=== PATIENT | female | born 1945 | race Caucasian/White ===

== ENCOUNTER 2023-02-27 00:37 | Emergency (ER) | payer OTHER, MEDICARE ==
--- OUTSIDE RECORDS SUMMARY | 2023-02-27 00:50 | XMS REPORT | Continuity of Care Document ---
:1945 Author Organization [facility] t Address [address] [place] [address] Care Team Providers Name Role Phone HARRISON, CHERYL MAGUIRE Primary Care Physician UnavailELENA Darnell Attending Clinician Unavailable Edenilson Rodgers Attending Clinician Aravind Cohen MD Attending Clinician [phone] ARAVIND COHEN Attending Clinician Unavailable Aliza Marin MD Attending Clinician Unavailable Elva Vale MD Attending Clinician [phone] Jarvis Harley MA Attending Clinician Unavailable Carmen Arreaga MD Attending Clinician Elena Raygoza MD Attending Clinician [phone] Myla Sullivan MD Attending Clinician Gabriel Saab CRNA Attending Clinician Loly Attending Clinician Unavailable GAL HENRY Attending Clinician Unavailable RAMSES DAVIS Attending Clinician Unavailable Pob, [facility] Main Attending Clinician Unavailable Ramses Davis MD Attending Clinician Doctor Unassigned, [place]oret Attending Clinician Unavailable ELENA RAYGOZA Admitting Clinician Unavailable ARAVIND COHEN Admitting Clinician Unavailable QUINTIN_OSWALDO_Rachel Admitting Clinician Unavailable Payers Payer Name Policy Type Policy Number Effective Date Expiration Date S elinor MEDICARE A B [id number] 2001 00:00:00 AAR/NOBLE [id number] 2017 HEALTHCARE 00:00:00 MEDICARE B-[place]: [id number] 2001 [employer] 00:00:00 AAR HEALTHCARE [id number] 2015 OPTIONS (MEDICARE 00:00:00 SUPPLEMENT) MEDICARE PART A \\T\\ [id number] 2001 B 00:00:00 Problems Condition Condition Condition Status Onset Resolution Last Treating Co mments Source Name Details Category Date Date Treatment Clinician Date Achalasia Achalasia Disease Active [facility] Gastropare Gastropare Disease Active 2019- [facility] Hypothyroi Hypothyroi Problem Active 2018- P rivia dism dism 4-08 Medical 00:00: 00 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 0-18 01:00:09 l s without s without 00:00: Herm trinh myelopathy myelopathy 00 (disorder) (disorder) Active 06/06/2017 Problem 02/25/2023 [facility] Lumbar Lumbar Problem Active 2016-082023-02-25 [facility] radiculopa radiculopa 0-18 01:00:09 l thy thy 00:00: Elver (disorder) (disorder) 00 Active 06/06/2017 Problem 02/25/2023 [facility] Major Major Problem Active 2016-082023-02-25 Sammy dyer depression depression 0-18 01:00:09 l , single , single 00:00: Broderick n episode episode 00 (disorder) (disorder) Active 06/06/2017 Problem 02/25/2023 [facility] Pancreatit Pancreatit Problem Active 2016-08 P bobbi is is 0-09 Medical 00:00: 00 Hypothyroi Hypothyro Problem Active 2023-02-25 Memoria dism idism 05-09 01:00:09 l (disorder) (disorder) 00:00: He rmann Active 00 05/09/2017 Problem 02/25/2023 [facility] Myoclonus Myoclonus Problem Active 2023-02-25 Memoria (finding) (finding) 05-09 01:00:09 l Active 00:00: Brinklow 05/09/2017 00 Problem 02/25/2023 [facility] Paresthesi Paresthes Problem Active 2023-02-25 Memoria a ia 05-09 01:00:09 l (finding) (finding) 00:00: Herm trinh Active 00 05/09/2017 Problem 02/25/2023 [facility] Spasm Spasm Problem Active 2023-02-25 Memor ia (finding) (finding) 05-09 01:00:09 l Active 00:00: Elver 05/09/2017 00 Problem 02/25/2023 [facility] Pancreatit Pancreatit Disease Active Anabela mack is is 04-10 [facility] 00:00: Hospita 00 l 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 [facility]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 (disorder) (disorder) Active Problem 02/25/2023 [facility] Headache Headache Problem Active 2023-02-25 Memoria (finding) (finding) 01:00:09 l Active Elver Problem 02/25/2023 [facility] Osteopenia Osteopeni Problem Active 2023-02-25 Memoria (disorder) a 01:00:09 l (disorder) Broderick n Active Problem 02/25/2023 [facility] Neu[facility] Boyd Acute Acute Problem Resolve 2022-05-28 2022-05-28 Memoria pancreatit pancreatit d 05-09 03:32:00 03:32:00 l is is 00:00: Elver (disorder) (disorder) 00 Resolved 05/09/2017 Problem 05/28/2022 [facility] Allergies, Adverse Reactions, Alerts Allergy Allergy Status Severity Reaction(s) Onset Inactive Treating Comm ents Source Name Type Date Date Clinician Gabapent Drug Active Other (See Severe [facility] in Allergy Comments) 8-24 headache [facility] 00:00: Medical 00 [place] GABAPENT Allergy Active High Other [facility] IN 8-24 [facility] 00:[facility]: Medical 00 [place] Prochlor Drug Active Other (See 2019-[address] perazine Allergy Comments) 0-02 Reaction Yue kes 00:00: to Combid Medical 00 in 1960s, Center also related to Thorazine )Neurotox ic (Severe Seizures) PROCHLOR Allergy Active High Other 2019-[address] [facility] PERAZINE 0-02 [facility] 00:00: Medical 00 [place] Baclofen Drug Active Anaphylaxis, 2017-[address] Allergy Other (See 0-17 muscle [facility] Comments) 00:00: spasms Medical 00 (seizure Center like), headache Hydromor Drug Active Other (See 2017-[address] phone Allergy Comments) 0-17 Headache Luke s 00:00: Medical 00 [place] Influenz Drug Active Hives, 2017-[address] [facility] a Virus Allergy Shortness Of 0-17 Y[facility] k[facility] Vaccines Breath, 00:00: Medical Swelling 00 [place] Iodine Propensi Active Anaphylaxis 2017-[address] [facility] [address] And ty to 0-17 [facility] Iodide adverse 00:00: Medical Containi reaction 00 [place] ng s Products Lipase-P Drug Active Other (See 2017-[address] rotease- Allergy Comments) 0-17 blisters Yue kes Amylase 00:00: Medical 00 [place] Pork/Por Drug Active Hives 2017-[address] [facility] cine Allergy 0-17 [facility] Containi 00:00: Medical ng 00 [place] Products EGG Allergy Active High Hives 2017-[address] [facility] [facility] 0-17 [facility] 00:00: Medical 00 [place] HYDROMOR Allergy Active High Other 2017-[address] [facility] PHONE 0-17 [facility] 00:00: Medical 00 [place] INFLUENZ Allergy Active High Hives 2017-[address] [facility] A VIRUS 0-17 [facility] VACCINES 00:00: Medical 00 [place] IODINE Allergy Active High Anaphylaxis 2017-[address] [facility] AND 0-17 [facility] IODIDE 00:00: Medical CONTAINI 00 Center NG PRODUCTS PENICILL Allergy Active High Anaphylaxis 2017-[address] INS 0-17 [facility] 00:00: Medical 00 Center SULFA Allergy Active High Sob 2017-[address] [facility] (SULFONA 0-17 [facility] MIDE 00:00: Medical ANTIBIOT 00 Center ICS) ADHESIVE Allergy Active High Other 2017-[address] [facility] TAPE 0-17 [facility] 00:00: Medical 00 Center LIPASE-P Allergy Active High Other 2017-[address] ROTEASE- 0-17 [facility] AMYLASE 00:00: Medical 00 [place] PORK/POR Allergy Active High Hives 2017-[address] [facility] CINE 0-17 [facility] CONTAINI 00:00: Medical NG 00 Center PRODUCTS BACLOFEN Allergy Active High Anaphylaxis 2017-[address] 0-17 [facility] 00:00: Medical 00 [place] PROCHLOR Allergy Active High Other 2017-[address] PERAZINE 0-17 [facility] EDISYLAT 00:00: Medical E 00 Center Egg Drug Active Hives, 2017-[address] Allergy Shortness Of 0-12 based [facility] Breath, 00:00: productsP Medica l Swelling 00 t able to Cente r eat hardboile d egg but not any vaccine /medicine that is egg based EGG Allergy Active High Hives 2017-[address] [facility] [facility] 0-12 [facility] 00:00: Medical 00 [place] Pregabal Drug Active Rash, Other headache [facility] in Allergy (See 02-07 [facility] Comments) 00:00: Medical 00 [place] Chlorpro Drug Active Other (See Original [facility] mazine Allergy Comments) 6 Reaction Luke s 00:00: to Combid Medical 00 in 1960s, Center also related to Thorazine )Neurotox ic (Severe Seizures) PREGABAL Allergy Active High Rash [facility] IN 6-21 [facility] 00:[facility]: Medical 00 Center CHLORPRO Allergy Active High Other [facility] MAZINE 6-21 [facility] 00:00: Medical 00 [place] SULFUR Allergy Active High Hives [facility] 9[facility]29 [facility] 00:00: Medical 00 [place] Flu Vac Propensi Active Methodi 2014 (65 ty to 04-10 st Up)-Mf59 adverse 00:00: Hospita c(Pf) reaction 00 l s to drug Hydromor Propensi Active Severe Method i phone ty to 04-[address] adverse 00:00: Hospita reaction 00 l s to drug Iodine Propensi Active Swelling Method i ty to 04-10 st adverse 00:00: Hospita reaction 00 l s to drug Morphine Propensi Active Severe Method i ty to 04-[address] adverse 00:00: Hospita reaction 00 l s to drug MORPHINE Allergy Active Low [facility] 04[facility]10 [facility] 00:[facility]: Medical 00 Center Prochlor Propensi Active Other (See Seizures, Methodi perazine ty to Comments) 04-[address] adverse 00:00: drugs Hospita reaction 00 l s to drug Penicill Propensi Active Anaphylaxis M ethodi ins ty to 04-09 st adverse 00:00: Hospita reaction 00 l s to drug Sulfa Propensi Active Swelling Method i (Sulfona ty to 04-09 st mide adverse 00:00: Hospita Antibiot reaction 00 l ics) s to drug Adhesive Propensi Active Other (See Blisters/ Methodi Tape-Chaya ty to Comments) 04-[address] icones adverse 00:00: peeling Hospita reaction 00 l s to drug Adhesive Drug Active Other (See Blisters/ [facility] Tape-Chaya Allergy Comments) 04-09 skin Luke s icones 00:00: peelingTe Medical 00 ars Skin, Center BlistersP aper tape okay ADHESIVE Allergy Active Med Other [facility] TAPE-CHAYA 04-09 [facility] ICONES 00:00: Medical 00 Center MEDICAL Allergy Active Severe Other [facility] ADHESIVE to -12 Medical substanc 00:00: e 00 OSTOMY Allergy Active High Other [facility] SUPPLIES -12 00:00: 00 Penicill Drug Active Anaphylaxis, [facility] ins Allergy Shortness Of 5-13 [facility] Breath, 00:00: Medical Swelling, 00 Center Hives, Itching PENICILL Allergy Active High Anaphylaxis [facility] INS 5-13 [facility] 00:00: Medical 00 Center PENICILL Allergy Active Severe, Anaphylaxis, [facility] INS to Severe, Hives, 5-13 Medical substanc Moderate Itching 00:00: e to severe 00 Morphine Drug Active Other (See Severe [facility] Allergy Comments) 814 Headache- William es 00:00: as per pt Medical 00 can Center tolerate IV form Morphine- has received and tolerated - only has problem with pill form of Morphine MORPHINE Allergy Active High Other [facility] 8- [facility] 00:[facility]: Medical 00 Center Morphine Allergy Active Severe, Headache, Licha via to Moderate Other 04-02 Medical substanc to severe 00:00: e 00 Sulfa Drug Active Shortness Of Swelling [facility] (Sulfona Allergy Breath, 12-24 of throat [facility] es mide Swelling, 00:00: Medical Antibiot Rash, Other [address] ics) (See Comments) SULFA Allergy Active High Sob [facility] (SULFONA 12-24 [facility] MIDE 00:00: Medical ANTIBIOT 00 Center ICS) SULFA Allergy Active Severe, Eye [facility] (SULFONA to Moderate swelling, 12-24 Med ical MIDE substanc to Other, Rash 00:00: ANTIBIOT e severe, 00 ICS) Severe Compazin Allergy Active Severe Other [facility] e to 24 Medical substanc 00:00: e 00 Egg Drug Active Swelling, [facility] Derived Allergy Hives, 12 [facility] Itching 00:00: Medical 00 Center EGG Allergy Active High Swelling [facility] DERIVED 1-12 [facility] 00:00: Medical 00 Center EGG Allergy Active Severe, Edema, [facility] DERIVED to Moderate Hives, -12 Medical substanc to Itching 00:00: e severe, 00 Moderate to severe penicill penicill Active Memori a ins ins l [place] sulfa sulfa Active Memoria drugs drugs l [place] baclofen baclofen Active Moderate Yann meghna l Elver Creon Creon Active Mild Memoria l [place] Lyrica Lyrica Active Mild Memoria l [place] Adhesive Adhesive Active Memori a l [place] Thorazin Thorazin Active Memori a e e l Elver Compazin Compazin Active Memori a e e l [place] Food Food Active Memoria Eggs Eggs l [place] Duloxeti Drug Active Other (See Cymbalta [facility] ne Allergy Comments) headache Luke s & rash [facility] DULOXETI Allergy Active High Other [facility] Creon Allergy Active Moderate Chest pain Licha via to to severe Medical substanc e NO KNOWN Drug Active Univers ALLERGIE Class ity of S [facility] Family History Family Member Diagnosis Comments Start Date Stop Date Source Natural brother Cancer [facility] Natural father Hypertension [facility] Maternal aunt [facility] Natural mother Cancer [facility] Natural mother [facility] Social History Social Habit Start Date Stop Date Quantity Comments Source Gender identity 2021-09-25 Identifies as Method ist 13:49:54 female gender Hospital (finding) Sexual orientation 2021-09-25 Heterosexual Meth odist 13:49:54 (finding) Hospital Exposure to 2022-10-29 2022-11-[address] [facility] SARS-CoV-2 (event) 00:00:00 06:31:[facility] Alcohol intake 2022-11-08 2022-11-08 Current non-drinker [facility] 00:00:00 00:00:00 of alcohol Medical Center (finding) History of Social 2022-05-23 2022-05-[address] function 00:00:00 00:00:00 Hospital Tobacco use and 2018-06-05 2018-06-[address] [facility] exposure 00:00:00 00:00:00 non-user Medical Center Sex Assigned At [address] Yue kes 00:00:00 00:00:00 Medical Center Smoking Status Start Date Stop Date Source Unknown if ever smoked [facility] Tobacco smoking status [facility] Medications Ordered Filled Start Stop Current Ordering Indication Dosage Frequency Signature Comments Components Source Medication Medication Date Date Medication? Clinician (SIG) Name Name diazepam 5 Yes 5 mg = 1 Mem oria mg oral -08 tab, PO, l tablet 23:00: TID, # 90 Broderick n 00 tab, 3 Refill(s), Pharmacy: [facility][id number], 152.4, cm, 11/23/22 14:55:00 CDT, Height, 54.545, kg, 11/23/22 14:55:00 CDT, Weight trypsin/bal Yes Apply [facility] oren 3-22 topically. [facility] alyssa/castor 11:21: Medica l oil (OPTASE 10 Center TOP) loratadine Yes 10mg QD Take 1 [facility] (CLARITIN) - tablet (10 [facility] 10 mg 11:21: mg total) Medical tablet 10 by mouth Center in the morning. cholecalcif 2022-0 Yes 1000U QD Take 1 [facility] yeny 11-08 tablet [facility] (VITAMIN 11:21: (1,000 Medical D3) 25 mcg 10 Units Center (1,000 total) by unit) mouth in tablet the morning. multivitami 2022-0 Yes 1{capsu QD Take [address] n capsule 11-08 le} capsule by Luke s 11:21: mouth in Medical 10 the Center morning. calcium 2022-0 Yes 600mg Take 600 [facility] carbonate 3- mg by [facility] 600mg 11:21: mouth 2 Medical (Caltrate) 10 (two) Center 600 mg times calcium daily with (1,500 mg) breakfast Tab and dinner. cyanocobala 0 Yes 250ug QD Take 1 [facility] min, 11-08 tablet [facility] vitamin 11:21: (250 mcg Medica l B-12, 250 10 total) by Cente r MCG tablet mouth in the morning. FD and C 0 Yes by [facility] no.40 red, 11-08 Miscellane [facility] es bulk, Powd 11:21: ous route. M edical 10 [place] moxifloxaci Yes 1[drp] Q.[id number] 1 drop in [facility] (VIGAMOX) 11-08 [id number] the Yue kes 0.5 % 11:21: 3D morning Medical ophthalmic 10 and [address] solution at noon and 1 drop in the evening. bromfenac 0 Yes Apply to [facility] (Prolensa) 11-08 eye(s). [facility] 0.07 % Drop 11:21: Medica l 10 [place] diflupredna 0 Yes Apply to I te 11-08 eye(s). [facility] (DurezoL) 11:21: Medical 0.05 % Drop 10 Center trypsin/bal 0 Yes Apply [facility] S t oren 11-08 topically. [facility] alyssa/castor 11:21: Medica l oil (OPTASE 10 Center TOP) loratadine 2022-0 Yes 10mg QD Take 1 [facility] (CLARITIN) -22 tablet (10 [facility] 10 mg 11:21: mg total) Medical tablet 10 by mouth Center in the morning. cholecalcif 2022-0 Yes 1000U QD Take [address] [facility] [address] yeny 11-08 tablet [facility] (VITAMIN 11:21: (1,000 Medical D3) 25 mcg 10 Units Center (1,000 total) by unit) mouth in tablet the morning. multivitami 2022-0 Yes 1{capsu QD Take [address] n capsule 11-08 le} capsule by Luke s 11:21: mouth in Medical 10 the Center morning. calcium 2022-0 Yes 600mg Take 600 [facility] carbonate 3- mg by [facility] 600mg 11:21: mouth 2 Medical (Caltrate) 10 (two) Center 600 mg times calcium daily with (1,500 mg) breakfast Tab and dinner. cyanocobala 0 Yes 250ug QD Take [address] [facility] [address] min, 11-08 tablet [facility] vitamin 11:21: (250 mcg Medica l B-12, 250 10 total) by Cente r MCG tablet mouth in the morning. FD and C 2022-0 Yes by [facility] no.40 red, 11-08 Miscellane [facility] es bulk, Powd 11:21: ous route. M edical 10 [place] moxifloxaci 0 Yes 1[drp] Q.[id number] 1 drop in [facility] n (VIGAMOX) 11-08 [id number] the Yue kes 0.5 % 11:21: 3D morning Medical ophthalmic 10 and [address] solution at noon and 1 drop in the evening. bromfenac Yes Apply to [facility] St (Prolensa) 11-08 eye(s). [facility] 0.07 % Drop 11:21: Medica l 10 [place] diflupredna 0 Yes Apply to I St te 11-08 eye(s). [facility] (DurezoL) 11:21: Medical 0.05 % Drop 10 Center trypsin/bal 0 Yes Apply [facility] oren 11-08 topically. [facility] alyssa/castor 11:21: Medica l oil (OPTASE 10 Center TOP) loratadine 2022-0 Yes 10mg QD Take 1 [facility] (CLARITIN) 3-22 tablet (10 [facility] 10 mg 11:21: mg total) Medical tablet 10 by mouth Center in the morning. cholecalcif 2022-0 Yes 1000U QD Take [address] [facility] [address] yeny 11-08 tablet [facility] (VITAMIN 11:21: (1,000 Medical D3) 25 mcg 10 Units Center (1,000 total) by unit) mouth in tablet the morning. multivitami 2022-0 Yes 1{capsu QD Take [address] n capsule 11-08 le} capsule by Luke s 11:21: mouth in Medical 10 the Center morning. calcium 2022-0 Yes 600mg Take 600 [facility] carbonate - mg by [facility] 600mg 11:21: mouth 2 Medical (Caltrate) 10 (two) Center 600 mg times calcium daily with (1,500 mg) breakfast Tab and dinner. cyanocobala 2022-0 Yes 250ug QD Take [address] min, 11-08 tablet [facility] vitamin 11:21: (250 mcg Medica l B-12, 250 10 total) by Cente r MCG tablet mouth in the morning. FD and C 2022-0 Yes by [facility] no.40 red, 11-08 Miscellane [facility] es bulk, Powd 11:21: ous route. M edical 10 [place] moxifloxaci 0 Yes 1[drp] Q.[id number] 1 drop in [facility] (VIGAMOX) 11-08 [id number] the kes 0.5 % 11:21: 3D morning Medical ophthalmic 10 and [address] solution at noon and 1 drop in the evening. bromfenac Yes Apply to [facility] St (Prolensa) 11-08 eye(s). [facility] 0.07 % Drop 11:21: Medica l 10 Center diflupredna 0 Yes Apply to I St te 11-08 eye(s). [facility] (DurezoL) 11:21: Medical 0.05 % Drop 10 Center trypsin/bal 0 Yes Apply [facility] t oren 11-08 topically. [facility] alyssa/castor 11:21: Medica l oil (OPTASE 10 Center TOP) loratadine 2022-0 Yes 10mg QD Take 1 [facility] (CLARITIN) 11-08 tablet (10 [facility] 10 mg 11:21: mg total) Medical tablet 10 by mouth Center in the morning. cholecalcif 0 Yes 1000U QD Take [address] [facility] [address] yeny 11-08 tablet [facility] (VITAMIN 11:21: (1,000 Medical D3) 25 mcg 10 Units Center (1,000 total) by unit) mouth in tablet the morning. multivitami 2022-0 Yes 1{capsu QD Take [address] n capsule 11-08 le} capsule by Luke s 11:21: mouth in Medical 10 the Center morning. calcium 2022-0 Yes 600mg Take 600 [facility] carbonate 3-22 mg by [facility] 600mg 11:21: mouth 2 Medical (Caltrate) 10 (two) Center 600 mg times calcium daily with (1,500 mg) breakfast Tab and dinner. cyanocobala 0 Yes 250ug QD Take [address] [facility] [address] min, 11-08 tablet [facility] vitamin 11:21: (250 mcg Medica l B-12, 250 10 total) by Cente r MCG tablet mouth in the morning. FD and C 0 Yes by [facility] no.40 red, 11-08 Miscellane [facility] bulk, Powd 11:21: ous route. M edical 10 [place] moxifloxaci Yes 1[drp] Q.[id number] 1 drop in [facility] (VIGAMOX) 11-08 [id number] the kes 0.5 % 11:21: 3D morning Medical ophthalmic 10 and [address] solution at noon and 1 drop in the evening. bromfenac Yes Apply to [facility] (Prolensa) 11-08 eye(s). [facility] 0.07 % Drop 11:21: Medica l 10 [place] diflupredna 0 Yes Apply to I [facility] te 11-08 eye(s). [facility] (DurezoL) 11:21: Medical 0.05 % Drop 10 [place] trypsin/bal 0 Yes Apply [facility] S t oren 11-08 topically. [facility] alyssa/castor 11:21: Medica l oil (OPTASE 10 Center TOP) loratadine 0 Yes 10mg QD Take 1 [facility] (CLARITIN) 11-08 tablet (10 [facility] 10 mg 11:21: mg total) Medical tablet 10 by mouth Center in the morning. cholecalcif 2022-0 Yes 1000U QD Take 1 [facility] yeny - tablet [facility] (VITAMIN 11:21: (1,000 Medical D3) 25 mcg 10 Units Center (1,000 total) by unit) mouth in tablet the morning. multivitami 2022-0 Yes 1{capsu QD Take [address] n capsule 11-08 le} capsule by Luke s 11:21: mouth in Medical 10 the Center morning. calcium 2022-0 Yes 600mg Take 600 [facility] carbonate 3-22 mg by [facility] 600mg 11:21: mouth 2 Medical (Caltrate) 10 (two) Center 600 mg times calcium daily with (1,500 mg) breakfast Tab and dinner. cyanocobala 0 Yes 250ug QD Take 1 [facility] min, 11-08 tablet [facility] vitamin 11:21: (250 mcg Medica l B-12, 250 10 total) by Cente r MCG tablet mouth in the morning. FD and C 2022-0 Yes by [facility] no.40 red, 11-08 Miscellane [facility] bulk, Powd 11:21: ous route. M edical 10 [place] moxifloxaci 0 Yes 1[drp] Q.[id number] 1 drop in [facility] (VIGAMOX) 11-08 [id number] the kes 0.5 % 11:21: 3D morning Medical ophthalmic 10 and [address] solution at noon and 1 drop in the evening. bromfenac Yes Apply to [facility] (Prolensa) 11-08 eye(s). [facility] 0.07 % Drop 11:21: Medica l 10 [place] diflupredna 0 Yes Apply to I [facility] te 11-08 eye(s). [facility] (DurezoL) 11:21: Medical 0.05 % Drop 10 [place] trypsin/bal 0 Yes Apply [facility] S t oren 11-08 topically. [facility] alyssa/castor 11:21: Medica l oil (OPTASE 10 Center TOP) loratadine 2022-0 Yes 10mg QD Take 1 [facility] (CLARITIN) - tablet (10 [facility] 10 mg 11:21: mg total) Medical tablet 10 by mouth Center in the morning. cholecalcif 2022-0 Yes 1000U QD Take [address] [facility] [address] yeny - tablet [facility] (VITAMIN 11:21: (1,000 Medical D3) 25 mcg 10 Units Center (1,000 total) by unit) mouth in tablet the morning. multivitami 2022-0 Yes 1{capsu QD Take [address] n capsule 11-08 le} capsule by Luke s 11:21: mouth in Medical 10 the Center morning. calcium 2022-0 Yes 600mg Take 600 [facility] carbonate 3-22 mg by [facility] 600mg 11:21: mouth 2 Medical (Caltrate) 10 (two) Center 600 mg times calcium daily with (1,500 mg) breakfast Tab and dinner. cyanocobala 2022-0 Yes 250ug QD Take [address] min, 11-08 tablet [facility] vitamin 11:21: (250 mcg Medica l B-12, 250 10 total) by Cente r MCG tablet mouth in the morning. FD and C 2022-0 Yes by [facility] no.40 red, 3 Miscellane [facility] es bulk, Powd 11:21: ous route. M edical 10 [place] moxifloxaci 2022-0 Yes 1[drp] Q.[id number] 1 drop in [facility] (VIGAMOX) 11-08 [id number] the kes 0.5 % 11:21: 3D morning Medical ophthalmic 10 and [address] solution at noon and 1 drop in the evening. bromfenac 0 Yes Apply to [facility] (Prolensa) 3-22 eye(s). [facility] 0.07 % Drop 11:21: Medica l 10 Center diflupredna 0 Yes Apply to I [facility] te -22 eye(s). [facility] (DurezoL) 11:21: Medical 0.05 % Drop 10 Center HYDROcodone 2022-0 Yes 1{tbl} Q.25D Take [address] -acetaminop -22 tablet by William greene (NORCO 11:21: mouth in Med ical 7.5-325) 09 the Center 7.5-325 mg morning per tablet and 1 tablet at noon and 1 tablet in the evening and 1 tablet before bedtime. diazePAM 2023-0 Yes 5mg Q.[id number] Take [address] (VALIUM) 5 -22 [id number] tablet (5 [facility] MG tablet 11:21: 3D mg total) Med ical 09 by mouth Center in the morning and 1 tablet (5 mg total) at noon and 1 tablet (5 mg total) in the evening. 0500, 1100, 1700, 2300. levothyroxi 2023-0 Yes 88ug Take [address] [facility] ne 3-22 tablet (88 [facility] (SYNTHROID, 11:21: mcg total) Medical LEVOTHROID) 09 by mouth Cent er 88 MCG Every tablet morning on an empty stomach 0730 . fluticasone 2022-0 Yes 1{spray [address] [facility] (FLONASE) 11-08 } Nasal [facility] 50 11:21: route Medical mcg/actuati 09 daily as Cent er on nasal needed for spray Rhinitis. acetaminoph 2023-0 Yes 500mg Take [address] [facility] [facility] en -22 tablet [facility] (TYLENOL) 11:21: (500 mg Medic al 500 MG 09 total) by Center tablet mouth every 6 (six) hours as needed for Pain. omeprazole 2022-0 Yes 20mg Take [facility] -[facility] 20 [facility] 11:21: (20 mg Medical capsule 09 total) by Center mouth as needed. estradioL 3-[address] [facility] (ESTRACE) 3-22 vaginally [facility] 0.01 % (0.1 11:21: as needed. Medical mg/gram) 09 Center vaginal cream escitalopra 2022-0 Yes 30mg QD Take [address] [facility] oxalate 3-22 tablets [facility] (LEXAPRO) 11:21: (30 mg Medica l 10 MG 09 total) by Center tablet mouth in the morning. mirtazapine 3-0 Yes 7.5mg Take [address] [facility] (REMERON) 3-22 tablet [facility] 7.5 MG 11:21: (7.5 mg Medical tablet 09 total) by Center mouth as needed. prednisoLON 3-0 Yes 1[drp] Q.25D Place [address] [facility] E acetate 3-22 drop into [facility] (PRED 11:21: the left Medical FORTE) 1 % 09 eye in [facility] ophthalmic morning suspension and 1 drop at noon and 1 drop in the evening and 1 drop before bedtime. lipase-prot 2022-0 Yes 5000U{l Take [address] ease-amylas 3-22 ipase} capsule [facility] (ZENPEP) 11:21: (5,000 Medic al 5,000-17,00 09 units of Cent er 0- 24,000 lipase unit CpDR total) by mouth in the morning and 1 capsule (5,000 units of lipase total) at noon and 1 capsule (5,000 units of lipase total) in the evening. Take with meals. HYDROcodone 2022-0 Yes 1{tbl} Q.25D Take [address] -acetaminop 3-22 tablet by [facility] hen (NORCO 11:21: mouth in Med ical 7.5-325) 09 the Center 7.5-325 mg morning per tablet and 1 tablet at noon and 1 tablet in the evening and 1 tablet before bedtime. diazePAM 2022-0 Yes 5mg Q.[id number] Take [address] (VALIUM) 5 3-22 [id number] tablet (5 [facility] MG tablet 11:21: 3D mg total) Med ical 09 by mouth Center in the morning and 1 tablet (5 mg total) at noon and 1 tablet (5 mg total) in the evening. 0500, 1100, 1700, 2300. levothyroxi 2022-0 Yes 88ug Take [address] [facility] ne 3-22 tablet (88 [facility] (SYNTHROID, 11:21: mcg total) Medical LEVOTHROID) 09 by mouth Cent er 88 MCG Every tablet morning on an empty stomach 0730 . fluticasone 2022-0 Yes 1{spray [address] [facility] (FLONASE) 3-22 } Nasal [facility] 50 11:21: route Medical mcg/actuati 09 daily as Cent er on nasal needed for spray Rhinitis. acetaminoph 2022-0 Yes 500mg Take [address] [facility] en 3-22 tablet [facility] (TYLENOL) 11:21: (500 mg Medic al 500 MG 09 total) by Center tablet mouth every 6 (six) hours as needed for Pain. omeprazole 2022-0 Yes 20mg Take [facility]-22 [facility] 20 MG 11:21: (20 mg Medical capsule 09 total) by Center mouth as needed. estradioL 2022-[address] [facility] (ESTRACE) 3-22 vaginally [facility] 0.01 % (0.1 11:21: as needed. Medical mg/gram) 09 Center vaginal cream escitalopra 2022-0 Yes 30mg QD Take [address] [facility] oxalate 3-22 tablets [facility] (LEXAPRO) 11:21: (30 mg Medica l 10 MG 09 total) by Center tablet mouth in the morning. mirtazapine 2022-0 Yes 7.5mg Take [address] [facility] (REMERON) 3-22 tablet [facility] 7.5 MG 11:21: (7.5 mg Medical tablet 09 total) by Center mouth as needed. prednisoLON 2022-0 Yes 1[drp] Q.25D Place [address] [facility] E acetate 3-22 drop into [facility] (PRED 11:21: the left Medical FORTE) 1 % 09 eye in the [facility] ter ophthalmic morning suspension and 1 drop at noon and 1 drop in the evening and 1 drop before bedtime. lipase-prot 0 Yes 5000U{l Take [address] ease-amylas 3-22 ipase} capsule [facility] (ZENPEP) 11:21: (5,000 Medic al 5,000-17,00 09 units of Cent er 0- 24,000 lipase unit CpDR total) by mouth in the morning and 1 capsule (5,000 units of lipase total) at noon and 1 capsule (5,000 units of lipase total) in the evening. Take with meals. HYDROcodone 2022-0 Yes 1{tbl} Q.25D Take [address] -acetaminop 3-22 tablet by [facility] hen (NORCO 11:21: mouth in Med ical 7.5-325) 09 the Center 7.5-325 mg morning per tablet and 1 tablet at noon and 1 tablet in the evening and 1 tablet before bedtime. diazePAM 2022-0 Yes 5mg Q.[id number] Take [address] (VALIUM) 5 3-22 [id number] tablet (5 [facility] MG tablet 11:21: 3D mg total) Med ical 09 by mouth Center in the morning and 1 tablet (5 mg total) at noon and 1 tablet (5 mg total) in the evening. 0500, 1100, 1700, 2300. levothyroxi 2022-0 Yes 88ug Take [address] [facility] ne 3-22 tablet (88 [facility] (SYNTHROID, 11:21: mcg total) Medical LEVOTHROID) 09 by mouth Cent er 88 MCG Every tablet morning on an empty stomach 0730 . fluticasone 2022-0 Yes 1{spray [address] [facility] (FLONASE) 3- } Nasal [facility] 50 11:21: route Medical mcg/actuati 09 daily as Cent er on nasal needed for spray Rhinitis. acetaminoph 2022-0 Yes 500mg Take [address] [facility] en 3-22 tablet [facility] (TYLENOL) 11:21: (500 mg Medic al 500 MG 09 total) by Center tablet mouth every 6 (six) hours as needed for Pain. omeprazole 2022-0 Yes 20mg Take [facility]PRIL[facility]SEC[facility]-22 [facility] 20 MG 11:21: (20 mg Medical capsule 09 total) by Center mouth as needed. estradioL 2022-[address] [facility] (ESTRACE) 3-22 vaginally [facility] 0.01 % (0.1 11:21: as needed. Medical mg/gram) 09 Center vaginal cream escitalopra 2022-0 Yes 30mg QD Take [address] [facility] oxalate 3-22 tablets [facility] (LEXAPRO) 11:21: (30 mg Medica l 10 MG 09 total) by Center tablet mouth in the morning. mirtazapine 2022-0 Yes 7.5mg Take [address] [facility] (REMERON) 3-22 tablet [facility] 7.5 MG 11:21: (7.5 mg Medical tablet 09 total) by Center mouth as needed. prednisoLON 2022-0 Yes 1[drp] Q.25D Place [address] [facility] acetate 3-22 drop into [facility] (PRED 11:21: the left Medical FORTE) 1 % [address] ophthalmic morning suspension and 1 drop at noon and 1 drop in the evening and 1 drop before bedtime. lipase-prot 2022-0 Yes 5000U{l Take [address] ease-amylas 3-22 ipase} capsule [facility] (ZENPEP) 11:21: (5,000 Medic al 5,000-17,00 09 units of Cent er 0- 24,000 lipase unit CpDR total) by mouth in the morning and 1 capsule (5,000 units of lipase total) at noon and 1 capsule (5,000 units of lipase total) in the evening. Take with meals. HYDROcodone 2022-0 Yes 1{tbl} Q.25D Take [address] -acetaminop 3-22 tablet by [facility] greene (NORCO 11:21: mouth in Med ical 7.5-325) 09 the Center 7.5-325 mg morning per tablet and 1 tablet at noon and 1 tablet in the evening and 1 tablet before bedtime. diazePAM 2023-0 Yes 5mg Q.[id number] Take [address] (VALIUM) 5 -22 [id number] tablet (5 [facility] MG tablet 11:21: 3D mg total) Med ical 09 by mouth Center in the morning and 1 tablet (5 mg total) at noon and 1 tablet (5 mg total) in the evening. 0500, 1100, 1700, 2300. levothyroxi 2022-0 Yes 88ug Take [address] [facility] ne 3-22 tablet (88 [facility] (SYNTHROID, 11:21: mcg total) Medical LEVOTHROID) 09 by mouth Cent er 88 MCG Every tablet morning on an empty stomach 0730 . fluticasone 2022-0 Yes 1{spray [address] [facility] (FLONASE) 11-08 } Nasal [facility] 50 11:21: route Medical mcg/actuati 09 daily as Cent er on nasal needed for spray Rhinitis. acetaminoph 202-0 Yes 500mg Take [address] [facility] en 3-22 tablet [facility] (TYLENOL) 11:21: (500 mg Medic al 500 MG 09 total) by Center tablet mouth every 6 (six) hours as needed for Pain. omeprazole 3-0 Yes 20mg Take [facility]PRILOSEC[facility] 3-22 capsule [facility] 20 MG 11:21: (20 mg Medical capsule 09 total) by Center mouth as needed. estradioL 2023-[address] [facility] (ESTRACE) 3-22 vaginally [facility] 0.01 % (0.1 11:21: as needed. Medical mg/gram) 09 Center vaginal cream escitalopra 2022-0 Yes 30mg QD Take [address] [facility] oxalate 3-22 tablets [facility] (LEXAPRO) 11:21: (30 mg Medica l 10 MG 09 total) by Center tablet mouth in the morning. mirtazapine 0 Yes 7.5mg Take [address] [facility] (REMERON) 3-22 tablet [facility] 7.5 MG 11:21: (7.5 mg Medical tablet 09 total) by Center mouth as needed. prednisoLON 0 Yes 1[drp] Q.25D Place [address] [facility] acetate 3-22 drop into [facility] (PRED 11:21: the left Medical FORTE) 1 % [address] eye [address] ophthalmic morning suspension and 1 drop at noon and 1 drop in the evening and 1 drop before bedtime. lipase-prot Yes 5000U{l Take [address] ease-amylas 3-22 ipase} capsule [facility] (ZENPEP) 11:21: (5,000 Medic al 5,000-17,00 09 units of Cent er 0- 24,000 lipase unit CpDR total) by mouth in the morning and 1 capsule (5,000 units of lipase total) at noon and 1 capsule (5,000 units of lipase total) in the evening. Take with meals. HYDROcodone 0 Yes 1{tbl} Q.25D Take [address] -acetaminop 3-22 tablet by [facility] (NORCO 11:21: mouth in Med ical 7.5-325) 09 the Center 7.5-325 mg morning per tablet and 1 tablet at noon and 1 tablet in the evening and 1 tablet before bedtime. diazePAM 0 Yes 5mg Q.[id number] Take [address] (VALIUM) 5 3-22 [id number] tablet (5 [facility] MG tablet 11:21: 3D mg total) Med ical 09 by mouth Center in the morning and 1 tablet (5 mg total) at noon and 1 tablet (5 mg total) in the evening. 0500, 1100, 1700, 2300. levothyroxi 2022-0 Yes 88ug Take [address] [facility] ne 3-22 tablet (88 [facility] (SYNTHROID, 11:21: mcg total) Medical LEVOTHROID) 09 by mouth Cent er 88 MCG Every tablet morning on an empty stomach 0730 . fluticasone 0 Yes 1{spray [address] [facility] (FLONASE) 3-22 } Nasal [facility] 50 11:21: route Medical mcg/actuati 09 daily as Cent er on nasal needed for spray Rhinitis. acetaminoph 0 Yes 500mg Take [address] [facility] en 3-22 tablet [facility] (TYLENOL) 11:21: (500 mg Medic al 500 MG 09 total) by Center tablet mouth every 6 (six) hours as needed for Pain. omeprazole 0 Yes 20mg Take [facility]PRILOSEC[facility] 3-22 [facility] 20 MG 11:21: (20 mg Medical capsule 09 total) by Center mouth as needed. estradioL [address] [facility] (ESTRACE) 3-22 vaginally [facility] 0.01 % (0.1 11:21: as needed. Medical mg/gram) 09 Center vaginal cream escitalopra 0 Yes 30mg QD Take [address] [facility] oxalate 3-22 tablets [facility] (LEXAPRO) 11:21: (30 mg Medica l 10 MG 09 total) by Center tablet mouth in the morning. mirtazapine 0 Yes 7.5mg Take [address] [facility] (REMERON) 3-22 tablet [facility] 7.5 MG 11:21: (7.5 mg Medical tablet 09 total) by Center mouth as needed. prednisoLON 0 Yes 1[drp] Q.25D Place [address] [facility] acetate 3-22 drop into [facility] (PRED 11:21: the left Medical FORTE) 1 % [address] eye in [address] [facility] ter ophthalmic morning suspension and 1 drop at noon and 1 drop in the evening and 1 drop before bedtime. lipase-prot Yes 5000U{l Take [address] ease-amylas 3-22 ipase} capsule [facility] (ZENPEP) 11:21: (5,000 Medic al 5,000-17,00 09 units of Cent er 0- 24,000 lipase unit CpDR total) by mouth in the morning and 1 capsule (5,000 units of lipase total) at noon and 1 capsule (5,000 units of lipase total) in the evening. Take with meals. HYDROcodone 0 Yes 1{tbl} Q.25D Take [address] -acetaminop 3-22 tablet by William olson jc (NORCO 11:21: mouth in Med ical 7.5-325) 09 the Center 7.5-325 mg morning per tablet and 1 tablet at noon and 1 tablet in the evening and 1 tablet before bedtime. diazePAM 2023-0 Yes 5mg Q.[id number] Take [address] (VALIUM) 5 3-22 [id number] tablet (5 [facility] MG tablet 11:21: 3D mg total) Med ical 09 by mouth Center in the morning and 1 tablet (5 mg total) at noon and 1 tablet (5 mg total) in the evening. 0500, 1100, 1700, 2300. levothyroxi 2023-0 Yes 88ug Take [address] [facility] ne -22 tablet (88 [facility] (SYNTHROID, 11:21: mcg total) Medical LEVOTHROID) 09 by mouth Cent er 88 MCG Every tablet morning on an empty stomach 0730 . fluticasone 2022-0 Yes 1{spray [address] [facility] (FLONASE) 11-08 } Nasal [facility] 50 11:21: route Medical mcg/actuati 09 daily as Cent er on nasal needed for spray Rhinitis. acetaminoph 2022-0 Yes 500mg Take [address] [facility] en -22 tablet [facility] (TYLENOL) 11:21: (500 mg Medic al 500 MG 09 total) by Center tablet mouth every 6 (six) hours as needed for Pain. omeprazole 3-0 Yes 20mg Take [facility] (PRILOSEC[facility] -22 capsule [facility] 20 MG 11:21: (20 mg Medical capsule 09 total) by Center mouth as needed. estradioL 2023-[address] [facility] (ESTRACE) 3-22 vaginally [facility] 0.01 % (0.1 11:21: as needed. Medical mg/gram) 09 Center vaginal cream escitalopra 2023-0 Yes 30mg QD Take [address] [facility] oxalate 3-22 tablets [facility] (LEXAPRO) 11:21: (30 mg Medica l 10 MG 09 total) by Center tablet mouth in the morning. mirtazapine 2023-0 Yes 7.5mg Take [address] [facility] (REMERON) 3-22 tablet [facility] 7.5 MG 11:21: (7.5 mg Medical tablet 09 total) by Center mouth as needed. prednisoLON 0 Yes 1[drp] Q.25D Place [address] [facility] acetate 3-22 drop into [facility] (PRED 11:21: the left Medical FORTE) 1 % 09 eye in [address] [facility] ter ophthalmic morning suspension and 1 drop at noon and 1 drop in the evening and 1 drop before bedtime. lipase-prot Yes 5000U{l Take [address] ease-amylas 3-22 ipase} capsule [facility] (ZENPEP) 11:21: (5,000 Medic al 5,000-17,00 09 units of Cent er 0- 24,000 lipase unit CpDR total) by mouth in the morning and 1 capsule (5,000 units of lipase total) at noon and 1 capsule (5,000 units of lipase total) in the evening. Take with meals. bromfenac Yes Apply to [facility] (Prolensa) 3-22 eye(s). [facility] 0.07 % Drop 06:56: Medica l 30 Center diflupredna Yes Apply to I [facility] te 3-22 eye(s). [facility] (DurezoL) 06:56: Medical 0.05 % Drop 30 Center moxifloxaci 0 Yes 1[drp] Q.[id number] [address] [facility] (VIGAMOX) - [id number] the [facility] 0.5 % 06:55: 3D morning Medical ophthalmic 28 and [address] solution at noon and 1 drop in the evening. HYDROcodone 0 Yes 1{tbl} Q.25D Take [address] -acetaminop 3-22 tablet by William whitney hen (NORCO 06:52: mouth in Med ical 7.5-325) 26 the Center 7.5-325 mg morning per tablet and 1 tablet at noon and 1 tablet in the evening and 1 tablet before bedtime. diazePAM 2022-0 Yes 5mg Q.[id number] Take [address] (VALIUM) 5 3-22 [id number] tablet (5 [facility] MG tablet 06:52: 3D mg total) Med ical 26 by mouth Center in the morning and 1 tablet (5 mg total) at noon and 1 tablet (5 mg total) in the evening. 0500, 1100, 1700, 2300. levothyroxi 2023-0 Yes 88ug Take [address] [facility] ne 3-22 tablet (88 [facility] (SYNTHROID, 06:52: mcg total) Medical LEVOTHROID) 26 by mouth Cent er 88 MCG Every tablet morning on an empty stomach 0730 . fluticasone 3-0 Yes 1{spray [address] [facility] (FLONASE) 3-22 } Nasal [facility] 50 06:52: route Medical mcg/actuati 26 daily as Cent er on nasal needed for spray Rhinitis. acetaminoph 2023-0 Yes 500mg Take [address] [facility] en 3-22 tablet [facility] (TYLENOL) 06:52: (500 mg Medic al 500 MG 26 total) by Center tablet mouth every 6 (six) hours as needed for Pain. omeprazole 3-0 Yes 20mg Take [facility] (PRILOSEC[facility] 3-22 capsule [facility] 20 MG 06:52: (20 mg Medical capsule 26 total) by Center mouth as needed. estradioL 3-[address] [facility] (ESTRACE) 3-22 vaginally [facility] 0.01 % (0.1 06:52: as needed. Medical mg/gram) 26 Center vaginal cream escitalopra 2022-0 Yes 30mg QD Take [address] [facility] oxalate 3-22 tablets [facility] (LEXAPRO) 06:52: (30 mg Medica l 10 MG 26 total) by Center tablet mouth in the morning. mirtazapine 3-0 Yes 7.5mg Take [address] [facility] (REMERON) 3-22 tablet [facility] 7.5 MG 06:52: (7.5 mg Medical tablet 26 total) by Center mouth as needed. prednisoLON 2023-0 Yes 1[drp] Q.25D Place [address] [facility] acetate 3-22 drop into [facility] (PRED 06:52: the left Medical FORTE) 1 % 26 eye in the [facility] ter ophthalmic morning suspension and 1 drop at noon and 1 drop in the evening and 1 drop before bedtime. lipase-prot 2023-0 Yes 5000U{l Take [address] ease-amylas 3-22 ipase} capsule [facility] (ZENPEP) 06:52: (5,000 Medic al 5,000-17,00 26 units of Cent er 0- 24,000 lipase unit CpDR total) by mouth in the morning and 1 capsule (5,000 units of lipase total) at noon and 1 capsule (5,000 units of lipase total) in the evening. Take with meals. trypsin/bal 2022-0 Yes Apply [facility]-22 topically. [facility] alyssa/castor 06:52: Medica l oil (OPTASE 26 Center TOP) loratadine 2022-0 Yes 10mg QD Take 1 [facility] (CLARITIN) 3-22 tablet (10 [facility] 10 mg 06:52: mg total) Medical tablet 26 by mouth Center in the morning. cholecalcif 2022-0 Yes 1000U QD Take [address] [facility] yeny 3-22 tablet [facility] (VITAMIN 06:52: (1,000 Medical D3) 25 mcg 26 Units Center (1,000 total) by unit) mouth in tablet the morning. multivitami 2022-0 Yes 1{capsu QD Take [address] n capsule 3-22 le} capsule by [facility] 06:52: mouth in Medical 26 the Center morning. calcium 2022-0 Yes 600mg Take [facility] carbonate 3-22 mg by [facility] 600mg 06:52: mouth 2 Medical (Caltrate) 26 (two) Center 600 mg times calcium daily with (1,500 mg) breakfast Tab and dinner. cyanocobala 2022-0 Yes 250ug QD Take [address] [facility] min, 3-22 tablet [facility] vitamin 06:52: (250 mcg Medica l B-12, 250 26 total) by Cente r MCG tablet mouth in the morning. FD and C 2022-[address] [facility] no.40 red, 3-22 Miscellane [facility] es bulk, Powd 06:52: ous route. M edical 26 Center nortriptyli 2022-0 2022- No 35mg QD Take [address] [facility] ne 3-14 -14 by mouth [facility] (PAMELOR) 14:04: 00:00 nightly. Med ical 25 MG 04 :00 Center capsule nortriptyli 2022-0 3- No 35mg QD Take [address] [facility] ne 3-14 -14 by mouth [facility] (PAMELOR) 14:04: 00:00 nightly. Med ical 25 MG 04 :00 Center capsule nortriptyli 2023-0 2023- No 35mg QD Take [address] [facility] ne 3-14 03-14 by mouth [facility] (PAMELOR) 14:04: 00:00 nightly. Med ical 25 MG 04 :00 Center capsule nortriptyli 2023-0 2023- No 35mg QD Take [address] [facility] ne 3-14 03-14 by mouth [facility] (PAMELOR) 14:04: 00:00 nightly. Med ical 25 MG 04 :00 Center capsule nortriptyli 2023-0 2023- No 35mg QD Take [address] [facility] ne 3-14 03-14 by mouth [facility] (PAMELOR) 14:04: 00:00 nightly. Med ical 25 MG 04 :00 Center capsule nortriptyli 3-0 2023- No 35mg QD Take [address] [facility] ne 3-14 03-14 by mouth [facility] (PAMELOR) 14:04: 00:00 nightly. Med ical 25 MG 04 :00 Center capsule nortriptyli 3-0 2023- No 35mg QD Take [address] [facility] ne 3-14 03-14 by mouth [facility] (PAMELOR) 14:04: 00:00 nightly. Med ical 25 MG 04 :00 Center capsule metoprolol 2023-0 2023- No 25mg QD Take [address] [facility] succinate 3-14 03-14 by mouth [facility] (TOPROL-XL) 14:03: 00:00 daily. Med ical 25 MG 24 hr 27 :00 Center tablet metoprolol 2023-0 2023- No 25mg QD Take [address] [facility] succinate 3-14 03-14 by mouth [facility] (TOPROL-XL) 14:03: 00:00 daily. Med ical 25 MG 24 hr 27 :00 Center tablet metoprolol 2023-0 2023- No 25mg QD Take [address] [facility] succinate 3-14 03-14 by mouth [facility] (TOPROL-XL) 14:03: 00:00 daily. Med ical 25 MG 24 hr 27 :00 Center tablet metoprolol 2023-0 2023- No 25mg QD Take [address] [facility] succinate 3-14 03-14 by mouth [facility] (TOPROL-XL) 14:03: 00:00 daily. Med ical 25 MG 24 hr 27 :00 Center tablet metoprolol 2022- No 25mg QD Take [address] [facility] succinate 3-14 -14 by mouth [facility] (TOPROL-XL) 14:03: 00:00 daily. Med ical 25 MG 24 hr 27 :00 Center tablet metoprolol 2022- No 25mg QD Take [address] [facility] succinate -14 -14 by mouth [facility] (TOPROL-XL) 14:03: 00:00 daily. Med ical 25 MG 24 hr 27 :00 Center tablet metoprolol 2022- No 25mg QD Take [address] [facility] succinate 14 -14 by mouth [facility] (TOPROL-XL) 14:03: 00:00 daily. Med ical 25 MG 24 hr 27 :00 Center tablet fexofenadin 2022- No 180mg Take [address] [facility] (MIGUE) 3-14 03-14 mg by [facility] 180 MG 14:01: 00:00 mouth Medical tablet 51 :00 daily as Center needed. fexofenadin 2022- No 180mg Take [address] [facility] (MIGUE) 3-14 03-14 mg by [facility] 180 MG 14:01: 00:00 mouth Medical tablet 51 :00 daily as Center needed. fexofenadin 2022- No 180mg Take [address] [facility] (MIGUE) 3-14 03-14 mg by [facility] 180 MG 14:01: 00:00 mouth Medical tablet 51 :00 daily as Center needed. fexofenadin 0 2022- No 180mg Take [address] [facility] (MIGUE) 3-14 03-14 mg by [facility] 180 MG 14:01: 00:00 mouth Medical tablet 51 :00 daily as Center needed. fexofenadin 2022-2022- No 180mg Take [address] [facility] (MIGUE) 3-14 03-14 mg by [facility] 180 MG 14:01: 00:00 mouth Medical tablet 51 :00 daily as Center needed. fexofenadin 0 2022- No 180mg Take [address] [facility] (MIGUE) 3-14 03-14 mg by [facility] 180 MG 14:01: 00:00 mouth Medical tablet 51 :00 daily as Center needed. fexofenadin 2022- No 180mg Take [address] [facility] (MIGUE) 3-14 03-14 mg by [facility] 180 MG 14:01: 00:00 mouth Medical tablet 51 :00 daily as Center needed. carboxymeth 2022-0 2022- No 1[drp] Place [address] [facility] ylcellulose 3-14 03-14 drop into [facility] (REFRESH 14:01: 00:00 the right Med ical PLUS) 0.5 % 16 :00 eye 3 Center Dpet (three) ophthalmic times solution daily as needed. carboxymeth 2022-0 2022- No 1[drp] Place [address] [facility] ylcellulose 3-14 -14 drop into [facility] (REFRESH 14:01: 00:00 the right Med ical PLUS) 0.5 % 16 :00 eye 3 Center Dpet (three) ophthalmic times solution daily as needed. carboxymeth 2022-0 2022- No 1[drp] Place [address] [facility] ylcellulose 3-14 -14 drop into [facility] (REFRESH 14:01: 00:00 the right Med ical PLUS) 0.5 % 16 :00 eye 3 Center Dpet (three) ophthalmic times solution daily as needed. carboxymeth 2022-0 2022- No 1[drp] Place [address] [facility] ylcellulose 3-14 03-14 drop into [facility] (REFRESH 14:01: 00:00 the right Med ical PLUS) 0.5 % 16 :00 eye 3 Center Dpet (three) ophthalmic times solution daily as needed. carboxymeth 2022-0 2022- No 1[drp] Place [address] [facility] ylcellulose 3-14 03-14 drop into [facility] (REFRESH 14:01: 00:00 the right Med ical PLUS) 0.5 % 16 :00 eye 3 Center Dpet (three) ophthalmic times solution daily as needed. carboxymeth 2022-0 2022- No 1[drp] Place [address] [facility] ylcellulose 3-14 03-14 drop into [facility] (REFRESH 14:01: 00:00 the right Med ical PLUS) 0.5 % 16 :00 eye 3 Center Dpet (three) ophthalmic times solution daily as needed. carboxymeth 3-0 2022- No 1[drp] Place [address] [facility] ylcellulose 3-14 03-14 drop into [facility] (REFRESH 14:01: 00:00 the right Med ical PLUS) 0.5 % 16 :00 eye 3 Center Dpet (three) ophthalmic times solution daily as needed. diazepam 5 2022-0 Yes 5 mg = 1 Mem oria mg oral 2-07 tab, PO, l tablet 19:22: TID, # 90 Broderick n 00 tab, 2 Refill(s), Pharmacy: [facility] STORE #[id number], 154.94, cm, 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, Height, 50.909, kg, 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, Weight diazepam 5 2022-0 Yes 5 mg = 1 Mem oria mg oral 2-07 tab, PO, l tablet 19:22: TID, # 90 Broderick n 00 tab, 2 Refill(s), Pharmacy: [facility] STORE #[id number], 154.94, cm, 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, Height, 50.909, kg, 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, Weight diazepam 5 2022-0 Yes 5 mg = 1 Mem oria mg oral 2-07 tab, PO, l tablet 19:22: TID, # 90 Broderick n 00 tab, 2 Refill(s), Pharmacy: [facility] STORE #[id number], 154.94, cm, 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, 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, 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, kg, 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, Weight diazepam 5 2022-0 Yes 5 mg = 1 Mem oria mg oral 2-07 tab, PO, l tablet 19:22: TID, # 90 Broderick n 00 tab, 2 Refill(s), Pharmacy: [facility] STORE #[id number], 154.94, cm, 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, Height, 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, kg, 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, Weight diazepam 5 2021-1 Yes 5 mg = 1 Mem oria mg oral 1-04 tab, PO, l tablet 23:32: TID, # 90 Broderick n 00 tab, 2 Refill(s), Pharmacy: [facility] STORE #[id number], 154.94, cm, 05/25/22 15:43:00 CDT, Height, 54.716, kg, 05/25/22 15:43:00 CDT, Weight diazepam 2021-08 Yes 5 mg = 1 Mem oria mg oral 1-04 tab, PO, l tablet 23:32: TID, # 90 Broderick n 00 tab, 2 Refill(s), Pharmacy: [facility] STORE #[id number], 154.94, cm, 05/25/22 15:43:00 CDT, Height, 54.716, kg, 05/25/22 15:43:00 CDT, Weight diazepam 2021-08 Yes 5 mg = 1 Mem oria mg oral 1-04 tab, PO, l tablet 23:32: TID, # 90 Broderick n 00 tab, 2 Refill(s), Pharmacy: [facility] STORE #[id number], 154.94, cm, 05/25/22 15:43:00 CDT, Height, 54.716, kg, 05/25/22 15:43:00 CDT, Weight diazepam 2021-08 Yes 5 mg = 1 Mem oria mg oral 1-04 tab, PO, l tablet 23:32: TID, # 90 Broderick n 00 tab, 2 Refill(s), Pharmacy: [facility] STORE #[id number], 154.94, cm, 05/25/22 15:43:00 CDT, Height, 54.716, kg, 05/25/22 15:43:00 CDT, Weight diazepam 2021-08 Yes 5 mg = 1 Mem oria mg oral 1-04 tab, PO, l tablet 23:32: TID, # 90 Broderick n 00 tab, 2 Refill(s), Pharmacy: [facility] STORE #[id number], 154.94, cm, 05/25/22 15:43:00 CDT, Height, 54.716, kg, 05/25/22 15:43:00 CDT, Weight diazepam 2021-08 Yes 5 mg = 1 Mem oria mg oral 1-04 tab, PO, l tablet 23:32: TID, # 90 Broderick n 00 tab, 2 Refill(s), Pharmacy: [facility] STORE #[id number], 154.94, cm, 05/25/22 15:43:00 CDT, Height, 54.716, kg, 05/25/22 15:43:00 CDT, Weight diazepam 2021-08 Yes 5 mg = 1 Mem oria mg oral 1-04 tab, PO, l tablet 23:32: TID, # 90 Broderick n 00 tab, 2 Refill(s), Pharmacy: [facility] STORE #[id number], 154.94, cm, 05/25/22 15:43:00 CDT, Height, 54.716, kg, 05/25/22 15:43:00 CDT, Weight diazepam 2021-08 Yes 5 mg = 1 Mem oria mg oral 1-04 tab, PO, l tablet 23:32: TID, # 90 Broderick n 00 tab, 2 Refill(s), Pharmacy: [facility] STORE #[id number], 154.94, cm, 05/25/22 15:43:00 CDT, Height, 54.716, kg, 05/25/22 15:43:00 CDT, Weight diazepam 2021-08 Yes 5 mg = 1 Mem oria mg oral 1-04 tab, PO, l tablet 23:32: TID, # 90 Broderick n 00 tab, 2 Refill(s), Pharmacy: [facility] STORE #[id number], 154.94, cm, 05/25/22 15:43:00 CDT, Height, 54.716, kg, 05/25/22 15:43:00 CDT, Weight diazepam 2021-08 Yes 5 mg = 1 Mem oria mg oral 1-04 tab, PO, l tablet 23:32: TID, # 90 Broderick n 00 tab, 2 Refill(s), Pharmacy: [facility] STORE #[id number], 154.94, cm, 05/25/22 15:43:00 CDT, Height, 54.716, kg, 05/25/22 15:43:00 CDT, Weight diazepam 2021-08 Yes 5 mg = 1 Mem oria mg oral 1-04 tab, PO, l tablet 23:32: TID, # 90 Broderick n 00 tab, 2 Refill(s), Pharmacy: [facility] #[id number], 154.94, cm, 05/25/22 15:43:00 CDT, Height, 54.716, kg, 05/25/22 15:43:00 CDT, Weight levothyroxi 2021-08 88ug QD Take 1 Met hodi ne 0-07 10-07 tablet (88 st (Synthroid) 15:42: 00:00 mcg total) Hospita 88 mcg 26 :00 by mouth l tablet daily. Synthroid 2021-08 Yes 88ug QD Take 1 Method i 88 mcg 0-07 tablet (88 st tablet 00:00: mcg total) Hospi ta 00 by mouth l daily. Pred Forte 2021-08 Yes SHAKE WELL M emoria 1% 0-06 AND l ophthalmic 20:07: INSTILL 1 He rmann suspension 00 DROP IN THE LEFT EYE DAILY sucralfate 2021-08 Yes 1 gm = 10 Me moria 1 g/10 mL 0-06 ml, PO, l oral 20:07: Before Elver suspension 00 Meals & Bedtime, # 200 ml, 1 Refill(s) Pred Forte 2021-08 Yes SHAKE WELL M emoria 1% 0-06 AND l ophthalmic 20:07: INSTILL 1 He rmann suspension 00 DROP IN THE LEFT EYE DAILY sucralfate 2021-08 Yes 1 gm = 10 Me moria 1 g/10 mL 0-06 ml, PO, l oral 20:07: Before [place] suspension 00 Meals & Bedtime, # 200 ml, 1 Refill(s) Pred Forte 2021-08 Yes SHAKE WELL M emoria 1% 0-06 AND l ophthalmic 20:07: INSTILL 1 He rmann suspension 00 DROP IN THE LEFT EYE DAILY sucralfate 2021-08 Yes 1 gm = 10 Me moria 1 g/10 mL 0-06 ml, PO, l oral 20:07: Before Elver suspension 00 Meals & Bedtime, # 200 ml, 1 Refill(s) Pred Forte 2021-08 Yes SHAKE WELL M emoria 1% 0-06 AND l ophthalmic 20:07: INSTILL 1 He rmann suspension 00 DROP IN THE LEFT EYE DAILY sucralfate 2021-08 Yes 1 gm = 10 Me moria 1 g/10 mL 0-06 ml, PO, l oral 20:07: Before [place] suspension 00 Meals & Bedtime, # 200 ml, 1 Refill(s) Pred Forte 2021-08 Yes SHAKE WELL M emoria 1% 0-06 AND l ophthalmic 20:07: INSTILL 1 He rmann suspension 00 DROP IN THE LEFT EYE DAILY sucralfate 2021-08 Yes 1 gm = 10 Me moria 1 g/10 mL 0-06 ml, PO, l oral 20:07: Before Elver suspension 00 Meals & Bedtime, # 200 ml, 1 Refill(s) Pred Forte 2021-08 Yes SHAKE WELL M emoria 1% 0-06 AND l ophthalmic 20:07: INSTILL 1 He rmann suspension 00 DROP IN THE LEFT EYE DAILY sucralfate 2021-08 Yes 1 gm = 10 Me moria 1 g/10 mL 0-06 ml, PO, l oral 20:07: Before Elver suspension 00 Meals & Bedtime, # 200 ml, 1 Refill(s) Pred Forte 2021-08 Yes SHAKE WELL M emoria 1% 0-06 AND l ophthalmic 20:07: INSTILL 1 He rmann suspension 00 DROP IN THE LEFT EYE DAILY sucralfate 2021-08 Yes 1 gm = 10 Me moria 1 g/10 mL 0-06 ml, PO, l oral 20:07: Before [place] suspension 00 Meals & Bedtime, # 200 ml, 1 Refill(s) Pred Forte 2021-08 Yes SHAKE WELL M emoria 1% 0-06 AND l ophthalmic 20:07: INSTILL 1 He rmann suspension 00 DROP IN THE LEFT EYE DAILY sucralfate 2021-08 Yes 1 gm = 10 Me moria 1 g/10 mL 0-06 ml, PO, l oral 20:07: Before Elver suspension 00 Meals & Bedtime, # 200 ml, 1 Refill(s) Pred Forte 2021-08 Yes SHAKE WELL M emoria 1% 0-06 AND l ophthalmic 20:07: INSTILL 1 He rmann suspension 00 DROP IN THE LEFT EYE DAILY sucralfate 2022-1 Yes 1 gm = 10 Me moria 1 g/10 mL 0-06 ml, PO, l oral 20:07: Before [place] suspension 00 Meals & Bedtime, # 200 ml, 1 Refill(s) Pred Forte 2021-08 Yes SHAKE WELL M emoria 1% 0-06 AND l ophthalmic 20:07: INSTILL 1 He rmann suspension 00 DROP IN THE LEFT EYE DAILY sucralfate 2021-08 Yes 1 gm = 10 Me moria 1 g/10 mL 0-06 ml, PO, l oral 20:07: Before Elver suspension 00 Meals & Bedtime, # 200 ml, 1 Refill(s) Pred Forte 2021-08 Yes SHAKE WELL M emoria 1% 0-06 AND l ophthalmic 20:07: INSTILL 1 He rmann suspension 00 DROP IN THE LEFT EYE DAILY sucralfate 2021-08 Yes 1 gm = 10 Me moria 1 g/10 mL 0-06 ml, PO, l oral 20:07: Before Elver suspension 00 Meals & Bedtime, # 200 ml, 1 Refill(s) Pred Forte 2021-08 Yes SHAKE WELL M emoria 1% 0-06 AND l ophthalmic 20:07: INSTILL 1 He rmann suspension 00 DROP IN THE LEFT EYE DAILY sucralfate 2021-08 Yes 1 gm = 10 Me moria 1 g/10 mL 0-06 ml, PO, l oral 20:07: Before Elver suspension 00 Meals & Bedtime, # 200 ml, 1 Refill(s) omeprazole 2021-08 Yes 20 mg = 1 Me moria 20 mg oral 0-06 tab, PO, l enteric 20:06: Daily, # Broderick n coated 00 30 tab, 3 tablet Refill(s) ondansetron 2021-08 Yes See Memori a 4 mg oral 0-06 Instructio l disintegrat 20:06: ns, 1 ea He rmann ing strip 00 PO NEEDED, 0 Refill(s) omeprazole 2021-08 Yes 20 mg = 1 Me moria 20 mg oral 0-06 tab, PO, l enteric 20:06: Daily, # Broderick n coated 00 30 tab, 3 tablet Refill(s) ondansetron 2021-08 Yes See Memori a 4 mg oral 0-06 Instructio l disintegrat 20:06: ns, 1 ea He rmann ing strip 00 PO NEEDED, 0 Refill(s) omeprazole 2021-08 Yes 20 mg = 1 Me moria 20 mg oral 0-06 tab, PO, l enteric 20:06: Daily, # Broderick n coated 00 30 tab, 3 tablet Refill(s) ondansetron 2021-08 Yes See Memori a 4 mg oral 0-06 Instructio l disintegrat 20:06: ns, 1 ea He rmann ing strip 00 PO NEEDED, 0 Refill(s) omeprazole 2021-08 Yes 20 mg = 1 Me moria 20 mg oral 0-06 tab, PO, l enteric 20:06: Daily, # Broderick n coated 00 30 tab, 3 tablet Refill(s) ondansetron 2021-08 Yes See Memori a 4 mg oral 0-06 Instructio l disintegrat 20:06: ns, 1 ea He rmann ing strip 00 PO NEEDED, 0 Refill(s) omeprazole 2021-08 Yes 20 mg = 1 Me moria 20 mg oral 0-06 tab, PO, l enteric 20:06: Daily, # Broderick n coated 00 30 tab, 3 tablet Refill(s) ondansetron 2021-08 Yes See Memori a 4 mg oral 0-06 Instructio l disintegrat 20:06: ns, 1 ea He rmann ing strip 00 PO NEEDED, 0 Refill(s) omeprazole 2021-08 Yes 20 mg = 1 Me moria 20 mg oral 0-06 tab, PO, l enteric 20:06: Daily, # Broderick n coated 00 30 tab, 3 tablet Refill(s) ondansetron 2021-08 Yes See Memori a 4 mg oral 0-06 Instructio l disintegrat 20:06: ns, 1 ea He rmann ing strip 00 PO NEEDED, 0 Refill(s) omeprazole 2021-08 Yes 20 mg = 1 Me moria 20 mg oral 0-06 tab, PO, l enteric 20:06: Daily, # Broderick n coated 00 30 tab, 3 tablet Refill(s) ondansetron 2021-08 Yes See Memori a 4 mg oral 0-06 Instructio l disintegrat 20:06: ns, 1 ea He rmann ing strip 00 PO NEEDED, 0 Refill(s) omeprazole 2021-08 Yes 20 mg = 1 Me moria 20 mg oral 0-06 tab, PO, l enteric 20:06: Daily, # Broderick n coated 00 30 tab, 3 tablet Refill(s) ondansetron 2021-08 Yes See Memori a 4 mg oral 0-06 Instructio l disintegrat 20:06: ns, 1 ea He rmann ing strip 00 PO NEEDED, 0 Refill(s) omeprazole 2021-08 Yes 20 mg = 1 Me moria 20 mg oral 0-06 tab, PO, l enteric 20:06: Daily, # Broderick n coated 00 30 tab, 3 tablet Refill(s) ondansetron 2021-08 Yes See Memori a 4 mg oral 0-06 Instructio l disintegrat 20:06: ns, 1 ea He rmann ing strip 00 PO NEEDED, 0 Refill(s) omeprazole 2021-08 Yes 20 mg = 1 Me moria 20 mg oral 0-06 tab, PO, l enteric 20:06: Daily, # Broderick n coated 00 30 tab, 3 tablet Refill(s) ondansetron 2021-08 Yes See Memori a 4 mg oral 0-06 Instructio l disintegrat 20:06: ns, 1 ea He rmann ing strip 00 PO NEEDED, 0 Refill(s) omeprazole 2021-08 Yes 20 mg = 1 Me moria 20 mg oral 0-06 tab, PO, l enteric 20:06: Daily, # Broderick n coated 00 30 tab, 3 tablet Refill(s) ondansetron 2021-08 Yes See Memori a 4 mg oral 0-06 Instructio l disintegrat 20:06: ns, 1 ea He rmann ing strip 00 PO NEEDED, 0 Refill(s) omeprazole 2021-08 Yes 20 mg = 1 Me moria 20 mg oral 0-06 tab, PO, l enteric 20:06: Daily, # Broderick n coated 00 30 tab, 3 tablet Refill(s) ondansetron 2021-08 Yes See Memori a 4 mg oral 0-06 Instructio l disintegrat 20:06: ns, 1 ea He rmann ing strip 00 PO NEEDED, 0 Refill(s) levothyroxi 2021-08 Yes 88ug QD Take 1 Meth tiara ne 0-04 tablet (88 st (SYNTHROID) 14:55: mcg total) Hospita 88 mcg 49 by mouth l tablet every morning. HYDROcodone 2021-08- 1{tbl} Take 1 M ethodi -acetaminop 0-04 10-[address] hen (NORCO) 14:46: 00:00 mouth. 3 H ospita 10-325 mg 42 :00 1/2 daily l per tablet metoprolol 2021-08- No 25mg QD Take 25 mg Methodi succinate 0-04 10-[address] XL 14:46: 00:00 daily. Hospita (TOPROL-XL) 38 :00 l 25 mg 24 hr tablet omeprazole 2021-08 Yes 20mg QD Take 1 Metho di (PriLOSEC) 0-[address] 20 MG 14:32: (20 mg Hospita capsule 32 total) by l mouth daily. ondansetron 2021-08 Yes 4mg QD Take 1 Meth tiara (ZOFRAN) 4 0-04 tablet (4 st MG tablet 14:32: mg total) Hos maria l 32 by mouth l daily. diazePAM 2021-08 Yes 5mg [id number] Take 1 M ethodi (VALIUM) 5 0-04 [id number] tablet (5 st MG tablet 14:29: 3D mg total) Hos maria l 02 by mouth 3 l (three) times a day. estradioL 2021-08 Yes 1g Q.5W Insert 1 g Me thodi (ESTRACE) 0-[address] 0.01 % (0.1 14:29: vagina 2 Ho spita mg/gram) 02 (two) l vaginal times a cream week. prednisoLON 2021-08 Yes 1[drp] QD Administer Methodi E acetate 0-[address] (PRED 14:29: into the Hospita FORTE) 1 % 02 left eye l ophthalmic nightly. suspension fexofenadin 2021-08 Yes 180mg Q24H Take 180 M ethodi e (MIGUE) 0-[address] 180 MG 14:29: mouth Hospita tablet 02 daily as l needed (alllergie s). prednisoLON 2021-08 Yes Pred Forte Methodi E acetate 0-04 1 % eye st (PRED 14:29: drops,susp Hospit a FORTE) 1 % 02 ension INT l ophthalmic 1 GTT INTO suspension OS D HYDROcodone 2021-08 Yes 1{tbl} Q4H Take 1 Me thodi -acetaminop 0-[address] hen (NORCO) 00:00: mouth Hospi ta 7.5-325 mg 00 every 4 l per tablet (four) hours as needed. Synthroid 2021- No TAKE 1 Metho di 75 mcg 9-26 10-[address] tablet 00:00: 00:00 MOUTH Hospita 00 :00 EVERY DAY l IN THE MORNING carboxymeth Yes 1[drp] Place [address] ylcellulose 9-22 drop into William es (REFRESH 10:18: the right Medi valdo PLUS) 0.5 % 40 eye 3 Center Dpet (three) ophthalmic times solution daily as needed. lipase-prot Yes 5000U{l Take 5,[address] [facility] ease-amylas 9-22 ipase} units of Yue kes e (ZENPEP) 10:18: lipase by Pr dical 5,000-17,00 40 mouth 3 Cente r 0- 24,000 (three) unit CpDR times daily with meals. HYDROcodone Yes 1{tbl} Q.25D Take [address] -acetaminop 9-22 tablet by William whitney hen (NORCO 10:18: mouth 4 Medi valdo 7.5-325) 40 (four) Center 7.5-325 mg times per tablet daily . diazePAM Yes 5mg Q.[id number] Take [address] [facility] (VALIUM) 5 9-22 [id number] by mouth 3 [facility] tablet 10:18: 3D (three) Medic al 40 times Center daily 0500, 1100, 1700, 2300. levothyroxi Yes 88ug Take [address] ne 9-22 mcg by [facility] (SYNTHROID, 10:18: mouth Medic al LEVOTHROID) 40 Every Center 88 MCG morning on tablet an empty stomach 0730 . fexofenadin Yes 180mg Take [address] e (MIGUE) 9-22 mg by [facility] 180 MG 10:18: mouth Medical tablet 40 daily as Center needed. fluticasone Yes 1{spray [address] [facility] (FLONASE) 05-11 } Nasal [facility] 50 10:18: route Medical mcg/actuati 40 daily as Cent er on nasal needed for spray Rhinitis. acetaminoph Yes 500mg Take [address] en 9-22 mg by [facility] (TYLENOL) 10:18: mouth Medical 500 MG 40 every 6 Center tablet (six) hours as needed for Pain. metoprolol 0 Yes 25mg QD Take [address] succinate 9- by mouth [facility] (TOPROL-XL) 10:18: daily. Medi valdo 25 MG 24 hr 40 Center tablet nortriptyli Yes 35mg QD Take [address] [facility] ne - by mouth [facility] (PAMELOR) 10:18: nightly. Medi valdo 25 MG 40 Center capsule omeprazole Yes 20mg Take [address] (PRILOSEC) 05-11 by mouth [facility] 20 MG 10:18: as needed Medical capsule 40 . Center estradioL [address] [facility] (ESTRACE) 05-11 vaginally [facility] 0.01 % (0.1 10:18: as needed M edical mg/gram) 40 . Center vaginal cream escitalopra Yes 30mg QD Take [address] m oxalate 05-11 by mouth [facility] (LEXAPRO) 10:18: daily. Medica l 10 MG 40 Center tablet mirtazapine Yes 7.5mg Take 7.[address] (REMERON) 9-22 mg by [facility] 7.5 MG 10:18: mouth as Medical tablet 40 needed. Center prednisoLON 0 Yes 1[drp] Q.25D Place [address] [facility] [facility] E acetate 9-22 drop into [facility] (PRED 10:18: the left Medical FORTE) 1 % 40 eye 4 Center ophthalmic (four) suspension times daily. carboxymeth 0 Yes 1[drp] Place [address] ylcellulose 9-22 drop into [facility] es (REFRESH 10:18: the right Medi valdo PLUS) 0.5 % 40 eye 3 Center Dpet (three) ophthalmic times solution daily as needed. lipase-prot 0 Yes 5000U{l Take 5,[address] ease-amylas 9-22 ipase} units of Yue kes e (ZENPEP) 10:18: lipase by Pr dical 5,000-17,00 40 mouth 3 Cente r 0- 24,000 (three) unit CpDR times daily with meals. HYDROcodone 0 Yes 1{tbl} Q.25D Take [address] -acetaminop 9-22 tablet by William whitney greene (NORCO 10:18: mouth 4 Medi valdo 7.5-325) 40 (four) Center 7.5-325 mg times per tablet daily . diazePAM 0 Yes 5mg Q.[id number] Take [address] [facility] (VALIUM) 5 9-22 [id number] by mouth 3 [facility] MG tablet 10:18: 3D (three) Medic al 40 times Center daily 0500, 1100, 1700, 2300. levothyroxi 0 Yes 88ug Take [address] ne 9-22 mcg by [facility] (SYNTHROID, 10:18: mouth Medic al LEVOTHROID) 40 Every Center 88 MCG morning on tablet an empty stomach 0730 . fexofenadin 0 Yes 180mg Take [address] e (MIGUE) 9-22 mg by [facility] 180 MG 10:18: mouth Medical tablet 40 daily as Center needed. fluticasone 0 Yes 1{spray [address] [facility] (FLONASE) - } Nasal [facility] 50 10:18: route Medical mcg/actuati 40 daily as Cent er on nasal needed for spray Rhinitis. acetaminoph 0 Yes 500mg Take [address] en 9-22 mg by [facility] (TYLENOL) 10:18: mouth Medical 500 MG 40 every 6 Center tablet (six) hours as needed for Pain. metoprolol 0 Yes 25mg QD Take [address] succinate 9-22 by mouth [facility] (TOPROL-XL) 10:18: daily. Medi valdo 25 MG 24 hr 40 Center tablet nortriptyli 0 Yes 35mg QD Take [address] [facility] ne 9-22 by mouth [facility] (PAMELOR) 10:18: nightly. Medi valdo 25 MG 40 Center capsule omeprazole 0 Yes 20mg Take [address] (PRILOSEC) 9-22 by mouth [facility] 20 MG 10:18: as needed Medical capsule 40 . Center estradioL Yes 2g Place [address] [facility] (ESTRACE) 9-22 vaginally [facility] 0.01 % (0.1 10:18: as needed M edical mg/gram) 40 . Center vaginal cream escitalopra Yes 30mg QD Take [address] m oxalate 9-22 by mouth [facility] (LEXAPRO) 10:18: daily. Medica l 10 MG 40 Center tablet mirtazapine Yes 7.5mg Take 7.[address] (REMERON) 9-22 mg by [facility] 7.5 MG 10:18: mouth as Medical tablet 40 needed. Center prednisoLON Yes 1[drp] Q.25D Place [address] [facility] [facility] E acetate 9-22 drop into [facility] (PRED 10:18: the left Medical FORTE) 1 % 40 eye 4 Center ophthalmic (four) suspension times daily. carboxymeth Yes 1[drp] Place [address] ylcellulose 9-22 drop into [facility] (REFRESH 10:18: the right Medi valdo PLUS) 0.5 % 40 eye 3 Center Dpet (three) ophthalmic times solution daily as needed. lipase-prot Yes 5000U{l Take 5,[address] ease-amylas 9-22 ipase} units of Yue kes e (ZENPEP) 10:18: lipase by Pr dical 5,000-17,00 40 mouth 3 Cente r 0- 24,000 (three) unit CpDR times daily with meals. HYDROcodone Yes 1{tbl} Q.25D Take [address] -acetaminop 9-22 tablet by William es hen (NORCO 10:18: mouth 4 Medi valdo 7.5-325) 40 (four) Center 7.5-325 mg times per tablet daily . diazePAM Yes 5mg Q.[id number] Take [address] [address] (VALIUM) 5 9-22 [id number] by mouth 3 [facility] MG tablet 10:18: 3D (three) Medic al 40 times Center daily 0500, 1100, 1700, 2300. levothyroxi Yes 88ug Take [address] ne 9-22 mcg by [facility] (SYNTHROID, 10:18: mouth Medic al LEVOTHROID) 40 Every Center 88 MCG morning on tablet an empty stomach 0730 . fexofenadin Yes 180mg Take [address] e (MIGUE) 9-22 mg by [facility] 180 MG 10:18: mouth Medical tablet 40 daily as Center needed. fluticasone 0 Yes 1{spray [address] [facility] (FLONASE) 05-11 } Nasal [facility] 50 10:18: route Medical mcg/actuati 40 daily as Cent er on nasal needed for spray Rhinitis. acetaminoph Yes 500mg Take [address] en 9-22 mg by [facility] (TYLENOL) 10:18: mouth Medical 500 MG 40 every 6 Center tablet (six) hours as needed for Pain. metoprolol Yes 25mg QD Take [address] succinate - by mouth [facility] (TOPROL-XL) 10:18: daily. Medi valdo 25 MG 24 hr 40 Center tablet nortriptyli Yes 35mg QD Take [address] ne - by mouth [facility] (PAMELOR) 10:18: nightly. Medi valdo 25 MG 40 Center capsule omeprazole Yes 20mg Take [address] (PRILOSEC) 05-11 by mouth [facility] 20 MG 10:18: as needed Medical capsule 40 . Center estradioL Yes 2g Place [address] [facility] (ESTRACE) 05-11 vaginally [facility] 0.01 % (0.1 10:18: as needed M edical mg/gram) 40 . Center vaginal cream escitalopra Yes 30mg QD Take [address] m oxalate 05-11 by mouth [facility] (LEXAPRO) 10:18: daily. Medica l 10 MG 40 Center tablet mirtazapine Yes 7.5mg Take 7.[address] (REMERON) 9-22 mg by [facility] 7.5 MG 10:18: mouth as Medical tablet 40 needed. Center prednisoLON Yes 1[drp] Q.25D Place [address] [facility] [facility] E acetate 9-22 drop into [facility] (PRED 10:18: the left Medical FORTE) 1 % 40 eye 4 Center ophthalmic (four) suspension times daily. escitalopra 2022-0 Yes 10mg QD Take 1 Meth tiara m (LEXAPRO) 8-12 tablet (10 st 10 MG 00:00: mg total) Hospita tablet 00 by mouth l daily. escitalopra 2022-0 Yes 20mg QD Take 1 Meth tiara m (LEXAPRO) 8-12 tablet (20 st 20 MG 00:00: mg total) Hospita tablet 00 by mouth l daily. diazepam 5 2022-0 Yes 5 mg = 1 Mem oria mg oral 8-09 tab, PO, l tablet 18:13: TID, # 90 Broderick n 00 tab, 2 Refill(s), [facility][id number], 154.94, cm, 02/28/22 15:06:00 CDT, Height, 54.091, kg, 02/28/22 15:06:00 CDT, Weight diazepam 5 2-0 Yes 5 mg = 1 Mem oria mg oral 8-09 tab, PO, l tablet 18:13: TID, # 90 Broderick n 00 tab, 2 Refill(s), [facility]: [facility] #[id number], 154.94, cm, 02/28/22 15:06:00 CDT, Height, 54.091, kg, 02/28/22 15:06:00 CDT, Weight diazepam 5 2-0 Yes 5 mg = 1 Mem oria mg oral 8-09 tab, PO, l tablet 18:13: TID, # 90 Broderick n 00 tab, 2 Refill(s), Pharmacy: [facility] #[id number], 154.94, cm, 02/28/22 15:06:00 CDT, Height, 54.091, kg, 02/28/22 15:06:00 CDT, Weight diazepam 5 2-0 Yes 5 mg = 1 Mem oria mg oral 8-09 tab, PO, l tablet 18:13: TID, # 90 Broderick n 00 tab, 2 Refill(s), Pharmacy: [facility] STORE #[id number], 154.94, cm, 02/28/22 15:06:00 CDT, Height, 54.091, kg, 02/28/22 15:06:00 CDT, Weight diazepam 5 2022-0 Yes 5 mg = 1 Mem oria mg oral 8-09 tab, PO, l tablet 18:13: TID, # 90 Broderick n 00 tab, 2 Refill(s), Pharmacy: [facility] STORE #[id number], 154.94, cm, 02/28/22 15:06:00 CDT, Height, 54.091, kg, 02/28/22 15:06:00 CDT, Weight diazepam 5 2022-0 Yes 5 mg = 1 Mem oria mg oral 8-09 tab, PO, l tablet 18:13: TID, # 90 Broderick n 00 tab, 2 Refill(s), [id number], 154.94, cm, 02/28/22 15:06:00 CDT, Height, 54.091, kg, 02/28/22 15:06:00 CDT, Weight diazepam 5 2022-0 Yes 5 mg = 1 Mem oria mg oral 8-09 tab, PO, l tablet 18:13: TID, # 90 Broderick n 00 tab, 2 Refill(s), [id number], 154.94, cm, 02/28/22 15:06:00 CDT, Height, 54.091, kg, 02/28/22 15:06:00 CDT, Weight diazepam 5 2022-0 Yes 5 mg = 1 Mem oria mg oral 8-09 tab, PO, l tablet 18:13: TID, # 90 Broderick n 00 tab, 2 Refill(s), [id number], 154.94, cm, 02/28/22 15:06:00 CDT, Height, 54.091, kg, 02/28/22 15:06:00 CDT, Weight diazepam 5 2022-0 Yes 5 mg = 1 Mem oria mg oral 8-09 tab, PO, l tablet 18:13: TID, # 90 Broderick n 00 tab, 2 Refill(s), [id number], 154.94, cm, 02/28/22 15:06:00 CDT, Height, 54.091, kg, 02/28/22 15:06:00 CDT, Weight diazepam 5 2022-0 Yes 5 mg = 1 Mem oria mg oral 8-09 tab, PO, l tablet 18:13: TID, # 90 Broderick n 00 tab, 2 Refill(s), Pharmacy: [facility] STORE #[id number], 154.94, cm, 02/28/22 15:06:00 CDT, Height, 54.091, kg, 02/28/22 15:06:00 CDT, Weight diazepam 5 2022-0 Yes 5 mg = 1 Mem oria mg oral 8-09 tab, PO, l tablet 18:13: TID, # 90 Broderick n 00 tab, 2 Refill(s), Pharmacy: [facility] STORE #[id number], 154.94, cm, 02/28/22 15:06:00 CDT, Height, 54.091, kg, 02/28/22 15:06:00 CDT, Weight diazepam 5 2021-0 Yes 5 mg = 1 Mem oria mg oral 8-09 tab, PO, l tablet 18:13: TID, # 90 Broderick n 00 tab, 2 Refill(s), Pharmacy: [facility] STORE #[id number], 154.94, cm, 02/28/22 15:06:00 CDT, Height, 54.091, kg, 02/28/22 15:06:00 CDT, Weight diazepam 5 2-0 Yes 5 mg = 1 Mem oria mg oral 5-11 tab, PO, l tablet 22:53: TID, # 90 Broderick n 00 tab, 2 Refill(s), Pharmacy: [facility] STORE #[id number], 156.21, cm, 11/29/21 14:01:00 CDT, Height, 54.545, kg, 11/29/21 14:01:00 CDT, Weight diazepam 5 2022-0 Yes 5 mg = 1 Mem oria mg oral 5-11 tab, PO, l tablet 22:53: TID, # 90 Broderick n 00 tab, 2 Refill(s), Pharmacy: [facility] STORE #[id number], 156.21, cm, 11/29/21 14:01:00 CDT, Height, 54.545, kg, 11/29/21 14:01:00 CDT, Weight diazepam 5 2022-0 Yes 5 mg = 1 Mem oria mg oral 5-11 tab, PO, l tablet 22:53: TID, # 90 Broderick n 00 tab, 2 Refill(s), Pharmacy: [facility] STORE #[id number], 156.21, cm, 11/29/21 14:01:00 CDT, Height, 54.545, kg, 11/29/21 14:01:00 CDT, Weight diazepam 5 2022-0 Yes 5 mg = 1 Mem oria mg oral 5-11 tab, PO, l tablet 22:53: TID, # 90 Broderick n 00 tab, 2 Refill(s), Pharmacy: [facility] #[id number], 156.21, cm, 11/29/21 14:01:00 CDT, Height, 54.545, kg, 11/29/21 14:01:00 CDT, Weight diazepam 5 2-0 Yes 5 mg = 1 Mem oria mg oral 5-11 tab, PO, l tablet 22:53: TID, # 90 Broderick n 00 tab, 2 Refill(s), Pharmacy: [facility] #[id number], 156.21, cm, 11/29/21 14:01:00 CDT, Height, 54.545, kg, 11/29/21 14:01:00 CDT, Weight diazepam 5 2-0 Yes 5 mg = 1 Mem oria mg oral 5-11 tab, PO, l tablet 22:53: TID, # 90 Broderick n 00 tab, 2 Refill(s), Pharmacy: [facility] STORE #[id number], 156.21, cm, 11/29/21 14:01:00 CDT, Height, 54.545, kg, 11/29/21 14:01:00 CDT, Weight diazepam 5 2022-0 Yes 5 mg = 1 Mem oria mg oral 5-11 tab, PO, l tablet 22:53: TID, # 90 Broderick n 00 tab, 2 Refill(s), Pharmacy: [facility] STORE #[id number], 156.21, cm, 11/29/21 14:01:00 CDT, Height, 54.545, kg, 11/29/21 14:01:00 CDT, Weight diazepam 5 2022-0 Yes 5 mg = 1 Mem oria mg oral 5-11 tab, PO, l tablet 22:53: TID, # 90 Broderick n 00 tab, 2 Refill(s), Pharmacy: [facility] STORE #[id number], 156.21, cm, 11/29/21 14:01:00 CDT, Height, 54.545, kg, 11/29/21 14:01:00 CDT, Weight diazepam 5 2022-0 Yes 5 mg = 1 Mem oria mg oral 5-11 tab, PO, l tablet 22:53: TID, # 90 Broderick n 00 tab, 2 Refill(s), Pharmacy: [facility] #[id number], 156.21, cm, 11/29/21 14:01:00 CDT, Height, 54.545, kg, 11/29/21 14:01:00 CDT, Weight diazepam 5 2-0 Yes 5 mg = 1 Mem oria mg oral 5-11 tab, PO, l tablet 22:53: TID, # 90 Broderick n 00 tab, 2 Refill(s), Pharmacy: [facility] STORE #[id number], 156.21, cm, 11/29/21 14:01:00 CDT, Height, 54.545, kg, 11/29/21 14:01:00 CDT, Weight diazepam 5 2022-0 Yes 5 mg = 1 Mem oria mg oral 5-11 tab, PO, l tablet 22:53: TID, # 90 Broderick n 00 tab, 2 Refill(s), Pharmacy: [facility] STORE #[id number], 156.21, cm, 11/29/21 14:01:00 CDT, Height, 54.545, kg, 11/29/21 14:01:00 CDT, Weight diazepam 5 2022-0 Yes 5 mg = 1 Mem oria mg oral 5-11 tab, PO, l tablet 22:53: TID, # 90 Broderick n 00 tab, 2 Refill(s), Pharmacy: [facility] STORE #[id number], 156.21, cm, 11/29/21 14:01:00 CDT, Height, 54.545, kg, 11/29/21 14:01:00 CDT, Weight diazepam 5 2-0 Yes 5 mg = 1 Mem oria mg oral 5-11 tab, PO, l tablet 22:53: TID, # 90 Broderick n 00 tab, 2 Refill(s), Pharmacy: [facility] #[id number], 156.21, cm, 11/29/21 14:01:00 CDT, Height, 54.545, kg, 11/29/21 14:01:00 CDT, Weight mirtazapine 2-0 Yes 7.5 mg = 1 Memoria 7.5 mg oral 4-12 tab, PO, l tablet 19:14: Bedtime, # Rose nn 00 30 tab, 1 Refill(s) mirtazapine 2-0 Yes 7.5 mg = 1 Memoria 7.5 mg oral 4-12 tab, PO, l tablet 19:14: Bedtime, # Rose nn 00 30 tab, 1 Refill(s) mirtazapine 2022-0 Yes 7.5 mg = 1 Memoria 7.5 mg oral 4-12 tab, PO, l tablet 19:14: Bedtime, # Rose nn 00 30 tab, 1 Refill(s) mirtazapine 2022-0 Yes 7.5 mg = 1 Memoria 7.5 mg oral 4-12 tab, PO, l tablet 19:14: Bedtime, # Rose nn 00 30 tab, 1 Refill(s) mirtazapine 2022-0 Yes 7.5 mg = 1 Memoria 7.5 mg oral 4-12 tab, PO, l tablet 19:14: Bedtime, # Rose nn 00 30 tab, 1 Refill(s) mirtazapine 2022-0 Yes 7.5 mg = 1 Memoria 7.5 mg oral 4-12 tab, PO, l tablet 19:14: Bedtime, # Rose nn 00 30 tab, 1 Refill(s) mirtazapine 2022-0 Yes 7.5 mg = 1 Memoria 7.5 mg oral 4-12 tab, PO, l tablet 19:14: Bedtime, # Rose nn 00 30 tab, 1 Refill(s) mirtazapine 2022-0 Yes 7.5 mg = 1 Memoria 7.5 mg oral 4-12 tab, PO, l tablet 19:14: Bedtime, # Rose nn 00 30 tab, 1 Refill(s) mirtazapine 2022-0 Yes 7.5 mg = 1 Memoria 7.5 mg oral 4-12 tab, PO, l tablet 19:14: Bedtime, # Rose nn 00 30 tab, 1 Refill(s) mirtazapine 2022-0 Yes 7.5 mg = 1 Memoria 7.5 mg oral 4-12 tab, PO, l tablet 19:14: Bedtime, # Rose nn 00 30 tab, 1 Refill(s) mirtazapine 2022-0 Yes 7.5 mg = 1 Memoria 7.5 mg oral 4-12 tab, PO, l tablet 19:14: Bedtime, # Rose nn 00 30 tab, 1 Refill(s) mirtazapine 2022-0 Yes 7.5 mg = 1 Memoria 7.5 mg oral 4-12 tab, PO, l tablet 19:14: Bedtime, # Rose nn 00 30 tab, 1 Refill(s) mirtazapine 2022-0 Yes 7.5 mg = 1 Memoria 7.5 mg oral 4-12 tab, PO, l tablet 19:14: Bedtime, # Rose nn 00 30 tab, 1 Refill(s) escitalopra 2022-0 Yes 20 mg = 1 M emoria m 20 mg 4-12 tab, PO, l oral tablet 19:13: Daily, # He rmann 00 90 tab, 0 Refill(s) escitalopra 2022-0 Yes 20 mg = 1 M emoria m 20 mg 4-12 tab, PO, l oral tablet 19:13: Daily, # He rmann 00 90 tab, 0 Refill(s) escitalopra 2022-0 Yes 20 mg = 1 M emoria m 20 mg 4-12 tab, PO, l oral tablet 19:13: Daily, # He rmann 00 90 tab, 0 Refill(s) escitalopra 2022-0 Yes 20 mg = 1 M emoria m 20 mg 4-12 tab, PO, l oral tablet 19:13: Daily, # He rmann 00 90 tab, 0 Refill(s) escitalopra 2-0 Yes 20 mg = 1 M emoria m 20 mg 4-12 tab, PO, l oral tablet 19:13: Daily, # He rmann 00 90 tab, 0 Refill(s) escitalopra 2021-0 Yes 20 mg = 1 M emoria m 20 mg 4-12 tab, PO, l oral tablet 19:13: Daily, # He rmann 00 90 tab, 0 Refill(s) escitalopra 2021-0 Yes 20 mg = 1 M emoria m 20 mg 4-12 tab, PO, l oral tablet 19:13: Daily, # He rmann 00 90 tab, 0 Refill(s) escitalopra 2021-0 Yes 20 mg = 1 M emoria m 20 mg 4-12 tab, PO, l oral tablet 19:13: Daily, # He rmann 00 90 tab, 0 Refill(s) escitalopra 2021-0 Yes 20 mg = 1 M emoria m 20 mg 4-12 tab, PO, l oral tablet 19:13: Daily, # He rmann 00 90 tab, 0 Refill(s) escitalopra 2021-0 Yes 20 mg = 1 M emoria m 20 mg 4-12 tab, PO, l oral tablet 19:13: Daily, # He rmann 00 90 tab, 0 Refill(s) escitalopra 2-0 Yes 20 mg = 1 M emoria m 20 mg 4-12 tab, PO, l oral tablet 19:13: Daily, # He rmann 00 90 tab, 0 Refill(s) escitalopra 2021-0 Yes 20 mg = 1 M emoria m 20 mg 4-12 tab, PO, l oral tablet 19:13: Daily, # He rmann 00 90 tab, 0 Refill(s) escitalopra 2021-0 Yes 20 mg = 1 M emoria m 20 mg 4-12 tab, PO, l oral tablet 19:13: Daily, # He rmann 00 90 tab, 0 Refill(s) diazepam 5 2-0 Yes 5 mg = 1 Mem oria mg oral 2-08 tab, PO, l tablet 15:54: TID, # 90 Broderick n 00 tab, 2 Refill(s), Pharmacy: [facility] #[id number], 154.94, cm, 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, 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, 52.273, kg, 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, Weight diazepam 5 2022-0 Yes 5 mg = 1 Mem oria mg oral 2-08 tab, PO, l tablet 15:54: TID, # 90 Broderick n 00 tab, 2 Refill(s), [id number], 154.94, cm, 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, Height, 52.273, kg, 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, Weight diazepam 5 2022-0 Yes 5 mg = 1 Mem oria mg oral 2-08 tab, PO, l tablet 15:54: TID, # 90 Broderick n 00 tab, 2 Refill(s), [id number], 154.94, cm, 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, Height, 52.273, kg, 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, Weight diazepam 5 2022-0 Yes 5 mg = 1 Mem oria mg oral 2-08 tab, PO, l tablet 15:54: TID, # 90 Broderick n 00 tab, 2 Refill(s), [facility][id number], 154.94, cm, 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, Height, 52.273, kg, 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, Weight diazepam 5 2022-0 Yes 5 mg = 1 Mem oria mg oral 2-08 tab, PO, l tablet 15:54: TID, # 90 Broderick n 00 tab, 2 Refill(s), [id number], 154.94, cm, 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273, kg, 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, Weight diazepam 5 2022-0 Yes 5 mg = 1 Mem oria mg oral 2-08 tab, PO, l tablet 15:54: TID, # 90 Broderick n 00 tab, 2 Refill(s), Pharmacy: [facility] #[id number], 154.94, cm, 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, Height, 52.273, kg, 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, Weight diazepam 5 2022-0 Yes 5 mg = 1 Mem oria mg oral 2-08 tab, PO, l tablet 15:54: TID, # 90 Broderick n 00 tab, 2 Refill(s), Pharmacy: [facility] #[id number], 154.94, cm, 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, Height, 52.273, kg, 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, Weight diazepam 5 2022-0 Yes 5 mg = 1 Mem oria mg oral 2-08 tab, PO, l tablet 15:54: TID, # 90 Brodeirck n 00 tab, 2 Refill(s), Pharmacy: [facility] #[id number], 154.94, cm, 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, Height, 52.273, kg, 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, Weight diazepam 5 2022-0 Yes 5 mg = 1 Mem oria mg oral 2-08 tab, PO, l tablet 15:54: TID, # 90 Broderick n 00 tab, 2 Refill(s), [id number], 154.94, cm, 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, Height, 52.273, kg, 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, Weight diazepam 5 2021-0 Yes 5 mg = 1 Mem oria mg oral 2-08 tab, PO, l tablet 15:54: TID, # 90 Broderick n 00 tab, 2 Refill(s), [facility][id number], 154.94, cm, 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, Height, 52.273, kg, 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, Weight diazepam 5 2021-0 Yes 5 mg = 1 Mem oria mg oral 2-08 tab, PO, l tablet 15:54: TID, # 90 Broderick n 00 tab, 2 Refill(s), [facility][id number], 154.94, cm, 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, Height, 52.273, kg, 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, Weight Lexapro 2-0 Yes 10 mg, PO, Yann meghna 1-12 Daily, 0 l 21:24: Refill(s) Elver 00 Lexapro 2-0 Yes 10 mg, PO, Yann meghna 1-12 Daily, 0 l 21:24: Refill(s) Elver 00 Lexapro 2-0 Yes 10 mg, PO, Yann meghna 1-12 Daily, 0 l 21:24: Refill(s) Elver 00 Lexapro 2-0 Yes 10 mg, PO, Yann meghna 1-12 Daily, 0 l 21:24: Refill(s) [place] 00 Lexapro 2-0 Yes 10 mg, PO, Yann meghna 1-12 Daily, 0 l 21:24: Refill(s) Elver 00 Lexapro 2-0 Yes 10 mg, PO, Yann meghna 1-12 Daily, 0 l 21:24: Refill(s) Elver 00 Lexapro 2022-0 Yes 10 mg, PO, Yann meghna 1-12 Daily, 0 l 21:24: Refill(s) Elver 00 Lexapro 2-0 Yes 10 mg, PO, Yann meghna 1-12 Daily, 0 l 21:24: Refill(s) [place] 00 Lexapro 2-0 Yes 10 mg, PO, Yann meghna 1-12 Daily, 0 l 21:24: Refill(s) Lexapro 2-0 Yes 10 mg, PO, Yann meghna 1-12 Daily, 0 l 21:24: Refill(s) [place] 00 Lexapro 2-0 Yes 10 mg, PO, Yann meghna 1-12 Daily, 0 l 21:24: Refill(s) [place] 00 Lexapro 2-0 Yes 10 mg, PO, Yann meghna 1-12 Daily, 0 l 21:24: Refill(s) Lexapro 2-0 Yes 10 mg, PO, Yann meghna 1-12 Daily, 0 l 21:24: Refill(s) Levothyroxi 2021-0 Yes 75 Memori a ne Sodium 1-12 microgram l 0.075 MG 21:23: = 1 tab, Rose nn Oral Tablet 00 PO, Daily, [Synthroid] # 30 tab, 0 Refill(s) Synthroid 2021-0 Yes 75 Memoria 75 mcg 1-12 microgram l (0.075 mg) 21:23: = 1 tab, Her cruz oral tablet 00 PO, Daily, # 30 tab, 0 Refill(s) Levothyroxi 2021-0 Yes 75 Memori a ne Sodium 1-12 microgram l 0.075 MG 21:23: = 1 tab, Rose nn Oral Tablet 00 PO, Daily, [Synthroid] # 30 tab, 0 Refill(s) Levothyroxi 2021-0 Yes 75 Memori a ne Sodium 1-12 microgram l 0.075 MG 21:23: = 1 tab, Rose nn Oral Tablet 00 PO, Daily, [Synthroid] # 30 tab, 0 Refill(s) Levothyroxi 2021-0 Yes 75 Memori a ne Sodium 1-12 microgram l 0.075 MG 21:23: = 1 tab, Rose nn Oral Tablet 00 PO, Daily, [Synthroid] # 30 tab, 0 Refill(s) Synthroid 2021-0 Yes 75 Memoria 75 mcg 1-12 microgram l (0.075 mg) 21:23: = 1 tab, Her cruz oral tablet 00 PO, Daily, # 30 tab, 0 Refill(s) Levothyroxi 2-0 Yes 75 Memori a ne Sodium 1-12 microgram l 0.075 MG 21:23: = 1 tab, Rose nn Oral Tablet 00 PO, Daily, [Synthroid] # 30 tab, 0 Refill(s) Synthroid 2-0 Yes 75 Memoria 75 mcg 1-12 microgram l (0.075 mg) 21:23: = 1 tab, Her cruz oral tablet 00 PO, Daily, # 30 tab, 0 Refill(s) Levothyroxi 2-0 Yes 75 Memori a ne Sodium 1-12 microgram l 0.075 MG 21:23: = 1 tab, Rose nn Oral Tablet 00 PO, Daily, [Synthroid] # 30 tab, 0 Refill(s) Synthroid 2-0 Yes 75 Memoria 75 mcg 1-12 microgram l (0.075 mg) 21:23: = 1 tab, Her cruz oral tablet 00 PO, Daily, # 30 tab, 0 Refill(s) Levothyroxi 2-0 Yes 75 Memori a ne Sodium 1-12 microgram l 0.075 MG 21:23: = 1 tab, Rose nn Oral Tablet 00 PO, Daily, [Synthroid] # 30 tab, 0 Refill(s) Synthroid 2-0 Yes 75 Memoria 75 mcg 1-12 microgram l (0.075 mg) 21:23: = 1 tab, Her cruz oral tablet 00 PO, Daily, # 30 tab, 0 Refill(s) Levothyroxi 2-0 Yes 75 Memori a ne Sodium 1-12 microgram l 0.075 MG 21:23: = 1 tab, Rose nn Oral Tablet 00 PO, Daily, [Synthroid] # 30 tab, 0 Refill(s) Synthroid 2-0 Yes 75 Memoria 75 mcg 1-12 microgram l (0.075 mg) 21:23: = 1 tab, Her cruz oral tablet 00 PO, Daily, # 30 tab, 0 Refill(s) Levothyroxi 2-0 Yes 75 Memori a ne Sodium 1-12 microgram l 0.075 MG 21:23: = 1 tab, Rose nn Oral Tablet 00 PO, Daily, [Synthroid] # 30 tab, 0 Refill(s) Synthroid 2022-0 Yes 75 Memoria 75 mcg 1-12 microgram l (0.075 mg) 21:23: = 1 tab, Her cruz oral tablet 00 PO, Daily, # 30 tab, 0 Refill(s) Levothyroxi 2021-0 Yes 75 Memori a ne Sodium 1-12 microgram l 0.075 MG 21:23: = 1 tab, Rose nn Oral Tablet 00 PO, Daily, [Synthroid] # 30 tab, 0 Refill(s) Synthroid 2021-0 Yes 75 Memoria 75 mcg 1-12 microgram l (0.075 mg) 21:23: = 1 tab, Her cruz oral tablet 00 PO, Daily, # 30 tab, 0 Refill(s) Levothyroxi 2021-0 Yes 75 Memori a ne Sodium 1-12 microgram l 0.075 MG 21:23: = 1 tab, Rose nn Oral Tablet 00 PO, Daily, [Synthroid] # 30 tab, 0 Refill(s) Synthroid 2021-0 Yes 75 Memoria 75 mcg 1-12 microgram l (0.075 mg) 21:23: = 1 tab, Her cruz oral tablet 00 PO, Daily, # 30 tab, 0 Refill(s) Levothyroxi 2021-0 Yes 75 Memori a ne Sodium 1-12 microgram l 0.075 MG 21:23: = 1 tab, Rose nn Oral Tablet 00 PO, Daily, [Synthroid] # 30 tab, 0 Refill(s) Synthroid 2021-0 Yes 75 Memoria 75 mcg 1-12 microgram l (0.075 mg) 21:23: = 1 tab, Her cruz oral tablet 00 PO, Daily, # 30 tab, 0 Refill(s) Levothyroxi 2021-0 Yes 75 Memori a ne Sodium 1-12 microgram l 0.075 MG 21:23: = 1 tab, Rose nn Oral Tablet 00 PO, Daily, [Synthroid] # 30 tab, 0 Refill(s) Synthroid 2021-0 Yes 75 Memoria 75 mcg 1-12 microgram l (0.075 mg) 21:23: = 1 tab, Her cruz oral tablet 00 PO, Daily, # 30 tab, 0 Refill(s) Synthroid 2020-08- No TAKE 1 Metho di 75 mcg 30 05-15 TABLET(75 st tablet 00:00: 00:00 MCG) [facility] :00 MOUTH l DAILY diazepam 2020-08 Yes 5 mg = 1 Mem oria mg oral 1-09 tab, PO, l tablet 23:37: TID, # 90 Broderick n 00 tab, 2 Refill(s), Pharmacy: [facility] #[id number], 154.94, cm, 06/01/21 14:26:00 CDT, Height, 53.818, kg, 06/01/21 14:26:00 CDT, Weight diazepam 2020-08 Yes 5 mg = 1 Mem oria mg oral 1-09 tab, PO, l tablet 23:37: TID, # 90 Broderick n 00 tab, 2 Refill(s), Pharmacy: [facility] #[id number], 154.94, cm, 06/01/21 14:26:00 CDT, Height, 53.818, kg, 06/01/21 14:26:00 CDT, Weight diazepam 2020-08 Yes 5 mg = 1 Mem oria mg oral 1-09 tab, PO, l tablet 23:37: TID, # 90 Broderick n 00 tab, 2 Refill(s), [id number], 154.94, cm, 06/01/21 14:26:00 CDT, Height, 53.818, kg, 06/01/21 14:26:00 CDT, Weight diazepam 2020-08 Yes 5 mg = 1 Mem oria mg oral 1-09 tab, PO, l tablet 23:37: TID, # 90 Broderick n 00 tab, 2 Refill(s), [id number], 154.94, cm, 06/01/21 14:26:00 CDT, Height, 53.818, kg, 06/01/21 14:26:00 CDT, Weight diazepam 2020-08 Yes 5 mg = 1 Mem oria mg oral 1-09 tab, PO, l tablet 23:37: TID, # 90 Broderick n 00 tab, 2 Refill(s), [id number], 154.94, cm, 06/01/21 14:26:00 CDT, Height, 53.818, kg, 06/01/21 14:26:00 CDT, Weight diazepam 2020-08 Yes 5 mg = 1 Mem oria mg oral 1-09 tab, PO, l tablet 23:37: TID, # 90 Broderick n 00 tab, 2 Refill(s), Pharmacy: [facility] #[id number], 154.94, cm, 06/01/21 14:26:00 CDT, Height, 53.818, kg, 06/01/21 14:26:00 CDT, Weight diazepam 2020-08 Yes 5 mg = 1 Mem oria mg oral 1-09 tab, PO, l tablet 23:37: TID, # 90 Broderick n 00 tab, 2 Refill(s), Pharmacy: [facility] #[id number], 154.94, cm, 06/01/21 14:26:00 CDT, Height, 53.818, kg, 06/01/21 14:26:00 CDT, Weight diazepam 2020-08 Yes 5 mg = 1 Mem oria mg oral 1-09 tab, PO, l tablet 23:37: TID, # 90 Broderick n 00 tab, 2 Refill(s), Pharmacy: [facility] #[id number], 154.94, cm, 06/01/21 14:26:00 CDT, Height, 53.818, kg, 06/01/21 14:26:00 CDT, Weight diazepam 2020-08 Yes 5 mg = 1 Mem oria mg oral 1-09 tab, PO, l tablet 23:37: TID, # 90 Broderick n 00 tab, 2 Refill(s), Pharmacy: [facility] #[id number], 154.94, cm, 06/01/21 14:26:00 CDT, Height, 53.818, kg, 06/01/21 14:26:00 CDT, Weight diazepam 2020- Yes 5 mg = 1 Mem oria mg oral 1-09 tab, PO, l tablet 23:37: TID, # 90 Broderick n 00 tab, 2 Refill(s), Pharmacy: [facility] #[id number], 154.94, cm, 06/01/21 14:26:00 CDT, Height, 53.818, kg, 06/01/21 14:26:00 CDT, Weight diazepam 5 2020-1 Yes 5 mg = 1 Mem oria mg oral 1-09 tab, PO, l tablet 23:37: TID, # 90 Broderick n 00 tab, 2 Refill(s), Pharmacy: [facility] #[id number], 154.94, cm, 06/01/21 14:26:00 CDT, Height, 53.818, kg, 06/01/21 14:26:00 CDT, Weight diazepam 5 2020-1 Yes 5 mg = 1 Mem oria mg oral 1-09 tab, PO, l tablet 23:37: TID, # 90 Broderick n 00 tab, 2 Refill(s), Pharmacy: [facility] #[id number], 154.94, cm, 06/01/21 14:26:00 CDT, Height, 53.818, kg, 06/01/21 14:26:00 CDT, Weight diazepam 2020-1 Yes 5 mg = 1 Mem oria mg oral 1-09 tab, PO, l tablet 23:37: TID, # 90 Broderick n 00 tab, 2 Refill(s), Pharmacy: [facility] #[id number], 154.94, cm, 06/01/21 14:26:00 CDT, Height, 53.818, kg, 06/01/21 14:26:00 CDT, Weight diazepam 5 2020-0 Yes 5 mg = 1 Mem oria mg oral 8-12 tab, PO, l tablet 21:12: TID, # 90 Broderick n 00 tab, 2 Refill(s), Pharmacy: [facility] #[id number], 157.48, cm, 02/04/21 13:53:00 CDT, Height, 50.54, kg, 02/04/21 13:53:00 CDT, Weight diazepam 5 2020-0 Yes 5 mg = 1 Mem oria mg oral 8-12 tab, PO, l tablet 21:12: TID, # 90 Broderick n 00 tab, 2 Refill(s), Pharmacy: [facility] #[id number], 157.48, cm, 02/04/21 13:53:00 CDT, Height, 50.54, kg, 02/04/21 13:53:00 CDT, Weight diazepam 5 2021-0 Yes 5 mg = 1 Mem oria mg oral 8-12 tab, PO, l tablet 21:12: TID, # 90 Broderick n 00 tab, 2 Refill(s), Pharmacy: [facility] #[id number], 157.48, cm, 02/04/21 13:53:00 CDT, Height, 50.54, kg, 02/04/21 13:53:00 CDT, Weight diazepam 5 1-0 Yes 5 mg = 1 Mem oria mg oral 8-12 tab, PO, l tablet 21:12: TID, # 90 Broderick n 00 tab, 2 Refill(s), Pharmacy: [facility] #[id number], 157.48, cm, 02/04/21 13:53:00 CDT, Height, 50.54, kg, 02/04/21 13:53:00 CDT, Weight diazepam 5 2020-0 Yes 5 mg = 1 Mem oria mg oral 8-12 tab, PO, l tablet 21:12: TID, # 90 Broderick n 00 tab, 2 Refill(s), Pharmacy: [facility] #[id number], 157.48, cm, 02/04/21 13:53:00 CDT, Height, 50.54, kg, 02/04/21 13:53:00 CDT, Weight diazepam 5 1-0 Yes 5 mg = 1 Mem oria mg oral 8-12 tab, PO, l tablet 21:12: TID, # 90 Broderick n 00 tab, 2 Refill(s), Pharmacy: [facility] #[id number], 157.48, cm, 02/04/21 13:53:00 CDT, Height, 50.54, kg, 02/04/21 13:53:00 CDT, Weight diazepam 5 2021-0 Yes 5 mg = 1 Mem oria mg oral 8-12 tab, PO, l tablet 21:12: TID, # 90 Broderick n 00 tab, 2 Refill(s), Pharmacy: [facility] #[id number], 157.48, cm, 02/04/21 13:53:00 CDT, Height, 50.54, kg, 02/04/21 13:53:00 CDT, Weight diazepam 5 2021-0 Yes 5 mg = 1 Mem oria mg oral 8-12 tab, PO, l tablet 21:12: TID, # 90 Broderick n 00 tab, 2 Refill(s), Pharmacy: [facility] #[id number], 157.48, cm, 02/04/21 13:53:00 CDT, Height, 50.54, kg, 02/04/21 13:53:00 CDT, Weight diazepam 5 1-0 Yes 5 mg = 1 Mem oria mg oral 8-12 tab, PO, l tablet 21:12: TID, # 90 Broderick n 00 tab, 2 Refill(s), Pharmacy: [facility] #[id number], 157.48, cm, 02/04/21 13:53:00 CDT, Height, 50.54, kg, 02/04/21 13:53:00 CDT, Weight diazepam 5 2020-0 Yes 5 mg = 1 Mem oria mg oral 8-12 tab, PO, l tablet 21:12: TID, # 90 Broderick n 00 tab, 2 Refill(s), Pharmacy: [facility] #[id number], 157.48, cm, 02/04/21 13:53:00 CDT, Height, 50.54, kg, 02/04/21 13:53:00 CDT, Weight diazepam 5 1-0 Yes 5 mg = 1 Mem oria mg oral 8-12 tab, PO, l tablet 21:12: TID, # 90 Broderick n 00 tab, 2 Refill(s), Pharmacy: [facility] #[id number], 157.48, cm, 02/04/21 13:53:00 CDT, Height, 50.54, kg, 02/04/21 13:53:00 CDT, Weight diazepam 5 2021-0 Yes 5 mg = 1 Mem oria mg oral 8-12 tab, PO, l tablet 21:12: TID, # 90 Broderick n 00 tab, 2 Refill(s), Pharmacy: [facility] #[id number], 157.48, cm, 02/04/21 13:53:00 CDT, Height, 50.54, kg, 02/04/21 13:53:00 CDT, Weight diazepam 5 2021-0 Yes 5 mg = 1 Mem oria mg oral 8-12 tab, PO, l tablet 21:12: TID, # 90 Broderick n 00 tab, 2 Refill(s), Pharmacy: [facility] #[id number], 157.48, cm, 02/04/21 13:53:00 CDT, Height, 50.54, kg, 02/04/21 13:53:00 CDT, Weight diazepam 5 2021-0 Yes 5 mg = 1 Mem oria mg oral 5-06 tab, PO, l tablet 19:59: TID, # 90 Broderick n 00 tab, 2 Refill(s), Pharmacy: [facility] #[id number], 152.4, cm, 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, Height, 56.818, kg, 12/23/20 14:41:00 CDT, Weight diazepam 5 2020-0 Yes 5 mg = 1 Mem oria mg oral 5-06 tab, PO, l tablet 19:59: TID, # 90 Broderick n 00 tab, 2 Refill(s), Pharmacy: [facility] #[id number], 152.4, cm, 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, Height, 56.818, kg, 12/23/20 14:41:00 CDT, Weight diazepam 5 1-0 Yes 5 mg = 1 Mem oria mg oral 5-06 tab, PO, l tablet 19:59: TID, # 90 Broderick n 00 tab, 2 Refill(s), Pharmacy: [facility] #[id number], 152.4, cm, 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, Height, 56.818, kg, 12/23/20 14:41:00 CDT, Weight diazepam 5 2021-0 Yes 5 mg = 1 Mem oria mg oral 5-06 tab, PO, l tablet 19:59: TID, # 90 Broderick n 00 tab, 2 Refill(s), Pharmacy: [facility] #[id number], 152.4, cm, 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, Height, 56.818, kg, 12/23/20 14:41:00 CDT, Weight diazepam 5 2021-0 Yes 5 mg = 1 Mem oria mg oral 5-06 tab, PO, l tablet 19:59: TID, # 90 Broderick n 00 tab, 2 Refill(s), Pharmacy: [facility] #[id number], 152.4, cm, 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, Height, 56.818, kg, 12/23/20 14:41:00 CDT, Weight diazepam 5 2021-0 Yes 5 mg = 1 Mem oria mg oral 5-06 tab, PO, l tablet 19:59: TID, # 90 Broderick n 00 tab, 2 Refill(s), Pharmacy: [facility] #[id number], 152.4, cm, 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, Height, 56.818, kg, 12/23/20 14:41:00 CDT, Weight diazepam 5 2021-0 Yes 5 mg = 1 Mem oria mg oral 5-06 tab, PO, l tablet 19:59: TID, # 90 Broderick n 00 tab, 2 Refill(s), Pharmacy: [facility] #[id number], 152.4, cm, 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, Height, 56.818, kg, 12/23/20 14:41:00 CDT, Weight diazepam 5 2021-0 Yes 5 mg = 1 Mem oria mg oral 5-06 tab, PO, l tablet 19:59: TID, # 90 Broderick n 00 tab, 2 Refill(s), Pharmacy: [facility] #[id number], 152.4, cm, 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, Height, 56.818, kg, 12/23/20 14:41:00 CDT, Weight diazepam 5 2021-0 Yes 5 mg = 1 Mem oria mg oral 5-06 tab, PO, l tablet 19:59: TID, # 90 Broderick n 00 tab, 2 Refill(s), Pharmacy: [facility] STORE #[id number], 152.4, cm, 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, Height, 56.818, kg, 12/23/20 14:41:00 CDT, Weight diazepam 5 2021-0 Yes 5 mg = 1 Mem oria mg oral 5-06 tab, PO, l tablet 19:59: TID, # 90 Broderick n 00 tab, 2 Refill(s), Pharmacy: [facility] STORE #[id number], 152.4, cm, 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, Height, 56.818, kg, 12/23/20 14:41:00 CDT, Weight diazepam 5 2021-0 Yes 5 mg = 1 Mem oria mg oral 5-06 tab, PO, l tablet 19:59: TID, # 90 Broderick n 00 tab, 2 Refill(s), Pharmacy: [facility] STORE #[id number], 152.4, cm, 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, Height, 56.818, kg, 12/23/20 14:41:00 CDT, Weight diazepam 5 2020-0 Yes 5 mg = 1 Mem oria mg oral 5-06 tab, PO, l tablet 19:59: TID, # 90 Broderick n 00 tab, 2 Refill(s), Pharmacy: [facility] STORE #[id number], 152.4, cm, 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, Height, 56.818, kg, 12/23/20 14:41:00 CDT, Weight diazepam 5 1-0 Yes 5 mg = 1 Mem oria mg oral 5-06 tab, PO, l tablet 19:59: TID, # 90 Broderick n 00 tab, 2 Refill(s), Pharmacy: [facility] STORE #[id number], 152.4, cm, 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, Height, 56.818, kg, 12/23/20 14:41:00 CDT, Weight Zenpep 2020-0 Yes TK 2 CS PO Memor ia 40,000 5-06 TID WITH l units-126,0 19:48: MEALS AND H ermann 00 00 1 C WITH units-168,0 EACH SNACK 00 units oral delayed release capsule Amylases 2020-0 Yes TK 2 CS PO Mem oria [id number] UNT 5-06 TID WITH l / 19:48: MEALS AND [place] Endopeptida 00 1 C WITH ses [id number] EACH SNACK UNT / Lipase 40054 UNT Delayed Release Oral Capsule [Zenpep] Amylases 2020-0 Yes TK 2 CS PO Mem oria [id number] UNT 5-06 TID WITH l / 19:48: MEALS AND [place] Endopeptida 00 1 C WITH ses [id number] EACH SNACK UNT / Lipase 07829 UNT Delayed Release Oral Capsule [Zenpep] Amylases 2020-0 Yes TK 2 CS PO Mem oria [id number] UNT 5-06 TID WITH l / 19:48: MEALS AND [place] [facility] 00 1 C WITH ses 319374 EACH SNACK UNT / Lipase 46269 UNT Delayed Release Oral Capsule [Zenpep] Amylases 2020-0 Yes TK 2 CS PO Mem oria [id number] UNT 5-06 TID WITH l / 19:48: MEALS AND [place] Endopept[facility] 00 1 C WITH ses [id number] EACH SNACK UNT / Lipase 67685 UNT Delayed Release Oral Capsule [Zenpep] Zenpep 2020-0 Yes TK 2 CS PO Memor ia 40,000 5-06 TID WITH l units-126,0 19:48: MEALS AND H ermann 00 00 1 C WITH units-168,0 EACH SNACK 00 units oral delayed release capsule Amylases 1-0 Yes TK 2 CS PO Mem oria [id number] UNT 5-06 TID WITH l / 19:48: MEALS AND [place] [facility] 00 1 C WITH ses [id number] EACH SNACK UNT / Lipase 79150 UNT Delayed Release Oral Capsule [Zenpep] Zenpep 1-0 Yes TK 2 CS PO Memor ia 40,000 5-06 TID WITH l units-126,0 19:48: MEALS AND H ermann 00 00 1 C WITH units-168,0 EACH SNACK 00 units oral delayed release capsule Zenpep 2021-0 Yes TK 2 CS PO Memor ia 40,000 5-06 TID WITH l units-126,0 19:48: MEALS AND H ermann 00 00 1 C WITH units-168,0 EACH SNACK 00 units oral delayed release capsule Amylases 2021-0 Yes TK 2 CS PO Mem oria [id number] UNT 5-06 TID WITH l / 19:48: MEALS AND [facility] Endopeptida 00 1 C WITH ses 680954 EACH SNACK UNT / Lipase 85920 UNT Delayed Release Oral Capsule [Zenpep] Zenpep 202-0 Yes TK 2 CS PO Memor ia 40,000 5-06 TID WITH l units-126,0 19:48: MEALS AND H ermann 00 00 1 C WITH units-168,0 EACH SNACK 00 units oral delayed release capsule Amylases 2020-0 Yes TK 2 CS PO Mem oria [id number] UNT 5-06 TID WITH l / 19:48: MEALS AND [place] Endopeptida 00 1 C WITH ses 777145 EACH SNACK UNT / Lipase 23415 UNT Delayed Release Oral Capsule [Zenpep] Zenpep 2020-0 Yes TK 2 CS PO Memor ia 40,000 5-06 TID WITH l units-126,0 19:48: MEALS AND H ermann 00 00 1 C WITH units-168,0 EACH SNACK 00 units oral delayed release capsule Amylases 2020-0 Yes TK 2 CS PO Mem oria [id number] UNT 5-06 TID WITH l / 19:48: MEALS AND [facility] Endopeptida 00 1 C WITH ses 763040 EACH SNACK UNT / Lipase 54488 UNT Delayed Release Oral Capsule [Zenpep] Zenpep 2020-0 Yes TK 2 CS PO Memor ia 40,000 5-06 TID WITH l units-126,0 19:48: MEALS AND H ermann 00 00 1 C WITH units-168,0 EACH SNACK 00 units oral delayed release capsule Amylases 2020-0 Yes TK 2 CS PO Mem oria [id number] UNT 5-06 TID WITH l / 19:48: MEALS AND [facility] Endopeptida 00 1 C WITH ses 290555 EACH SNACK UNT / Lipase 97555 UNT Delayed Release Oral Capsule [Zenpep] Zenpep 2020-0 Yes TK 2 CS PO Memor ia 40,000 5-06 TID WITH l units-126,0 19:48: MEALS AND H ermann 00 00 1 C WITH units-168,0 EACH SNACK 00 units oral delayed release capsule Amylases 2020-0 Yes TK 2 CS PO Mem oria [id number] UNT 5-06 TID WITH l / 19:48: MEALS AND [place] Endopeptida 00 1 C WITH ses 810160 EACH SNACK UNT / Lipase 05813 UNT Delayed Release Oral Capsule [Zenpep] Zenpep 2020-0 Yes TK 2 CS PO Memor ia 40,000 5-06 TID WITH l units-126,0 19:48: MEALS AND H ermann 00 00 1 C WITH units-168,0 EACH SNACK 00 units oral delayed release capsule Amylases 2020-0 Yes TK 2 CS PO Mem oria [id number] UNT 5-06 TID WITH l / 19:48: MEALS AND [facility]opept[facility] 00 1 C WITH ses 848002 EACH SNACK UNT / Lipase 66893 UNT Delayed Release Oral Capsule [Zenpep] Zenpep 2020-0 Yes TK 2 CS PO Memor ia 40,000 5-06 TID WITH l units-126,0 19:48: MEALS AND H ermann 00 00 1 C WITH units-168,0 EACH SNACK 00 units oral delayed release capsule Amylases 2020-0 Yes TK 2 CS PO Mem oria [id number] UNT 5-06 TID WITH l / 19:48: MEALS AND [facility] Endopeptida 00 1 C WITH ses 023987 EACH SNACK UNT / Lipase 97398 UNT Delayed Release Oral Capsule [Zenpep] Zenpep 2020-0 Yes TK 2 CS PO Memor ia 40,000 5-06 TID WITH l units-126,0 19:48: MEALS AND H ermann 00 00 1 C WITH units-168,0 EACH SNACK 00 units oral delayed release capsule Amylases 2020-0 Yes TK 2 CS PO Mem oria 702609 UNT 5-06 TID WITH l / 19:48: MEALS AND [facility] Endopeptida 00 1 C WITH ses 986663 EACH SNACK UNT / Lipase 71572 UNT Delayed Release Oral Capsule [Zenpep] nortriptyli 2020-0 No = 1 cap, Me moria ne 25 mg 2-18 PO, l oral 21:59: Bedtime, # [place]ink[place] capsule 00 30 cap, 2 Refill(s), Pharmacy: [facility] STORE #[id number], 152.4, cm, 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, 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, 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, kg, 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, Weight nortriptyli No = 1 cap, Me moria ne 25 mg 2-18 PO, l oral 21:59: Bedtime, # Elver capsule 00 30 cap, 2 Refill(s), Pharmacy: [facility] STORE #[id number], 152.4, cm, 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, 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, 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, kg, 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, Weight nortriptyli No = 1 cap, Me moria ne 25 mg 2-18 PO, l oral 21:59: Bedtime, # [place] capsule 00 30 cap, 2 Refill(s), [facility][id number], 152.4, cm, 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, Height, 60.909, kg, 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, Weight nortriptyli No = 1 cap, Me moria ne 25 mg 2-18 PO, l oral 21:59: Bedtime, # [place] capsule 00 30 cap, 2 Refill(s), [id number], 152.4, cm, 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, Height, 60.909, kg, 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, Weight nortriptyli No = 1 cap, Me moria ne 25 mg 2-18 PO, l oral 21:59: Bedtime, # [place] capsule 00 30 cap, 2 Refill(s), [id number], 152.4, cm, 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, Height, 60.909, kg, 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, Weight nortriptyli No = 1 cap, Me moria ne 25 mg 2-18 PO, l oral 21:59: Bedtime, # [place] capsule 00 30 cap, 2 Refill(s), [id number], 152.4, cm, 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, Height, 60.909, kg, 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, Weight nortriptyli No = 1 cap, Me moria ne 25 mg 2-18 PO, l oral 21:59: Bedtime, # Elver capsule 00 30 cap, 2 Refill(s), Pharmacy: [facility] #[id number], 152.4, cm, 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, Height, 60.909, kg, 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, Weight nortriptyli No = 1 cap, Me moria ne 25 mg 2-18 PO, l oral 21:59: Bedtime, # Brink[place] capsule 00 30 cap, 2 Refill(s), Pharmacy: [facility] STORE #[id number], 152.4, cm, 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, Height, 60.909, kg, 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, Weight nortriptyli No = 1 cap, Me moria ne 25 mg 2-18 PO, l oral 21:59: Bedtime, # [place] capsule 00 30 cap, 2 Refill(s), Pharmacy: [facility] STORE #[id number], 152.4, cm, 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, Height, 60.909, kg, 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, Weight nortriptyli No = 1 cap, Me moria ne 25 mg 2-18 PO, l oral 21:59: Bedtime, # Brink[place] capsule 00 30 cap, 2 Refill(s), Pharmacy: [facility] #[id number], 152.4, cm, 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, Height, 60.909, kg, 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, Weight nortriptyli No = 1 cap, Me moria ne 25 mg 2-18 PO, l oral 21:59: Bedtime, # Br[place] capsule 00 30 cap, 2 Refill(s), Pharmacy: [facility] STORE #[id number], 152.4, cm, 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, Height, 60.909, kg, 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, Weight nortriptyli 0 No = 1 cap, Me moria ne 25 mg 2-18 PO, l oral 21:59: Bedtime, # [place] capsule 00 30 cap, 2 Refill(s), Pharmacy: [facility] STORE #[id number], 152.4, cm, 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 diazepam 5 2019-08 Yes 5 mg = 1 Mem oria mg oral 1-03 tab, PO, l tablet 18:18: TID, # 90 Broderick n 00 tab, 2 Refill(s), Pharmacy: [facility] STORE #[id number], 154.94, cm, 04/22/20 13:58:00 CDT, Height, 59.091, kg, 04/22/20 13:58:00 CDT, Weight diazepam 5 2019- Yes 5 mg = 1 Mem oria mg oral 1-03 tab, PO, l tablet 18:18: TID, # 90 Broderick n 00 tab, 2 Refill(s), Pharmacy: [facility] STORE #[id number], 154.94, cm, 04/22/20 13:58:00 CDT, Height, 59.091, kg, 04/22/20 13:58:00 CDT, Weight diazepam 5 2019-08 Yes 5 mg = 1 Mem oria mg oral 1-03 tab, PO, l tablet 18:18: TID, # 90 Broderick n 00 tab, 2 Refill(s), Pharmacy: [facility] STORE #[id number], 154.94, cm, 04/22/20 13:58:00 CDT, Height, 59.091, kg, 04/22/20 13:58:00 CDT, Weight diazepam 5 2020-1 Yes 5 mg = 1 Mem oria mg oral 1-03 tab, PO, l tablet 18:18: TID, # 90 Broderick n 00 tab, 2 Refill(s), [facility] #[id number], 154.94, cm, 04/22/20 13:58:00 CDT, Height, 59.091, kg, 04/22/20 13:58:00 CDT, Weight diazepam 5 2020-1 Yes 5 mg = 1 Mem oria mg oral 1-03 tab, PO, l tablet 18:18: TID, # 90 Broderick n 00 tab, 2 Refill(s), [facility]: [facility] #[id number], 154.94, cm, 04/22/20 13:58:00 CDT, Height, 59.091, kg, 04/22/20 13:58:00 CDT, Weight diazepam 5 2020- Yes 5 mg = 1 Mem oria mg oral 1-03 tab, PO, l tablet 18:18: TID, # 90 Broderick n 00 tab, 2 Refill(s), [facility]: [facility] #[id number], 154.94, cm, 04/22/20 13:58:00 CDT, Height, 59.091, kg, 04/22/20 13:58:00 CDT, Weight diazepam 5 2020-1 Yes 5 mg = 1 Mem oria mg oral 1-03 tab, PO, l tablet 18:18: TID, # 90 Broderick n 00 tab, 2 Refill(s), [facility]: [facility] #[id number], 154.94, cm, 04/22/20 13:58:00 CDT, Height, 59.091, kg, 04/22/20 13:58:00 CDT, Weight diazepam 5 2020-1 Yes 5 mg = 1 Mem oria mg oral 1-03 tab, PO, l tablet 18:18: TID, # 90 Broderick n 00 tab, 2 Refill(s), [facility][id number], 154.94, cm, 04/22/20 13:58:00 CDT, Height, 59.091, kg, 04/22/20 13:58:00 CDT, Weight diazepam 5 2020-1 Yes 5 mg = 1 Mem oria mg oral 1-03 tab, PO, l tablet 18:18: TID, # 90 Broderick n 00 tab, 2 Refill(s), [facility] #[id number], 154.94, cm, 04/22/20 13:58:00 CDT, Height, 59.091, kg, 04/22/20 13:58:00 CDT, Weight diazepam 5 2020-1 Yes 5 mg = 1 Mem oria mg oral 1-03 tab, PO, l tablet 18:18: TID, # 90 Broderick n 00 tab, 2 Refill(s), [facility] #[id number], 154.94, cm, 04/22/20 13:58:00 CDT, Height, 59.091, kg, 04/22/20 13:58:00 CDT, Weight diazepam 5 2020- Yes 5 mg = 1 Mem oria mg oral 1-03 tab, PO, l tablet 18:18: TID, # 90 Broderick n 00 tab, 2 Refill(s), [facility]: [facility] #[id number], 154.94, cm, 04/22/20 13:58:00 CDT, Height, 59.091, kg, 04/22/20 13:58:00 CDT, Weight diazepam 5 2020-1 Yes 5 mg = 1 Mem oria mg oral 1-03 tab, PO, l tablet 18:18: TID, # 90 Broderick n 00 tab, 2 Refill(s), [facility]: [facility] #[id number], 154.94, cm, 04/22/20 13:58:00 CDT, Height, 59.091, kg, 04/22/20 13:58:00 CDT, Weight diazepam 5 2020-1 Yes 5 mg = 1 Mem oria mg oral 1-03 tab, PO, l tablet 18:18: TID, # 90 Broderick n 00 tab, 2 Refill(s), [facility][id number], 154.94, cm, 04/22/20 13:58:00 CDT, Height, 59.091, kg, 04/22/20 13:58:00 CDT, Weight nortriptyli 2020-0 Yes 50 mg = 1 M emoria ne 50 mg 9-03 cap, PO, l oral 19:11: Bedtime, # Br[place] capsule 00 30 cap, 4 Refill(s), Pharmacy: [facility] STORE #[id number], 154.94, cm, 04/22/20 13:58:00 CDT, Height, 59.091, kg, 04/22/20 13:58:00 CDT, Weight nortriptyli 2020-0 Yes 50 mg = 1 M emoria ne 50 mg 9-03 cap, PO, l oral 19:11: Bedtime, # Elver capsule 00 30 cap, 4 Refill(s), Pharmacy: [facility] STORE #[id number], 154.94, cm, 04/22/20 13:58:00 CDT, Height, 59.091, kg, 04/22/20 13:58:00 CDT, Weight nortriptyli 2020-0 Yes 50 mg = 1 M emoria ne 50 mg 9-03 cap, PO, l oral 19:11: Bedtime, # Elver capsule 00 30 cap, 4 Refill(s), Pharmacy: [facility] STORE #[id number], 154.94, cm, 04/22/20 13:58:00 CDT, Height, 59.091, kg, 04/22/20 13:58:00 CDT, Weight nortriptyli 2020-0 Yes 50 mg = 1 M emoria ne 50 mg 9-03 cap, PO, l oral 19:11: Bedtime, # Elver capsule 00 30 cap, 4 Refill(s), Pharmacy: [facility] ST[facility] #[id number], 154.94, cm, 04/22/20 13:58:00 CDT, Height, 59.091, kg, 04/22/20 13:58:00 CDT, Weight nortriptyli 2020-0 Yes 50 mg = 1 M emoria ne 50 mg 9-03 cap, PO, l oral 19:11: Bedtime, # [place] capsule 00 30 cap, 4 Refill(s), [facility][id number], 154.94, cm, 04/22/20 13:58:00 CDT, Height, 59.091, kg, 04/22/20 13:58:00 CDT, Weight nortriptyli 2020-0 Yes 50 mg = 1 M emoria ne 50 mg 9-03 cap, PO, l oral 19:11: Bedtime, # Elver capsule 00 30 cap, 4 Refill(s), Pharmacy: [facility] STORE #[id number], 154.94, cm, 04/22/20 13:58:00 CDT, Height, 59.091, kg, 04/22/20 13:58:00 CDT, Weight nortriptyli 2020-0 Yes 50 mg = 1 M emoria ne 50 mg 9-03 cap, PO, l oral 19:11: Bedtime, # Elver capsule 00 30 cap, 4 Refill(s), Pharmacy: [facility] ST[facility] #[id number], 154.94, cm, 04/22/20 13:58:00 CDT, Height, 59.091, kg, 04/22/20 13:58:00 CDT, Weight nortriptyli 2020-0 Yes 50 mg = 1 M emoria ne 50 mg 9-03 cap, PO, l oral 19:11: Bedtime, # [place] capsule 00 30 cap, 4 Refill(s), Pharmacy: [facility] #[id number], 154.94, cm, 04/22/20 13:58:00 CDT, Height, 59.091, kg, 04/22/20 13:58:00 CDT, Weight nortriptyli 2020-0 Yes 50 mg = 1 M emoria ne 50 mg 9-03 cap, PO, l oral 19:11: Bedtime, # [place] capsule 00 30 cap, 4 Refill(s), [facility][id number], 154.94, cm, 04/22/20 13:58:00 CDT, Height, 59.091, kg, 04/22/20 13:58:00 CDT, Weight nortriptyli 2020-0 Yes 50 mg = 1 M emoria ne 50 mg 9-03 cap, PO, l oral 19:11: Bedtime, # Elver capsule 00 30 cap, 4 Refill(s), Pharmacy: [facility] ST[facility] #[id number], 154.94, cm, 04/22/20 13:58:00 CDT, Height, 59.091, kg, 04/22/20 13:58:00 CDT, Weight nortriptyli 2020-0 Yes 50 mg = 1 M emoria ne 50 mg 9-03 cap, PO, l oral 19:11: Bedtime, # Elver capsule 00 30 cap, 4 Refill(s), Pharmacy: [facility] ST[facility] #[id number], 154.94, cm, 04/22/20 13:58:00 CDT, Height, 59.091, kg, 04/22/20 13:58:00 CDT, Weight nortriptyli 2020-0 Yes 50 mg = 1 M emoria ne 50 mg 9-03 cap, PO, l oral 19:11: Bedtime, # Elver capsule 00 30 cap, 4 Refill(s), Pharmacy: [facility] ST[facility] #[id number], 154.94, cm, 04/22/20 13:58:00 CDT, Height, 59.091, kg, 04/22/20 13:58:00 CDT, Weight nortriptyli 2020-0 Yes 50 mg = 1 M emoria ne 50 mg 9-03 cap, PO, l oral 19:11: Bedtime, # Elver capsule 00 30 cap, 4 Refill(s), Pharmacy: [facility] #[id number], 154.94, cm, 04/22/20 13:58:00 CDT, Height, 59.091, kg, 04/22/20 13:58:00 CDT, Weight diazepam 5 2020-0 Yes 5 mg = 1 Mem oria mg oral 8-04 tab, PO, l tablet 20:55: TID, # 90 Broderick n 00 tab, 2 Refill(s), Pharmacy: [facility] #[id number], 152.4, cm, 01/21/20 14:21:00 CDT, Height, 57.727, kg, 01/21/20 14:21:00 CDT, Weight diazepam 5 2020-0 Yes 5 mg = 1 Mem oria mg oral 8-04 tab, PO, l tablet 20:55: TID, # 90 Broderick n 00 tab, 2 Refill(s), Pharmacy: [facility] ST[facility] #[id number], 152.4, cm, 01/21/20 14:21:00 CDT, Height, 57.727, kg, 01/21/20 14:21:00 CDT, Weight diazepam 5 2020-0 Yes 5 mg = 1 Mem oria mg oral 8-04 tab, PO, l tablet 20:55: TID, # 90 Broderick n 00 tab, 2 Refill(s), Pharmacy: [facility] #[id number], 152.4, cm, 01/21/20 14:21:00 CDT, Height, 57.727, kg, 01/21/20 14:21:00 CDT, Weight diazepam 5 2020-0 Yes 5 mg = 1 Mem oria mg oral 8-04 tab, PO, l tablet 20:55: TID, # 90 Broderick n 00 tab, 2 Refill(s), Pharmacy: [facility] #[id number], 152.4, cm, 01/21/20 14:21:00 CDT, Height, 57.727, kg, 01/21/20 14:21:00 CDT, Weight diazepam 5 2020-0 Yes 5 mg = 1 Mem oria mg oral 8-04 tab, PO, l tablet 20:55: TID, # 90 Broderick n 00 tab, 2 Refill(s), Pharmacy: [facility] #[id number], 152.4, cm, 01/21/20 14:21:00 CDT, Height, 57.727, kg, 01/21/20 14:21:00 CDT, Weight diazepam 5 2020-0 Yes 5 mg = 1 Mem oria mg oral 8-04 tab, PO, l tablet 20:55: TID, # 90 Broderick n 00 tab, 2 Refill(s), Pharmacy: [facility] #[id number], 152.4, cm, 01/21/20 14:21:00 CDT, Height, 57.727, kg, 01/21/20 14:21:00 CDT, Weight diazepam 5 2020-0 Yes 5 mg = 1 Mem oria mg oral 8-04 tab, PO, l tablet 20:55: TID, # 90 Broderick n 00 tab, 2 Refill(s), Pharmacy: [facility] #[id number], 152.4, cm, 01/21/20 14:21:00 CDT, Height, 57.727, kg, 01/21/20 14:21:00 CDT, Weight diazepam 5 2020-0 Yes 5 mg = 1 Mem oria mg oral 8-04 tab, PO, l tablet 20:55: TID, # 90 Broderick n 00 tab, 2 Refill(s), Pharmacy: [facility] ST[facility] #[id number], 152.4, cm, 01/21/20 14:21:00 CDT, Height, 57.727, kg, 01/21/20 14:21:00 CDT, Weight diazepam 5 2020-0 Yes 5 mg = 1 Mem oria mg oral 8-04 tab, PO, l tablet 20:55: TID, # 90 Broderick n 00 tab, 2 Refill(s), Pharmacy: [facility] #[id number], 152.4, cm, 01/21/20 14:21:00 CDT, Height, 57.727, kg, 01/21/20 14:21:00 CDT, Weight diazepam 5 2020-0 Yes 5 mg = 1 Mem oria mg oral 8-04 tab, PO, l tablet 20:55: TID, # 90 Broderick n 00 tab, 2 Refill(s), Pharmacy: [facility] #[id number], 152.4, cm, 01/21/20 14:21:00 CDT, Height, 57.727, kg, 01/21/20 14:21:00 CDT, Weight diazepam 5 2020-0 Yes 5 mg = 1 Mem oria mg oral 8-04 tab, PO, l tablet 20:55: TID, # 90 Broderick n 00 tab, 2 Refill(s), Pharmacy: [facility] #[id number], 152.4, cm, 01/21/20 14:21:00 CDT, Height, 57.727, kg, 01/21/20 14:21:00 CDT, Weight diazepam 5 2020-0 Yes 5 mg = 1 Mem oria mg oral 8-04 tab, PO, l tablet 20:55: TID, # 90 Broderick n 00 tab, 2 Refill(s), Pharmacy: [facility] ST[facility] #[id number], 152.4, cm, 01/21/20 14:21:00 CDT, Height, 57.727, kg, 01/21/20 14:21:00 CDT, Weight diazepam 5 2020-0 Yes 5 mg = 1 Mem oria mg oral 8-04 tab, PO, l tablet 20:55: TID, # 90 Broderick n 00 tab, 2 Refill(s), Pharmacy: [facility] #[id number], 152.4, cm, 01/21/20 14:21:00 CDT, Height, 57.727, kg, 01/21/20 14:21:00 CDT, Weight nortriptyli 2020-0 Yes 25 mg = 1 M emoria ne 25 mg 6-03 cap, PO, l oral 19:49: Bedtime, # Brinklow capsule 00 30 cap, 2 Refill(s), Pharmacy: [facility] #[id number] nortriptyli 2020-0 Yes 25 mg = 1 M emoria ne 25 mg 6-03 cap, PO, l oral 19:49: Bedtime, # Elver capsule 00 30 cap, 2 Refill(s), Pharmacy: [facility] #[id number] nortriptyli 2020-0 Yes 25 mg = 1 M emoria ne 25 mg 6-03 cap, PO, l oral 19:49: Bedtime, # Elver capsule 00 30 cap, 2 Refill(s), Pharmacy: [facility] #[id number] nortriptyli 2020-0 Yes 25 mg = 1 M emoria ne 25 mg 6-03 cap, PO, l oral 19:49: Bedtime, # Elver capsule 00 30 cap, 2 Refill(s), [id number] nortriptyli 2020-0 Yes 25 mg = 1 M emoria ne 25 mg 6-03 cap, PO, l oral 19:49: Bedtime, # Brinklow capsule 00 30 cap, 2 Refill(s), [facility][id number] nortriptyli 2020-0 Yes 25 mg = 1 M emoria ne 25 mg 6-03 cap, PO, l oral 19:49: Bedtime, # Brinklow capsule 00 30 cap, 2 Refill(s), [facility][id number] nortriptyli 2020-0 Yes 25 mg = 1 M emoria ne 25 mg 6-03 cap, PO, l oral 19:49: Bedtime, # Elver capsule 00 30 cap, 2 Refill(s), [facility] #[id number] nortriptyli 2020-0 Yes 25 mg = 1 M emoria ne 25 mg 6-03 cap, PO, l oral 19:49: Bedtime, # Brinklow capsule 00 30 cap, 2 Refill(s), [facility] #[id number] nortriptyli 2020-0 Yes 25 mg = 1 M emoria ne 25 mg 6-03 cap, PO, l oral 19:49: Bedtime, # Elver capsule 00 30 cap, 2 Refill(s), [facility] #[id number] nortriptyli 2020-0 Yes 25 mg = 1 M emoria ne 25 mg 6-03 cap, PO, l oral 19:49: Bedtime, # Brinklow capsule 00 30 cap, 2 Refill(s), [facility] #[id number] nortriptyli 2020-0 Yes 25 mg = 1 M emoria ne 25 mg 6-03 cap, PO, l oral 19:49: Bedtime, # Elver capsule 00 30 cap, 2 Refill(s), [facility][id number] nortriptyli 2020-0 Yes 25 mg = 1 M emoria ne 25 mg 6-03 cap, PO, l oral 19:49: Bedtime, # Brinklow capsule 00 30 cap, 2 Refill(s), [facility][id number] nortriptyli 2020-0 Yes 25 mg = 1 M emoria ne 25 mg 6-03 cap, PO, l oral 19:49: Bedtime, # Elver capsule 00 30 cap, 2 Refill(s), [id number] diazepam 5 2020-0 Yes 5 mg = 1 Mem oria mg oral 5-06 tab, PO, l tablet 22:37: TID, # 90 Broderick n 00 tab, 2 Refill(s), Pharmacy: [facility] #[id number] diazepam 5 2020-0 Yes 5 mg = 1 Mem oria mg oral 5-06 tab, PO, l tablet 22:37: TID, # 90 Broderick n 00 tab, 2 Refill(s), Pharmacy: [facility] #[id number] diazepam 5 2020-0 Yes 5 mg = 1 Mem oria mg oral 5-06 tab, PO, l tablet 22:37: TID, # 90 Broderick n 00 tab, 2 Refill(s), Pharmacy: [facility] #[id number] diazepam 5 2020-0 Yes 5 mg = 1 Mem oria mg oral 5-06 tab, PO, l tablet 22:37: TID, # 90 Broderick n 00 tab, 2 Refill(s), Pharmacy: [facility] #[id number] diazepam 5 2020-0 Yes 5 mg = 1 Mem oria mg oral 5-06 tab, PO, l tablet 22:37: TID, # 90 Broderick n 00 tab, 2 Refill(s), Pharmacy: [facility] #[id number] diazepam 5 2020-0 Yes 5 mg = 1 Mem oria mg oral 5-06 tab, PO, l tablet 22:37: TID, # 90 Broderick n 00 tab, 2 Refill(s), Pharmacy: [facility] #[id number] diazepam 5 2020-0 Yes 5 mg = 1 Mem oria mg oral 5-06 tab, PO, l tablet 22:37: TID, # 90 Broderick n 00 tab, 2 Refill(s), Pharmacy: [facility] #[id number] diazepam 5 2020-0 Yes 5 mg = 1 Mem oria mg oral 5-06 tab, PO, l tablet 22:37: TID, # 90 Broderick n 00 tab, 2 Refill(s), Pharmacy: [facility] #[id number] diazepam 5 2020-0 Yes 5 mg = 1 Mem oria mg oral 5-06 tab, PO, l tablet 22:37: TID, # 90 Broderick n 00 tab, 2 Refill(s), Pharmacy: [facility] #[id number] diazepam 5 2020-0 Yes 5 mg = 1 Mem oria mg oral 5-06 tab, PO, l tablet 22:37: TID, # 90 Broderick n 00 tab, 2 Refill(s), [id number] diazepam 5 2020-0 Yes 5 mg = 1 Mem oria mg oral 5-06 tab, PO, l tablet 22:37: TID, # 90 Broderick n 00 tab, 2 Refill(s), Pharmacy: [facility] #[id number] diazepam 5 2020-0 Yes 5 mg = 1 Mem oria mg oral 5-06 tab, PO, l tablet 22:37: TID, # 90 Broderick n 00 tab, 2 Refill(s), Pharmacy: [facility] #[id number] diazepam 5 2020-0 Yes 5 mg = 1 Mem oria mg oral 5-06 tab, PO, l tablet 22:37: TID, # 90 Broderick n 00 tab, 2 Refill(s), [id number] nortriptyli 2020-0 Yes 25 mg = 1 M emoria ne 25 mg 1-09 cap, PO, l oral 21:25: Bedtime, # [place] capsule 09 30 cap, 2 Refill(s), [id number] nortriptyli 2020-0 Yes 25 mg = 1 M emoria ne 25 mg 1-09 cap, PO, l oral 21:25: Bedtime, # [place] capsule 09 30 cap, 2 Refill(s), [id number] nortriptyli 2020-0 Yes 25 mg = 1 M emoria ne 25 mg 1-09 cap, PO, l oral 21:25: Bedtime, # [place] capsule 09 30 cap, 2 Refill(s), [id number] nortriptyli 2020-0 Yes 25 mg = 1 M emoria ne 25 mg 1-09 cap, PO, l oral 21:25: Bedtime, # [place] capsule 09 30 cap, 2 Refill(s), [id number] nortriptyli 2020-0 Yes 25 mg = 1 M emoria ne 25 mg 1-09 cap, PO, l oral 21:25: Bedtime, # Elver capsule 09 30 cap, 2 Refill(s), Pharmacy: [facility] #[id number] nortriptyli 2020-0 Yes 25 mg = 1 M emoria ne 25 mg 1-09 cap, PO, l oral 21:25: Bedtime, # Elver capsule 09 30 cap, 2 Refill(s), Pharmacy: [facility] #[id number] nortriptyli 2020-0 Yes 25 mg = 1 M emoria ne 25 mg 1-09 cap, PO, l oral 21:25: Bedtime, # [place] capsule 09 30 cap, 2 Refill(s), [id number] nortriptyli 2020-0 Yes 25 mg = 1 M emoria ne 25 mg 1-09 cap, PO, l oral 21:25: Bedtime, # [place] capsule 09 30 cap, 2 Refill(s), Pharmacy: [facility] #[id number] nortriptyli 2020-0 Yes 25 mg = 1 M emoria ne 25 mg 1-09 cap, PO, l oral 21:25: Bedtime, # [place] capsule 09 30 cap, 2 Refill(s), Pharmacy: [facility] #[id number] nortriptyli 2020-0 Yes 25 mg = 1 M emoria ne 25 mg 1-09 cap, PO, l oral 21:25: Bedtime, # [place] capsule 09 30 cap, 2 Refill(s), Pharmacy: [facility] #[id number] nortriptyli 2020-0 Yes 25 mg = 1 M emoria ne 25 mg 1-09 cap, PO, l oral 21:25: Bedtime, # [place] capsule 09 30 cap, 2 Refill(s), Pharmacy: [facility] #[id number] nortriptyli 2020-0 Yes 25 mg = 1 M emoria ne 25 mg 1-09 cap, PO, l oral 21:25: Bedtime, # [place] capsule 09 30 cap, 2 Refill(s), Pharmacy: [facility] #[id number] nortriptyli 2020-0 Yes 25 mg = 1 M emoria ne 25 mg 1-09 cap, PO, l oral 21:25: Bedtime, # [place] capsule 09 30 cap, 2 Refill(s), Pharmacy: [facility] #[id number] nortriptyli 2020-0 Yes 10 mg = 1 M emoria ne 10 mg 1-09 cap, PO, l oral 21:25: Bedtime, # Brinklow capsule 04 30 cap, 2 Refill(s), Pharmacy: [facility] #[id number] nortriptyli 2020-0 Yes 10 mg = 1 M emoria ne 10 mg 1-09 cap, PO, l oral 21:25: Bedtime, # Brinklow capsule 04 30 cap, 2 Refill(s), Pharmacy: [facility] #[id number] nortriptyli 2020-0 Yes 10 mg = 1 M emoria ne 10 mg 1-09 cap, PO, l oral 21:25: Bedtime, # Brinklow capsule 04 30 cap, 2 Refill(s), Pharmacy: [facility] #[id number] nortriptyli 2020-0 Yes 10 mg = 1 M emoria ne 10 mg 1-09 cap, PO, l oral 21:25: Bedtime, # Elver capsule 04 30 cap, 2 Refill(s), Pharmacy: [facility] #[id number] nortriptyli 2020-0 Yes 10 mg = 1 M emoria ne 10 mg 1-09 cap, PO, l oral 21:25: Bedtime, # Brinklow capsule 04 30 cap, 2 Refill(s), Pharmacy: [facility] #[id number] nortriptyli 2020-0 Yes 10 mg = 1 M emoria ne 10 mg 1-09 cap, PO, l oral 21:25: Bedtime, # Elver capsule 04 30 cap, 2 Refill(s), Pharmacy: [facility] #[id number] nortriptyli 2020-0 Yes 10 mg = 1 M emoria ne 10 mg 1-09 cap, PO, l oral 21:25: Bedtime, # Elver capsule 04 30 cap, 2 Refill(s), Pharmacy: [facility] #[id number] nortriptyli 2020-0 Yes 10 mg = 1 M emoria ne 10 mg 1-09 cap, PO, l oral 21:25: Bedtime, # Elver capsule 04 30 cap, 2 Refill(s), [facility][id number] nortriptyli 2020-0 Yes 10 mg = 1 M emoria ne 10 mg 1-09 cap, PO, l oral 21:25: Bedtime, # Elver capsule 04 30 cap, 2 Refill(s), [facility][id number] nortriptyli 2020-0 Yes 10 mg = 1 M emoria ne 10 mg 1-09 cap, PO, l oral 21:25: Bedtime, # Elver capsule 04 30 cap, 2 Refill(s), [facility][id number] nortriptyli 2020-0 Yes 10 mg = 1 M emoria ne 10 mg 1-09 cap, PO, l oral 21:25: Bedtime, # Brinklow capsule 04 30 cap, 2 Refill(s), [facility][id number] nortriptyli 2020-0 Yes 10 mg = 1 M emoria ne 10 mg 1-09 cap, PO, l oral 21:25: Bedtime, # Brinklow capsule 04 30 cap, 2 Refill(s), [facility][id number] nortriptyli 2020-0 Yes 10 mg = 1 M emoria ne 10 mg 1-09 cap, PO, l oral 21:25: Bedtime, # Brinklow capsule 04 30 cap, 2 Refill(s), [id number] diazepam 5 2020-0 Yes 5 mg = 1 Mem oria mg oral 1-09 tab, PO, l tablet 21:23: TID, # 90 Broderick n 44 tab, 2 Refill(s) diazepam 5 2020-0 Yes 5 mg = 1 Mem oria mg oral 1-09 tab, PO, l tablet 21:23: TID, # 90 Broderick n 44 tab, 2 Refill(s) diazepam 5 2020-0 Yes 5 mg = 1 Mem oria mg oral 1-09 tab, PO, l tablet 21:23: TID, # 90 Broderick n 44 tab, 2 Refill(s) diazepam 5 2020-0 Yes 5 mg = 1 Mem oria mg oral 1-09 tab, PO, l tablet 21:23: TID, # 90 Broderick n 44 tab, 2 Refill(s) diazepam 5 2020-0 Yes 5 mg = 1 Mem oria mg oral 1-09 tab, PO, l tablet 21:23: TID, # 90 Broderick n 44 tab, 2 Refill(s) diazepam 5 2020-0 Yes 5 mg = 1 Mem oria mg oral 1-09 tab, PO, l tablet 21:23: TID, # 90 Broderick n 44 tab, 2 Refill(s) diazepam 5 2020-0 Yes 5 mg = 1 Mem oria mg oral 1-09 tab, PO, l tablet 21:23: TID, # 90 Broderick n 44 tab, 2 Refill(s) diazepam 5 2020-0 Yes 5 mg = 1 Mem oria mg oral 1-09 tab, PO, l tablet 21:23: TID, # 90 Broderick n 44 tab, 2 Refill(s) diazepam 5 2020-0 Yes 5 mg = 1 Mem oria mg oral 1-09 tab, PO, l tablet 21:23: TID, # 90 Broderick n 44 tab, 2 Refill(s) diazepam 5 2020-0 Yes 5 mg = 1 Mem oria mg oral 1-09 tab, PO, l tablet 21:23: TID, # 90 Broderick n 44 tab, 2 Refill(s) diazepam 5 2020-0 Yes 5 mg = 1 Mem oria mg oral 1-09 tab, PO, l tablet 21:23: TID, # 90 Broderick n 44 tab, 2 Refill(s) diazepam 5 2020-0 Yes 5 mg = 1 Mem oria mg oral 1-09 tab, PO, l tablet 21:23: TID, # 90 Broderick n 44 tab, 2 Refill(s) diazepam 5 2020-0 Yes 5 mg = 1 Mem oria mg oral 1-09 tab, PO, l tablet 21:23: TID, # 90 Broderick n 44 tab, 2 Refill(s) nortriptyli 2018-08 Yes 25 mg = 1 M emoria ne 25 mg 0-10 cap, PO, l oral 21:55: Bedtime, Emmett keita 04 30 cap, 2 Refill(s), Pharmacy: [facility] #[id number] nortriptyli 2018-08 Yes 25 mg = 1 M emoria ne 25 mg 0-10 cap, PO, l oral 21:55: Bedtime, # Elver capsule 04 30 cap, 2 Refill(s), [facility][id number] nortriptyli 2018-08 Yes 25 mg = 1 M emoria ne 25 mg 0-10 cap, PO, l oral 21:55: Bedtime, # Elver capsule 04 30 cap, 2 Refill(s), [facility][id number] noriptyli 2018-08 Yes 25 mg = 1 M emoria ne 25 mg 0-10 cap, PO, l oral 21:55: Bedtime, # Brinklow capsule 04 30 cap, 2 Refill(s), [facility][id number] noriptyli 2018-08 Yes 25 mg = 1 M emoria ne 25 mg 0-10 cap, PO, l oral 21:55: Bedtime, # Elver capsule 04 30 cap, 2 Refill(s), [facility][id number] noriptyl 2018-08 Yes 25 mg = 1 M emoria ne 25 mg 0-10 cap, PO, l oral 21:55: Bedtime, # Elver capsule 04 30 cap, 2 Refill(s), [facility][id number] noriptyli 2018-08 Yes 25 mg = 1 M emoria ne 25 mg 0-10 cap, PO, l oral 21:55: Bedtime, # Brinklow capsule 04 30 cap, 2 Refill(s), [facility] #[id number] nortriptyli 2018-08 Yes 25 mg = 1 M emoria ne 25 mg 0-10 cap, PO, l oral 21:55: Bedtime, # Brinklow capsule 04 30 cap, 2 Refill(s), [facility] #[id number] nortriptyli 2018-08 Yes 25 mg = 1 M emoria ne 25 mg 0-10 cap, PO, l oral 21:55: Bedtime, # Brinklow capsule 04 30 cap, 2 Refill(s), [facility] #[id number] nortriptyli 2018-08 Yes 25 mg = 1 M emoria ne 25 mg 0-10 cap, PO, l oral 21:55: Bedtime, # Brinklow capsule 04 30 cap, 2 Refill(s), [facility] #[id number] nortriptyli 2018-08 Yes 25 mg = 1 M emoria ne 25 mg 0-10 cap, PO, l oral 21:55: Bedtime, # Brinklow capsule 04 30 cap, 2 Refill(s), [facility][id number] nortriptyli 2018-08 Yes 25 mg = 1 M emoria ne 25 mg 0-10 cap, PO, l oral 21:55: Bedtime, # Elver capsule 04 30 cap, 2 Refill(s), [facility] #[id number] nortriptyli 2018-08 Yes 25 mg = 1 M emoria ne 25 mg 0-10 cap, PO, l oral 21:55: Bedtime, # Brinklow capsule 04 30 cap, 2 Refill(s), [facility] #[id number] nortriptyli 2018-08 Yes 10 mg = 1 M emoria ne 10 mg 0-10 cap, PO, l oral 21:55: Bedtime, # Brinklow capsule 00 30 cap, 2 Refill(s), [facility] #[id number] nortriptyli 2018-08 Yes 10 mg = 1 M emoria ne 10 mg 0-10 cap, PO, l oral 21:55: Bedtime, # Elver capsule 00 30 cap, 2 Refill(s), [facility] #[id number] nortriptyli 2018-08 Yes 10 mg = 1 M emoria ne 10 mg 0-10 cap, PO, l oral 21:55: Bedtime, # Elver capsule 00 30 cap, 2 Refill(s), [facility] #[id number] nortriptyli 2018-08 Yes 10 mg = 1 M emoria ne 10 mg 0-10 cap, PO, l oral 21:55: Bedtime, # Brinklow capsule 00 30 cap, 2 Refill(s), [facility][id number] nortriptyli 2018-08 Yes 10 mg = 1 M emoria ne 10 mg 0-10 cap, PO, l oral 21:55: Bedtime, # Elver capsule 00 30 cap, 2 Refill(s), [facility]: [facility] #[id number] nortriptyli 2018-08 Yes 10 mg = 1 M emoria ne 10 mg 0-10 cap, PO, l oral 21:55: Bedtime, # Brinklow capsule 00 30 cap, 2 Refill(s), [facility] #[id number] nortriptyli 2018-08 Yes 10 mg = 1 M emoria ne 10 mg 0-10 cap, PO, l oral 21:55: Bedtime, # Brinklow capsule 00 30 cap, 2 Refill(s), [facility] #[id number] nortriptyli 2018-08 Yes 10 mg = 1 M emoria ne 10 mg 0-10 cap, PO, l oral 21:55: Bedtime, # Brinklow capsule 00 30 cap, 2 Refill(s), Pharmacy: [facility] #[id number] nortriptyli 2018-08 Yes 10 mg = 1 M emoria ne 10 mg 0-10 cap, PO, l oral 21:55: Bedtime, # Elver capsule 00 30 cap, 2 Refill(s), [facility] #[id number] nortriptyli 2018-08 Yes 10 mg = 1 M emoria ne 10 mg 0-10 cap, PO, l oral 21:55: Bedtime, # Brinklow capsule 00 30 cap, 2 Refill(s), Pharmacy: [facility] #[id number] nortriptyli 2018-08 Yes 10 mg = 1 M emoria ne 10 mg 0-10 cap, PO, l oral 21:55: Bedtime, # Elver capsule 00 30 cap, 2 Refill(s), Pharmacy: [facility] #[id number] nortriptyli 2018-08 Yes 10 mg = 1 M emoria ne 10 mg 0-10 cap, PO, l oral 21:55: Bedtime, # Elver capsule 00 30 cap, 2 Refill(s), [facility] #[id number] nortriptyli 2018-08 Yes 10 mg = 1 M emoria ne 10 mg 0-10 cap, PO, l oral 21:55: Bedtime, # Elver capsule 00 30 cap, 2 Refill(s), Pharmacy: [facility] #[id number] nortriptyli 2018-08 No 25 mg = 1 M emoria ne 25 mg 0-10 cap, PO, l oral 21:54: Bedtime, X Elver capsule 23 30 day, # 30 cap, 3 Refill(s), given to patient nortriptyli 2018-08 No 25 mg = 1 M emoria ne 25 mg 0-10 cap, PO, l oral 21:54: Bedtime, X Brinklow capsule 23 30 day, # 30 cap, 3 Refill(s), given to patient nortriptyli 2018-08 No 25 mg = 1 M emoria ne 25 mg 0-10 cap, PO, l oral 21:54: Bedtime, X Brinklow capsule 23 30 day, # 30 cap, 3 Refill(s), given to patient nortriptyli 2018-08 No 25 mg = 1 M emoria ne 25 mg 0-10 cap, PO, l oral 21:54: Bedtime, X Brinklow capsule 23 30 day, # 30 cap, 3 Refill(s), given to patient nortriptyli 2018-08 No 25 mg = 1 M emoria ne 25 mg 0-10 cap, PO, l oral 21:54: Bedtime, X Brinklow capsule 23 30 day, # 30 cap, 3 Refill(s), given to patient nortriptyli 2018-08 No 25 mg = 1 M emoria ne 25 mg 0-10 cap, PO, l oral 21:54: Bedtime, X Brinklow capsule 23 30 day, # 30 cap, 3 Refill(s), given to patient nortriptyli 2018-08 No 25 mg = 1 M emoria ne 25 mg 0-10 cap, PO, l oral 21:54: Bedtime, X Elver capsule 23 30 day, # 30 cap, 3 Refill(s), given to patient nortriptyli 2018-08 No 25 mg = 1 M emoria ne 25 mg 0-10 cap, PO, l oral 21:54: Bedtime, X Elver capsule 23 30 day, # 30 cap, 3 Refill(s), given to patient nortriptyli 2018-08 No 25 mg = 1 M emoria ne 25 mg 0-10 cap, PO, l oral 21:54: Bedtime, X Elver capsule 23 30 day, # 30 cap, 3 Refill(s), given to patient nortriptyli 2018-08 No 25 mg = 1 M emoria ne 25 mg 0-10 cap, PO, l oral 21:54: Bedtime, X Elver capsule 30 day, # 30 cap, 3 Refill(s), given to patient nortriptyli 2018-08 No 25 mg = 1 M emoria ne 25 mg 0-10 cap, PO, l oral 21:54: Bedtime, X Brinklow capsule 30 day, # 30 cap, 3 Refill(s), given to patient nortriptyli 2018-08 No 25 mg = 1 M emoria ne 25 mg 0-10 cap, PO, l oral 21:54: Bedtime, X Elver capsule 30 day, # 30 cap, 3 Refill(s), given to patient nortriptyli 2018-08 No 25 mg = 1 M emoria ne 25 mg 0-10 cap, PO, l oral 21:54: Bedtime, X Elver capsule 30 day, # 30 cap, 3 Refill(s), given to patient diazepam 2018-08 Yes 5 mg = 1 Mem oria mg oral 0-10 tab, PO, l tablet 21:52: TID, # 90 Broderick n 37 tab, 2 Refill(s) diazepam 2018-08 Yes 5 mg = 1 Mem oria mg oral 0-10 tab, PO, l tablet 21:52: TID, # 90 Broderick n 37 tab, 2 Refill(s) diazepam 2018-08 Yes 5 mg = 1 Mem oria mg oral 0-10 tab, PO, l tablet 21:52: TID, # 90 Broderick n 37 tab, 2 Refill(s) diazepam 2018-08 Yes 5 mg = 1 Mem oria mg oral 0-10 tab, PO, l tablet 21:52: TID, # 90 Broderick n 37 tab, 2 Refill(s) diazepam 2018-08 Yes 5 mg = 1 Mem oria mg oral 0-10 tab, PO, l tablet 21:52: TID, # 90 Broderick n 37 tab, 2 Refill(s) diazepam 2018-08 Yes 5 mg = 1 Mem oria mg oral 0-10 tab, PO, l tablet 21:52: TID, # 90 Broderick n 37 tab, 2 Refill(s) diazepam 2018-08 Yes 5 mg = 1 Mem oria mg oral 0-10 tab, PO, l tablet 21:52: TID, # 90 Broderick n 37 tab, 2 Refill(s) diazepam 2018-08 Yes 5 mg = 1 Mem oria mg oral 0-10 tab, PO, l tablet 21:52: TID, # 90 Broderick n 37 tab, 2 Refill(s) diazepam 2018-08 Yes 5 mg = 1 Mem oria mg oral 0-10 tab, PO, l tablet 21:52: TID, # 90 Broderick n 37 tab, 2 Refill(s) diazepam 2018-08 Yes 5 mg = 1 Mem oria mg oral 0-10 tab, PO, l tablet 21:52: TID, # 90 Broderick n 37 tab, 2 Refill(s) diazepam 2018-08 Yes 5 mg = 1 Mem oria mg oral 0-10 tab, PO, l tablet 21:52: TID, # 90 Broderick n 37 tab, 2 Refill(s) diazepam 2018-08 Yes 5 mg = 1 Mem oria mg oral 0-10 tab, PO, l tablet 21:52: TID, # 90 Broderick n 37 tab, 2 Refill(s) diazepam 2018-08 Yes 5 mg = 1 Mem oria mg oral 0-10 tab, PO, l tablet 21:52: TID, # 90 Broderick n 37 tab, 2 Refill(s) diazepam Yes 5 mg = 1 Mem oria mg oral 9-12 tab, PO, l tablet 19:55: TID, # 90 Broderick n 14 tab, 0 Refill(s) diazepam Yes 5 mg = 1 Mem oria mg oral 9-12 tab, PO, l tablet 19:55: TID, # 90 Broderick n 14 tab, 0 Refill(s) diazepam Yes 5 mg = 1 Mem oria mg oral 9-12 tab, PO, l tablet 19:55: TID, # 90 Broderick n 14 tab, 0 Refill(s) diazepam 5 2019-0 Yes 5 mg = 1 Mem oria mg oral 9-12 tab, PO, l tablet 19:55: TID, # 90 Broderick n 14 tab, 0 Refill(s) diazepam 5 2019-0 Yes 5 mg = 1 Mem oria mg oral 9-12 tab, PO, l tablet 19:55: TID, # 90 Broderick n 14 tab, 0 Refill(s) diazepam 5 2019-0 Yes 5 mg = 1 Mem oria mg oral 9-12 tab, PO, l tablet 19:55: TID, # 90 Broderick n 14 tab, 0 Refill(s) diazepam 5 2019-0 Yes 5 mg = 1 Mem oria mg oral 9-12 tab, PO, l tablet 19:55: TID, # 90 Broderick n 14 tab, 0 Refill(s) diazepam 5 2019-0 Yes 5 mg = 1 Mem oria mg oral 9-12 tab, PO, l tablet 19:55: TID, # 90 Broderick n 14 tab, 0 Refill(s) diazepam 5 2018-0 Yes 5 mg = 1 Mem oria mg oral 9-12 tab, PO, l tablet 19:55: TID, # 90 Broderick n 14 tab, 0 Refill(s) diazepam 5 2019-0 Yes 5 mg = 1 Mem oria mg oral 9-12 tab, PO, l tablet 19:55: TID, # 90 Broderick n 14 tab, 0 Refill(s) diazepam 5 2019-0 Yes 5 mg = 1 Mem oria mg oral 9-12 tab, PO, l tablet 19:55: TID, # 90 Broderick n 14 tab, 0 Refill(s) diazepam 5 2019-0 Yes 5 mg = 1 Mem oria mg oral 9-12 tab, PO, l tablet 19:55: TID, # 90 Broderick n 14 tab, 0 Refill(s) diazepam 5 2019-0 Yes 5 mg = 1 Mem oria mg oral 9-12 tab, PO, l tablet 19:55: TID, # 90 Broderick n 14 tab, 0 Refill(s) metoprolol 2019-0 Yes PO, Daily, M emoria extended 9-12 0 l release 19:54: Refill(s) Rose nn 00 metoprolol 2019-0 Yes PO, Daily, M emoria extended 9-12 0 l release 19:54: Refill(s) Rose nn 00 metoprolol 2019-0 Yes PO, Daily, M emoria extended 9-12 0 l release 19:54: Refill(s) Rose nn 00 metoprolol 2019-0 Yes PO, Daily, M emoria extended 9-12 0 l release 19:54: Refill(s) Rose nn 00 metoprolol 2019-0 Yes PO, Daily, M emoria extended 9-12 0 l release 19:54: Refill(s) Rose nn metoprolol 2019-0 Yes PO, Daily, M emoria extended 9-12 0 l release 19:54: Refill(s) Rose nn metoprolol 2019-0 Yes PO, Daily, M emoria extended 9-12 0 l release 19:54: Refill(s) Rose nn metoprolol 2019-0 Yes PO, Daily, M emoria extended 9-12 0 l release 19:54: Refill(s) Rose nn metoprolol 2019-0 Yes PO, Daily, M emoria extended 9-12 0 l release 19:54: Refill(s) Rose nn metoprolol 2019-0 Yes PO, Daily, M emoria extended 9-12 0 l release 19:54: Refill(s) Rose nn 00 metoprolol 2019-0 Yes PO, Daily, M emoria extended 9-12 0 l release 19:54: Refill(s) Rose nn metoprolol 2019-0 Yes PO, Daily, M emoria extended 9-12 0 l release 19:54: Refill(s) Rose nn metoprolol 2019-0 Yes PO, Daily, M emoria extended 9-12 0 l release 19:54: Refill(s) Rose nn 00 diazepam 5 2019-0 Yes 5 mg = 1 Mem oria mg oral 6-12 tab, PO, l tablet 16:46: QID, # 120 Rose nn 01 tab, 2 Refill(s) diazepam 5 2019-0 Yes 5 mg = 1 Mem oria mg oral 6-12 tab, PO, l tablet 16:46: QID, # 120 Rose nn 01 tab, 2 Refill(s) diazepam 5 2019-0 Yes 5 mg = 1 Mem oria mg oral 6-12 tab, PO, l tablet 16:46: QID, # 120 Rose nn 01 tab, 2 Refill(s) diazepam 5 2019-0 Yes 5 mg = 1 Mem oria mg oral 6-12 tab, PO, l tablet 16:46: QID, # 120 Rose nn 01 tab, 2 Refill(s) diazepam 5 2019-0 Yes 5 mg = 1 Mem oria mg oral 6-12 tab, PO, l tablet 16:46: QID, # 120 Rose nn 01 tab, 2 Refill(s) diazepam 5 2019-0 Yes 5 mg = 1 Mem oria mg oral 6-12 tab, PO, l tablet 16:46: QID, # 120 Rose nn 01 tab, 2 Refill(s) diazepam 5 2019-0 Yes 5 mg = 1 Mem oria mg oral 6-12 tab, PO, l tablet 16:46: QID, # 120 Rose nn 01 tab, 2 Refill(s) diazepam 5 2019-0 Yes 5 mg = 1 Mem oria mg oral 6-12 tab, PO, l tablet 16:46: QID, # 120 Rose nn 01 tab, 2 Refill(s) diazepam 5 2019-0 Yes 5 mg = 1 Mem oria mg oral 6-12 tab, PO, l tablet 16:46: QID, # 120 Rose nn 01 tab, 2 Refill(s) diazepam 5 2019-0 Yes 5 mg = 1 Mem oria mg oral 6-12 tab, PO, l tablet 16:46: QID, # 120 Rose nn 01 tab, 2 Refill(s) diazepam 5 2019-0 Yes 5 mg = 1 Mem oria mg oral 6-12 tab, PO, l tablet 16:46: QID, # 120 Rose nn 01 tab, 2 Refill(s) diazepam 5 2019-0 Yes 5 mg = 1 Mem oria mg oral 6-12 tab, PO, l tablet 16:46: QID, # 120 Rose nn 01 tab, 2 Refill(s) diazepam 5 2019-0 Yes 5 mg = 1 Mem oria mg oral 6-12 tab, PO, l tablet 16:46: QID, # 120 Rose nn 01 tab, 2 Refill(s) nortriptyli 2019-0 Yes 25 mg = 1 M emoria ne 25 mg 6-12 cap, PO, l oral 16:43: Bedtime, # Brinklow capsule 00 30 cap, 3 Refill(s), Pharmacy: [facility] [id number] nortriptyli Yes 25 mg = 1 M emoria ne 25 mg 6-12 cap, PO, l oral 16:43: Bedtime, # Elver capsule 00 30 cap, 3 Refill(s), Pharmacy: [facility] [id number] nortriptyli 2018- Yes 25 mg = 1 M emoria ne 25 mg 6-12 cap, PO, l oral 16:43: Bedtime, # Brinklow capsule 00 30 cap, 3 Refill(s), Pharmacy: [facility] [id number] nortriptyli Yes 25 mg = 1 M emoria ne 25 mg 6-12 cap, PO, l oral 16:43: Bedtime, # Brinklow capsule 00 30 cap, 3 Refill(s), Pharmacy: [facility] [id number] nortriptyli Yes 25 mg = 1 M emoria ne 25 mg 6-12 cap, PO, l oral 16:43: Bedtime, # Brinklow capsule 00 30 cap, 3 Refill(s), Pharmacy: [facility] [id number] nortriptyli 2018- Yes 25 mg = 1 M emoria ne 25 mg 6-12 cap, PO, l oral 16:43: Bedtime, # Brinklow capsule 00 30 cap, 3 Refill(s), Pharmacy: [facility] [id number] nortriptyli Yes 25 mg = 1 M emoria ne 25 mg 6-12 cap, PO, l oral 16:43: Bedtime, # Elver capsule 00 30 cap, 3 Refill(s), Pharmacy: [facility] [id number] nortriptyli 2018- Yes 25 mg = 1 M emoria ne 25 mg 6-12 cap, PO, l oral 16:43: Bedtime, # Elver capsule 00 30 cap, 3 Refill(s), Pharmacy: [facility] [id number] nortriptyli 2018- Yes 25 mg = 1 M emoria ne 25 mg 6-12 cap, PO, l oral 16:43: Bedtime, # Brinklow capsule 00 30 cap, 3 Refill(s), Pharmacy: [facility] [id number] nortriptyli 2019-0 Yes 25 mg = 1 M emoria ne 25 mg 6-12 cap, PO, l oral 16:43: Bedtime, # Elver capsule 00 30 cap, 3 Refill(s), Pharmacy: [facility] [id number] nortriptyli 2019- Yes 25 mg = 1 M emoria ne 25 mg 6-12 cap, PO, l oral 16:43: Bedtime, # Brinklow capsule 00 30 cap, 3 Refill(s), Pharmacy: [facility] [id number] nortriptyli 2019-0 Yes 25 mg = 1 M emoria ne 25 mg 6-12 cap, PO, l oral 16:43: Bedtime, # Elver capsule 00 30 cap, 3 Refill(s), Pharmacy: [facility] [id number] nortriptyli 2019- Yes 25 mg = 1 M emoria ne 25 mg 6-12 cap, PO, l oral 16:43: Bedtime, # Brinklow capsule 00 30 cap, 3 Refill(s), Pharmacy: [facility] [id number] diazepam 5 2019-0 No 5 mg = 1 Mem oria mg oral 2-08 tab, PO, l tablet 21:56: QID, start Rose october, X 30 day, # 120 tab, 2 Refill(s), other nortriptyli 2019-0 No 10 mg = 1 M emoria ne 10 mg 2-08 cap, PO, l oral 21:56: Bedtime, # Elver capsule 00 30 cap, 3 Refill(s) diazepam 5 2019-0 No 5 mg = 1 Mem oria mg oral 2-08 tab, PO, l tablet 21:56: QID, start Rose october, X 30 day, # 120 tab, 2 Refill(s), other nortriptyli 2019-0 No 10 mg = 1 M emoria ne 10 mg 2-08 cap, PO, l oral 21:56: Bedtime, # Elver capsule 00 30 cap, 3 Refill(s) diazepam 5 2019-0 No 5 mg = 1 Mem oria mg oral 2-08 tab, PO, l tablet 21:56: QID, start Roseoctober, X 30 day, # 120 tab, 2 Refill(s), other nortriptyli 2019-0 No 10 mg = 1 M emoria ne 10 mg 2-08 cap, PO, l oral 21:56: Bedtime, # Elver capsule 00 30 cap, 3 Refill(s) diazepam 5 2019-0 No 5 mg = 1 Mem oria mg oral 2-08 tab, PO, l tablet 21:56: QID, october, X 30 day, # 120 tab, 2 Refill(s), other nortriptyli 2019-0 No 10 mg = 1 M emoria ne 10 mg 2-08 cap, PO, l oral 21:56: Bedtime, # Brinklow capsule 00 30 cap, 3 Refill(s) diazepam 5 2019-0 No 5 mg = 1 Mem oria mg oral 2-08 tab, PO, l tablet 21:56: QID, october, X 30 day, # 120 tab, 2 Refill(s), other nortriptyli 2019-0 No 10 mg = 1 M emoria ne 10 mg 2-08 cap, PO, l oral 21:56: Bedtime, # Elver capsule 00 30 cap, 3 Refill(s) diazepam 5 2019-0 No 5 mg = 1 Mem oria mg oral 2-08 tab, PO, l tablet 21:56: QID, october, X 30 day, # 120 tab, 2 Refill(s), other nortriptyli 2019-0 No 10 mg = 1 M emoria ne 10 mg 2-08 cap, PO, l oral 21:56: Bedtime, # Elver capsule 00 30 cap, 3 Refill(s) diazepam 5 2019-0 No 5 mg = 1 Mem oria mg oral 2-08 tab, PO, l tablet 21:56: QID, Roseoctober, X 30 day, # 120 tab, 2 Refill(s), other nortriptyli 2019-0 No 10 mg = 1 M emoria ne 10 mg 2-08 cap, PO, l oral 21:56: Bedtime, # Elver capsule 00 30 cap, 3 Refill(s) diazepam 5 2019-0 No 5 mg = 1 Mem oria mg oral 2-08 tab, PO, l tablet 21:56: QID, october, X 30 day, # 120 tab, 2 Refill(s), other nortriptyli 2019-0 No 10 mg = 1 M emoria ne 10 mg 2-08 cap, PO, l oral 21:56: Bedtime, # Elver capsule 00 30 cap, 3 Refill(s) diazepam 5 2019-0 No 5 mg = 1 Mem oria mg oral 2-08 tab, PO, l tablet 21:56: QID, october, X 30 day, # 120 tab, 2 Refill(s), other nortriptyli 2019-0 No 10 mg = 1 M emoria ne 10 mg 2-08 cap, PO, l oral 21:56: Bedtime, # Elver capsule 00 30 cap, 3 Refill(s) diazepam 5 2019-0 No 5 mg = 1 Mem oria mg oral 2-08 tab, PO, l tablet 21:56: QID, october, X 30 day, # 120 tab, 2 Refill(s), other nortriptyli 2019-0 No 10 mg = 1 M emoria ne 10 mg 2-08 cap, PO, l oral 21:56: Bedtime, # [place] capsule 00 30 cap, 3 Refill(s) diazepam 5 2019-0 No 5 mg = 1 Mem oria mg oral 2-08 tab, PO, l tablet 21:56: QID, october, X 30 day, # 120 tab, 2 Refill(s), other nortriptyli 2019-0 No 10 mg = 1 M emoria ne 10 mg 2-08 cap, PO, l oral 21:56: Bedtime, # Elver capsule 00 30 cap, 3 Refill(s) diazepam 5 2019-0 No 5 mg = 1 Mem oria mg oral 2-08 tab, PO, l tablet 21:56: QID, october, X 30 day, # 120 tab, 2 Refill(s), other nortriptyli 2019-0 No 10 mg = 1 M emoria ne 10 mg 2-08 cap, PO, l oral 21:56: Bedtime, # Elver capsule 00 30 cap, 3 Refill(s) diazepam 5 2019-0 No 5 mg = 1 Mem oria mg oral 2-08 tab, PO, l tablet 21:56: QID, start Rose nn October, X 30 day, # 120 tab, 2 Refill(s), other nortriptyli 2019- No 10 mg = 1 M emoria ne 10 mg 2-08 cap, PO, l oral 21:56: Bedtime, # Elver capsule 00 30 cap, 3 Refill(s) Aspirin 81 2019-0 Yes 81 mg = 1 Me moria MG Enteric 2-08 tab, PO, l Coated 21:43: Daily, # [place] Tablet 00 90 tab, 3 Refill(s) Benadryl 2019-0 Yes 0 Memoria 2-08 Refill(s) l 21:43: [place]ver diazepam 5 2019-0 No 5 mg = 1 Mem oria mg oral 2-08 tab, PO, l tablet 21:43: Q6H, PRN Elver 00 Anxiety, # 60 tab, 0 Refill(s) Aspirin 81 2019-0 Yes 81 mg = 1 Me moria MG Enteric 2-08 tab, PO, l Coated 21:43: Daily, # [place]ver Tablet 00 90 tab, 3 Refill(s) Benadryl 2019-0 Yes 0 Memoria 2-08 Refill(s) l 21:43: [place] 00 diazepam 5 2019-0 No 5 mg = 1 Mem oria mg oral 2-08 tab, PO, l tablet 21:43: Q6H, PRN [place] 00 Anxiety, # 60 tab, 0 Refill(s) Aspirin 81 2019-0 Yes 81 mg = 1 Me moria MG Enteric 2-08 tab, PO, l Coated 21:43: Daily, # [place] Tablet 00 90 tab, 3 Refill(s) Benadryl 2019-0 Yes 0 Memoria 2-08 Refill(s) l 21:43: [place] 00 diazepam 5 2019-0 No 5 mg = 1 Mem oria mg oral 2-08 tab, PO, l tablet 21:43: Q6H, PRN [place]ver 00 Anxiety, # 60 tab, 0 Refill(s) Aspirin 81 2019-0 Yes 81 mg = 1 Me moria MG Enteric 2-08 tab, PO, l Coated 21:43: Daily, # [place]ver Tablet 00 90 tab, 3 Refill(s) Benadryl 2019-0 Yes 0 Memoria 2-08 Refill(s) l 21:43: [place] 00 diazepam 5 2019-0 No 5 mg = 1 Mem oria mg oral 2-08 tab, PO, l tablet 21:43: Q6H, PRN [place] 00 Anxiety, # 60 tab, 0 Refill(s) Aspirin 81 2019-0 Yes 81 mg = 1 Me moria MG Enteric 2-08 tab, PO, l Coated 21:43: Daily, # [place] Tablet 00 90 tab, 3 Refill(s) Benadryl 2019-0 Yes 0 Memoria 2-08 Refill(s) l 21:43: [place] 00 diazepam 5 2019-0 No 5 mg = 1 Mem oria mg oral 2-08 tab, PO, l tablet 21:43: Q6H, PRN [place] 00 Anxiety, # 60 tab, 0 Refill(s) Aspirin 81 2019- Yes 81 mg = 1 [facility] 2-08 tab, PO, l Coated 21:43: Daily, # [place] Tablet 00 90 tab, 3 Refill(s) Benadryl 2019-0 Yes 0 [facility] 2-08 Refill(s) l 21:43: [place] 00 diazepam 5 2019-0 No 5 mg = 1 [facility] mg oral 2-08 tab, PO, l tablet 21:43: Q6H, PRN [place] 00 Anxiety, # 60 tab, 0 Refill(s) Aspirin 81 2019-0 Yes 81 mg = 1 [facility] MG Enteric 2-08 tab, PO, l Coated 21:43: Daily, # [place] Tablet 00 90 tab, 3 Refill(s) Benadryl 2019-0 Yes 0 [facility] 2-08 Refill(s) l 21:43: [place] 00 diazepam 5 2019-0 No 5 mg = 1 [facility] mg oral 2-08 tab, PO, l tablet 21:43: Q6H, PRN [place] 00 Anxiety, # 60 tab, 0 Refill(s) Aspirin 81 2019-0 Yes 81 mg = 1 [facility] MG Enteric 2-08 tab, PO, l Coated 21:43: Daily, # [place] Tablet 00 90 tab, 3 Refill(s) Benadryl 2019-0 Yes 0 [facility] 2-08 Refill(s) l 21:43: [place] 00 diazepam 5 2019-0 No 5 mg = 1 [facility] mg oral 2-08 tab, PO, l tablet 21:43: Q6H, PRN [place] 00 Anxiety, # 60 tab, 0 Refill(s) Aspirin 81 2019-0 Yes 81 mg = 1 Me [facility] MG Enteric 2-08 tab, PO, l Coated 21:43: Daily, # [place] Tablet 00 90 tab, 3 Refill(s) Benadryl 2019-0 Yes 0 [facility] 2-08 Refill(s) l 21:43: [place] 00 diazepam 5 2019-0 No 5 mg = 1 [facility] mg oral 2-08 tab, PO, l tablet 21:43: Q6H, PRN [place] 00 Anxiety, # 60 tab, 0 Refill(s) Aspirin 81 2019-0 Yes 81 mg = 1 [facility] MG Enteric 2-08 tab, PO, l Coated 21:43: Daily, # [place] Tablet 00 90 tab, 3 Refill(s) Benadryl 2019-0 Yes 0 [facility] 2-08 Refill(s) l 21:43: [place] 00 diazepam 5 2019-0 No 5 mg = 1 [facility] mg oral 2-08 tab, PO, l tablet 21:43: Q6H, PRN [place] 00 Anxiety, # 60 tab, 0 Refill(s) Aspirin 81 2019-0 Yes 81 mg = 1 [facility] MG Enteric 2-08 tab, PO, l Coated 21:43: Daily, # [place] Tablet 00 90 tab, 3 Refill(s) Benadryl 2019-0 Yes 0 [facility] 2-08 Refill(s) l 21:43: [place] 00 diazepam 5 2019-0 No 5 mg = 1 [facility] mg oral 2-08 tab, PO, l tablet 21:43: Q6H, PRN [place] 00 Anxiety, # 60 tab, 0 Refill(s) Aspirin 81 2019-0 Yes 81 mg = 1 [facility] MG Enteric 2-08 tab, PO, l Coated 21:43: Daily, # [place] Tablet 00 90 tab, 3 Refill(s) Benadryl 2019-0 Yes 0 [facility] 2-08 Refill(s) l 21:43: [place] 00 diazepam 5 No 5 mg = 1 [facility] mg oral 2-08 tab, PO, l tablet 21:43: Q6H, PRN [place] 00 Anxiety, # 60 tab, 0 Refill(s) Aspirin 81 2019-0 Yes 81 mg = 1 [facility] MG Enteric 2-08 tab, PO, l Coated 21:43: Daily, # [place] Tablet 00 90 tab, 3 Refill(s) Benadryl 2019 Yes 0 [facility] 2-08 Refill(s) l 21:43: [place] 00 diazepam 5 No 5 mg = 1 [facility] mg oral 2-08 tab, PO, l tablet 21:43: Q6H, PRN [place] 00 Anxiety, # 60 tab, 0 Refill(s) Diazepam 5 2017-08 No 5 mg = 1 [facility] MG Oral 0-05 tab, PO, l Tablet 21:01: QID, X 30 [place] n [Valium] 09 day, # 120 tab, 3 Refill(s) Diazepam 5 2017-08 No 5 mg = 1 [facility] MG Oral 0-05 tab, PO, l Tablet 21:01: QID, X 30 [place] n [Valium] 09 day, # 120 tab, 3 Refill(s) Diazepam 5 2017-08 No 5 mg = 1 [facility] MG Oral 0-05 tab, PO, l Tablet 21:01: QID, X 30 [place] n [Valium] 09 day, # 120 tab, 3 Refill(s) Diazepam 5 2017-08 No 5 mg = 1 [facility] MG Oral 0-05 tab, PO, l Tablet 21:01: QID, X 30 [place] n [Valium] 09 day, # 120 tab, 3 Refill(s) Diazepam 5 2017-08 No 5 mg = 1 [facility] MG Oral 0-05 tab, PO, l Tablet 21:01: QID, X 30 [place] n [Valium] 09 day, # 120 tab, 3 Refill(s) Diazepam 5 2017-08 No 5 mg = 1 [facility] MG Oral 0-05 tab, PO, l Tablet 21:01: QID, X 30 [place] n [Valium] 09 day, # 120 tab, 3 Refill(s) Diazepam 2017-08 No 5 mg = 1 [facility] MG Oral 0-05 tab, PO, l Tablet 21:01: QID, X 30 [place] n [Valium] 09 day, # 120 tab, 3 Refill(s) Diazepam 2017-08 No 5 mg = 1 [facility] MG Oral 0-05 tab, PO, l Tablet 21:01: QID, X 30 [place] n [Valium] 09 day, # 120 tab, 3 Refill(s) Diazepam 2017-08 No 5 mg = 1 [facility] MG Oral 0-05 tab, PO, l Tablet 21:01: QID, X 30 [place] n [Valium] 09 day, # 120 tab, 3 Refill(s) Diazepam 2017-08 No 5 mg = 1 [facility] MG Oral 0-05 tab, PO, l Tablet 21:01: QID, X 30 [place] n [Valium] 09 day, # 120 tab, 3 Refill(s) Diazepam 2017-08 No 5 mg = 1 [facility] MG Oral 0-05 tab, PO, l Tablet 21:01: QID, X 30 [place] n [Valium] 09 day, # 120 tab, 3 Refill(s) Diazepam 2017-08 No 5 mg = 1 [facility] MG Oral 0-05 tab, PO, l Tablet 21:01: QID, X 30 [place] n [Valium] 09 day, # 120 tab, 3 Refill(s) Diazepam 2017-08 No 5 mg = 1 [facility] MG Oral 0-05 tab, PO, l Tablet 21:01: QID, X 30 [place] n [Valium] 09 day, # 120 tab, 3 Refill(s) Diazepam 2017-08 No 5 mg = 1 [facility] MG Oral 0-05 tab, PO, l Tablet 20:51: QID, X 30 [place] n [Valium] 49 day, # 120 tab, 3 Refill(s), given to patient Diazepam 2017-08 No 5 mg = 1 [facility] MG Oral 0-05 tab, PO, l Tablet 20:51: QID, X 30 [place] n [Valium] 49 day, # 120 tab, 3 Refill(s), given to patient Diazepam 2017-08 No 5 mg = 1 [facility] MG Oral 0-05 tab, PO, l Tablet 20:51: QID, X 30 [place] n [Valium] 49 day, # 120 tab, 3 Refill(s), given to patient Diazepam 5 2017-08 No 5 mg = 1 [facility] MG Oral 0-05 tab, PO, l Tablet 20:51: QID, X 30 [place] n [Valium] 49 day, # 120 tab, 3 Refill(s), given to patient Diazepam 5 2017-08 No 5 mg = 1 [facility] MG Oral 0-05 tab, PO, l Tablet 20:51: QID, X 30 [place] n [Valium] 49 day, # 120 tab, 3 Refill(s), given to patient Diazepam 5 2017-08 No 5 mg = 1 [facility] MG Oral 0-05 tab, PO, l Tablet 20:51: QID, X 30 [place] n [Valium] 49 day, # 120 tab, 3 Refill(s), given to patient Diazepam 5 2017-08 No 5 mg = 1 [facility] MG Oral 0-05 tab, PO, l Tablet 20:51: QID, X 30 [place] n [Valium] 49 day, # 120 tab, 3 Refill(s), given to patient Diazepam 2017-08 No 5 mg = 1 [facility] MG Oral 0-05 tab, PO, l Tablet 20:51: QID, X 30 [place] n [Valium] 49 day, # 120 tab, 3 Refill(s), given to patient Diazepam 2017-08 No 5 mg = 1 [facility] MG Oral 0-05 tab, PO, l Tablet 20:51: QID, X 30 [place] n [Valium] 49 day, # 120 tab, 3 Refill(s), given to patient Diazepam 5 2017-08 No 5 mg = 1 [facility] MG Oral 0-05 tab, PO, l Tablet 20:51: QID, X 30 [place] n [Valium] 49 day, # 120 tab, 3 Refill(s), given to patient Diazepam 5 2017-08 No 5 mg = 1 [facility] MG Oral 0-05 tab, PO, l Tablet 20:51: QID, X 30 [place] n [Valium] 49 day, # 120 tab, 3 Refill(s), given to patient Diazepam 5 2017-08 No 5 mg = 1 [facility] MG Oral 0-05 tab, PO, l Tablet 20:51: QID, X 30 [place] n [Valium] 49 day, # 120 tab, 3 Refill(s), given to patient Diazepam 5 2017-08 No 5 mg = 1 [facility] MG Oral 0-05 tab, PO, l Tablet 20:51: QID, X 30 [place] n [Valium] 49 day, # 120 tab, 3 Refill(s), given to patient Estrace Yes See [facility] Vaginal 2-27 Instructio l Cream 0.1 19:50: ns, Insert He rmann mg/g 00 2-4 gm vaginally at bedtime nightly x 2 weeks then reduce dose, # 1 tube, 0 Refill(s) acetaminoph Yes 1 tab, PO, [facility] en-hydrocod 2-27 QID, PRN l one 325 19:50: Pain, on [place]ick n mg-10 mg 00 325/7.5, # oral tablet 20 tab, 0 Refill(s) E[place]ace Yes See [facility] Vaginal 2-27 Instructio l Cream 0.1 19:50: ns, Insert He rmann mg/g 00 2-4 gm vaginally at bedtime nightly x 2 weeks then reduce dose, # 1 tube, 0 Refill(s) acetaminoph Yes 1 tab, PO, [facility] en-hydrocod 2-27 QID, PRN l one 325 19:50: Pain, on [place] n mg-10 mg 00 325/7.5, # oral tablet 20 tab, 0 Refill(s) E[place] Yes See [facility] Vaginal 2-27 Instructio l Cream 0.1 19:50: ns, Insert He rmann mg/g 00 2-4 gm vaginally at bedtime nightly x 2 weeks then reduce dose, # 1 tube, 0 Refill(s) acetaminoph Yes 1 tab, PO, [facility] en-hydrocod 2-27 QID, PRN l one 325 19:50: Pain, on [place] n mg-10 mg 00 325/7.5, # oral tablet 20 tab, 0 Refill(s) E[place] Yes See [facility] Vaginal 2-27 Instructio l Cream 0.1 19:50: ns, Insert He rmann mg/g 00 2-4 gm vaginally at bedtime nightly x 2 weeks then reduce dose, # 1 tube, 0 Refill(s) acetaminoph Yes 1 tab, PO, [facility] en-hydrocod 2-27 QID, PRN l one 325 19:50: Pain, on [place] n mg-10 mg 00 325/7.5, # oral tablet 20 tab, 0 Refill(s) [place] Yes See [facility] Vaginal 2-27 Instructio l Cream 0.1 19:50: ns, Insert He rmann mg/g 00 2-4 gm vaginally at bedtime nightly x 2 weeks then reduce dose, # 1 tube, 0 Refill(s) acetaminoph Yes 1 tab, PO, [facility] en-hydrocod 2-27 QID, PRN l one 325 19:50: Pain, on [place] n mg-10 mg 00 325/7.5, # oral tablet 20 tab, 0 Refill(s) [place] Yes See [facility] Vaginal 2-27 Instructio l Cream 0.1 19:50: ns, Insert He rmann mg/g 00 2-4 gm vaginally at bedtime nightly x 2 weeks then reduce dose, # 1 tube, 0 Refill(s) acetaminoph Yes 1 tab, PO, [facility] en-hydrocod 2-27 QID, PRN l one 325 19:50: Pain, on [place] n mg-10 mg 00 325/7.5, # oral tablet 20 tab, 0 Refill(s) [place] Yes See [facility] Vaginal 2-27 Instructio l Cream 0.1 19:50: ns, Insert He rmann mg/g 00 2-4 gm vaginally at bedtime nightly x 2 weeks then reduce dose, # 1 tube, 0 Refill(s) acetaminoph Yes 1 tab, PO, [facility] en-hydrocod 2-27 QID, PRN l one 325 19:50: Pain, on [place] n mg-10 mg 00 325/7.5, # oral tablet 20 tab, 0 Refill(s) [place] Yes See [facility] Vaginal 2-27 Instructio l Cream 0.1 19:50: ns, Insert He rmann mg/g 00 2-4 gm vaginally at bedtime nightly x 2 weeks then reduce dose, # 1 tube, 0 Refill(s) acetaminoph Yes 1 tab, PO, [facility] en-hydrocod 2-27 QID, PRN l one 325 19:50: Pain, on [place] n mg-10 mg 00 325/7.5, # oral tablet 20 tab, 0 Refill(s) [place] Yes See [facility] Vaginal 2-27 Instructio l Cream 0.1 19:50: ns, Insert He rmann mg/g 00 2-4 gm vaginally at bedtime nightly x 2 weeks then reduce dose, # 1 tube, 0 Refill(s) acetaminoph Yes 1 tab, PO, [facility] en-hydrocod 2-27 QID, PRN l one 325 19:50: Pain, on [place] n mg-10 mg 00 325/7.5, # oral tablet 20 tab, 0 Refill(s) [place] Yes See [facility] Vaginal 2-27 Instructio l Cream 0.1 19:50: ns, Insert He rmann mg/g 00 2-4 gm vaginally at bedtime nightly x 2 weeks then reduce dose, # 1 tube, 0 Refill(s) acetaminoph Yes 1 tab, PO, [facility] en-hydrocod 2-27 QID, PRN l one 325 19:50: Pain, on [place] n mg-10 mg 00 325/7.5, # oral tablet 20 tab, 0 Refill(s) [place] Yes See [facility] Vaginal 2-27 Instructio l Cream 0.1 19:50: ns, Insert He rmann mg/g 00 2-4 gm vaginally at bedtime nightly x 2 weeks then reduce dose, # 1 tube, 0 Refill(s) acetaminoph Yes 1 tab, PO, [facility] en-hydrocod 2-27 QID, PRN l one 325 19:50: Pain, on [place] n mg-10 mg 00 325/7.5, # oral tablet 20 tab, 0 Refill(s) Vitamin D3 Vitamin D3 No 1 Q1D Vitamin D3 [facility] 25 mcg 25 mcg 3-11 25 mcg Medical (1,000 (1,000 00:00: (1,000 unit) unit) 00 unit) tablet 1 tablet 1 tablet 1 tablet tablet tablet every day every day every day by oral by oral by oral route. route. route. Pred Forte Pred Forte No Pred Forte [facility] 1 % eye 1 % eye 1 % eye Medica l drops,suspe drops,suspe drops,susp nsion SHAKE nsion SHAKE ension WELL AND WELL AND SHAKE WELL INSTILL 1 INSTILL 1 AND DROP IN THE DROP IN THE INSTILL 1 LEFT EYE LEFT EYE DROP IN DAILY DAILY THE LEFT EYE DAILY sucralfate sucralfate No sucralfate [facility] 100 mg/mL 100 mg/mL 100 mg/mL Medical oral oral oral suspension suspension suspension SHAKE SHAKE SHAKE LIQUID AND LIQUID AND LIQUID AND TAKE 10 ML TAKE 10 ML TAKE 10 ML BY MOUTH BY MOUTH BY MOUTH FOUR TIMES FOUR TIMES FOUR TIMES DAILY DAILY DAILY Synthroid Synthroid No Synthroid [facility] 75 mcg 75 mcg 75 mcg Medical tablet TAKE tablet TAKE tablet 1 TABLET BY 1 TABLET BY TAKE 1 MOUTH EVERY MOUTH EVERY TABLET BY DAY IN THE DAY IN THE MOUTH MORNING MORNING EVERY DAY IN THE MORNING Zenpep Zenpep No Zenpep [facility] 40,000 40,000 40,000 Medical unit-126,00 unit-126,00 unit-126,0 0 0 00 unit-168,00 unit-168,00 unit-168,0 0 unit 0 unit 00 unit capsule,del capsule,del capsule,de ayed ayed layed release release release TAKE 2 TAKE 2 TAKE 2 CAPSULES BY CAPSULES BY CAPSULES MOUTH THREE MOUTH THREE BY MOUTH TIMES DAILY TIMES DAILY THREE WITH MEALS WITH MEALS TIMES AND TAKE AND TAKE DAILY WITH ONE CAPSULE ONE CAPSULE MEALS AND BY MOUTH BY MOUTH TAKE ONE WITH EACH WITH EACH CAPSULE BY SNACK SNACK MOUTH WITH EACH SNACK diazepam 5 diazepam 5 No diazepam 5 [facility] mg tablet mg tablet mg tablet Medical TAKE 1 TAKE 1 TAKE 1 TABLET BY TABLET BY TABLET BY MOUTH THREE MOUTH THREE MOUTH TIMES DAILY TIMES DAILY THREE TIMES DAILY duloxetine duloxetine No duloxetine [facility] 30 mg 30 mg 30 mg Medical capsule,del capsule,del capsule,de ayed ayed layed release release release TAKE 1 TAKE 1 TAKE 1 CAPSULE BY CAPSULE BY CAPSULE BY MOUTH EVERY MOUTH EVERY MOUTH DAY WITH DAY WITH EVERY DAY FOOD FOOD WITH FOOD escitalopra escitalopra No escitalopr [facility] m 10 mg m 10 mg am 10 mg Medic al tablet TAKE tablet TAKE tablet 1 & 1/2 1 & 1/2 TAKE 1 & TABLET (15 TABLET (15 1/2 TABLET MG) BY MG) BY (15 MG) BY MOUTH DAILY MOUTH DAILY MOUTH DAILY estradiol estradiol No estradiol [facility] 0.01% (0.1 0.01% (0.1 0.01% (0.1 Medical mg/gram) mg/gram) mg/gram) vaginal vaginal vaginal cream cream cream INSERT 1 G INSERT 1 G INSERT 1 G TWICE A TWICE A TWICE A WEEK BY WEEK BY WEEK BY VAGINAL VAGINAL VAGINAL ROUTE ROUTE ROUTE DIRECTED DIRECTED DIRECTED FOR 30 FOR 30 FOR 30 DAYS. DAYS. DAYS. hydrocodone hydrocodone No hydrocodon [facility] 7.5 7.5 e 7.5 Medical mg-acetamin mg-acetamin mg-acetami ophen 325 ophen 325 nophen 325 mg tablet mg tablet mg tablet TAKE 1 TAKE 1 TAKE 1 TABLET BY TABLET BY TABLET BY MOUTH FOUR MOUTH FOUR MOUTH FOUR TIMES DAILY TIMES DAILY TIMES DAILY metoprolol metoprolol No metoprolol [facility] succinate succinate succinate Medical ER 25 mg ER 25 mg ER 25 mg tablet,exte tablet,exte tablet,ext nded nded ended release 24 release 24 release 24 hr TAKE ONE hr TAKE ONE hr TAKE TABLET BY TABLET BY ONE TABLET MOUTH EVERY MOUTH EVERY BY MOUTH DAY DAY EVERY DAY mirtazapine mirtazapine No mirtazapin [facility] 15 mg 15 mg e 15 mg Medical tablet TAKE tablet TAKE tablet 1 TABLET BY 1 TABLET BY TAKE 1 MOUTH MOUTH TABLET BY EVERYDAY AT EVERYDAY AT MOUTH BEDTIME BEDTIME EVERYDAY AT BEDTIME omeprazole omeprazole No 1capsul Q1D omeprazole [facility] 20 mg 20 mg e(s) 20 mg Medical capsule,del capsule,del capsule,de ayed ayed layed release release release Take 1 Take 1 Take 1 capsule capsule capsule every day every day every day by oral by oral by oral route. route. route. ondansetron ondansetron No ondansetro [facility] 4 mg 4 mg n 4 mg Medical disintegrat disintegrat disintegra ing tablet ing tablet ting TAKE 1 TAKE 1 tablet TABLET BY TABLET BY TAKE 1 MOUTH MOUTH TABLET BY NEEDED NEEDED MOUTH NEEDED Immunizations Ordered Immunization Filled Immunization Date Status Commen Source Name Name COVID-19, mRNA, COVID-19, mRNA, 2021-04-14 Completed [facility] LNP-S, PF, 100 LNP-S, PF, 100 00:00:00 mcg/0.5 mL dose mcg/0.5 mL dose (Moderna) (Moderna) influenza, influenza, 2020-11-18 Completed [facility] injectable, injectable, 00:00:00 quadrivalent quadrivalent [id number] 2020-10-06 Completed Yann rial [place] NA-1273vaxMODERNA 00:00:00 [id number] 2020-10-06 Completed Yann rial [place] NA-1273vaxMODERNA 00:00:00 HHFY-[id number] 2020-10-06 Completed [facility] [place] NA-1273vaxMODERNA 00:00:00 JSCS-[id number] 2020-10-06 Completed [facility] [place] NA-1273vaxMODERNA 00:00:00 LHMQ-[id number] 2020-10-06 Completed [facility] [place] NA-1273vaxMODERNA 00:00:00 RAPV-[id number] 2020-10-06 Completed Yann rial [place] NA-1273vaxMODERNA 00:00:00 NABT-[id number] 2020-10-06 Completed Yann rial [place] NA-1273vaxMODERNA 00:00:00 QNXD-[id number] 2020-10-06 Completed Yann rial [place] NA-1273vaxMODERNA 00:00:00 AVKD-[id number] 2020-10-06 Completed [facility] [place] NA-1273vaxMODERNA 00:00:00 XBBZ-[id number] 2020-10-06 Completed Yann rial [place] NA-1273vaxMODERNA 00:00:00 BDPU-[id number] 2020-10-06 Completed Yann rial [place] NA-1273vaxMODERNA 00:00:00 ULUT-[id number] 2020-10-06 Completed Yann rial [place] NA-1273vaxMODERNA 00:00:00 TNMI-[id number] 2020-10-06 Completed [facility] [place] NA-1273vaxMODERNA 00:00:00 COVID-19, mRNA, COVID-19, mRNA, 2020-10-06 Completed [facility] LNP-S, PF, 100 LNP-S, PF, 100 00:00:00 mcg/0.5 mL dose mcg/0.5 mL dose (Moderna) (Moderna) [facility]ERNA COVID-19 2020-09-09 Completed [facility] MRNA VACCINATION 00:00:00 [facility] COVID-19, mRNA, COVID-19, mRNA, 2020-09-09 Completed [facility] LNP-S, PF, 100 LNP-S, PF, 100 00:00:00 mcg/0.5 mL dose mcg/0.5 mL dose (Moderna) (Moderna) [id number] 2020-09-08 Completed Yann rial [place] NA-1273vaxMODERNA 00:00:00 [id number] 2020-09-08 Completed Y[facility] rial [place] NA-1273vaxMODERNA 00:00:00 BWLJ-[id number] 2020-09-08 Completed Yann rial [place] NA-1273vaxMODERNA 00:00:00 COPC-[id number] 2020-09-08 Completed Yann rial [place] NA-1273vaxMODERNA 00:00:00 ZFJM-[id number] 2020-09-08 Completed Yann rial [place] NA-1273vaxMODERNA 00:00:00 ZMSH-[id number] 2020-09-08 Completed Yann rial [place] NA-1273vaxMODERNA 00:00:00 ZOCC-[id number] 2020-09-08 Completed Yann rial [place] NA-1273vaxMODERNA 00:00:00 AJQA-[id number] 2020-09-08 Completed Yann rial [place] NA-1273vaxMODERNA 00:00:00 HCUT-[id number] 2020-09-08 Completed Yann rial [place] NA-1273vaxMODERNA 00:00:00 PQVC-[id number] 2020-09-08 Completed Yann rial [place] NA-1273vaxMODERNA 00:00:00 ZGZQ-[id number] 2020-09-08 Completed Yann rial [place] NA-1273vaxMODERNA 00:00:00 XLDL-[id number] 2020-09-08 Completed Yann rial [place] NA-1273vaxMODERNA 00:00:00 [id number] 2020-09-08 Completed Y[facility] [place] NA-1273vaxMODERNA 00:00:00 Vital Signs Vital Name Observation Time Observation Value Comments Source HEIGHT 2020-05-03 156.2 cm 00:00:00 WEIGHT 2020-05-03 59.149 kg 00:00:00 HEIGHT 2022-11-08 157.5 cm 07:15:00 WEIGHT 2022-11-08 53.071 kg 07:15:00 HEIGHT 2022-10-31 156.2 cm 14:13:00 WEIGHT 2022-10-31 53.071 kg 14:13:00 HEIGHT 2022-11-08 157.5 cm 07:15:00 WEIGHT 2022-11-08 53.071 kg 07:15:00 HEIGHT 2022-10-31 156.2 cm 14:13:00 WEIGHT 2022-10-31 53.071 kg 14:13:00 HEIGHT 2022-11-08 157.5 cm 07:15:00 WEIGHT 2022-11-08 53.071 kg 07:15:00 HEIGHT 2022-10-31 156.2 cm 14:13:00 WEIGHT 2022-10-31 53.071 kg 14:13:00 HEIGHT 2022-05-11 157.5 cm 06:54:00 WEIGHT 2022-05-11 53.479 kg 06:54:00 HEIGHT 2022-04-12 157.5 cm 13:34:00 WEIGHT 2022-04-12 53.978 kg 13:34:00 HEIGHT 2022-05-11 157.5 cm 06:54:00 WEIGHT 2022-05-11 53.479 kg 06:54:00 HEIGHT 2022-04-12 157.5 cm 13:34:00 WEIGHT 2022-04-12 53.978 kg 13:34:00 HEIGHT 2022-05-11 157.5 cm 06:54:00 WEIGHT 2022-05-11 53.479 kg 06:54:00 HEIGHT 2022-04-12 157.5 cm 13:34:00 WEIGHT 2022-04-12 53.978 kg 13:34:00 BP Diastolic 2021-10-13 68 mm[Hg] [facility] 00:00:00 Height 2021-10-13 62 [in_i] [facility] 00:00:00 BMI (Body Mass 2021-10-13 21.6 kg/m2 [facility] l Index) 00:00:00 BP Systolic 2021-10-13 122 mm[Hg] [facility] 00:00:00 Body Weight 2021-10-13 118 [lb_av] [facility] 00:00:00 HEIGHT 2021-02-17 157.5 cm 16:06:00 WEIGHT 2021-02-17 52.164 kg 16:06:00 HEIGHT 2021-02-17 157.5 cm 16:06:00 WEIGHT 2021-02-17 52.164 kg 16:06:00 Systolic (mm Hg) 2022-11-23 [facility] 19:34:00 [place] Diastolic (mm Hg) 2022-11-23 [facility] 19:34:00 [place] Heart Rate 2022-11-23 [facility] 19:34:00 [place] Height 2022-11-23 5 [ft_i] [facility] 19:34:00 [place] Weight 2022-11-23 [facility] 19:34:00 [place] BMI Calculated 2022-11-23 [facility] 19:34:00 [place] Systolic blood 2022-11-08 118 mm[Hg] [facility] pressure 08:50:00 [facility] Diastolic blood 2022-11-08 53 mm[Hg] [facility] pressure 08:50:00 [facility] Heart rate 2022-11-08 88 /min [facility] Constant[facility] 08:50:00 [facility] to home. Respiratory rate 2022-11-08 10 /min [facility] 08:50:00 [facility] Oxygen saturation 2022-11-08 94 /[facility] Arterial blood 08:50:00 Medical nter by Pulse oximetry Body temperature 2022-11-[address] [facility] 08:26:00 [facility] Body height 2022-11-[address] [facility] 07:15:00 [facility] Body weight 2022-11-[address] [facility] 07:15:00 [facility] BMI 2022-11-08 21.40 kg/m2 [facility] 07:15:00 [facility] Body height 2022-10-[address] [facility] 14:13:00 [facility] Body weight 2022-10-[address] [facility] 14:13:00 [facility] BMI 2022-10-31 21.75 kg/m2 [facility] 14:13:00 [facility] Systolic (mm Hg) 2022-08-25 [facility] 21:02:00 [place] Diastolic (mm Hg) 2022-08-25 [facility] 21:02:00 [place] Heart Rate 2022-08-25 [facility] 21:02:00 [place] Height 2022-08-25 5 [ft_i] [facility] 21:02:00 [place] Weight 2022-08-25 [facility] 21:02:00 [place] BMI Calculated 2022-08-25 [facility] 21:02:00 [place] Systolic (mm Hg) 2022-05-25 [facility] 19:58:00 [place] Diastolic (mm Hg) 2022-05-25 [facility] 19:58:00 [place] Heart Rate 2022-05-25 [facility] 19:58:00 [place] Respitory Rate 2022-05-25 [facility] 19:58:00 [place] Height 2022-05-25 154.94 cm [facility] 19:58:00 [place] Weight 2022-05-25 [facility] 19:58:00 [place] BMI Calculated 2022-05-25 [facility] 19:58:00 [place] Systolic blood 2022-05-23 113 mm[Hg] [facility] 19:18:00 Hospital Diastolic blood 2022-05-23 73 mm[Hg] [facility] 19:18:00 [facility] Heart rate 2022-05-23 84 /min [facility] 19:18:00 [facility] Respiratory rate 2022-05-23 12 /min [facility] 19:18:00 [facility] Body height 2022-05-23 157.5 cm [facility] 19:18:00 [facility] Body weight 2022-05-23 53.978 kg [facility] 19:18:00 [facility] BMI 2022-05-23 21.77 kg/m2 [facility] 19:18:00 [facility] Systolic blood 2022-05-11 138 mm[Hg] [facility] pressure 09:20:00 [facility] Diastolic blood 2022-05-11 69 mm[Hg] [facility] pressure 09:20:00 [facility] Heart rate 2022-05-11 94 /min [facility] 09:20:00 [facility] Body temperature 2022-05-[address] [facility] 09:20:00 [facility] Respiratory rate 2022-05-11 16 /[facility] 09:20:00 [facility] Oxygen saturation 2022-05-11 96 /[facility] Arterial blood 09:20:00 [facility] nter by Pulse oximetry Body height 2022-05-[address] [facility] 06:54:00 [facility] Body weight 2022-05-[address] [facility] 06:54:00 [facility] BMI 2022-05-11 21.56 kg/m2 [facility] 06:54:00 [facility] Systolic (mm Hg) 2022-02-28 [facility] 20:00:00 [place] Diastolic (mm Hg) 2022-02-28 [facility] 20:00:00 [place] Heart Rate 2022-02-28 [facility] 20:00:00 [place] Respitory Rate 2022-02-28 [facility] 20:00:00 [place] Height 2022-02-28 154.94 cm [facility] 20:00:00 [place] Weight 2022-02-28 [facility] 20:00:00 [place] BMI Calculated 2022-02-28 [facility] 20:00:00 [place] Systolic (mm Hg) 2021-11-29 [facility] 19:01:00 [place] Diastolic (mm Hg) 2021-11-29 [facility] 19:01:00 [place] Heart Rate 2021-11-29 [facility] 19:01:00 [place] Respitory Rate 2021-11-29 [facility] 19:01:00 [place] Height 2021-11-29 156.21 cm [facility] 19:01:00 [place] Weight 2021-11-29 [facility] 19:01:00 [place] BMI Calculated 2021-11-29 [facility] 19:01:00 [place] Systolic (mm Hg) 2021-08-31 [facility] 21:05:00 [place] Diastolic (mm Hg) 2021-08-31 [facility] 21:05:00 [place] Heart Rate 2021-08-31 [facility] 21:05:00 [place] Respitory Rate 2021-08-31 [facility] 21:05:00 [place] Height 2021-08-31 154.94 cm [facility] 21:05:00 [place] Weight 2021-08-31 [facility] 21:05:00 [place] BMI Calculated 2021-08-31 [facility] 21:05:00 [place] Heart Rate 2021-06-01 [facility] 19:15:00 [place] Respitory Rate 2021-06-01 [facility] 19:15:00 [place] Height 2021-06-01 154.94 cm [facility] 19:15:00 [place] Weight 2021-06-01 [facility] 19:15:00 [place] BMI Calculated 2021-06-01 [facility] 19:15:00 [place] Systolic (mm Hg) 2021-06-01 [facility] 19:15:00 [place] Diastolic (mm Hg) 2021-06-01 [facility] 19:15:00 [place] Systolic (mm Hg) 2021-02-04 [facility] 18:42:00 [place] Diastolic (mm Hg) 2021-02-04 [facility] 18:42:00 [place] Heart Rate 2021-02-04 [facility] 18:42:00 [place] Respitory Rate 2021-02-04 [facility] 18:42:00 [place] Height 2021-02-04 157.48 cm [facility] 18:42:00 [place] Weight 2021-02-04 [facility] 18:42:00 [place] BMI Calculated 2021-02-04 [facility] 18:42:00 [place] Systolic (mm Hg) 2020-12-23 [facility] 19:41:00 [place] Diastolic (mm Hg) 2020-12-23 [facility] 19:41:00 [place] Heart Rate 2020-12-23 [facility] 19:41:00 [place] Respitory Rate 2020-12-23 [facility] 19:41:00 [place] Weight 2020-12-23 [facility] 19:41:00 [place] Systolic (mm Hg) 2020-08-26 [facility] 19:32:00 [place] Diastolic (mm Hg) 2020-08-26 [facility] 19:32:00 [place] Heart Rate 2020-08-26 [facility] 19:32:00 [place] Respitory Rate 2020-08-26 [facility] 19:32:00 [place] Height 2020-08-26 152.4 cm [facility] 19:32:00 [place] Weight 2020-08-26 [facility] 19:32:00 [place] BMI Calculated 2020-08-26 [facility] 19:32:00 [place] Systolic (mm Hg) 2020-04-22 [facility] 18:50:00 [place] Diastolic (mm Hg) 2020-04-22 [facility] 18:50:00 [place] Heart Rate 2020-04-22 [facility] 18:50:00 [place] Respitory Rate 2020-04-22 [facility] 18:50:00 [place] Temperature Oral 2020-04-22 98.8 F [facility] (F) 18:50:00 [place] Height 2020-04-22 154.94 cm [facility] 18:50:00 [place] Weight 2020-04-22 [facility] 18:50:00 [place] BMI Calculated 2020-04-22 [facility] 18:50:00 [place] Systolic (mm Hg) 2020-01-21 [facility] 19:21:00 [place] Diastolic (mm Hg) 2020-01-21 [facility] 19:21:00 [place] Heart Rate 2020-01-21 [facility] 19:21:00 [place] Respitory Rate 2020-01-21 [facility] 19:21:00 [place] Height 2020-01-21 152.4 cm [facility] 19:21:00 [place] Weight 2020-01-21 [facility] 19:21:00 [place] BMI Calculated 2020-01-21 [facility] 19:21:00 [place] Systolic (mm Hg) 2019-08-28 [facility] 21:03:00 [place] Diastolic (mm Hg) 2019-08-28 [facility] 21:03:00 [place] Heart Rate 2019-08-28 [facility] 21:03:00 [place] Respitory Rate 2019-08-28 [facility] 21:03:00 [place] Height 2019-08-28 154.94 cm [facility] 21:03:00 [place] Weight 2019-08-28 [facility] 21:03:00 [place] BMI Calculated 2019-08-28 [facility] 21:03:00 [place] Systolic (mm Hg) 2019-05-29 [facility] 21:06:00 [place] Diastolic (mm Hg) 2019-05-29 [facility] 21:06:00 [place] Height 2019-05-29 152.4 cm [facility] 21:06:00 [place] Weight 2019-05-29 [facility] 21:06:00 [place] BMI Calculated 2019-05-29 [facility] 21:06:00 [place] Systolic (mm Hg) 2019-05-01 [facility] 19:22:00 [place] Diastolic (mm Hg) 2019-05-01 [facility] 19:22:00 [place] Heart Rate 2019-05-01 [facility] 19:22:00 [place] Respitory Rate 2019-05-01 [facility] 19:22:00 [place] Height 2019-05-01 154.94 cm [facility] 19:22:00 [place] Weight 2019-05-01 [facility] 19:22:00 [place] BMI Calculated 2019-05-01 [facility] 19:22:00 [place] BMI Calculated 2019-01-29 [facility] 16:11:00 [place] Height 2019-01-29 154.94 cm [facility] 16:11:00 [place] Weight 2019-01-29 [facility] 16:11:00 [place] Respitory Rate 2019-01-29 [facility] 16:11:00 [place] Heart Rate 2019-01-29 [facility] 16:11:00 [place] Systolic (mm Hg) 2019-01-29 [facility] 16:11:00 [place] Diastolic (mm Hg) 2019-01-29 [facility] 16:11:00 [place] Systolic (mm Hg) 2018-09-27 [facility] 21:26:00 [place] Diastolic (mm Hg) 2018-09-27 [facility] 21:26:00 [place] Heart Rate 2018-09-27 [facility] 21:26:00 [place] Height 2018-09-27 154.94 cm [facility] 21:26:00 [place] Weight 2018-09-27 [facility] 21:26:00 [place] BMI Calculated 2018-09-27 [facility] 21:26:00 [place] Weight 2018-05-24 [facility] 20:26:00 [place] BMI Calculated 2018-05-24 [facility] 20:26:00 [place] Height 2018-05-24 154.94 cm [facility] 20:26:00 [place] Systolic (mm Hg) 2018-05-24 [facility] 20:26:00 [place] Diastolic (mm Hg) 2018-05-24 [facility] 20:26:00 [place] Respitory Rate 2018-05-24 [facility] 20:26:00 [place] Heart Rate 2018-05-24 [facility] 20:26:00 [place] Procedures Procedure Date / Time Performing Clinician Source Performed EXTRACTION, CATARACT, WITH 2022-11-08 11:45:00 Deysi [facility] IOL INSERTION [facility] EXTRACTION, CATARACT, WITH 2022-11-08 07:55:00 [facility] IOL INSERTION [facility] EXTRACTION, CATARACT, WITH 2022-11-08 07:15:00 [facility] IOL INSERTION [facility] T4, FREE 2022-07-20 17:08:00 [facility] THYROID STIMULATING 2022-07-20 17:08:00 [facility] HORMONE T3, FREE 2022-07-20 17:08:00 [facility] MAMMO SELF REQUESTING 2022-07-18 [facility]02[facility] Elva A. THYROID STIMULATING 2022-05-16 16:18:00 [facility] HORMONE T4, FREE 2022-05-16 16:18:00 [facility] HEMOGLOBIN A1C 2022-05-16 16:18:00 [facility] REPORT OF PROCEDURE - 2022-05-11 09:22:28 [facility] ENDOSCOPY URL [facility] ESOPHAGOGASTRODUODENOSCOPY 2022-05-11 08:16:00 Elena Raygoza [facility] , WITH ENDOSCOPIC US [facility] ULTRASOUND, UPPER GI 2022-05-11 08:16:00 Rivas [facility] TRACT, ENDOSCOPIC, WITH [facility] FINE NEEDLE ASPIRATION ASSIGNMENT OF BENEFITS 2020-12-13 20:15:12 [facility] 2019-09-16 00:00:00 Brigette Tuttle of Esophagus Ercp W/optical 2017-04-09 00:00:00 [facility] Endomicroscpy Orthopedic - Arthroscopic 2006-12-18 00:00:00 [facility] Cholecystectomy 2005-03-20 00:00:00 [facility] (Gallbladder) Back / Spine Surgery 2000-09-20 00:00:00 [facility] Back / Spine Surgery 1998-08-20 00:00:00 [facility] Genitourinary Surgery 1987-03-20 00:00:00 [facility] Oophorectomy (Ovary 1987-03-20 00:00:00 [facility] Removal) Ophthalmology - Cataract 1982-09-20 00:00:00 [facility] Hysterectomy (Ovaries 1974-09-20 00:00:00 [facility] Remain) Appendectomy 1972-01-19 00:00:00 [facility] Dilation and Curettage 1972-01-19 00:00:00 [facility] Dilation and Curettage 1967-08-20 00:00:00 [facility] Tonsillectomy 1955-09-20 00:00:00 [facility] Plan of Care Planned Activity Planned Date Details Comments Source Future Scheduled Test 2023-11-[address] [facility] 00:[facility] (12+) [code = Tobacco Cessation Counseling and Screening (12+)] Future Scheduled Test 2023-11-[address] [facility] 00:00:00 [facility] (12+) [code = Tobacco Cessation Counseling and Screening (12+)] Future Scheduled Test 2023-11-[address] [facility] 00:00:00 [facility] (12+) [code = Tobacco Cessation Counseling and Screening (12+)] Future Scheduled Test 2023-11-[address] [facility] 00:00:00 [facility] (12+) [code = Tobacco Cessation Counseling and Screening (12+)] Future Scheduled Test 2023-11-[address] [facility] 00:00:00 [facility] (12+) [code = Tobacco Cessation Counseling and Screening (12+)] Future Scheduled Test 2023-11-[address] [facility] 00:00:00 [facility] Scre[facility] (12+) [code = Tobacco Cessation Counseling and Screening (12+)] Future Scheduled Test 2023-11-[address] [facility] 00:00:00 [facility] Screening (12+) [code = Tobacco Cessation Counseling and Screening (12+)] Future Scheduled Test 2023-05-[address] [facility] 00:00:00 [facility] Scre[facility] (12+) [code = Tobacco Cessation Counseling and Screening (12+)] Future Scheduled Test 2023-05-[address] [facility] 00:00:00 [facility] Screening (12+) [code = Tobacco Cessation Counseling and Screening (12+)] Future Scheduled Test 2023-05-[address] [facility] 00:00:00 [facility] Scre[facility] (12+) [code = Tobacco Cessation Counseling and Screening (12+)] Future Scheduled Test 2023-04-[address] Influenza Vacc[address] [facility] 00:00:00 (#1) [code = Medical Center Influenza Vaccine (#1)] Future Scheduled Test 2023-02-23 SHINGLES VACCINES (1 [facility] 13:53:48 of 2) [code = SHINGLES VACCINES (1 of 2)] Future Scheduled Test 2023-02-23 COVID-19 VACCINE (6 - [facility] 13:53:48 Moderna series) [code = COVID-19 VACCINE (6 - Moderna series)] Future Scheduled Test 2023-02-23 INFLUENZA VACCINE [facility] 13:53:48 [code = INFLUENZA VACCINE] Future Scheduled Test 2022-08-[address] [facility] 00:00:00 (12+) [code = Medical Center DEPRESSION SCREENING (12+)] Future Scheduled Test 2022-08-20 FALLS RISK SCREENING [facility] 00:00:00 [code = FALLS RISK Medical C enter SCREENING] Future Scheduled Test 2022-08-[address] [facility] 00:00:00 (12+) [code = Medical Center DEPRESSION SCREENING (12+)] Future Scheduled Test 2022-08-20 F[address]S [address] SCREENING [facility] 00:00:00 [code = FALLS RISK Medical C enter SCREENING] Future Scheduled Test 2022-08-[address] [facility] 00:00:00 (12+) [code = Medical Center DEPRESSION SCREENING (12+)] Future Scheduled Test 2022-08-20 [address] SCREENING [facility] 00:00:00 [code = FALLS RISK Medical C enter SCREENING] Future Scheduled Test 2022-08-[address] [facility] 00:00:00 (12+) [code = Medical Center DEPRESSION SCREENING (12+)] Future Scheduled Test 2022-08-20 [address] SCREENING [facility] 00:00:00 [code = FALLS RISK Medical C enter SCREENING] Future Scheduled Test 2022-08-[address] [facility] 00:00:00 (12+) [code = Medical Center DEPRESSION SCREENING (12+)] Future Scheduled Test 2022-08-20 [address] SCREENING [facility] 00:00:00 [code = FALLS RISK Medical C enter SCREENING] Future Scheduled Test 2022-08-[address] [facility] 00:00:00 (12+) [code = Medical Center DEPRESSION SCREENING (12+)] Future Scheduled Test 2022-08-20 [address] SCREENING [facility] 00:00:00 [code = FALLS RISK Medical C enter SCREENING] Future Scheduled Test 2022-08-[address] [facility] 00:00:00 (12+) [code = Medical Center DEPRESSION SCREENING (12+)] Future Scheduled Test 2022-08-20 [address] SCREENING [facility] 00:00:00 [code = FALLS RISK Medical C enter SCREENING] Future Scheduled Test 2022-08-[address] [facility] 00:00:00 (12+) [code = Medical Center DEPRESSION SCREENING (12+)] Future Scheduled Test 2022-08-20 [address]K SCREENING [facility] 00:00:00 [code = FALLS RISK Medical C enter SCREENING] Future Scheduled Test 2022-08-[address] [facility] 00:00:00 (12+) [code = Medical Center DEPRESSION SCREENING (12+)] Future Scheduled Test 2022-08-20 [address] SCREENING [facility] 00:00:00 [code = FALLS RISK Medical C enter SCREENING] Future Scheduled Test 2022-08-[address] [facility] 00:00:00 (12+) [code = Medical Center DEPRESSION SCREENING (12+)] Future Scheduled Test 2022-08-20 [address] SCREENING [facility] 00:00:00 [code = FALLS RISK Medical C enter SCREENING] Future Scheduled Test 2022-04-[address] [facility] 00:00:00 (#1) [code = Medical Center INFLUENZA VACCINE (#1)] Future Scheduled Test 2022-04-[address] [facility] 00:00:00 (#1) [code = Medical Center INFLUENZA VACCINE (#1)] Future Scheduled Test 2022-04-[address] [facility] 00:00:00 (#1) [code = Medical Center INFLUENZA VACCINE (#1)] Future Scheduled Test 2021-08-14 COVID-19 VACCINE (4 - [facility] 00:00:00 Booster for Moderna [facility] series) [code = COVID-19 VACCINE (4 - Booster for Moderna series)] Future Scheduled Test 2021-08-14 COVID-19 VACCINE (4 - [facility] 00:00:00 Booster for [facility] series) [code = COVID-19 VACCINE (4 - Booster for Moderna series)] Future Scheduled Test 2021-08-14 COVID-19 VACCINE (4 - [facility] 00:00:00 Booster for [facility] series) [code = COVID-19 VACCINE (4 - Booster for Moderna series)] Future Scheduled Test 2021-06-09 COVID-19 VACCINE (4 - [facility] 00:00:00 Booster for [facility] series) [code = COVID-19 VACCINE (4 - Booster for Moderna series)] Future Scheduled Test 2021-06-09 COVID-19 VACCINE (4 - [facility] 00:00:00 Booster for [facility] series) [code = COVID-19 VACCINE (4 - Booster for Moderna series)] Future Scheduled Test 2021-06-09 COVID-19 VACCINE (4 - [facility] 00:00:00 Booster for [facility] series) [code = COVID-19 VACCINE (4 - Booster for Moderna series)] Future Scheduled Test 2021-06-09 COVID-19 VACCINE (4 - [facility] 00:00:00 Booster for [facility] series) [code = COVID-19 VACCINE (4 - Booster for Moderna series)] Future Scheduled Test 2021-06-09 COVID-19 VACCINE (4 - [facility] 00:00:00 Booster for [facility] series) [code = COVID-19 VACCINE (4 - Booster for Moderna series)] Future Scheduled Test 2021-06-09 COVID-19 VACCINE (4 - [facility] 00:00:00 Booster for [facility] series) [code = COVID-19 VACCINE (4 - Booster for Moderna series)] Future Scheduled Test 2021-06-09 COVID-19 VACCINE (4 - [facility] 00:00:00 Booster for [facility] series) [code = COVID-19 VACCINE (4 - Booster for Moderna series)] Future Scheduled Test 2010 PNEUMOCOCCAL 65+ YRS [facility] 00:00:00 (1 - PCV) [code = Medical Ce nter PNEUMOCOCCAL 65+ YRS (1 - PCV)] Future Scheduled Test 2010 PNEUMOCOCCAL 65+ YRS [facility] 00:00:00 (1 - PCV) [code = Medical Ce nter PNEUMOCOCCAL 65+ YRS (1 - PCV)] Future Scheduled Test 2010 PNEUMOCOCCAL 65+ YRS [facility] 00:00:00 (1 - PCV) [code = Medical Ce nter PNEUMOCOCCAL 65+ YRS (1 - PCV)] Future Scheduled Test 2010 PNEUMOCOCCAL 65+ YRS [facility] 00:00:00 (1 - PCV) [code = Medical Ce nter PNEUMOCOCCAL 65+ YRS (1 - PCV)] Future Scheduled Test 2010 PNEUMOCOCCAL 65+ YRS [facility] 00:00:00 (1 - PCV) [code = Medical Ce nter PNEUMOCOCCAL 65+ YRS (1 - PCV)] Future Scheduled Test 2010 PNEUMOCOCCAL 65+ YRS [facility] 00:00:00 (1 - PCV) [code = Medical Ce nter PNEUMOCOCCAL 65+ YRS (1 - PCV)] Future Scheduled Test 2010 PNEUMOCOCCAL 65+ YRS [facility] 00:00:00 (1 - PCV) [code = Medical Ce nter PNEUMOCOCCAL 65+ YRS (1 - PCV)] Future Scheduled Test 2010 PNEUMOCOCCAL 65+ YRS [facility] 00:00:00 (1 - PCV) [code = Medical Ce nter PNEUMOCOCCAL 65+ YRS (1 - PCV)] Future Scheduled Test 2010 PNEUMOCOCCAL 65+ YRS [facility] 00:00:00 (1 - PCV) [code = Medical Ce nter PNEUMOCOCCAL 65+ YRS (1 - PCV)] Future Scheduled Test 2010 PNEUMOCOCCAL 65+ YRS [facility] 00:00:00 (1 - PCV) [code = Medical Ce nter PNEUMOCOCCAL 65+ YRS (1 - PCV)] Future Scheduled Test 2002-06-[address] [facility] 00:00:00 WELLNESS (YEAR 2 or Medical Center FIRST YEAR if no IPPE) [code = MEDICARE ANNUAL WELLNESS (YEAR 2 or FIRST YEAR if no IPPE)] Future Scheduled Test 2002-06-[address] [facility] 00:00:00 WELLNESS (YEAR 2 or Medical Center FIRST YEAR if no IPPE) [code = MEDICARE ANNUAL WELLNESS (YEAR 2 or FIRST YEAR if no IPPE)] Future Scheduled Test 2002-06-[address] [facility] 00:00:00 WELLNESS (YEAR 2 or Medical Center FIRST YEAR if no IPPE) [code = MEDICARE ANNUAL WELLNESS (YEAR 2 or FIRST YEAR if no IPPE)] Future Scheduled Test 2002-06-[address] [facility] 00:00:00 WELLNESS (YEAR 2 or Medical Center FIRST YEAR if no IPPE) [code = MEDICARE ANNUAL WELLNESS (YEAR 2 or FIRST YEAR if no IPPE)] Future Scheduled Test 2002-06-[address] [facility] 00:00:00 WELLNESS (YEAR 2 or Medical Center FIRST YEAR if no IPPE) [code = MEDICARE ANNUAL WELLNESS (YEAR 2 or FIRST YEAR if no IPPE)] Future Scheduled Test 2002-06-[address] [facility] 00:00:00 WELLNESS (YEAR 2 or Medical Center FIRST YEAR if no IPPE) [code = MEDICARE ANNUAL WELLNESS (YEAR 2 or FIRST YEAR if no IPPE)] Future Scheduled Test 2002-06-[address] [facility] 00:00:00 WELLNESS (YEAR 2 or Medical Center FIRST YEAR if no IPPE) [code = MEDICARE ANNUAL WELLNESS (YEAR 2 or FIRST YEAR if no IPPE)] Future Scheduled Test 2002-06-[address] [facility] 00:00:00 WELLNESS (YEAR 2 or Medical Center FIRST YEAR if no IPPE) [code = MEDICARE ANNUAL WELLNESS (YEAR 2 or FIRST YEAR if no IPPE)] Future Scheduled Test 2002-06-[address] [facility] 00:00:00 WELLNESS (YEAR 2 or Medical Center FIRST YEAR if no IPPE) [code = MEDICARE ANNUAL WELLNESS (YEAR 2 or FIRST YEAR if no IPPE)] Future Scheduled Test 2002-06-[address] [facility] 00:00:00 WELLNESS (YEAR 2 or Medical Center FIRST YEAR if no IPPE) [code = MEDICARE ANNUAL WELLNESS (YEAR 2 or FIRST YEAR if no IPPE)] Future Scheduled Test 1995 SHINGLES VACCINES ([address] [facility] 00:00:00 of 2) [code = Medical Center SHINGLES VACCINES (1 of 2)] Future Scheduled Test 1995 SHINGLES VACCINES ([address] [facility] 00:00:00 of 2) [code = Medical Center SHINGLES VACCINES (1 of 2)] Future Scheduled Test 1995 SHINGLES VACCINES ([address] [facility] 00:00:00 of 2) [code = Medical Center SHINGLES VACCINES (1 of 2)] Future Scheduled Test 1995 SHINGLES VACCINES ([address] [facility] 00:00:00 of 2) [code = Medical Center SHINGLES VACCINES (1 of 2)] Future Scheduled Test 1995 SHINGLES VACCINES ([address] [facility] 00:00:00 of 2) [code = Medical Center SHINGLES VACCINES (1 of 2)] Future Scheduled Test 1995 SHINGLES VACCINES ([address] [facility] 00:00:00 of 2) [code = Medical Center SHINGLES VACCINES (1 of 2)] Future Scheduled Test 1995 SHINGLES VACCINES ([address] [facility] 00:00:00 of 2) [code = Medical Center SHINGLES VACCINES (1 of 2)] Future Scheduled Test 1995 SHINGLES VACCINES ([address] [facility] 00:00:00 of 2) [code = Medical Center SHINGLES VACCINES (1 of 2)] Future Scheduled Test 1995 SHINGLES VACCINES ([address] [facility] 00:00:00 of 2) [code = Medical Center SHINGLES VACCINES (1 of 2)] Future Scheduled Test 1995 SHINGLES VACCINES ([address] [facility] 00:00:00 of 2) [code = Medical Center SHINGLES VACCINES (1 of 2)] Future Scheduled Test 1964 DTAP/TDAP/TD VACCINES [facility] 00:00:00 (1 - Tdap) [code = Medical C enter DTAP/TDAP/TD VACCINES (1 - Tdap)] Future Scheduled Test 1964 DTAP/TDAP/TD VACCINES [facility] 00:00:00 (1 - Tdap) [code = Medical C enter DTAP/TDAP/TD VACCINES (1 - Tdap)] Future Scheduled Test 1964 DTAP/TDAP/TD VACCINES [facility] 00:00:00 (1 - Tdap) [code = Medical C enter DTAP/TDAP/TD VACCINES (1 - Tdap)] Future Scheduled Test 1964 DTAP/TDAP/TD VACCINES [facility] (1 - Tdap) [code = Medical C enter DTAP/TDAP/TD VACCINES (1 - Tdap)] Future Scheduled Test 1964 DTAP/TDAP/TD VACCINES [facility] 00:00:00 (1 - Tdap) [code = Medical C enter DTAP/TDAP/TD VACCINES (1 - Tdap)] Future Scheduled Test 1964 DTAP/TDAP/TD VACCINES [facility]:00:00 (1 - Tdap) [code = Medical C enter DTAP/TDAP/TD VACCINES (1 - Tdap)] Future Scheduled Test 1964 DTAP/TDAP/TD VACCINES [facility] 00:00:00 (1 - Tdap) [code = Medical C enter DTAP/TDAP/TD VACCINES (1 - Tdap)] Future Scheduled Test 1964 DTAP/TDAP/TD VACCINES [facility]:00:00 (1 - Tdap) [code = Medical C enter DTAP/TDAP/TD VACCINES (1 - Tdap)] Future Scheduled Test 1964 DTAP/TDAP/TD VACCINES [facility]:00:00 (1 - Tdap) [code = Medical C enter DTAP/TDAP/TD VACCINES (1 - Tdap)] Future Scheduled Test 1964 DTAP/TDAP/TD VACCINES [facility] 00:00:00 (1 - Tdap) [code = Medical C enter DTAP/TDAP/TD VACCINES (1 - Tdap)] Future Scheduled Test 1963 HEPATITIS C SCREENING [facility] 00:00:00 [code = HEPATITIS C Medical Center SCREENING] Future Scheduled Test 1963 HEPATITIS C SCREENING [facility] 00:00:00 [code = HEPATITIS C Medical Center SCREENING] Future Scheduled Test 1963 HEPATITIS C SCREENING [facility] 00:00:00 [code = HEPATITIS C Medical Center SCREENING] Future Scheduled Test 1963 HEPATITIS C SCREENING [facility] 00:00:00 [code = HEPATITIS C Medical Center SCREENING] Future Scheduled Test 1963 HEPATITIS C SCREENING [facility] 00:00:00 [code = HEPATITIS C Medical Center SCREENING] Future Scheduled Test 1963 HEPATITIS C SCREENING [facility] 00:00:00 [code = HEPATITIS C Medical Center SCREENING] Future Scheduled Test 1963 HEPATITIS C SCREENING [facility] 00:00:00 [code = HEPATITIS C Medical Center SCREENING] Future Scheduled Test 1963 HEPATITIS C SCREENING [facility] 00:00:00 [code = HEPATITIS C Medical Center SCREENING] Future Scheduled Test 1963 HEPATITIS C SCREENING [facility] 00:00:00 [code = HEPATITIS C Medical Center SCREENING] Future Scheduled Test 1963 HEPATITIS C SCREENING [facility] 00:00:00 [code = HEPATITIS C Medical Center SCREENING] Future Scheduled Test 1945 DXA SCAN [code = DXA [facility] 00:00:00 SCAN] Medical Center Future Scheduled Test 1945 DXA SCAN [code = DXA [facility] 00:00:00 SCAN] Medical Center Future Scheduled Test 1945 DXA SCAN [code = DXA [facility] 00:00:00 SCAN] Medical Center Future Scheduled Test 1945 DXA SCAN [code = DXA [facility] 00:00:00 SCAN] Medical Center Future Scheduled Test 1945 DXA SCAN [code = DXA [facility] 00:00:00 SCAN] Medical Center Future Scheduled Test 1945 DXA SCAN [code = DXA [facility] 00:00:00 SCAN] Medical Center Future Scheduled Test 1945 DXA SCAN [code = DXA [facility] 00:00:00 SCAN] Medical Center Future Scheduled Test 1945 DXA SCAN [code = DXA [facility] 00:00:00 SCAN] [facility] Future Scheduled Test 1945 DXA SCAN [code = DXA [facility] 00:00:00 SCAN] [facility] Future Scheduled Test 1945 DXA SCAN [code = DXA [facility] 00:00:00 SCAN] [facility] Instructions [facility] Start End Encounter Admission Attending Care Care Encounter Source Date/Time Date/Time Type Type Clinicians Facility Department ID 2021-05-25 Outpatient TEMITOPE RAYGOZA Surgery [id number] SLE 06:56:07 [facility] 2023-03-02 2023-03-02 Outpatient MHIE MHIE [id number] Memoria 11:30:00 11:30:00 26 l Brinklow 2023-02-22 2023-02-22 Ambulatory MHIE MNA [id number] Memoria 18:45:00 18:45:00 Pre-Reg Neurology 25 l Boyd Brinklow 2023-02-22 2023-02-22 Outpatient MHIE MHIE [id number] Memoria 13:45:00 13:45:00 25 tanja Raya 2023-02-22 2023-02-22 Outpatient MHIE MHIE [id number] Memoria 13:45:00 13:45:00 25 tanja Raya 2023-02-22 2023-02-22 Outpatient ALICE RodgersMISCHER MHMISCHER [id number] 13:45:00 13:45:00 Edenilson 25 Jacobo 2022-11-23 2022-11-24 Outpatient MHIE MNA [id number] Memoria 19:30:00 04:59:59 Neurology 24 l Bartolome Khanann 2022-11-23 2022-11-24 Outpatient MHIE MNA [id number] Memoria 19:30:00 04:59:59 Neurology 24 l Bartolome Elver 2022-11-23 2022-11-23 Outpatient ALICE RodgersMISCHER MHMISCHER [id number] 14:30:00 23:59:59 Edenilson 24 Jacobo 2022-11-23 2022-11-23 Outpatient MHIE MHIE [id number] Memoria 14:30:00 14:30:00 24 tanja Raya 2022-11-08 2022-11-08 [facility] [id number] 06:14:00 09:02:00 Encounter [facility] 2022-11-08 2022-11-08 [facility] [id number] 06:14:00 09:02:00 Encounter [facility] 2022-11-08 2022-11-08 Outpatient [facility] Surgery [id number] [facility] 06:14:00 09:02:00 [place] 2022-11-08 2022-11-08 Anesthesia [facility] [id number] 07:55:00 08:24:00 Event [facility] 2022-11-08 2022-11-08 Anesthesia [facility] [id number] 07:55:00 08:24:00 Event [facility] 2022-11-08 2022-11-08 [facility] [id number] 07:15:00 07:50:00 [facility] 2022-11-08 2022-11-08 [facility] [id number] 07:15:00 07:50:00 [facility] 2022-11-08 2022-11-08 Travel [facility] [id number] [facility] 00:[facility]00 00:00:00 [facility] 2022-11-08 2022-11-08 Travel [facility] [id number] [facility] 00:00:00 00:00:00 [facility] 2022-08-25 2022-08-26 Outpatient MHIE MNA [id number] Memoria 20:45:00 05:59:59 Neurology 23 l Bartolome Raya 2022-08-25 2022-08-26 Outpatient MHIE MNA [id number] Memoria 20:45:00 05:59:59 Neurology 23 l Bartolome Raya 2022-08-25 2022-08-25 Outpatient ALICE RodgersMISCHER MHMISCHER [id number] 14:45:00 23:59:59 Edenilson 23 Jacobo 2022-08-25 2022-08-25 Outpatient MHIE MHIE [id number] Memoria 14:45:00 14:45:00 23 l Elver 2022-07-18 2022-07-18 [facility] 1.2.840.1 [id number] Methodi 14:12:00 23:59:00 Encounter Elva rao 18650.1.[address] A. 3.430.2.7 Hospit a .3.981614 l .8 2022-07-18 2022-07-18 Outpatient [facility] [id number] [place] 00:00:00 00:00:00 ELVA RAO [address] 2022-05-25 2022-05-26 Outpatient nullFlavo MNA [id number] Memoria 19:45:00 04:59:59 r Neurology 22 l Bartolome Raya 2022-05-25 2022-05-26 Outpatient nullFlavo MNA [id number] Memoria 19:45:00 04:59:59 r Neurology 22 l Bartolome Raya 2022-05-26 2022-05-26 Geremias Harley 1.2.840.1 [id number] Methodi 00:00:00 00:00:[address] 3.430.2.7 Hospit a .3.958000 l .8 2022-05-25 2022-05-25 Outpatient RubénAWAIS parkerSCHER MHMISCHER [id number] 14:45:00 23:59:59 Edenilson 22 Jacobo 2022-05-25 2022-05-25 Outpatient MHIE MHIE [id number] Memoria 14:45:00 14:45:00 22 tanja Raya 2022-05-23 2022-05-23 Office Celena 1.2.840.1 [id number] Methodi 14:00:00 15:09:09 Visit , Carmen 30579.1.[address] 3.430.2.7 Hospit a .3.350394 l .8 2022-05-23 2022-05-23 Travel 1.2.840.1 1.2.264.869 [id number] Methodi 00:00:00 00:00:[address] 3.430.2.7 0.2.7.3.698 Ho spita .3.525176 084.8 l .8 2022-05-23 2022-05-23 Outpatient CELENA [facility] [id number] Causey 00:00:00 00:00:00 , CARMEN [address] 2022-05-15 2022-05-15 Transcribe Ximena-Anton 1.2.840.1 [id number] Methodi 00:00:00 00:00:00 Orders Elva rao 47355.1.[address] A. 3.430.2.7 Hospit a .3.182753 l .8 2022-05-14 2022-05-14 Refill [facility] 1.2.840.1 [id number] 21 [id number] Methodi 00:00:00 00:00:00 , Carmen 27671.1.[address] 3.430.2.7 Hospit a .3.831410 l .8 2022-05-11 2022-05-11 [facility] [id number] 06:26:00 10:18:00 Encounter Elena Fournier [facility] 2022-05-11 2022-05-11 [facility] [id number] 06:26:00 10:18:00 Encounter Elena Fournier [facility] 2022-05-11 2022-05-11 Outpatient [facility] Surgery [id number] [facility] 06:26:00 10:18:00 ELENA 2022-05-11 2022-05-11 Surgery [facility] [id number] 08:00:00 09:00:00 [facility] Elijahdavid Fournier [facility] 2022-05-11 2022-05-11 [id number] 08:00:00 09:00:00 [facility] 2022-05-11 2022-05-11 Anesthesia Myla Sullivanoine [facility] [id number] 08:16:00 08:49:[address] 2022-05-11 2022-05-11 Anesthesia [facility] [id number] 08:16:00 08:49:[address] [facility] 2022-05-11 2022-05-11 Travel [facility] [id number] [facility] 00:00:00 00:00:00 [facility] 2022-05-11 2022-05-11 Travel [facility] [id number] [facility] 00:00:00 00:00:00 [facility] 2022-04-21 2022-04-21 Orders Cricket, 1.2.840.1 [id number] Stephon 00:00:00 00:00:00 Only Jarvis 92202.1.[address] 3.430.2.7 Hospit a .3.708103 l .8 2022-04-12 2022-04-12 Outpatient EL SLE SLEH [id number] [facility] 13:53:38 23:59:00 2022-04-12 2022-04-12 [facility] [id number] 13:20:00 23:59:00 Encounter [facility] 2022-04-12 2022-04-12 [facility] [id number] 13:20:00 23:59:00 Encounter [facility] 2022-04-12 2022-04-12 [facility] [id number] [facility] 00:00:00 00:00:00 [facility] 2022-04-12 2022-04-12 Travel [facility] [id number] [facility] 00:00:00 00:00:00 [facility] 2022-02-28 2022-03-01 Outpatient nullFlavo MNA [id number] Memoria 19:30:00 04:59:59 r Neurology 21 l Bartolome Raya 2022-02-28 2022-03-01 Outpatient nullFlavo MNA [id number] Memoria 19:30:00 04:59:59 r Neurology 21 l Bartolome Khanann 2022-02-28 2022-02-28 Outpatient Vishal MISCHER MHMISCHER [id number] 14:30:00 23:59:59 Edenilson 21 Jacobo 2022-02-28 2022-02-28 Outpatient MHIE MHIE [id number] Memoria 14:30:00 14:30:00 21 tanja Raya 2021-11-29 2021-11-30 Outpatient nullFlavo MNA [id number] Memoria 18:45:00 04:59:59 r Neurology 20 l Bartolome Brinklow 2021-11-29 2021-11-30 Outpatient nullFlavo MNA [id number] Memoria 18:45:00 04:59:59 r Neurology 20 l Bartolome Raya 2021-11-29 2021-11-29 Outpatient Vishal MHMISCHER MHMISCHER [id number] 13:45:00 23:59:59 Edenilson 20 Jacobo 2021-11-29 2021-11-29 Outpatient MHIE MHIE [id number] Memoria 13:45:00 13:45:00 20 tanja Raya 2021-10-13 2021-10-13 Outpatient GC_SWHAWSSL PRIV PRIV [id number] [facility] 05:06:00 05:06:00 _Rachel [id number] [facility] 2021-10-13 2021-10-13 Outpatient Ximena-J PRIV PRIV f9f [id number] 00:00:00 00:00:00 Elva rao [id number] 2021-10-13 2021-10-13 Elva PRIV [facility] 00:00:00 00:00:00 [facility] - Medic al Tharappel- GC_OSWALDO Taveras MD: _[place] [address] Office* [facility], [address], [place] [address] , Ph. 2021-10-12 2021-10-12 Outpatient QUINTIN_OSWALDO PRIV PRIV [id number] [facility] 12:55:00 12:55:00 _Thatrishae [id number] [facility] 2021-09-28 2021-09-28 Outpatient THARAPPEL-J [facility] [id number] Causey 00:00:00 00:00:00 ELVA RAO [address] 2021-08-31 2021-09-01 Outpatient nullFlavo MNA [id number] Memoria 20:45:00 05:59:59 r Neurology 19 l Bartolome Raya 2021-08-31 2021-09-01 Outpatient nullFlavo MNA [id number] Memoria 20:45:00 05:59:59 r Neurology 19 l Bartolome Raya 2021-08-31 2021-08-31 Outpatient AWAIS RodgersSCHKIRA MHMISCHER [id number] 14:45:00 23:59:59 Edenilson 19 Jacobo 2021-08-31 2021-08-31 Outpatient MHIE MHIE [id number] Memoria 14:45:00 14:45:00 19 l Elver 2021-07-16 2021-07-16 Outpatient THARAPPEL-J [facility] [id number] [place] 00:00:00 00:00:00 ELVA RAO [address] 2021-06-01 2021-06-02 Outpatient nullFlavo MNA [id number] Memoria 18:45:00 04:59:59 r Neurology 18 l Bartolome Raya 2021-06-01 2021-06-02 Outpatient nullFlavo MNA [id number] Memoria 18:45:00 04:59:59 r Neurology 18 l Bartolome Raya 2021-06-01 2021-06-01 Outpatient AWAIS RodgersSCHER MHMISCHER [id number] 13:45:00 23:59:59 Edenilson 18 Jacobo 2021-06-01 2021-06-01 Outpatient MHIE MHIE [id number] Memoria 13:45:00 13:45:00 18 l Elver 2021-02-17 2021-02-17 Emergency ER [facility] Emergency [id number] [facility] 16:01:00 16:01:00 2021-02-07 2021-02-07 Outpatient CELENA [facility] [id number] [place] 00:00:00 00:00:00 , CARMEN prabhakar 2021-02-04 2021-02-05 Outpatient nullFlavo MNA [id number] Memoria 18:30:00 04:59:59 r Neurology 17 l Boyd Elver 2021-02-04 2021-02-05 Outpatient nullFlavo MNA [id number] Memoria 18:30:00 04:59:59 r Neurology 17 l Bartolome Raya 2021-02-04 2021-02-04 Outpatient Vishal CRYSTALSCHER MISCHER [id number] 13:30:00 23:59:59 Edenilson 17 Jacobo 2021-02-04 2021-02-04 Outpatient MHIE MHIE [id number] Memoria 13:30:00 13:30:00 17 l Elver 2021-01-04 2021-01-05 Outpatient nullFlavo MNA [id number] Memoria 18:00:00 04:59:59 r Neurology 16 l Bartolome Raya 2021-01-04 2021-01-05 Outpatient nullFlavo MNA [id number] Memoria 18:00:00 04:59:59 r Neurology 16 l Bartolome Raya 2021-01-04 2021-01-04 Outpatient ALICE RodgersMISCHER MISCHER [id number] 13:00:00 23:59:59 Edenilson 16 Jacobo 2021-01-04 2021-01-04 Outpatient MHIE MHIE [id number] Memoria 13:00:00 13:00:00 16 l Elver 2020-12-29 2020-12-31 Outside nullFlavo MNA [id number] Memoria 16:41:01 04:59:59 Medical r Neurology 02 l Records Bartolome Raya 2020-12-29 2020-12-31 Outside nullFlavo MNA [id number] Memoria 16:41:01 04:59:59 Medical r Neurology 02 l Records Bartolome Raya 2020-12-29 2020-12-30 Outpatient MHMISCHER MHMISCHER [id number] 11:41:01 23:59:59 02 2020-12-23 2020-12-24 Outpatient nullFlavo MNA [id number] Memoria 19:15:00 04:59:59 r Neurology 15 l Bartolome Raya 2020-12-23 2020-12-24 Outpatient nullFlavo MNA [id number] Memoria 19:15:00 04:59:59 r Neurology 15 l Bartolome Raya 2020-12-23 2020-12-23 Outpatient Vishal, MHMISCHER MHMISCHER [id number] 14:15:00 23:59:59 Edenilson 15 Jacobo 2020-12-23 2020-12-23 Outpatient MHIE MHIE [id number] Memoria 14:15:00 14:15:00 15 l Elver 2020-12-13 2020-12-13 [facility] [id number] [facility] 16:00:00 16:00:00 RAM[facility] 2020-12-13 2020-12-13 Event Specialist Product Demonstrator [place], [facility] 1.2.840.114 [id number] 15:34:05 15:49:05 Visit Lab Main Vanessa 350.1.13.10 Fior 4.2.7.2.686 Professio [id number] [address] 2020-12-13 2020-12-13 Event Specialist Product Demonstrator U[place]ano, [facility] Lab Main [facility] 1.2.8 40.114 [id number] [facility] 15:34:05 15:49:05 Visit Ramses Davis 350.1.13.1 Mohsen ibarra [place] 4.2.7.2.[place] Profess[place] [phone] Pr dical [address] 2020-12-13 2020-12-13 Orders Doctor DUVALL 1.2.840.114 [id number] 00:00:00 00:00:00 Only Unassigned, PATTI 350.1.13.10 [facility] 4.2.7.2.686 [id number] 009 2020-12-13 2020-12-13 Orders Doctor JADIEL 1.2.840.114 [id number] 13 00:00:00 00:00:00 Only Unassigned, PATTI 350.1.13.10 [facility]y [facility] 4.2.7.2.686 Aleksandar as [phone] [facility] [address] 2020-08-26 2020-08-27 Outpatient nullFlavo MNA [id number] Memoria 19:30:00 05:59:59 r Neurology 14 l Bartolome Raya 2020-08-26 2020-08-27 Outpatient nullFlavo MNA [id number] Memoria 19:30:00 05:59:59 r Neurology 14 l Bartolome Raya 2020-08-26 2020-08-26 Outpatient GANESH Rodgers [id number] 13:30:00 23:59:59 Edenilson 14 Jacobo 2020-08-26 2020-08-26 Outpatient MHIE MHIE [id number] Memoria 13:30:00 13:30:00 14 tanja Raya 2020-05-31 2020-05-31 [facility] [id number] [place] 00:00:00 00:00:00 ELVA RAO [address] [place] [place] [address] 2020-05-21 2020-05-21 Outpatient SLE SLE [id number] SLE 00:00:00 00:00:00 2020-05-20 2020-05-20 Outpatient EL SLE SLEH [id number] SLE 00:00:00 00:00:00 2020-04-22 2020-04-23 Outpatient nullFlavo MNA [id number] Memoria 18:30:00 04:59:59 r Neurology 13 l Bartolome Raya 2020-04-22 2020-04-23 Outpatient nullFlavo MNA [id number] Memoria 18:30:00 04:59:59 r Neurology 13 l Bartolome Raya 2020-04-22 2020-04-22 Outpatient GANESH Rodgers MISCHER [id number] 13:30:00 23:59:59 Edenilson 13 Jacobo 2020-04-22 2020-04-22 Ambulatory nullFlavo MNA [id number] Memoria 18:30:00 18:30:00 Pre-Reg r Neurology 12 l Bartolome Raya 2020-04-22 2020-04-22 Ambulatory nullFlavo MNA [id number] Memoria 18:30:00 18:30:00 Pre-Reg r Neurology 12 l Bartolome Khanann 2020-04-22 2020-04-22 Outpatient MHIE MHIE [id number] Memoria 13:30:00 13:30:00 13 tanja Raya 2020-04-22 2020-04-22 Outpatient MHIE MHIE [id number] Memoria 13:30:00 13:30:00 12 tanja KhanBrinklow 2020-04-22 2020-04-22 [facility] [id number] 13:30:00 13:30:00 Edenilson 12 Jacobo 2020-01-21 2020-01-22 Outpatient nullFlavo MNA [id number] Memoria 18:45:00 04:59:59 r Neurology 11 l Bartolome Khanann 2020-01-21 2020-01-22 Outpatient nullFlavo MNA [id number] Memoria 18:45:00 04:59:59 r Neurology 11 l Bartolome Khanann 2020-01-21 2020-01-21 Outpatient [facility]ANESH Rodgers [facility] [id number] 13:45:00 23:59:59 Edenilson 11 Jacobo 2020-01-21 2020-01-21 Outpatient MHIE MHIE [id number] Memoria 13:45:00 13:45:00 11 tanja Brinklow 2019-09-15 2019-09-15 [facility] [id number] SLEH 00:00:00 00:00:00 [facility] 2019-08-28 2019-08-29 Outpatient nullFlavo MNA [id number] Memoria 20:45:00 05:59:59 r Neurology 10 l Boyd Elver 2019-08-28 2019-08-29 Outpatient nullFlavo MNA [id number] Memoria 20:45:00 05:59:59 r Neurology 10 l Boyd Brinklow 2019-08-28 2019-08-28 Outpatient GANESH Rodgers MISCHER [id number] 14:45:00 23:59:59 Edenilson 10 Jacobo 2019-08-28 2019-08-28 Outpatient MHIE MHIE [id number] Memoria 14:45:00 14:45:00 10 tanja Raya 2019-05-29 2019-05-30 Outpatient nullFlavo MNA [id number] Memoria 21:00:00 04:59:59 r Neurology 09 tanja Mancuso Brinklow 2019-05-29 2019-05-30 Outpatient nullFlavo MNA [id number] Memoria 21:00:00 04:59:59 r Neurology 09 tanja Mancuso Elver 2019-05-29 2019-05-29 Outpatient V[facility]al [facility] [id number] 16:00:00 23:59:59 Edenilsonmonty Centeno 2019-05-29 2019-05-29 Outpatient MHIE MHIE [id number] Memoria 16:00:00 16:00:00 09 tanja Brinklow 2019-05-01 2019-05-02 Outpatient nullFlavo MNA [id number] Memoria 19:00:00 04:59:59 r Neurology 08 tanja Mancuso Brinklow 2019-05-01 2019-05-02 Outpatient nullFlavo MNA [id number] Memoria 19:00:00 04:59:59 r Neurology 08 tanja Mancuso Brinklow 2019-05-01 2019-05-01 Outpatient ALICE RodgersNCSCHER MISCHER [id number] 14:00:00 23:59:59 Edenilson Clifton Jacobo 2019-05-01 2019-05-01 Outpatient MHIE [id number] Memoria 14:00:00 14:00:00 08 tanja Brinklow 2019-01-29 2019-01-30 Outpatient nullFlavo MNA [id number] Memoria 16:00:00 04:59:59 r Neurology 07 tanja Mancuso Brinklow 2019-01-29 2019-01-30 Outpatient nullFlavo MNA [id number] Memoria 16:00:00 04:59:59 r Neurology 07 tanja Mancuso Elver 2019-01-29 2019-01-29 Outpatient AWAIS RodgersSCHER MISCHER [id number] 11:00:00 23:59:59 Edenilsonmonty Centeno 2019-01-29 2019-01-29 Outpatient MHIE MHIE [id number] Memoria 11:00:00 11:00:00 07 tanja Brinklow 2018-10-25 2018-10-25 Outpatient MHIE MHIE [id number] Memoria 14:45:00 14:45:00 06 tanja Elver 2018-10-25 2018-10-25 Outpatient MHIE MHIE [id number] Memoria 14:45:00 14:45:00 06 tanja Brinklow 2018-09-27 2018-09-28 Outpatient nullFlavo MNA [id number] Memoria 21:15:00 05:59:59 r Neurology 05 l Bartolome Elver 2018-09-27 2018-09-28 Outpatient nullFlavo MNA [id number] Memoria 21:15:00 05:59:59 r Neurology 05 l Bartolome Raya 2018-09-27 2018-09-27 Outpatient Vishal MHMISCHER MISCHER [id number] 15:15:00 23:59:59 Edenilson Ariel Jacobo 2018-09-27 2018-09-27 Outpatient MHIE MHIE [id number] Memoria 15:15:00 15:15:00 05 tanja Elver 2018-05-24 2018-05-25 Outpatient nullFlavo MNA [id number] Memoria 20:15:00 04:59:59 r Neurology 04 l Bartolome Raya 2018-05-24 2018-05-25 Outpatient nullFlavo MNA [id number] Memoria 20:15:00 04:59:59 r Neurology 04 l Bartolome Brinklow 2018-05-24 2018-05-24 Outpatient Vishal MISCHER MISCHER [id number] 15:15:00 23:59:59 Edenilson Allyson Centeno 2018-05-24 2018-05-24 Outpatient MHIE MHIE [id number] Memoria 15:15:00 15:15:00 04 tanja Elver 2018-04-05 2018-04-05 Outpatient MHIE MHIE [id number] Memoria 14:45:00 14:45:00 03 tanja Elver 2018-04-05 2018-04-05 Outpatient MHIE MHIE [id number] Memoria 14:45:00 14:45:00 03 tanja Raya 2017-12-28 2017-12-28 Outpatient MHIE MHIE [id number] Memoria 14:30:00 14:30:00 02 tanja Raya 2017-12-28 2017-12-28 Outpatient ESTELLA SORIA [id number] Memoria 14:30:00 14:30:00 02 tanja Raya 2017-10-25 2017-10-25 Outpatient ESTELLA SORIA [id number] Memoria 14:45:00 14:45:00 00 tanja Raya 2017-10-25 2017-10-25 Outpatient BETTYE BETTYE [id number] Memoria 14:45:00 14:45:00 00 tanja Raya Results Test Description Test Time Test Comments Results Result Comments Source T4, free 2022-07-21 05:37:00 Test Item Value Reference Range Interpretation Comme nts T4, free (test code = 3024-7) 1.5 ng/dL 0.8-1.8 JAROD (test code = JAROD) FASTING:YES FASTING: YES RAC (test code = RAC) Performing Organization Information: Site ID: [facility] Address: [address] [place] [address] Director: [facility] Hospital[facility] stimulating [id number] 05:37:00 Test Item Value Reference Range Interpretation Comments TSH (test 1.11 See_Comment [Automated mes meme] code = The system ic h 3016-3) generated this result transmit abdullahi reference range : 0.40 - 4.50 mIU /L. The reference r patric was not used to interpret this result as normal/abnormal . JAROD (test FASTING:YES FASTING: code = JAROD) YES RAC (test Performing code = RAC) Organization Information: Site ID: [facility]: [facility] Address: [address] [place] [address] Director: [facility] HospitalT3, [id number] 05:37:00 Test Item Value Reference Range Interpretation Comments T3, free (test code 2.8 pg/mL 2.3-4.2 = 3051-0) JAROD (test code = FASTING:YES FASTING: YES JAROD) RAC (test code = Performing Organization RAC) Information: Site ID: [facility] Name: [facility] Address: [address] [place], [place] [id number] Director: Antwon Patel [facility] ParkwayHemoglobin [id number] 05:19:00 Test Item Value Reference Range Interpretation Comments Hemoglobin A1C 5.1 See_Comment For the purpo se of (test code = screening for t he 4548-4) presence ofdiab etes: <5.7% Consisten t with the absence of diabetes5.7-6.4 % Consistent with increased risk for diabetes (prediabetes)> or =6.5% Consisten t with diabetes This a ssay result is consi stent with a decrease d riskof diabetes . Currently, no consensus exist s regarding use ofhemoglobin A1 c for diagnosis of di abetes in children. According to [place] Diabetes Associ ation (ADA)guidelines , hemoglobin A1c <7.0% represents optimalcontrol in non- di abetic patients. Differentmetric s may apply to specif ic patient populat ions. Standards of Pr dical Care in Diabetes(ADA). [Automated mess age] The system 9You generated this result transmitted ref erence range: <5.7 % o f total Hgb. The reference range was not used to int erpret this result as normal/abnormal . JAROD (test code = FASTING:NO JAROD) FASTING: NO RAC (test code = Performing RAC) Organization Information: Site ID: [facility] Name: [facility] Address: [address] [place], [place] [address] Director: Antwon Patel [facility] ParkwayURINALYSIS [id number] 19:07:00 Test Item Value Reference Range Interpretation Comments RBC UA (BEAKER) (test code = 519) 1 /HPF WBC UA (BEAKER) (test code = 520) 10 /HPF BACTERIA (BEAKER) (test code = 517) None Seen MUCUS (BEAKER) (test code = 1574) Rare SQUAMOUS EPITHELIAL (BEAKER) (test 4 /HPF code = 516) HYALINE CASTS (BEAKER) (test code = 2 /LPF 514) CRYSTALS, URINE (BEAKER) (test code None Seen = 1521) [employer] Medic ID - techURINALYSIS WITH MICROSCOPIC IF [id number] 19:00:00 Test Item Value Reference Range Interpretation Comments COLOR (BEAKER) (test code = 470) Light Yellow CLARITY (BEAKER) (test code = Clear 469) SPECIFIC GRAVITY UA (BEAKER) 1.010 1.001-1.035 (test code = 468) PH UA (BEAKER) (test code = 467) 6.0 5.0-8.0 PROTEIN UA (BEAKER) (test code = Negative Negative 464) GLUCOSE UA (BEAKER) (test code = Negative Negative 365) KETONES UA (BEAKER) (test code = Negative Negative 371) BILIRUBIN UA (BEAKER) (test code Negative Negative = 462) BLOOD UA (BEAKER) (test code = Trace Negative A 461) NITRITE UA (BEAKER) (test code = Negative Negative 465) LEUKOCYTE ESTERASE UA (BEAKER) Large Negative A (test code = 466) UROBILINOGEN UA (BEAKER) (test 0.2 mg/dL 0.2-1.0 code = 463) SOURCE(BEAKER) (test code = 2795) [employer] [facility] ID - [auto]HIGH SENSITIVITY TROPONIN [id number] 18:27:00 Test Item Value Reference Range Interpretation Comments HIGH SENSITIVITY < pg/ml See_Comment [Automated message] TROPONIN I (test code = The system which [id number]) generated this result transmitted ref erence range: <=17. Th e reference range was not used to interpr et this result as normal/abnormal . [employer] [facility] ID - DBThe LEAD INFORMATICA DEVELOPER STAT High Sensitivity Troponin-I results should be used in conjunctionwith other diagnostic information such as ECG, clinical observations and information, and patient symptoms to aid in the diagnosis of NC.COMPREHENSIVE METABOLIC [id number] 18:20:00 Test Item Value Reference Range Interpretation Comments TOTAL PROTEIN 7.3 gm/dL 6.0-8.3 (BEAKER) (test code = 770) ALBUMIN (BEAKER) 4.4 g/dL 3.5-5.0 (test code = 1145) ALKALINE PHOSPHATASE 62 U/L 40-150 (BEAKER) (test code = 346) BILIRUBIN TOTAL 0.4 mg/dL 0.2-1.2 (BEAKER) (test code = 377) SODIUM (BEAKER) (test 135 meq/L 136-145 L code = 381) POTASSIUM (BEAKER) 4.9 meq/L 3.5-5.1 (test code = 379) CHLORIDE (BEAKER) 97 meq/L 98-107 L (test code = 382) CO2 (BEAKER) (test 30 meq/L 22-29 H code = 355) BLOOD UREA NITROGEN 8 mg/dL 7-21 (BEAKER) (test code = 354) CREATININE (BEAKER) 0.88 mg/dL 0.57-1.25 (test code = 358) GLUCOSE RANDOM 109 mg/dL 70-105 H (BEAKER) (test code = 652) CALCIUM (BEAKER) 10.1 mg/dL 8.4-10.2 (test code = 697) AST (SGOT) (BEAKER) 28 U/L 5-34 (test code = 353) ALT (SGPT) (BEAKER) 21 U/L 6-55 (test code = 347) EGFR (BEAKER) (test 63 mL/min/1.73 ESTIMA ABDULLAHI GFR IS code = 1092) sq m NOT ACCURATE CREATININE CLEARANCE IN PREDICTING GLOMERULAR FILTRATION RATE . ESTIMATED GFR I S NOT APPLICABLE FOR DIALYSIS PATIEN TS. [employer] [facility] ID - [id number] 18:20:00 Test Item Value Reference Range Interpretation Comments LIPASE (BEAKER) (test code = 749) 7 U/L 8-78 L [employer] [facility] ID - DBCBC W/PLT COUNT & AUTO [id number] 17:59:00 Test Item Value Reference Range Interpretation Comments WHITE BLOOD CELL COUNT (BEAKER) 6.6 K/ L 3.5-10.5 (test code = 775) RED BLOOD CELL COUNT (BEAKER) 4.42 M/ L 3.93-5.22 (test code = 761) HEMOGLOBIN (BEAKER) (test code = 13.5 GM/DL 11.2-15.7 410) HEMATOCRIT (BEAKER) (test code = 40.0 % 34.1-44.9 411) MEAN CORPUSCULAR VOLUME (BEAKER) 90.5 fL 79.4-94.8 (test code = 753) MEAN CORPUSCULAR HEMOGLOBIN 30.5 pg 25.6-32.2 (BEAKER) (test code = 751) MEAN CORPUSCULAR HEMOGLOBIN CONC 33.8 GM/DL 32.2-35.5 (BEAKER) (test code = 752) RED CELL DISTRIBUTION WIDTH 11.9 % 11.7-14.4 (BEAKER) (test code = 412) PLATELET COUNT (BEAKER) (test 225 K/CU MM 150-450 code = 756) MEAN PLATELET VOLUME (BEAKER) 10.4 fL 9.4-12.3 (test code = 754) NUCLEATED RED BLOOD CELLS 0 /100 WBC 0-0 (BEAKER) (test code = 413) NEUTROPHILS RELATIVE PERCENT 61 % (BEAKER) (test code = 429) LYMPHOCYTES RELATIVE PERCENT 32 % (BEAKER) (test code = 430) MONOCYTES RELATIVE PERCENT 7 % (BEAKER) (test code = 431) EOSINOPHILS RELATIVE PERCENT 0 % (BEAKER) (test code = 432) BASOPHILS RELATIVE PERCENT 0 % (BEAKER) (test code = 437) NEUTROPHILS ABSOLUTE COUNT 3.97 K/ L 1.56-6.13 (BEAKER) (test code = 670) LYMPHOCYTES ABSOLUTE COUNT 2.07 K/ L 1.18-3.74 (BEAKER) (test code = 414) MONOCYTES ABSOLUTE COUNT (BEAKER) 0.46 K/ L 0.24-0.36 H (test code = 415) EOSINOPHILS ABSOLUTE COUNT 0.02 K/ L 0.04-0.36 L (BEAKER) (test code = 416) BASOPHILS ABSOLUTE COUNT (BEAKER) 0.02 K/ L 0.01-0.08 (test code = 417) IMMATURE GRANULOCYTES-RELATIVE 0 % 0-1 PERCENT (BEAKER) (test code = 2801) SARS-COV2/RT-PCR ([facility])2020-05-20 21:06:00 Test Item Value Reference Range Interpretation Comments SARS-COV2/RT-PCR (test Negative Not Detected, Negative, code = 6065067) See external report for linked test SARS-COV-2 PERFORMING LAB [facility] (test code = 7411276) Negative result for this test determines that SARS-CoV-2 RNA was not present in the specimen above the Limit of Detection (LOD). However, Negative results do not preclude SARS-CoV-2 infection and should not be used as the sole basis for treatment or patient management decisions. Negative results must be combined with clinical observations, patient history, and epidemiological information. A false negative result may occur if a specimen is improperly collected, transported or handled. A false negative result should be considered if patient's recent exposures or clinical presentation indicate that COVID-19 (SARS-CoV-2) is likely and diagnostic tests for other causes of illness are negative. Re-testing should be considered in cases of suspected false negatives.The limit of detection for this assay is 800 copies/mL.This SARS CoV-2 test is a real-time RT-PCR test intended for the qualitative detection of nucleic acid from SARS-CoV-2 in a nasopharyngeal swab specimen collected from individuals suspected of COVID-19 by their healthcare provider.This test has not been Food and Drug Administration (FDA) cleared or approved. This is a modified version of an approved Emergency Use Authorization (EUA) and is in the process of review by the FDA. Once authorized by the FDA, the issued EUA will be effective until the declaration that circumstances exist justifying the authorization of the emergency use ofin vitro diagnostic tests for detection and/or diagnosis of COVID-19 is terminated under Section 564(b)(2) of the Act or the EUA is revoked under Section 564(g) of the Act.Fact Sheet for Healthcare Prov iders:https://www.[employer]/sites/default/files/product/documents/Fact_Sheet_HC _Rtjqibeco_Kvev_NULI-CcG-9.pdfFact Sheet for Healthcare Patients:https://www.[employer]/sites/default/files/product/docume nts/Yjfc_Xqfnj_Yicntzwu_Mwdh_NTDP-QxF-8.pdfPerforming Laboratory:[facility], [place] [address]QOWCH METABOLIC PANEL 2019-09-18 05:34:00 Test Item Value Reference Range Interpretation Comments SODIUM (BEAKER) 132 meq/L 136-145 L (test code = 381) POTASSIUM (BEAKER) 4.4 meq/L 3.5-5.1 (test code = 379) CHLORIDE (BEAKER) 99 meq/L 98-107 (test code = 382) CO2 (BEAKER) (test 28 meq/L 22-29 code = 355) BLOOD UREA NITROGEN 19 mg/dL 7-21 (BEAKER) (test code = 354) CREATININE (BEAKER) 0.83 mg/dL 0.57-1.25 (test code = 358) GLUCOSE RANDOM 124 mg/dL 70-105 H (BEAKER) (test code = 652) CALCIUM (BEAKER) 8.9 mg/dL 8.4-10.2 (test code = 697) EGFR (BEAKER) (test 67 mL/min/1.73 ESTIMA ABDULLAHI GFR IS code = 1092) sq m NOT ACCURATE CREATININE CLEARANCE IN PREDICTING GLOMERULAR FILTRATION RATE . ESTIMATED GFR I S NOT APPLICABLE FOR DIALYSIS PATIEN TS. [employer] [facility] ID - DENI MCBC W/PLT COUNT & AUTO [id number] 05:07:00 Test Item Value Reference Range Interpretation Comments WHITE BLOOD CELL COUNT (BEAKER) 12.4 K/ L 3.5-10.5 H (test code = 775) RED BLOOD CELL COUNT (BEAKER) 3.50 M/ L 3.93-5.22 L (test code = 761) HEMOGLOBIN (BEAKER) (test code = 10.3 GM/DL 11.2-15.7 L 410) HEMATOCRIT (BEAKER) (test code = 31.2 % 34.1-44.9 L 411) MEAN CORPUSCULAR VOLUME (BEAKER) 89.1 fL 79.4-94.8 (test code = 753) MEAN CORPUSCULAR HEMOGLOBIN 29.4 pg 25.6-32.2 (BEAKER) (test code = 751) MEAN CORPUSCULAR HEMOGLOBIN CONC 33.0 GM/DL 32.2-35.5 (BEAKER) (test code = 752) RED CELL DISTRIBUTION WIDTH 12.2 % 11.7-14.4 (BEAKER) (test code = 412) PLATELET COUNT (BEAKER) (test 127 K/CU MM 150-450 L code = 756) MEAN PLATELET VOLUME (BEAKER) 10.0 fL 9.4-12.3 (test code = 754) NUCLEATED RED BLOOD CELLS 0 /100 WBC 0-0 (BEAKER) (test code = 413) NEUTROPHILS RELATIVE PERCENT 86 % (BEAKER) (test code = 429) LYMPHOCYTES RELATIVE PERCENT 9 % (BEAKER) (test code = 430) MONOCYTES RELATIVE PERCENT 4 % (BEAKER) (test code = 431) EOSINOPHILS RELATIVE PERCENT 0 % (BEAKER) (test code = 432) BASOPHILS RELATIVE PERCENT 0 % (BEAKER) (test code = 437) NEUTROPHILS ABSOLUTE COUNT 10.62 K/ L 1.56-6.13 H (BEAKER) (test code = 670) LYMPHOCYTES ABSOLUTE COUNT 1.15 K/ L 1.18-3.74 L (BEAKER) (test code = 414) MONOCYTES ABSOLUTE COUNT (BEAKER) 0.52 K/ L 0.24-0.36 H (test code = 415) EOSINOPHILS ABSOLUTE COUNT 0.00 K/ L 0.04-0.36 L (BEAKER) (test code = 416) BASOPHILS ABSOLUTE COUNT (BEAKER) 0.01 K/ L 0.01-0.08 (test code = 417) IMMATURE GRANULOCYTES-RELATIVE 1 % 0-1 PERCENT (BEAKER) (test code = 2801) FL, [id number] 15:55:00For Gastrografin Swallow examReason for exam:- >S/p POEM procedure, to look for any leaksReason for exam:->Pt is allergic to iodine, getting IV solumedrol and IV Benadryl prep.FINAL REPORT i esophagram. MEDICAL HISTORY: Achalasia of the esophagus. Post myotomy COMPARISON STUDY: None available. FINDINGS: A single water soluble contrast esophagram was performed. Post surgical changes are seen related to myotomy with surgical clips identified. The patient ingested two mouthfuls of Gastrografin. Contrast reaches the stomach a rapid fashion with no significant esophageal dilatation or obstruction. No evidence of extra luminal contrast extravasation is seen. IMPRESSION: No evidence of postsurgical leak or obstruction. Fluoroscopy time: 0.95 minutes. 44 images. Signed: Princess Barbosa MDReport Verified Date/Time: 09/17/2019 15:55:35 Reading Location: [address] Ortho Consult Reading Room BASIC METABOLIC [id number] 07:13:00 Test Item Value Reference Range Interpretation Comments SODIUM (BEAKER) 133 meq/L 136-145 L (test code = 381) POTASSIUM (BEAKER) 4.7 meq/L 3.5-5.1 Specimen slightly (test code = 379) hemolyzed CHLORIDE (BEAKER) 101 meq/L 98-107 (test code = 382) CO2 (BEAKER) (test 27 meq/L code = 355) BLOOD UREA NITROGEN 14 mg/dL 7-21 (BEAKER) (test code = 354) CREATININE (BEAKER) 0.89 mg/dL 0.57-1.25 Specimen slightly (test code = 358) hemolyzed GLUCOSE RANDOM 127 mg/dL 70-105 H (BEAKER) (test code = 652) CALCIUM (BEAKER) 9.2 mg/dL 8.4-10.2 (test code = 697) EGFR (BEAKER) (test 62 mL/min/1.73 ESTIMA ABDULLAHI GFR IS code = 1092) sq m NOT ACCURATE CREATININE CLEARANCE IN PREDICTING GLOMERULAR FILTRATION RATE . ESTIMATED GFR I S NOT APPLICABLE FOR DIALYSIS PATIEN TS. [employer] Medic ID - DENI MCBC W/PLT COUNT & AUTO [id number] 06:51:00 Test Item Value Reference Range Interpretation Comments WHITE BLOOD CELL COUNT (BEAKER) 11.2 K/ L 3.5-10.5 H (test code = 775) RED BLOOD CELL COUNT (BEAKER) 3.54 M/ L 3.93-5.22 L (test code = 761) HEMOGLOBIN (BEAKER) (test code = 10.8 GM/DL 11.2-15.7 L 410) HEMATOCRIT (BEAKER) (test code = 31.1 % 34.1-44.9 L 411) MEAN CORPUSCULAR VOLUME (BEAKER) 87.9 fL 79.4-94.8 (test code = 753) MEAN CORPUSCULAR HEMOGLOBIN 30.5 pg 25.6-32.2 (BEAKER) (test code = 751) MEAN CORPUSCULAR HEMOGLOBIN CONC 34.7 GM/DL 32.2-35.5 (BEAKER) (test code = 752) RED CELL DISTRIBUTION WIDTH 11.9 % 11.7-14.4 (BEAKER) (test code = 412) PLATELET COUNT (BEAKER) (test 163 K/CU MM 150-450 code = 756) MEAN PLATELET VOLUME (BEAKER) 10.8 fL 9.4-12.3 (test code = 754) NUCLEATED RED BLOOD CELLS 0 /100 WBC 0-0 (BEAKER) (test code = 413) NEUTROPHILS RELATIVE PERCENT 87 % (BEAKER) (test code = 429) LYMPHOCYTES RELATIVE PERCENT 10 % (BEAKER) (test code = 430) MONOCYTES RELATIVE PERCENT 3 % (BEAKER) (test code = 431) EOSINOPHILS RELATIVE PERCENT 0 % (BEAKER) (test code = 432) BASOPHILS RELATIVE PERCENT 0 % (BEAKER) (test code = 437) NEUTROPHILS ABSOLUTE COUNT 9.76 K/ L 1.56-6.13 H (BEAKER) (test code = 670) LYMPHOCYTES ABSOLUTE COUNT 1.06 K/ L 1.18-3.74 L (BEAKER) (test code = 414) MONOCYTES ABSOLUTE COUNT (BEAKER) 0.30 K/ L 0.24-0.36 (test code = 415) EOSINOPHILS ABSOLUTE COUNT 0.00 K/ L 0.04-0.36 L (BEAKER) (test code = 416) BASOPHILS ABSOLUTE COUNT (BEAKER) 0.01 K/ L 0.01-0.08 (test code = 417) IMMATURE GRANULOCYTES-RELATIVE 0 % 0-1 PERCENT (BEAKER) (test code = 2801) TISSUE [id number] 08:53:00Surgical Pathology Report Case: [id number] Authorizing Provider: Elena Raygoza Collected: 06/17/2018 1043 MD Irlanda Ordering Location: [facility] Received: 06/17/2018 1426 SERVICES P athologist: Falguni Patino MD Specimens: A) - Biopsy, Gastric, GASTRIC BX B) - Biopsy, Gastroesophageal Junction, GE JUNCTION BX A. GASTRIC, BIOPSY - GASTRIC ANTRUM AND BODY TYPE MUCOSA WITH MILD REACTIVE GASTROPATHY WITH FOCAL REACTIVE CHANGES - WARTHIN-STARRY STAIN NEGATIVE FOR H. PYLORI-LIKE ORGANISMS. B. GASTROESOPHAGEAL JUNCTION, BIOPSY - SQUAMOCOLUMNAR MUCOSA WITH MILD CHRONIC FOCAL ACTIVE CARDIOESOPHAGITIS - NEGATIVE FOR INTESTINAL METAPLASIA OR DYSPLASIA. Signing Pathologist Direct Phone Line: [phone] signed by Falguni Patino MD on 06/20/2018 at 8:53 AM ENDOSCOPIC REPORT REVIEWED. [id number] x 2, [id number] x 1 Pancreatic insufficiency, abdominal pain A. Gastric biopsy. B. GE junction biopsy Specimen is received in two containers of formalin both labeled with the patient's information.Specimen A: Labeled "gastric biopsy" consists of three ragged fragments of vázquez tissue ranging from0.1 to 0.4 cm, submitted in A1.Specimen B: Labeled "GE junction biopsy" consists of three small fragments of vázquez-white soft tissue ranging from less than 0.1 to 0.1 cm, submitted entirely in B1. CG/ew Performed.
[2023-02-27] MEDS ORDERED: TETRACAINE HCL 0.5% 4ML OPTH ONE ×2 (01:47→02:29)
[2023-02-27] MEDS ORDERED: FLUORESCEIN SODIUM 1 MG/WRAP ONE (01:47)
[2023-02-27] MEDS ORDERED: TOBRAMYCIN SULF 0.3% OPTH OINT ONE (01:47)
[2023-02-27] MEDS ORDERED: NA CHLORIDE 0.9% 500 ML ONE (01:47)
[2023-02-27] MEDS ORDERED: ETOMIDATE 20 MG/10 ML VIAL IV ONE (01:47)
[2023-02-27] MEDS ORDERED: GENTAMICIN 0.3% OPTH DROP 5ML ONE (01:54)
--- NOTE | 2023-02-27 02:55 | EDPHYS ---
Physician Documentation [facility] Name: Billie Hutchinson Age: 77 yrs Sex: Female : 1945 Arrival Date: 02/27/2023 Time: 00:37 Bed External Waiting Private MD: ED Physician Clem Anderson HPI: 02/27 01:25 This 77 yrs old Female presents to ER via Wheelchair with complaints of Eye sp4 Pain. 01:25 Right I was accidentally instilled with Superglue now there was pain and eyelids are sp4 stuck together. 02/28 04:56 Patient states that her was putting her erythromycin ointment into her eye but sp4 had picked Superglue tube instead of erythromycin ointment tube. Patient's then proceeded to apply superglue directly in the right eye causing eyelids and the eye to get stuck together and moderate to severe right eye pain. This brought the patient to the emergency department. Patient is complaining of moderate to severe right eye pain, left eye unremarkable. Historical: - Allergies: 02/27 02:57 PENICILLINS; vc1 - Immunization history:: unknown. - Social history:: Smoking status: unknown. - Family history:: not pertinent. ROS: 02/28 04:56 Constitutional: Negative for fever, chills, and weight loss, Eyes: Positive for right sp4 eye injury with superglue application, positive right eye pain, right eye irritation, and right eye lids stuck together. Otherwise negative All other systems are negative. Exam: 04:56 Constitutional: This is a well developed, well nourished patient who is awake, alert, sp4 and in moderate distress secondary to pain Head/Face: Normocephalic, atraumatic. Eyes: Left eye exam is unremarkable. On exam of the right eye upper and lower eyelids are stuck together review superglue. Patient unable to open the right eye. Superglue was also glued eyelashes together. ENT: Nares patent. No nasal discharge, no septal abnormalities noted. Tympanic membranes are normal and external auditory canals are clear. Oropharynx with no redness, swelling, or masses, exudates, or evidence of obstruction, uvula midline. Mucous membranes moist. Neck: Trachea midline, no thyromegaly or masses palpated, and no cervical lymphadenopathy. Supple, full range of motion without nuchal rigidity, or vertebral point tenderness. Chest/axilla: Normal chest wall appearance and motion. Nontender with no deformity. No lesions are appreciated. Cardiovascular: Regular rate and rhythm with a normal S1 and S2. No gallops, murmurs, or rubs. Normal PMI, no JVD. No pulse deficits. Respiratory: Lungs have equal breath sounds bilaterally, clear to auscultation and percussion. No rales, rhonchi or wheezes noted. No increased work of breathing, no retractions or nasal flaring. Abdomen/GI: Soft, non-tender, with normal bowel sounds. No distension or tympany. No guarding or rebound. No evidence of tenderness throughout. Back: No spinal tenderness. No costovertebral tenderness. Skin: Warm, dry with normal turgor. Normal color with no rashes, no lesions, and no evidence of cellulitis. MS/ Extremity: Pulses equal, no cyanosis. Neurovascular intact. Full, normal range of motion. Neuro: Awake and alert, GCS 15, oriented to person, place, time, and situation. Cranial nerves II-XII grossly intact. Motor strength 5/5 in all extremities. Sensory grossly intact. Psych: Awake, alert, with orientation to person, place and time. Behavior, mood, and affect are within normal limits 05:06 ECG was reviewed by the Attending Physician. EKG prior to moderate sedation, EKG time 0 sp4 137, 02/27/2023. EKG revealed normal sinus rhythm at a rate of 92, overall EKG is normal, no ectopy Vital Signs: 02/27 00:50 BP 162 / 92; Pulse 96; Resp 16; Temp 97(TE); Pulse Ox 97% on R/A; Weight 23.59 kg; kl Height 5 ft. 2 in. ; Pain 05/29; 01:00 BP 160 / 81; Pulse 92; Resp 13; Pulse Ox 95% ; vc1 02:00 BP 132 / 88; Pulse 85; Resp 13; Pulse Ox 96% ; vc1 03:00 BP 123 / 69; Pulse 81; Resp 16; Pulse Ox 100% ; vc1 00:50 Body Mass Index 9.51 (23.59 kg, 157.48 cm) 00:50 Pain Scale: Adult kl Procedures: 02/28 04:56 Foreign Body Removal: Superglue that was applied in to the right eye by accident sp4 -removal of Superglue under moderate sedation, from the right eye, conjunctiva by tweezers, Under moderate sedation right eye eyelids were opened causing some of the Superglue to come off. Some of the eyelashes had to be removed with hemostats. It was discovered that there is significant amount of Superglue underneath right lower eyelid which was removed and irrigated out. Significant amount of tetracaine eyedrops were applied to the eye for further pain control. Right eye heavily irrigated with saline drops, application of fluorescein has revealed that there is corneal abrasion at 7:00 associated with Superglue which was removed. After the use fluorescein was irrigated out and gentamicin eyedrops were instilled for infection prevention. On repeat examination visual acuity is normal and there is signs of chemical conjunctivitis however peripheral visual lopez are intact and overall there is no sign of globe perforation. . The patient tolerated the removal well, Patient was advised to see certification officer in 1 to 2 days for repeat eye exam.. Moderate sedation: Pre-procedure assessment: the patient has been NPO 6 hour(s) prior to arrival, ASA physical classification: II - mild/mod systemic disease that does not interfere with daily routines, Airway assessment: able to hyperextend neck, able to maintain airway, can open mouth without difficulty, Mallampati classification of tongue size: II - faucial pillars and soft palate can be visualized, but uvula is masked by the base of the tongue, Monitoring during procedure: monitoring analyst, continuous pulse oximetry, nurse at bedside at all times, Medications employed: Etomidate, 10 mg(s), Constant attendance, oxygenation monitoring, Post-procedure assessment: the patient is moderately sedated, Respiratory status: requires supplemental oxygen to maintain acceptable oxygen saturation, a reversal agent was not used, After sedation patient has returned to normal mental status., Management of the right eye was performed under moderate sedation with etomidate.. MDM: 02/27 01:27 Patient medically screened. sp4 02:52 Data reviewed: vital signs, nurses notes. sp4 02/28 04:56 Differential diagnosis: Corneal abrasion of Corneal ulcer of Foreign body in Acute sp4 iritis of Data reviewed: EKG. Consideration of Admission/Observation Escalation of care including admission/observation considered. ED course: Patient's right eye was managed under moderate sedation, the superglue was removed and irrigated out heavily after right eye was opened. Patient has surface irritation with signs of chemical conjunctivitis, mild to moderate right corneal abrasion, some conjunctival abrasions as well. At this time patient does not warrant emergent ophthalmology consult however patient advised to see certification officer in 1 to 2 days for repeat exam. . 02/27 01:27 Order name: Eye Tray; Complete Time: 02:24 sp4 02/27 01:27 Order name: Fluoresene Opth strip; Complete Time: :24 sp4 EC:06 Rate is 92 beats/min. Rhythm is regular, Normal Sinus Rhythm. QRS [place] is Normal. [place] sp4 interval is normal. QRS interval is normal. QT interval is normal. T waves are Normal. No ST changes noted. Clinical impression: Normal ECG. Interpreted by me. Administered Medications: 02/27 01:31 CANCELLED (Duplicate Order): Tetracaine Ophthalmic Drops 0.5 % 1 drops Ophthalmic once pf1 02:00 Drug: NS 0.9% IV 500 ml Route: IV; Rate: bolus; Site: left antecubital; vc1 03:00 Follow up: IV Status: Completed infusion vc1 02:00 Drug: Tetracaine Ophthalmic Drops 0.5 % 1 drops Route: Ophthalmic; Site: right eye; vc1 02:59 Drug: Gentamicin Ophthalmic Drops 0.3 % 2 drops Route: Ophthalmic; Site: right eye; vc1 Disposition Summary: 02/27/23 02:54 Discharge Ordered Location: Home sp4 Problem: new sp4 Symptoms: have improved sp4 Condition: Stable sp4 Diagnosis - Injury of conjunctiva and corneal abrasion without foreign body, right eye sp4 - Acute toxic conjunctivitis, right eye sp4 - Acute chemical conjunctivitis of right eye sp4 Followup: sp4 - With: Private Physician - When: 1 - 2 days - Reason: Recheck today's complaints Discharge Instructions: - Discharge Summary Sheet sp4 - Chemical Conjunctivitis, Adult, [id number] sp4 Forms: - Patient Portal [email or web address].htm sp4 Prescriptions: - tobramycin 0.3 % Ophthalmic drops - instill 1 drop by OPHTHALMIC route every 4 hours for 5 days every 4 hours for 5 sp4 days; 3 milliliter; Refills: 0, Product Selection Permitted Signatures: Liz Posada RN RN vc1 Clem Anderson MD MD sp4 Lexi Gandara RN pf1 Corrections: (The following items were deleted from the chart) 01:31 01:27 Tetracaine Ophthalmic Drops 0.5 % 1 drops Ophthalmic once ordered. sp4 pf1
--- NOTE | 2023-02-27 02:55 | ER ---
Nurse's Notes [facility] Name: Billie Hutchinson Age: 77 yrs Sex: Female : 1945 Arrival Date: 02/27/2023 Time: 00:37 Bed External Waiting Private MD: Diagnosis: Injury of conjunctiva and corneal abrasion without foreign body, right eye;Acute toxic conjunctivitis, right eye;Acute chemical conjunctivitis of right eye Presentation: 02/27 00:50 Chief complaint: Patient states: thought he was administering eye oitment to kl patient eye super glue was placed on bottom inner lid. Coronavirus screen: Vaccine status: Patient reports receiving the 2nd dose of the covid vaccine. Ebola Screen: Patient negative for fever greater than or equal to 101.5 degrees Fahrenheit, and additional compatible Ebola Virus Disease symptoms. The patient reports a positive loss of vision. The patient's loss of vision began suddenly 30 min ago. 00:50 Method Of Arrival: Wheelchair 00:50 Mechanism of Injury: Glue to eye. vc1 00:50 Initial Sepsis Screen: Does the patient meet any 2 criteria? No. Patient's initial vc1 sepsis screen is negative. Does the patient have a suspected source of infection? No. Patient's initial sepsis screen is negative. Risk Assessment: Do you want to hurt yourself or someone else? Patient reports no desire to harm self or others. Onset of symptoms was February 27, 2023. 00:50 Acuity: ARACELI 3 vc1 Triage Assessment: 00:53 General: Appears uncomfortable, Behavior is anxious. Pain: Complains of pain in right kl eye. Historical: - Allergies: 02:57 PENICILLINS; vc1 - Immunization history:: unknown. - Social history:: Smoking status: unknown. - Family history:: not pertinent. Screenin:50 Abuse screen: Denies threats or abuse. Nutritional screening: No deficits noted. vc1 Tuberculosis screening: No symptoms or risk factors identified. 00:50 [facility] ED Fall Risk Assessment (Adult) History of falling in the last 3 months, vc1 including since admission No falls in past 3 months (0 pts) Confusion or Disorientation No (0 pts) Intoxicated or Sedated No (0 pts) Impaired Gait No (0 pts) Mobility Assist Device Used No (0 pt) Altered Elimination No (0 pt) Score/Fall Risk Level 0 - 2 = Low Risk. Assessment: 00:50 EENT: Eyes are tearing on outer aspect of conjuctiva of right eye Right eye glued shut. vc1 02:35 Reassessment: Administered 15 mg Etomidate wasted 5 mg Etomidate with Gabriela Gandara RN. vc1 03:00 EENT: Sclera/Cornea are reddened in outer aspect of conjuctiva of right eye, iris of vc1 right eye and inner aspect of conjuctiva of right eye w/ abrasion noted on outer aspect of conjuctiva of right eye, iris of right eye and inner aspect of conjuctiva of right eye. 03:00 Reassessment: Patient and/or family updated on plan of care and expected duration. Pain vc1 level reassessed. Patient is alert, oriented x 3, equal unlabored respirations, skin warm/dry/pink. Patient states feeling better. Patient states symptoms have improved. Vital Signs: 00:50 BP 162 / 92; Pulse 96; Resp 16; Temp 97(TE); Pulse Ox 97% on R/A; Weight 23.59 kg; kl Height 5 ft. 2 in. ; Pain 10/10; 01:00 BP 160 / 81; Pulse 92; Resp 13; Pulse Ox 95% ; vc1 02:00 BP 132 / 88; Pulse 85; Resp 13; Pulse Ox 96% ; vc1 03:00 BP 123 / 69; Pulse 81; Resp 16; Pulse Ox 100% ; vc1 00:50 Body Mass Index 9.51 (23.59 kg, 157.48 cm) 00:50 Pain Scale: Adult ED Course: 00:38 Patient arrived in ED. am2 00:50 Arm band placed on right wrist. vc1 00:50 Patient has correct armband on for positive identification. Bed in low position. vc1 00:50 Provided Education on: Conscious Sedation. vc1 01:25 Clem Anderson MD is Attending Physician. sp4 01:50 Inserted saline lock: 20 gauge in left antecubital area, using aseptic technique. vc1 01:50 Oxygen administration via nasal cannula \T\ 4L/min. vc1 02:00 Conscious sedation to open right eye to remove super glue. vc1 02:53 Liz Posada RN is Primary Nurse. vc1 03:16 IV discontinued, intact, bleeding controlled, No redness/swelling at site. Pressure vc1 dressing applied. 06:32 Triage completed. vc1 Administered Medications: 01:31 CANCELLED (Duplicate Order): Tetracaine Ophthalmic Drops 0.5 % 1 drops Ophthalmic once pf1 02:00 Drug: NS 0.9% IV 500 ml Route: IV; Rate: bolus; Site: left antecubital; vc1 03:00 Follow up: IV Status: Completed infusion vc1 02:00 Drug: Tetracaine Ophthalmic Drops 0.5 % 1 drops Route: Ophthalmic; Site: right eye; vc1 02:59 Drug: Gentamicin Ophthalmic Drops 0.3 % 2 drops Route: Ophthalmic; Site: right eye; vc1 Medication: 03:16 VIS not applicable for this client. vc1 Outcome: 02:54 Discharge ordered by . sp4 03:16 Discharged to home ambulatory, with significant other. vc1 03:16 Condition: good 03:16 Discharge instructions given to patient, Instructed on discharge instructions, follow up and referral plans. medication usage, wound care, Demonstrated understanding of instructions, follow-up care, medications, wound care, Prescriptions given X 1. 03:16 Patient left the ED. vc1 Signatures: Marcela Quick RN Ewelina Bassett Vanessa, RN RN vc1 Clem Anderson MD MD sp4 Lexi Gandara RN pf1 Corrections: (The following items were deleted from the chart) 02:58 02:58 NS 0.9% IV 500 ml IV at bolus in left antecubital vc1 vc1 06:42 06:42 Patient left the ED. vc1 vc1
[2023-02-27 07:07] VITALS: TEMP 97
[2023-02-27 07:16] VITALS: BP 123/69; O2SAT 100
--- NOTE | 2023-02-27 20:20 | EKG ---
Test Date: 2023-02-27 Test Time: 01:37:54 Lockstitch Collar Setter: JANNETH MEASUREMENT RESULTS: Intervals: Rate: 92 OH: 200 QRSD: 74 QT: 380 QTc: 469 [place]: P: 78 OH: 200 QRS: 13 T: 61 INTERPRETIVE STATEMENTS: Normal sinus rhythm Normal ECG No previous ECG available for comparison Electronically Signed On 02-27-23 20:20:25 CDT by Robb Steele
== END 2023-02-27 06:42 | disposition home or self-care (01) ==
LOC: ER 00:37
PROC: 08CSXZZ Extirpation of Matter from Right Conjunctiva, External Approach (ICD-10-PCS; principal; 2023-02-27)
DX: S05.01XA Injury of conjunctiva and corneal abrasion without foreign body, right eye, initial encounter (principal); H10.211 Acute toxic conjunctivitis, right eye; Z88.0 Allergy status to penicillin
CPT/HCPCS: 93005; 96360; 99285; 65205; J7040

== ENCOUNTER 2023-03-27 12:54 | Inpatient (IN) | payer OTHER, MEDICARE ==
--- OUTSIDE RECORDS SUMMARY | 2023-03-27 13:13 | XMS REPORT | Continuity of Care Document ---
:1945 Author Organization [facility] t Address [address] [facility] [address] [place] [address] Care Team Providers Name Role Phone Tristen NINA, Madi Primary Care Physician ELENA RAYGOZA Attending Clinician Unavailable QUINTIN_OSWALDO_Rachel Attending Clinician Unavailable Edenilson Rodgers Attending Clinician ARAVIND COHEN Attending Clinician Unavailable Aravind Cohen MD Attending Clinician [phone] Aliza Marin MD Attending Clinician Unavailable Elva Vale MD Attending Clinician [phone] Jarvis Harley MA Attending Clinician Unavailable Carmen Arreaga MD Attending Clinician Elena Raygoza MD Attending Clinician [phone] Myla Sullivan MD Attending Clinician Gabriel Saab CRNA Attending Clinician GAL HENRY Attending Clinician Unavailable RAMSES DAVIS Attending Clinician Unavailable Pob, [facility] Main Attending Clinician Unavailable Ramses Davis MD Attending Clinician Doctor Unassigned, [place] Attending Clinician Unavailable ELENA RAYGOZA Admitting Clinician Unavailable QUINTIN_OSWALDO_Rachel Admitting Clinician Unavailable ARAVIND COHEN Admitting Clinician Unavailable Payers Payer Name Policy Type Policy Number Effective Date Expiration Date S elinor MEDICARE A B [id number] 2001 00:00:00 [place] [id number] 2017 HEALTHCARE 00:00:00 [place]IC[place]: [id number] 2001 [employer] [employer] 00:00:00 AAR HEALTHCARE [id number] 2015 OPTIONS (MEDICARE 00:00:00 SUPPLEMENT) MEDICARE PART A \\T\\ [id number] 2001 B 00:00:00 Problems Condition Condition Condition Status Onset Resolution Last Treating Co mments Source Name Details Category Date Date Treatment Clinician Date Achalasia Achalasia Disease Active [facility] Gastropare Gastropare Disease Active [facility] Hypothyroi Hypothyroi Problem Active 2018- P rivia dism dism 11-25 Medical 00:00: 00 Cervical Cervical Problem Active 2016-082023-03-05 [facility] spondylosi spondylosi 0-18 11:35:30 l s without s without 00:00: Herm trinh myelopathy myelopathy 00 (disorder) (disorder) Active 06/06/2017 Problem 03/05/2023 [facility] Lumbar Lumbar Problem Active 2016-082023-03-[address] [facility] radiculopa radiculopa 0-18 11:35:30 l thy thy 00:00: [facility] (disorder) (disorder) 00 Active 06/06/2017 Problem 03/05/2023 [facility] Major Major Problem Active 2016-082023-03-[address] [facility] depression depression 0-18 11:35:30 l , single , single 00:00: Broderick n episode episode 00 (disorder) (disorder) Active 06/06/2017 Problem 03/05/2023 [facility] Pancreatit Pancreatit Problem Active 2016-08 P bobbi is is 0-09 Medical 00:00: 00 Hypothyroi Hypothyro Problem Active 2023-03-05 [facility]oria dism idism 9 11:35:30 l (disorder) (disorder) 00:00: He rmann Active 00 05/09/2017 Problem 03/05/2023 [facility] Myoclonus Myoclonus Problem Active 2023-03-05 [facility] (finding) (finding) 05-09 11:35:30 l Active 00:00: [facility] 05/09/2017 00 Problem 03/05/2023 [facility] Paresthesi Paresthes Problem Active 2023-03-05 Memoria a ia 05-09 11:35:30 l (finding) (finding) 00:00: Herm trinh Active 00 05/09/2017 Problem 03/05/2023 [facility] Spasm Spasm Problem Active 2023-03-05 Memor ia (finding) (finding) 05-09 11:35:30 l Active 00:00: [facility] 05/09/2017 00 Problem 03/05/2023 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 Headache Headache Problem Active 2023-03-05 [facility] (finding) (finding) 11:35:30 l Active [facility] Problem 03/05/[address]23 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 tic atic 11:35:30 [facility] symptoms (finding) (finding) Active Problem 03/05/2023 [facility] [place]io Acute Acute Problem Resolve 2022-05-28 2022-05-28 Memoria [...] 8-24 headache [facility] 00:00: Medical 00 Center GABAPENT Allergy Active High Other [facility]- [facility] 00:[facility]: Medical 00 [place] Prochlor Drug Active Other (See 2019-[address] perazine Allergy Comments) 0-02 Reaction Yue kes 00:00: to Combid Medical 00 in 1960s, Center also related to Thorazine )Neurotox ic (Severe Seizures) PROCHLOR Allergy Active High Other 2019-[address] [facility] PERAZINE 0-02 [facility] 00:00: Medical 00 [place] Baclofen Drug Active Anaphylaxis, 2017-[address] Allergy Other (See 0-17 muscle [facility] Comments) 00:00: spasms Medical 00 (seizure Center like), headache Hydromor Drug Active Other (See 2017-[address] phone Allergy Comments) 0-17 Headache [facility] 00:00: Medical 00 [place] Influenz Drug Active Hives, 2017-[address] [facility] a Virus Allergy Shortness Of 0-17 Yue kes Vaccines Breath, 00:00: Medical Swelling 00 [place] Iodine Propensi Active Anaphylaxis 2017-[address] And ty to 0-17 [facility] Iodide adverse 00:00: Medical Containi reaction 00 Center ng s Products Lipase-P Drug Active Other (See 2017-[address] rotease- Allergy Comments) 0-17 blisters Yue kes Amylase 00:00: Medical 00 [place] Pork/Por Drug Active Hives 2017-[address] [facility] cine Allergy 0-17 [facility] Containi 00:00: Medical ng 00 [place] Products EGG Allergy Active High Hives 2017-[address] [facility] 0[facility]17 [facility] 00:00: Medical 00 [place] HYDROMOR Allergy Active High Other 2017-[address] [facility] PHONE 0-17 [facility] 00:00: Medical 00 Center INFLUENZ Allergy Active High Hives 2017-[address] [facility] A VIRUS 0-17 [facility] VACCINES 00:00: Medical 00 [place] IODINE Allergy Active High Anaphylaxis 2017-[address] [facility] AND 0-17 [facility] IODIDE 00:00: Medical CONTAINI 00 Center NG PRODUCTS PENICILL Allergy Active High Anaphylaxis 2017-[address] INS 0-17 [facility] 00:00: Medical 00 [place] SULFA Allergy Active High Sob 2017-[address] [facility] (SULFONA 0-17 [facility] MIDE 00:00: Medical ANTIBIOT 00 Center ICS) ADHESIVE Allergy Active High Other 2017-[address] TAPE 0-17 [facility] 00:00: Medical 00 Center LIPASE-P Allergy Active High Other 2017-[address] ROTEASE- 0-17 [facility] AMYLASE 00:00: Medical 00 [place] PORK/POR Allergy Active High Hives 2017-[address] [facility] CINE 0-17 [facility] CONTAINI 00:00: Medical NG 00 [place] PRODUCTS BACLOFEN Allergy Active High Anaphylaxis 2017-[address] 0-17 [facility] 00:00: Medical 00 [place] PROCHLOR Allergy Active High Other 2017-08 [facility] [...] [facility]12 [facility] 00:[facility]: Medical 00 [place] Pregabal Drug Active Rash, Other headache [facility] in Allergy (See 621 [facility] Comments) 00:00: Medical 00 Center Chlorpro Drug Active Other (See Original [facility] mazine Allergy Comments) 02-07 Reaction [facility] 00:00: to Combid Medical 00 in 1960s, Center also related to Thorazine )Neurotox ic (Severe Seizures) PREGABAL Allergy Active High Rash [facility] 6-21 [facility] 00:00: Medical 00 [place] CHLORPRO Allergy Active High Other [facility] MAZINE 6-21 [facility] 00:00: Medical 00 [place] SULFUR Allergy Active High Hives [facility]29 [facility] 00:[facility]: Medical 00 Center MORPHINE Allergy Active Low [facility] - [facility] 00:[facility] Medical 00 Center Flu Vac Propensi Active Methodi 2015 (65 ty to 04-10 st Up)-Mf59 adverse [...] Hospita reaction 00 l s to drug Prochlor Propensi Active Other (See Seizures, Methodi [...] 00 l ics) s to drug Adhesive Drug Active Other (See Blisters/ [facility] Tape-Chaya Allergy Comments) 04-09 skin Luke s icones 00:00: peelingTe Medical 00 ars Skin, Center BlistersP aper tape okay ADHESIVE Allergy Active Med Other [facility] TAPE-CHAYA 04-09 [facility] ICONES 00:00: Medical 00 Center Adhesive Propensi Active Other (See Blisters/ Methodi Tape-Chaya ty to Comments) 04-[address] icones adverse 00:00: peeling Hospita reaction 00 l s to drug MEDICAL Allergy Active Severe Other [facility] ADHESIVE to - Medical substanc 00:00: e 00 OSTOMY Allergy Active High Other [facility] SUPPLIES 10-01 00:00: 00 PENICILL Allergy Active Severe, Anaphylaxis, [facility] INS to Severe, Hives, - Medical substanc Moderate Itching 00:00: e to severe 00 Penicill Drug Active Anaphylaxis, [facility] ins Allergy Shortness Of 5-13 [facility] es Breath, 00:00: Medical Swelling, 00 Center Hives, Itching PENICILL Allergy Active High Anaphylaxis [facility] INS 5-13 [facility] 00:[facility]: Medical 00 Center Morphine Allergy Active Severe, Headache, Licha via to Moderate Other 8-14 Medical substanc to severe 00:00: e 00 Morphine Drug Active Other (See Severe [facility] Allergy Comments) 04-02 Headache- William es 00:00: as per pt Medical 00 can Center tolerate IV form Morphine- has received and tolerated - only has problem with pill form of Morphine MORPHINE Allergy Active High Other [facility]14 [facility] 00:[facility]: Medical 00 Center Sulfa Drug Active Shortness Of Swelling [facility] (Sulfona Allergy Breath, 5-07 of throat William es mide Swelling, 00:00: Medical Antibiot Rash, Other [address] ics) (See Comments) SULFA Allergy Active Severe, Eye [facility] (SULFONA to Moderate swelling, 5-07 Med ical MIDE substanc to Other, Rash 00:00: ANTIBIOT e severe, 00 ICS) Severe SULFA Allergy Active High Sob [facility] (SULFONA 5-07 [facility] MIDE 00:00: Medical ANTIBIOT 00 Center ICS) Compazin Allergy Active Severe Other [facility] e to 1-24 Medical substanc 00:00: e 00 Egg Drug Active Swelling, [address] Derived Allergy Hives, 1-12 [facility] Itching 00:00: Medical 00 Center EGG Allergy Active Severe, Edema, 0 [facility] DERIVED to Moderate Hives, 1-12 Medical substanc to Itching 00:00: e severe, 00 Moderate to severe EGG Allergy Active High Swelling 1965-[address] DERIVED 1-12 [facility] 00:00: Medical 00 Center penicill penicill Active Memori a ins ins l [facility] sulfa sulfa Active Memoria drugs drugs l Elver baclofen baclofen Active Moderate Yann meghna l [facility] Creon Creon Active Mild Memoria l [facility] Lyrica Lyrica Active Mild Memoria l [facility] Adhesive Adhesive Active Memori a l [facility] Thorazin Thorazin Active Memori a e e l Elver Compazin Compazin Active Memori a e e l [facility] Food Food Active Memoria Eggs Eggs l Elver Duloxeti Drug Active Other (See Cymbalta [facility] ne Allergy Comments) headache Luke [facility] & rash [facility] Center Creon Allergy Active Moderate Chest pain Licha via to to severe Medical substanc e NO KNOWN Drug Active [facility] DULOXETI Allergy Active High Other [facility] Family History Family Member Diagnosis Comments Start Date Stop Date Source Natural brother Cancer [facility] Natural father Hypertension [facility] Maternal aunt [facility] Natural mother Cancer [facility] Natural mother Hypertension [facility] Social History Social Habit Start Date Stop Date Quantity Comments Source Gender identity 2021-09-25 Identifies as [facility] ist 13:49:54 female gender Hospital (finding) Sexual orientation 2021-09-25 Heterosexual Meth odist 13:49:54 (finding) Hospital Exposure to 2022-10-29 2022-11-[address] [facility] SARS-CoV-2 (event) 00:00:00 06:31:00 [facility] Alcohol intake 2022-11-08 2022-11-08 Current non-drinker [facility] 00:00:[facility] 00:00:00 of alcohol Medical Center (finding) History of Social 2022-05-23 2022-05-[address] function 00:00:00 00:00:00 Hospital Tobacco use and 2018-06-05 2018-06-[address] [facility] exposure 00:00:00 00:00:00 non-user Medical Center Sex Assigned [birth year] [facility] [address] Yue petersons 00:00:00 00:00:00 Medical Center Smoking Status Start Date Stop Date Source Unknown if ever smoked [facility] Tobacco smoking status [facility] Medications Ordered Filled Start Stop Current Ordering Indication Dosage Frequency Signature Comments Components Source Medication Medication Date Date Medication? Clinician (SIG) Name Name diazepam 5 2022-0 Yes 5 mg = 1 Mem oria mg oral 5-08 tab, PO, l tablet 23:00: TID, # 90 Broderick n 00 tab, 3 Refill(s), Pharmacy: [facility] #[id number], 152.4, cm, 11/23/22 14:55:00 CDT, Height, 54.545, kg, 11/23/22 14:55:00 CDT, Weight diazepam 5 2023-0 Yes 5 mg = 1 Mem oria mg oral 5-08 tab, PO, l tablet 23:00: TID, # 90 Broderick n 00 tab, 3 Refill(s), Pharmacy: [facility] #[id number], 152.4, cm, 11/23/22 14:55:00 CDT, Height, 54.545, kg, 11/23/22 14:55:00 CDT, Weight diazepam 5 2023-0 Yes 5 mg = 1 Mem oria mg oral 5-08 tab, PO, l tablet 23:00: TID, # 90 Broderick n 00 tab, 3 Refill(s), Pharmacy: [facility] #[id number], 152.4, cm, 11/23/22 14:55:00 CDT, Height, 54.545, kg, 11/23/22 14:55:00 CDT, Weight diazepam 5 2023-0 Yes 5 mg = 1 Mem oria mg oral 5-08 tab, PO, l tablet 23:00: TID, # 90 Broderick n 00 tab, 3 Refill(s), Pharmacy: [facility] #[id number], 152.4, cm, 11/23/22 14:55:00 CDT, Height, 54.545, kg, 11/23/22 14:55:00 CDT, Weight diazepam 5 2023-0 Yes 5 mg = 1 Mem oria mg oral 5-08 tab, PO, l tablet 23:00: TID, # 90 Broderick n 00 tab, 3 Refill(s), [id number], 152.4, cm, 11/23/22 14:55:00 CDT, Height, 54.545, kg, 11/23/22 14:55:00 CDT, Weight diazepam 5 2023-0 Yes 5 mg = 1 Mem oria mg oral 5-08 tab, PO, l tablet 23:00: TID, # 90 Broderick n 00 tab, 3 Refill(s), [id number], 152.4, cm, 11/23/22 14:55:00 CDT, Height, 54.545, kg, 11/23/22 14:55:00 CDT, Weight diflupredna Yes Apply to I St te - eye(s). [facility] (DurezoL) 11:21: Medical 0.05 % Drop 10 Center trypsin/bal Yes Apply [facility] oren 11-08 topically. [facility] alyssa/castor 11:21: Medica l oil (OPTASE 10 Center TOP) loratadine 0 Yes 10mg QD Take 1 [facility] (CLARITIN) 11-08 tablet (10 William es 10 mg 11:21: mg total) Medical tablet 10 by mouth Center in the morning. cholecalcif Yes 1000U QD Take [address] yeny 11-08 tablet [facility] (VITAMIN 11:21: (1,000 Medical D3) 25 mcg 10 Units Center (1,000 total) by unit) mouth in tablet the morning. multivitami Yes 1{capsu QD Take [address] n capsule 11-08 le} capsule by Elijah s 11:21: mouth in Medical 10 the Center morning. calcium Yes 600mg Take 600 [facility] carbonate - mg by Rosy 600mg 11:21: mouth 2 Medical (Caltrate) 10 (two) Center 600 mg times calcium daily with (1,500 mg) breakfast Tab and dinner. cyanocobala Yes 250ug QD Take [address] min, 11-08 tablet [facility] vitamin 11:21: (250 mcg Medica l B-12, 250 10 total) by Cente r MCG tablet mouth in the morning. FD and C Yes by [facility] no.40 red, 11-08 Miscellane William es bulk, Powd 11:21: ous route. M edical 10 [place] moxifloxaci 0 Yes 1[drp] Q.[id number] 1 drop in [facility] n (VIGAMOX) 11-08 [id number] the Yue kes 0.5 % 11:21: 3D morning Medical ophthalmic 10 and [address] solution at noon and 1 drop in the evening. bromfenac Yes Apply to [facility] (Prolensa) 3-22 eye(s). [facility] 0.07 % Drop 11:21: Medica l 10 [place] diflupredna Yes Apply to I St te 3-22 eye(s). [facility] (DurezoL) 11:21: Medical 0.05 % Drop 10 [place] trypsin/bal Yes Apply [facility] oren 11-08 topically. [facility] alyssa/castor 11:21: Medica l oil (OPTASE 10 Center TOP) loratadine Yes 10mg QD Take 1 [facility] t (CLARITIN) 11-08 tablet (10 William es 10 mg 11:21: mg total) Medical tablet 10 by mouth Center in the morning. cholecalcif Yes 1000U QD Take [address] yeny 11-08 tablet [facility] (VITAMIN 11:21: (1,000 Medical D3) 25 mcg 10 Units Center (1,000 total) by unit) mouth in tablet the morning. multivitami Yes 1{capsu QD Take [address] n capsule 11-08 le} capsule by Yueke s 11:21: mouth in Medical 10 the Center morning. calcium Yes 600mg Take 600 [facility] carbonate 11-08 mg by [place] 600mg 11:21: mouth 2 Medical (Caltrate) 10 (two) Center 600 mg times calcium daily with (1,500 mg) breakfast Tab and dinner. cyanocobala Yes 250ug QD Take [address] min, 11-08 tablet [facility] vitamin 11:21: (250 mcg Medica l B-12, 250 10 total) by Cente r MCG tablet mouth in the morning. FD and C Yes by [facility] no.40 red, 11-08 Miscellane William es bulk, Powd 11:21: ous route. M edical 10 [place] moxifloxaci Yes 1[drp] Q.[id number] 1 drop in [facility] St n (VIGAMOX) 11-08 [id number] the Yue kes 0.5 % 11:21: 3D morning Medical ophthalmic 10 and [address] solution at noon and 1 drop in the evening. bromfenac Yes Apply to [facility] St (Prolensa) 3-22 eye(s). [facility] 0.07 % Drop 11:21: Medica l 10 [place] diflupredna Yes Apply to I St te 3-22 eye(s). [facility] (DurezoL) 11:21: Medical 0.05 % Drop 10 Center trypsin/bal Yes Apply [facility] oren 11-08 topically. [facility] alyssa/castor 11:21: Medica l oil (OPTASE 10 Center TOP) loratadine 0 Yes 10mg QD Take 1 [facility] (CLARITIN) 11-08 tablet (10 William es 10 mg 11:21: mg total) Medical tablet 10 by mouth Center in the morning. cholecalcif Yes 1000U QD Take [address] yeny 11-08 tablet [facility] (VITAMIN 11:21: (1,000 Medical D3) 25 mcg 10 Units Center (1,000 total) by unit) mouth in tablet the morning. multivitami Yes 1{capsu QD Take [address] n capsule 11-08 le} capsule by Luke s 11:21: mouth in Medical 10 the Center morning. calcium Yes 600mg Take 600 [facility] carbonate 11-08 mg by [facility] 600mg 11:21: mouth 2 Medical (Caltrate) 10 (two) Center 600 mg times calcium daily with (1,500 mg) breakfast Tab and dinner. cyanocobala Yes 250ug QD Take [address] min, 11-08 tablet [facility] vitamin 11:21: (250 mcg Medica l B-12, 250 10 total) by Cente r MCG tablet mouth in the morning. FD and C Yes by [facility] no.40 red, 11-08 Miscellane William es bulk, Powd 11:21: ous route. M edical 10 [place] moxifloxaci Yes 1[drp] Q.[id number] [address] n (VIGAMOX) 11-08 [id number] the Yue kes 0.5 % 11:21: 3D morning Medical ophthalmic 10 and [address] solution at noon and 1 drop in the evening. bromfenac Yes Apply to [facility] (Prolensa) 3-22 eye(s). [facility] 0.07 % Drop 11:21: Medica l 10 [place] diflupredna Yes Apply to [facility] te 3-22 eye(s). [facility] (DurezoL) 11:21: Medical 0.05 % Drop 10 Center trypsin/bal 0 Yes Apply [facility] oren 3 topically. [facility] alyssa/castor 11:21: Medica l oil (OPTASE 10 Center TOP) loratadine 0 Yes 10mg QD Take 1 [facility] (CLARITIN) - tablet (10 William es 10 mg 11:21: mg total) Medical tablet 10 by mouth Center in the morning. cholecalcif 0 Yes 1000U QD Take [address] yeny - tablet [facility] (VITAMIN 11:21: (1,000 Medical D3) 25 mcg 10 Units Center (1,000 total) by unit) mouth in tablet the morning. multivitami 0 Yes 1{capsu QD Take [address] n capsule 11-08 le} capsule by Luke s 11:21: mouth in Medical 10 the Center morning. calcium 0 Yes 600mg Take 600 [facility] carbonate 11-08 mg by [facility] 600mg 11:21: mouth 2 Medical (Caltrate) 10 (two) Center 600 mg times calcium daily with (1,500 mg) breakfast Tab and dinner. cyanocobala 0 Yes 250ug QD Take [address] min, 11-08 tablet [facility] vitamin 11:21: (250 mcg Medica l B-12, 250 10 total) by Cente r MCG tablet mouth in the morning. FD and C [address] [facility] no[facility]40 red, 3 Miscellane William es bulk, Powd 11:21: ous route. M edical 10 [place] moxifloxaci 0 Yes 1[drp] Q.[id number] [address] [address] n (VIGAMOX) 11-08 [id number] the Yue kes 0.5 % 11:21: 3D morning Medical ophthalmic 10 and [address] solution at noon and 1 drop in the evening. bromfenac 0 Yes Apply to [facility] (Prolensa) 3-22 eye(s). [facility] 0.07 % Drop 11:21: Medica l 10 [place] diflupredna 0 Yes Apply to [facility] te 3-22 eye(s). [facility] (DurezoL) 11:21: Medical 0.05 % Drop 10 Center trypsin/bal Yes Apply [facility] t oren 322 topically. [facility] alyssa/castor 11:21: Medica l oil (OPTASE 10 Center TOP) loratadine 0 Yes 10mg QD Take 1 [facility] (CLARITIN) - tablet (10 William es 10 mg 11:21: mg total) Medical tablet 10 by mouth Center in the morning. cholecalcif 0 Yes 1000U QD Take [address] yeny - tablet [facility] (VITAMIN 11:21: (1,000 Medical D3) 25 mcg 10 Units Center (1,000 total) by unit) mouth in tablet the morning. multivitami 0 Yes 1{capsu QD Take [address] n capsule 11-08 le} capsule by Luke s 11:21: mouth in Medical 10 the Center morning. calcium 0 Yes 600mg Take 600 [facility] carbonate 3- mg by [facility] 600mg 11:21: mouth 2 Medical (Caltrate) 10 (two) Center 600 mg times calcium daily with (1,500 mg) breakfast Tab and dinner. cyanocobala 0 Yes 250ug QD Take [address] min, 11-08 tablet [facility] vitamin 11:21: (250 mcg Medica l B-12, 250 10 total) by Cente r MCG tablet mouth in the morning. FD and C 0 Yes by [facility] no.40 red, 3 Miscellane William es bulk, Powd 11:21: ous route. M edical 10 [place] moxifloxaci 0 Yes 1[drp] Q.[id number] [address] [address] n (VIGAMOX) 11-08 [id number] the Yue kes 0.5 % 11:21: 3D morning Medical ophthalmic 10 and [address] solution at noon and 1 drop in the evening. bromfenac 0 Yes Apply to [facility] (Prolensa) 3-22 eye(s). [facility] 0.07 % Drop 11:21: Medica l 10 [place] diflupredna 0 Yes Apply to [facility] 3-22 eye(s). [facility] (DurezoL) 11:21: Medical 0.05 % [...] cholecalcif 0 Yes 1000U QD Take [address] yeny 11-08 tablet [facility] (VITAMIN 11:21: (1,000 Medical D3) 25 mcg 10 Units Center (1,000 total) by unit) mouth in tablet the morning. multivitami 0 Yes 1{capsu QD Take [address] n capsule 11-08 le} capsule by Elijah s 11:21: mouth in Medical 10 the Center morning. calcium 0 Yes 600mg Take 600 [facility] carbonate - mg by Rosy 600mg 11:21: mouth 2 Medical (Caltrate) 10 (two) Center 600 mg times calcium daily with (1,500 mg) breakfast Tab and dinner. cyanocobala 0 Yes 250ug QD Take [address] min, 11-08 tablet [facility] vitamin 11:21: (250 mcg Medica l B-12, 250 10 total) by Cente r MCG tablet mouth in the morning. FD and C [address] [facility] no[facility]40 red, 11-08 Miscellane William es bulk, Powd 11:21: ous route. M edical 10 [place] moxifloxaci 0 Yes 1[drp] Q.42806125 [address] n (VIGAMOX) 11-08 [id number] the Yue kes 0.5 % 11:21: 3D morning Medical ophthalmic 10 and [address] solution at noon and 1 drop in the evening. bromfenac 0 Yes Apply to [facility] (Prolensa) 3-22 eye(s). [facility] 0.07 % Drop 11:21: Medica l 10 [place] diflupredna 0 Yes Apply to I St [...] cholecalcif 0 Yes 1000U QD Take [address] yeny 11-08 tablet [facility] (VITAMIN 11:21: (1,000 Medical D3) 25 mcg 10 Units Center (1,000 total) by unit) mouth in tablet the morning. multivitami 0 Yes 1{capsu QD Take [address] n capsule 11-08 le} capsule by Luke s 11:21: mouth in Medical 10 the Center morning. calcium 0 Yes 600mg Take 600 [facility] carbonate 11-08 mg by [facility] 600mg 11:21: mouth 2 Medical (Caltrate) 10 (two) Center 600 mg times calcium daily with (1,500 mg) breakfast Tab and dinner. cyanocobala 0 Yes 250ug QD Take [address] min, 11-08 tablet [facility] vitamin 11:21: (250 mcg Medica l B-12, 250 10 total) by Cente r MCG tablet mouth in the morning. FD and C [address] [facility] no[facility]40 red, 11-08 Miscellane William es bulk, Powd 11:21: ous route. M edical 10 [place] moxifloxaci Yes 1[drp] Q.[id number] [address] n (VIGAMOX) 11-08 [id number] the Yue kes 0.5 % 11:21: 3D morning Medical ophthalmic 10 and [address] solution at noon and 1 drop in the evening. bromfenac 0 Yes Apply to [facility] (Prolensa) 3-22 eye(s). [facility] 0.07 % Drop 11:21: Medica l 10 [place] diflupredna 0 Yes Apply to I St te -22 eye(s). [facility] (DurezoL) 11:21: Medical 0.05 % Drop 10 Center trypsin/bal 0 Yes Apply [facility] oren 322 topically. [facility] alyssa/castor 11:21: Medica l oil (OPTASE 10 Center TOP) loratadine 2022-0 Yes 10mg QD Take 1 [facility] (CLARITIN) - tablet (10 William es 10 mg 11:21: mg total) Medical tablet 10 by mouth Center in the morning. cholecalcif 2022-0 Yes 1000U QD Take [address] yeny - tablet [facility] (VITAMIN 11:21: (1,000 Medical D3) 25 mcg 10 Units Center (1,000 total) by unit) mouth in tablet the morning. multivitami 0 Yes 1{capsu QD Take [address] n capsule 11-08 le} capsule by Yueke s 11:21: mouth in Medical 10 the Center morning. calcium 2022-0 Yes 600mg Take 600 [facility] 600mg 11:21: mouth 2 Medical (Caltrate) 10 (two) Center 600 mg times calcium daily with (1,500 mg) breakfast Tab and dinner. cyanocobala 0 Yes 250ug QD Take [address] [facility] min, 11-08 tablet [facility] vitamin 11:21: (250 mcg Medica l B-12, 250 10 total) by Cente r MCG tablet mouth in the morning. FD and C 2022-0 Yes by [facility] St no.40 red, 11-08 Miscellane William es bulk, Powd 11:21: ous route. M edical 10 [place] moxifloxaci 0 Yes 1[drp] Q.40129725 [address] [facility] (VIGAMOX) 11-08 [id number] the Yue kes 0.5 % 11:21: 3D morning Medical ophthalmic 10 and [address] solution at noon and 1 drop in the evening. bromfenac 0 Yes Apply to [facility] (Prolensa) 3-22 eye(s). [facility] 0.07 % Drop 11:21: Medica l 10 [place] diflupredna 0 Yes Apply to I [facility] te 3-22 eye(s). [facility] (DurezoL) 11:21: Medical 0.05 % Drop 10 [place] trypsin/bal Yes Apply [facility] 322 topically. [facility] alyssa/castor 11:21: Medica l oil (OPTASE 10 Center TOP) loratadine 0 Yes 10mg QD Take 1 [facility] (CLARITIN) - tablet (10 William es 10 mg 11:21: mg total) Medical tablet 10 by mouth Center in the morning. cholecalcif 0 Yes 1000U QD Take [address] [facility] yeny - tablet [facility] (VITAMIN 11:21: (1,000 Medical D3) 25 mcg 10 Units Center (1,000 total) by unit) mouth in tablet the morning. multivitami Yes 1{capsu QD Take [address] n capsule 11-08 le} capsule by Elijah garcia 11:21: mouth in Medical 10 the Center morning. calcium 0 Yes 600mg Take 600 [facility] by [facility] 600mg 11:21: mouth 2 Medical (Caltrate) 10 (two) Center 600 mg times calcium daily with (1,500 mg) breakfast Tab and dinner. cyanocobala Yes 250ug QD Take [address] [facility] min, 11-08 tablet [facility] vitamin 11:21: (250 mcg Medica l B-12, 250 10 total) by Cente r MCG tablet mouth in the morning. FD and C 0 Yes by [facility] no.40 red, 11-08 Miscellane William es bulk, Powd 11:21: ous route. M edical 10 [place] moxifloxaci Yes 1[drp] Q.04270532 1 drop in [facility] n (VIGAMOX) 11-08 [id number] the Yue kes 0.5 % 11:21: 3D morning Medical ophthalmic 10 and [address] solution at noon and 1 drop in the evening. bromfenac Yes Apply to [facility] St (Prolensa) 11-08 eye(s). [facility] 0.07 % Drop 11:21: Medica l 10 [place] HYDROcodone 0 Yes 1{tbl} Q.25D Take [address] -acetaminop -22 tablet by William olson hen (NORCO 11:21: mouth in Med ical 7.5-325) 09 the Center 7.5-325 mg morning per tablet and 1 tablet at noon and 1 tablet in the evening and 1 tablet before bedtime. diazePAM 3-0 Yes 5mg Q.91271190 Take [address] (VALIUM) 5 3-22 [id number] tablet (5 [facility] MG tablet 11:21: 3D [...] Every tablet morning on an empty stomach 729 . fluticasone 2022-0 Yes 1{spray 1 spray [...] FORTE) 1 % 09 eye in the [facility] ter ophthalmic morning suspension and 1 drop [...] tablet before bedtime. diazePAM 2022-0 Yes 5mg Q.14430168 Take [address] (VALIUM) 5 3-22 [id number] tablet (5 [facility] MG tablet 11:21: 3D [...] FORTE) 1 % 09 eye in the [facility] ter ophthalmic morning suspension and 1 drop [...] HI St -acetaminop 3-22 tablet by William hen (NORCO 11:21: mouth in Med ical 7.5-325) 09 the Center 7.5-325 mg morning per tablet and 1 tablet at noon and 1 tablet in the evening and 1 tablet before bedtime. diazePAM 2022-0 Yes 5mg Q.[id number] Take [address] (VALIUM) 5 3-22 [id number] tablet (5 [facility] MG tablet 11:21: 3D mg total) Med ical 09 by mouth Center in the morning and 1 tablet (5 mg total) at noon and 1 tablet (5 mg total) in the evening. 0500, 1100, 1700, 2300. levothyroxi 3-0 Yes 88ug Take [address] [facility] ne 3-22 tablet (88 [facility] (SYNTHROID, 11:21: mcg total) Medical LEVOTHROID) 09 by mouth Cent er 88 MCG Every tablet morning on an empty stomach 0730 . fluticasone 2022-0 Yes 1{spray [address] [facility] (FLONASE) - } Nasal [facility] 50 11:21: route Medical [...] tablet before bedtime. diazePAM 2022-0 Yes 5mg Q.33435600 Take [address] (VALIUM) 5 3-22 [id number] tablet (5 [facility] MG tablet 11:21: 3D [...] FORTE) 1 % 09 eye in the [facility] ter ophthalmic morning suspension and 1 drop [...] St -acetaminop 3-22 tablet by William whitney greene (NORCO 11:21: mouth in Med ical 7.5-325) 09 the Center 7.5-325 mg morning per tablet and 1 tablet at noon and 1 tablet in the evening and 1 tablet before bedtime. diazePAM 2022-0 Yes 5mg Q.42912686 Take [address] (VALIUM) 5 3-22 [id number] tablet (5 [facility] MG tablet 11:21: 3D [...] Every tablet morning on an empty stomach 729 . fluticasone 2022-0 Yes 1{spray 1 spray [...] [facility] ease-amylas 3-22 ipase} capsule Willaim es e (ZENPEP) 11:21: (5,000 Medic al [...] St -acetaminop 3-22 tablet by William whitney greene (NORCO 11:21: mouth in Med ical 7.5-325) 09 the Center 7.5-325 mg morning per tablet and 1 tablet at noon and 1 tablet in the evening and 1 tablet before bedtime. diazePAM 2023-0 Yes 5mg Q.13165795 Take [address] (VALIUM) 5 -22 [id number] tablet (5 [facility] MG tablet 11:21: 3D [...] St -acetaminop 3-22 tablet by William whitney greene (NORCO 11:21: mouth in Med ical 7.5-325) 09 the Center 7.5-325 mg morning per tablet and 1 tablet at noon and 1 tablet in the evening and 1 tablet before bedtime. diazePAM 0 Yes 5mg Q.89404484 Take [address] (VALIUM) 5 -22 [id number] tablet (5 [facility] MG tablet 11:21: 3D [...] tablet before bedtime. diazePAM 2023-0 Yes 5mg Q.74581335 Take [address] (VALIUM) 5 -22 [id number] tablet (5 [facility] MG tablet 11:21: 3D [...] Medical mg/gram) 09 Center vaginal cream escitalopra 3-0 Yes 30mg QD Take [address] [facility] [facility] [...] FORTE) 1 % 09 eye in the [facility] ter ophthalmic morning suspension and 1 drop [...] tablet before bedtime. diazePAM 2022-0 Yes 5mg Q.[id number] Take [address] (VALIUM) 5 3-22 [id number] tablet (5 [facility] MG tablet 11:21: 3D [...] Center tablet mouth in the morning. mirtazapine Yes 7.5mg Take [address] [facility] [facility] (REMERON) [...] l 30 Center diflupredna Yes Apply to [facility] 3-22 eye(s). [facility] (DurezoL) 06:56: Medical 0.05 % Drop 30 Center moxifloxaci 0 Yes 1[drp] Q.42069972 [address] [facility] (VIGAMOX) 3- [id number] the Yue kes 0.5 % 06:55: 3D morning Medical ophthalmic 28 and [address] solution at noon and 1 drop in the evening. HYDROcodone 2022-0 Yes 1{tbl} Q.25D Take [address] -acetaminop 3-22 tablet by William whitney greene (NORCO 06:52: mouth in Med ical 7.5-325) 26 the Center 7.5-325 mg morning per tablet and 1 tablet at noon and 1 tablet in the evening and 1 tablet before bedtime. diazePAM 3-0 Yes 5mg Q.47763101 Take [address] (VALIUM) 5 11-08 [id number] tablet (5 [facility] MG tablet 06:52: 3D mg total) Med ical 26 by mouth Center in the morning and 1 tablet (5 mg total) at noon and 1 tablet (5 mg total) in the evening. 0500, 1100, 1700, 2300. levothyroxi 2022-0 Yes 88ug Take 1 [facility] ne - tablet (88 [facility] (SYNTHROID, 06:52: mcg total) Medical LEVOTHROID) 26 by mouth Cent er 88 MCG Every tablet morning on an empty stomach 0730 . fluticasone 2022-0 Yes 1{spray 1 spray by [facility] (FLONASE) 11-08 } Nasal [facility] 50 06:52: route Medical mcg/actuati 26 daily as Cent er on nasal needed for spray Rhinitis. acetaminoph 2022-0 Yes 500mg Take [address] [facility] [address] en - tablet [facility] (TYLENOL) 06:52: (500 mg Medic al 500 MG 26 total) by Center tablet mouth every 6 (six) hours as needed for Pain. omeprazole 2022-0 Yes 20mg Take 1 [facility] (PRILOSEC) 22 capsule [facility] 20 MG 06:52: (20 mg Medical capsule 26 total) by Center mouth as needed. estradioL 2022-[address] [facility] [address] (ESTRACE) -22 vaginally [facility] 0.01 % (0.1 06:52: as [...] FORTE) 1 % 26 eye in the [facility] ter ophthalmic morning suspension and 1 drop [...] in Medical 26 the Center morning. calcium 3-0 Yes 600mg Take [address] [facility] [...] route. M edical 26 Center nortriptyli 2022-0 2023- No 35mg QD Take [address] [facility] ne 3-14 03-14 by mouth [facility] (PAMELOR) 14:04: 00:00 nightly. Med ical 25 MG 04 :00 Center capsule nortriptyli 2022-0 2023- No 35mg QD Take [address] ne 3-14 03-14 by mouth [facility] (PAMELOR) 14:04: 00:00 nightly. Med ical 25 MG 04 :00 Center capsule nortriptyli 2022-0 2023- No 35mg QD Take [address] [facility] ne 3-14 03-14 by mouth [facility] (PAMELOR) 14:04: 00:00 nightly. Med ical 25 MG 04 :00 Center capsule nortriptyli 2022-0 2023- No 35mg QD Take 35 mg [...] MG 04 :00 Center capsule nortriptyli 2022-0 2023- No 35mg QD Take [address] [facility] ne 3-14 03-14 by mouth [facility] (PAMELOR) 14:04: 00:00 nightly. Med ical 25 MG 04 :00 Center capsule nortriptyli 3-0 2023- No 35mg QD Take [address] [facility] ne 3-14 03-14 by mouth [facility] (PAMELOR) 14:04: 00:00 nightly. Med ical 25 MG 04 :00 Center capsule metoprolol 3-0 2023- No 25mg QD Take [address] succinate 3-14 03-14 by mouth [facility] (TOPROL-XL) 14:03: 00:00 daily. Med ical 25 MG 24 hr 27 :00 Center tablet metoprolol 3-0 2023- No 25mg QD Take [address] succinate 3-14 03-14 by mouth [facility] (TOPROL-XL) 14:03: 00:00 daily. Med ical 25 MG 24 hr 27 :00 Center tablet metoprolol 3-0 2023- No 25mg QD Take 25 mg [...] 24 hr 27 :00 Center tablet metoprolol 2022-0 2022- No 25mg QD Take [address] succinate 3-14 03-14 by mouth [facility] (TOPROL-XL) 14:03: 00:00 daily. Med ical 25 MG 24 hr 27 :00 Center tablet metoprolol 2022-0 2022- No 25mg QD Take [address] succinate 3-14 03-14 by mouth [facility] (TOPROL-XL) 14:03: 00:00 daily. Med ical 25 MG 24 hr 27 :00 Center tablet metoprolol 2022-0 2022- No 25mg QD Take [address] succinate 3-14 03-14 by mouth [facility] (TOPROL-XL) 14:03: 00:00 daily. Med ical 25 MG 24 hr 27 :00 Center tablet metoprolol 2022- No 25mg QD Take [address] succinate 3-14 03-14 by mouth [facility] (TOPROL-XL) 14:03: 00:00 daily. Med ical 25 MG 24 hr 27 :00 Center tablet fexofenadin 2022-2022- No 180mg Take [address] [facility] (MIGUE) 3-14 03-14 mg by [facility] 180 MG 14:01: 00:00 mouth Medical tablet 51 :00 daily as Center needed. fexofenadin 2022-0 2022- No 180mg Take [address] [facility] (MIGUE) 3-14 03-14 mg by [facility] 180 MG 14:01: 00:00 mouth Medical tablet 51 :00 daily as Center needed. fexofenadin 2022-0 2022- No 180mg Take [address] [facility] (MIGUE) 3-14 03-14 mg by [facility] 180 MG 14:01: 00:00 mouth Medical tablet 51 :00 daily as Center needed. fexofenadin 2022-0 2022- No 180mg Take [address] [facility] (MIGUE) 3-14 03-14 mg by [facility] 180 MG 14:01: 00:00 mouth Medical tablet 51 :00 daily as Center needed. fexofenadin 2022-0 3- No 180mg Take [address] [facility] (MIGUE) 3-14 03-14 mg by [facility] 180 MG 14:01: 00:00 mouth Medical tablet 51 :00 daily as Center needed. fexofenadin 3-0 3- No 180mg Take [address] [facility] (MIGUE) 3-14 03-14 mg by [facility] 180 MG 14:01: 00:00 mouth Medical tablet 51 :00 daily as Center needed. fexofenadin 3-0 3- No 180mg Take [address] [facility] (MGIUE) 3-14 03-14 mg by [facility] 180 MG 14:01: 00:00 mouth Medical tablet 51 :00 daily as Center needed. fexofenadin 2022-0 3- No 180mg Take [address] [facility] (MIGUE) 3-14 03-14 mg by [facility] 180 MG 14:01: 00:00 mouth Medical tablet 51 :00 daily as Center needed. fexofenadin 2022-0 2022- No 180mg Take [address] [facility] (MIGUE) 3-14 03-14 mg by [facility] 180 MG 14:01: 00:00 mouth Medical tablet 51 :00 daily as Center needed. fexofenadin 2022-0 2022- No 180mg Take [address] [facility] [...] ophthalmic times solution daily as needed. carboxymeth 2023-0 2023- No 1[drp] Place [address] [facility] ylcellulose [...] times solution daily as needed. carboxymeth 2022-0 202- No 1[drp] Place [address] [facility] ylcellulose [...] times solution daily as needed. carboxymeth 2022-0 202- No 1[drp] Place [address] [facility] ylcellulose [...] times solution daily as needed. 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, Weight diazepam 5 2023-0 Yes 5 mg = 1 Mem oria mg oral 2-07 tab, PO, l tablet 19:22: TID, # 90 Broderick n 00 tab, 2 Refill(s), Pharmacy: [facility] #[id number], 154.94, cm, 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, 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, 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, kg, 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, Weight diazepam 5 2023-0 Yes 5 mg = 1 Mem oria mg oral 2-07 tab, PO, l tablet 19:22: TID, # 90 Broderick n 00 tab, 2 Refill(s), [facility][id number], 154.94, cm, 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, 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, 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, kg, 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, Weight diazepam 5 2023-0 Yes 5 mg = 1 Mem oria mg oral 2-07 tab, PO, l tablet 19:22: TID, # 90 Broderick n 00 tab, 2 Refill(s), [id number], 154.94, cm, 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, 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, 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, kg, 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, Weight diazepam 5 2023-0 Yes 5 mg = 1 Mem oria mg oral 2-07 tab, PO, l tablet 19:22: TID, # 90 Broderick n 00 tab, 2 Refill(s), Pharmacy: [facility] #[id number], 154.94, cm, 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, 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, 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, kg, 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, Weight diazepam 5 2023-0 Yes 5 mg = 1 Mem oria mg oral 2-07 tab, PO, l tablet 19:22: TID, # 90 Broderick n 00 tab, 2 Refill(s), Pharmacy: [facility] #[id number], 154.94, cm, 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, 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, 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, kg, 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, Weight diazepam 5 3-0 Yes 5 mg = 1 Mem oria mg oral 2-07 tab, PO, l tablet 19:22: TID, # 90 Broderick n 00 tab, 2 Refill(s), [facility][id number], 154.94, cm, 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, 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, 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, kg, 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, Weight diazepam 5 3-0 Yes 5 mg = 1 Mem oria mg oral 2-07 tab, PO, l tablet 19:22: TID, # 90 Broderick n 00 tab, 2 Refill(s), [facility][id number], 154.94, cm, 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, 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, 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, kg, 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, Weight diazepam 5 2021-1 Yes 5 mg = 1 Mem oria mg oral 1-04 tab, PO, l tablet 23:32: TID, # 90 Broderick n 00 tab, 2 Refill(s), [facility][id number], 154.94, cm, 05/25/22 15:43:00 CDT, Height, 54.716, kg, 05/25/22 15:43:00 CDT, Weight diazepam 5 2021-1 Yes 5 mg = 1 Mem oria mg oral 1-04 tab, PO, l tablet 23:32: TID, # 90 Broderick n 00 tab, 2 Refill(s), Pharmacy: [facility] #[id number], 154.94, cm, 05/25/22 15:43:00 CDT, Height, 54.716, kg, 05/25/22 15:43:00 CDT, Weight diazepam 2021-08 Yes 5 mg = 1 Mem oria mg oral 1-04 tab, PO, l tablet 23:32: TID, # 90 Broderick n 00 tab, 2 Refill(s), Pharmacy: [facility] #[id number], 154.94, cm, 05/25/22 15:43:00 CDT, Height, 54.716, kg, 05/25/22 15:43:00 CDT, Weight diazepam 2021-08 Yes 5 mg = 1 Mem oria mg oral 1-04 tab, PO, l tablet 23:32: TID, # 90 Broderick n 00 tab, 2 Refill(s), Pharmacy: [facility] #[id number], 154.94, cm, 05/25/22 15:43:00 CDT, Height, 54.716, kg, 05/25/22 15:43:00 CDT, Weight diazepam 2021-08 Yes 5 mg = 1 Mem oria mg oral 1-04 tab, PO, l tablet 23:32: TID, # 90 Broderick n 00 tab, 2 Refill(s), Pharmacy: [facility] #[id number], 154.94, cm, 05/25/22 15:43:00 CDT, Height, 54.716, kg, 05/25/22 15:43:00 CDT, Weight diazepam 2021-08 Yes 5 mg = 1 Mem oria mg oral 1-04 tab, PO, l tablet 23:32: TID, # 90 Broderick n 00 tab, 2 Refill(s), Pharmacy: [facility] #[id number], 154.94, cm, 05/25/22 15:43:00 CDT, Height, 54.716, kg, 05/25/22 15:43:00 CDT, Weight diazepam 5 2021-08 Yes 5 mg = 1 Mem oria mg oral 1-04 tab, PO, l tablet 23:32: TID, # 90 Broderick n 00 tab, 2 Refill(s), Pharmacy: [facility] #[id number], 154.94, cm, 05/25/22 15:43:00 CDT, Height, 54.716, kg, 05/25/22 15:43:00 CDT, Weight diazepam 2021-08 Yes 5 mg = 1 Mem oria mg oral 1-04 tab, PO, l tablet 23:32: TID, # 90 Broderick n 00 tab, 2 Refill(s), Pharmacy: [facility] #[id number], 154.94, cm, 05/25/22 15:43:00 CDT, Height, 54.716, kg, 05/25/22 15:43:00 CDT, Weight diazepam 2021-08 Yes 5 mg = 1 Mem oria mg oral 1-04 tab, PO, l tablet 23:32: TID, # 90 Broderick n 00 tab, 2 Refill(s), Pharmacy: [facility] #[id number], 154.94, cm, 05/25/22 15:43:00 CDT, Height, 54.716, kg, 05/25/22 15:43:00 CDT, Weight diazepam 2021-08 Yes 5 mg = 1 Mem oria mg oral 1-04 tab, PO, l tablet 23:32: TID, # 90 Broderick n 00 tab, 2 Refill(s), Pharmacy: [facility] #[id number], 154.94, cm, 05/25/22 15:43:00 CDT, Height, 54.716, kg, 05/25/22 15:43:00 CDT, Weight diazepam 2021-08 Yes 5 mg = 1 Mem oria mg oral 1-04 tab, PO, l tablet 23:32: TID, # 90 Broderick n 00 tab, 2 Refill(s), Pharmacy: [facility] #[id number], 154.94, cm, 05/25/22 15:43:00 CDT, Height, 54.716, kg, 05/25/22 15:43:00 CDT, Weight diazepam 2021-08 Yes 5 mg = 1 Mem oria mg oral 1-04 tab, PO, l tablet 23:32: TID, # 90 Broderick n 00 tab, 2 Refill(s), Pharmacy: [facility] #[id number], 154.94, cm, 05/25/22 15:43:00 CDT, Height, 54.716, kg, 05/25/22 15:43:00 CDT, Weight diazepam 2021-08 Yes 5 mg = 1 Mem oria mg oral 1-04 tab, PO, l tablet 23:32: TID, # 90 Broderick n 00 tab, 2 Refill(s), Pharmacy: [facility] #[id number], 154.94, cm, 05/25/22 15:43:00 CDT, Height, 54.716, kg, 05/25/22 15:43:00 CDT, Weight diazepam 2021-08 Yes 5 mg = 1 Mem oria mg oral 1-04 tab, PO, l tablet 23:32: TID, # 90 Broderick n 00 tab, 2 Refill(s), Pharmacy: [facility] #[id number], 154.94, cm, 05/25/22 15:43:00 CDT, Height, 54.716, kg, 05/25/22 15:43:00 CDT, Weight diazepam 2021-08 Yes 5 mg = 1 Mem oria mg oral 1-04 tab, PO, l tablet 23:32: TID, # 90 Broderick n 00 tab, 2 Refill(s), Pharmacy: [facility] #[id number], 154.94, cm, 05/25/22 15:43:00 CDT, Height, 54.716, kg, 05/25/22 15:43:00 CDT, Weight diazepam 2021-08 Yes 5 mg = 1 Mem oria mg oral 1-04 tab, PO, l tablet 23:32: TID, # 90 Broderick n 00 tab, 2 Refill(s), Pharmacy: [facility] #[id number], 154.94, cm, 05/25/22 15:43:00 CDT, Height, 54.716, [...] 0-06 ml, PO, l oral 20:07: Before [facility] suspension 00 Meals & Bedtime, # 200 [...] 0-06 ml, PO, l oral 20:07: Before [facility] suspension 00 Meals & Bedtime, # 200 ml, 1 Refill(s) Pred Forte 2021-08 Yes SHAKE WELL M emoria 1% 0-06 AND l ophthalmic 20:07: INSTILL 1 [facility] suspension 00 DROP IN THE LEFT EYE DAILY sucralfate 2021-08 Yes 1 gm = 10 Me moria 1 g/10 mL 0-06 ml, PO, l oral 20:07: Before [facility] suspension 00 Meals & Bedtime, # 200 ml, 1 Refill(s) Pred Forte 2021-08 Yes SHAKE WELL M emoria 1% 0-06 AND l ophthalmic 20:07: INSTILL 1 [facility] suspension 00 DROP IN THE LEFT EYE DAILY sucralfate 2021-08 Yes 1 gm = 10 Me moria 1 g/10 mL 0-06 ml, PO, l oral 20:07: Before [facility] suspension 00 Meals & Bedtime, # 200 [...] 0-06 ml, PO, l oral 20:07: Before [facility] suspension 00 Meals & Bedtime, # 200 ml, 1 Refill(s) Pred Forte 2021-08 Yes SHAKE WELL M emoria 1% 0-06 AND l ophthalmic 20:07: INSTILL 1 [facility] suspension 00 DROP IN THE LEFT EYE DAILY sucralfate 2021-08 Yes 1 gm = 10 Me moria 1 g/10 mL 0-06 ml, PO, l oral 20:07: Before [facility] suspension 00 Meals & Bedtime, # 200 ml, 1 Refill(s) Pred Forte 2021-08 Yes SHAKE WELL M emoria 1% 0-06 AND l ophthalmic 20:07: INSTILL 1 [facility] suspension 00 DROP IN THE LEFT EYE DAILY sucralfate 2021-08 Yes 1 gm = 10 Me moria 1 g/10 mL 0-06 ml, PO, l oral 20:07: Before [facility] suspension 00 Meals & Bedtime, # 200 [...] 0-06 ml, PO, l oral 20:07: Before [facility] suspension 00 Meals & Bedtime, # 200 ml, 1 Refill(s) Pred Forte 2021-08 Yes SHAKE WELL M emoria 1% 0-06 AND l ophthalmic 20:07: INSTILL 1 [facility] suspension 00 DROP IN THE LEFT EYE DAILY sucralfate 2021-08 Yes 1 gm = 10 Me moria 1 g/10 mL 0-06 ml, PO, l oral 20:07: Before [facility] suspension 00 Meals & Bedtime, # 200 ml, 1 Refill(s) Pred Forte 2021-08 Yes SHAKE WELL M emoria 1% 0-06 AND l ophthalmic 20:07: INSTILL 1 [facility] suspension 00 DROP IN THE LEFT EYE DAILY sucralfate 2021-08 Yes 1 gm = 10 Me moria 1 g/10 mL 0-06 ml, PO, l oral 20:07: Before [facility] suspension 00 Meals & Bedtime, # 200 ml, 1 Refill(s) Pred Forte 2021-08 Yes SHAKE WELL M emoria 1% 0-06 AND l ophthalmic 20:07: INSTILL 1 [facility] suspension 00 DROP IN THE LEFT EYE DAILY sucralfate 2021-08 Yes 1 gm = 10 Me moria 1 g/10 mL 0-06 ml, PO, l oral 20:07: Before [facility] suspension 00 Meals & Bedtime, # 200 [...] mouth l tablet every morning. HYDROcodone 2021-08- No 1{tbl} Take 1 [facility]i -acetaminop 0-04 [...] mouth l daily. diazePAM 2021-08 Yes 5mg Q.34627855 Take 1 M ethodi (VALIUM) 5 0-04 [id number] tablet (5 st MG tablet 14:29: 3D [...] Yue kes e (ZENPEP) 10:18: lipase by Pa dical 5,000-17,00 40 mouth 3 Cente r 0- 24,000 (three) unit CpDR times daily with meals. HYDROcodone Yes 1{tbl} Q.25D Take [address] -acetaminop 9-22 tablet by William es hen (NORCO 10:18: mouth 4 Medi valdo 7.5-325) 40 (four) Center 7.5-325 mg times per tablet daily . diazePAM Yes 5mg Q.90519454 Take [address] [facility] (VALIUM) 5 - [id number] by mouth 3 [facility] MG tablet 10:18: [...] 1{spray [address] [facility] (FLONASE) 9-22 } Nasal [facility] 50 10:18: route Medical [...] Take [address] m oxalate 9- by mouth [facility] (LEXAPRO) 10:18: daily. Medica [...] Yue kes e (ZENPEP) 10:18: lipase by Pa dical 5,000-17,00 40 mouth 3 Cente r 0- 24,000 (three) unit CpDR times daily with meals. HYDROcodone Yes 1{tbl} Q.25D Take [address] -acetaminop 9-22 tablet by William es hen (NORCO 10:18: mouth 4 Medi valdo 7.5-325) 40 (four) Center 7.5-325 mg times per tablet daily . diazePAM Yes 5mg Q.82570261 Take [address] [facility] (VALIUM) 5 - [id number] by mouth 3 [facility] MG tablet 10:18: [...] QD Take [address] ne -22 by mouth [facility] (PAMELOR) 10:18: nightly. Medi [...] mg/gram) 40 . Center vaginal cream escitalopra 0 Yes 30mg QD Take [address] m oxalate - by mouth [facility] (LEXAPRO) 10:18: daily. Medica l 10 MG 40 Center tablet mirtazapine 0 Yes 7.5mg Take 7.[address] [facility] (REMERON) 9-22 mg by [facility] 7.5 MG 10:18: mouth as Medical tablet 40 needed. Center prednisoLON 2021-0 Yes 1[drp] Q.25D Place [address] [facility] E acetate 9-22 drop into [facility] (PRED 10:18: the left Medical FORTE) 1 [...] Yue kes e (ZENPEP) 10:18: lipase by Pa dical 5,000-17,00 40 mouth 3 Cente r 0- 24,000 (three) unit CpDR times daily with meals. HYDROcodone Yes 1{tbl} Q.25D Take [address] -acetaminop 9-22 tablet by William es hen (NORCO 10:18: mouth 4 Medi valdo 7.5-325) 40 (four) Center 7.5-325 mg times per tablet daily . diazePAM 0 Yes 5mg [id number] Take [address] [facility] (VALIUM) 5 9-22 [id number] by mouth 3 [facility] tablet 10:18: [...] 1{spray [address] [facility] (FLONASE) 9-22 } Nasal [facility] 50 10:18: route Medical mcg/actuati 40 daily as Cent er on nasal needed for spray Rhinitis. acetaminoph 0 Yes 500mg Take [address] [facility] en 9-22 mg by [facility] (TYLENOL) 10:18: mouth Medical 500 MG 40 every 6 Center tablet (six) hours as needed for Pain. metoprolol 0 Yes 25mg QD Take [address] [facility] succinate -22 by mouth [facility] (TOPROL-XL) 10:18: daily. Medi valdo 25 MG 24 hr 40 Center tablet nortriptyli 2021-0 Yes 35mg QD Take [facility] mg [facility] [...] mg/gram) 40 . Center vaginal cream escitalopra 0 Yes 30mg QD Take [address] [facility] oxalate 05-11 by mouth [facility] (LEXAPRO) 10:18: daily. Medica l 10 MG 40 Center tablet mirtazapine Yes 7.5mg Take 7.[address] (REMERON) 9-22 mg by [facility] 7.5 MG 10:18: mouth as Medical tablet 40 needed. Center prednisoLON 0 Yes 1[drp] Q.25D Place [address] [facility] acetate - drop into [facility] (PRED 10:18: the left Medical FORTE) 1 % 40 eye 4 Center ophthalmic (four) suspension times daily. escitalopra 2021-0 Yes 10mg QD Take 1 [facility] (LEXAPRO) 8-12 tablet (10 st 10 MG 00:00: mg total) [facility] tablet 00 by mouth l daily. escitalopra 2021-0 Yes 20mg QD Take 1 [facility] (LEX[facility]RO) 8-12 tablet (20 st 20 MG 00:00: mg total) [facility] tablet [facility] by mouth l daily. diazepam 5 2021-0 Yes 5 mg = 1 Mem oria mg oral 8-09 tab, PO, l tablet 18:13: TID, # 90 Broderick n 00 tab, 2 Refill(s), [id number], 154.94, cm, 02/28/22 15:06:00 CDT, Height, 54.091, kg, 02/28/22 15:06:00 CDT, Weight diazepam 5 2022-0 Yes 5 mg = 1 Mem oria mg oral 8-09 tab, PO, l tablet 18:13: TID, # 90 Broderick n 00 tab, 2 Refill(s), Pharmacy: [facility] #[id number], 154.94, cm, 02/28/22 15:06:00 CDT, Height, 54.091, kg, 02/28/22 15:06:00 CDT, Weight diazepam 5 2022-0 Yes 5 mg = 1 Mem oria mg oral 8-09 tab, PO, l tablet 18:13: TID, # 90 Broderick n 00 tab, 2 Refill(s), [id number], 154.94, cm, 02/28/22 15:06:00 CDT, Height, 54.091, kg, 02/28/22 15:06:00 CDT, Weight diazepam 5 2022-0 Yes 5 mg = 1 Mem oria mg oral 8-09 tab, PO, l tablet 18:13: TID, # 90 Broderick n 00 tab, 2 Refill(s), [id number], 154.94, cm, 02/28/22 15:06:00 CDT, Height, 54.091, kg, 02/28/22 15:06:00 CDT, Weight diazepam 5 2022-0 Yes 5 mg = 1 Mem oria mg oral 8-09 tab, PO, l tablet 18:13: TID, # 90 Broderick n 00 tab, 2 Refill(s), [facility][id number], 154.94, cm, 02/28/22 15:06:00 CDT, Height, 54.091, kg, 02/28/22 15:06:00 CDT, Weight diazepam 5 2022-0 Yes 5 mg = 1 Mem oria mg oral 8-09 tab, PO, l tablet 18:13: TID, # 90 Broderick n 00 tab, 2 Refill(s), Pharmacy: [facility] #[id number], 154.94, cm, 02/28/22 15:06:00 CDT, Height, 54.091, kg, 02/28/22 15:06:00 CDT, Weight diazepam 5 2022-0 Yes 5 mg = 1 Mem oria mg oral 8-09 tab, PO, l tablet 18:13: TID, # 90 Broderick n 00 tab, 2 Refill(s), Pharmacy: [facility] #[id number], 154.94, cm, 02/28/22 15:06:00 CDT, Height, 54.091, kg, 02/28/22 15:06:00 CDT, Weight diazepam 5 2022-0 Yes 5 mg = 1 Mem oria mg oral 8-09 tab, PO, l tablet 18:13: TID, # 90 Broderick n 00 tab, 2 Refill(s), Pharmacy: [facility] #[id number], 154.94, cm, 02/28/22 15:06:00 CDT, Height, 54.091, kg, 02/28/22 15:06:00 CDT, Weight diazepam 5 2022-0 Yes 5 mg = 1 Mem oria mg oral 8-09 tab, PO, l tablet 18:13: TID, # 90 Broderick n 00 tab, 2 Refill(s), Pharmacy: [facility] #[id number], 154.94, cm, 02/28/22 15:06:00 CDT, Height, 54.091, kg, 02/28/22 15:06:00 CDT, Weight diazepam 5 2022-0 Yes 5 mg = 1 Mem oria mg oral 8-09 tab, PO, l tablet 18:13: TID, # 90 Broderick n 00 tab, 2 Refill(s), Pharmacy: [facility] #[id number], 154.94, cm, 02/28/22 15:06:00 CDT, Height, 54.091, kg, 02/28/22 15:06:00 CDT, Weight diazepam 5 2022-0 Yes 5 mg = 1 Mem oria mg oral 8-09 tab, PO, l tablet 18:13: TID, # 90 Broderick n 00 tab, 2 Refill(s), Pharmacy: [facility] #[id number], 154.94, cm, 02/28/22 15:06:00 CDT, Height, 54.091, kg, 02/28/22 15:06:00 CDT, Weight diazepam 5 2022-0 Yes 5 mg = 1 Mem oria mg oral 8-09 tab, PO, l tablet 18:13: TID, # 90 Broderick n 00 tab, 2 Refill(s), Pharmacy: [facility] #[id number], 154.94, cm, 02/28/22 15:06:00 CDT, Height, 54.091, kg, 02/28/22 15:06:00 CDT, Weight diazepam 5 2022-0 Yes 5 mg = 1 Mem oria mg oral 8-09 tab, PO, l tablet 18:13: TID, # 90 Broderick n 00 tab, 2 Refill(s), Pharmacy: [facility] #[id number], 154.94, cm, 02/28/22 15:06:00 CDT, Height, 54.091, kg, 02/28/22 15:06:00 CDT, Weight diazepam 5 2022-0 Yes 5 mg = 1 Mem oria mg oral 8-09 tab, PO, l tablet 18:13: TID, # 90 Broderick n 00 tab, 2 Refill(s), Pharmacy: [facility] #[id number], 154.94, cm, 02/28/22 15:06:00 CDT, Height, 54.091, kg, 02/28/22 15:06:00 CDT, Weight diazepam 5 2022-0 Yes 5 mg = 1 Mem oria mg oral 8-09 tab, PO, l tablet 18:13: TID, # 90 Broderick n 00 tab, 2 Refill(s), Pharmacy: [facility] #[id number], 154.94, cm, 02/28/22 15:06:00 CDT, Height, 54.091, kg, 02/28/22 15:06:00 CDT, Weight diazepam 5 2022-0 Yes 5 mg = 1 Mem oria mg oral 8-09 tab, PO, l tablet 18:13: TID, # 90 Broderick n 00 tab, 2 Refill(s), Pharmacy: [facility] #[id number], 154.94, cm, 02/28/22 15:06:00 CDT, Height, 54.091, kg, 02/28/22 15:06:00 CDT, Weight diazepam 5 2022-0 Yes 5 mg = 1 Mem oria mg oral 8-09 tab, PO, l tablet 18:13: TID, # 90 Broderick n 00 tab, 2 Refill(s), Pharmacy: [facility] #[id number], 154.94, cm, 02/28/22 15:06:00 CDT, Height, 54.091, kg, 02/28/22 15:06:00 CDT, Weight diazepam 5 2022-0 Yes 5 mg = 1 Mem oria mg oral 5-11 tab, PO, l tablet 22:53: TID, # 90 Broderick n 00 tab, 2 Refill(s), Pharmacy: [facility] #[id number], 156.21, cm, 11/29/21 14:01:00 CDT, Height, 54.545, kg, 11/29/21 14:01:00 CDT, Weight diazepam 5 2022-0 Yes 5 mg = 1 Mem oria mg oral 5-11 tab, PO, l tablet 22:53: TID, # 90 Broderick n 00 tab, 2 Refill(s), Pharmacy: [facility] #[id number], 156.21, cm, 11/29/21 14:01:00 CDT, Height, 54.545, kg, 11/29/21 14:01:00 CDT, Weight diazepam 5 2022-0 Yes 5 mg = 1 Mem oria mg oral 5-11 tab, PO, l tablet 22:53: TID, # 90 Broderick n 00 tab, 2 Refill(s), Pharmacy: [facility] #[id number], 156.21, cm, 11/29/21 14:01:00 CDT, Height, 54.545, kg, 11/29/21 14:01:00 CDT, Weight diazepam 5 2022-0 Yes 5 mg = 1 Mem oria mg oral 5-11 tab, PO, l tablet 22:53: TID, # 90 Broderick n 00 tab, 2 Refill(s), Pharmacy: [facility] #[id number], 156.21, cm, 11/29/21 14:01:00 CDT, Height, 54.545, kg, 11/29/21 14:01:00 CDT, Weight diazepam 5 2022-0 Yes 5 mg = 1 Mem oria mg oral 5-11 tab, PO, l tablet 22:53: TID, # 90 Broderick n 00 tab, 2 Refill(s), Pharmacy: [facility] #[id number], 156.21, cm, 11/29/21 14:01:00 CDT, Height, 54.545, kg, 11/29/21 14:01:00 CDT, Weight diazepam 5 2022-0 Yes 5 mg = 1 Mem oria mg oral 5-11 tab, PO, l tablet 22:53: TID, # 90 Broderick n 00 tab, 2 Refill(s), Pharmacy: [facility] #[id number], 156.21, cm, 11/29/21 14:01:00 CDT, Height, 54.545, kg, 11/29/21 14:01:00 CDT, Weight diazepam 5 2022-0 Yes 5 mg = 1 Mem oria mg oral 5-11 tab, PO, l tablet 22:53: TID, # 90 Brodercik n 00 tab, 2 Refill(s), Pharmacy: [facility] #[id number], 156.21, cm, 11/29/21 14:01:00 CDT, Height, 54.545, kg, 11/29/21 14:01:00 CDT, Weight diazepam 5 2022-0 Yes 5 mg = 1 Mem oria mg oral 5-11 tab, PO, l tablet 22:53: TID, # 90 Broderick n 00 tab, 2 Refill(s), Pharmacy: [facility] #[id number], 156.21, cm, 11/29/21 14:01:00 CDT, Height, 54.545, kg, 11/29/21 14:01:00 CDT, Weight diazepam 5 2022-0 Yes 5 mg = 1 Mem [facility]ria mg oral 5-11 tab, PO, l tablet 22:53: TID, # 90 Broderick n 00 tab, 2 Refill(s), Pharmacy: [facility] #[id number], 156.21, cm, 11/29/21 14:01:00 CDT, Height, 54.545, kg, 11/29/21 14:01:00 CDT, Weight diazepam 5 2022-0 Yes 5 mg = 1 Mem oria mg oral 5-11 tab, PO, l tablet 22:53: TID, # 90 Broderick n 00 tab, 2 Refill(s), Pharmacy: [facility] #[id number], 156.21, cm, 11/29/21 14:01:00 CDT, Height, 54.545, kg, 11/29/21 14:01:00 CDT, Weight diazepam 5 2022-0 Yes 5 mg = 1 Mem oria mg oral 5-11 tab, PO, l tablet 22:53: TID, # 90 Broderick n 00 tab, 2 Refill(s), Pharmacy: [facility] #[id number], 156.21, cm, 11/29/21 14:01:00 CDT, Height, 54.545, kg, 11/29/21 14:01:00 CDT, Weight diazepam 5 2022-0 Yes 5 mg = 1 Mem [facility]ria mg oral 5-11 tab, PO, l tablet 22:53: TID, # 90 Broderick n 00 tab, 2 Refill(s), Pharmacy: [facility] #[id number], 156.21, cm, 11/29/21 14:01:00 CDT, Height, 54.545, kg, 11/29/21 14:01:00 CDT, Weight diazepam 5 2022-0 Yes 5 mg = 1 Mem oria mg oral 5-11 tab, PO, l tablet 22:53: TID, # 90 Broderick n 00 tab, 2 Refill(s), Pharmacy: [facility] #[id number], 156.21, cm, 11/29/21 14:01:00 CDT, Height, 54.545, kg, 11/29/21 14:01:00 CDT, Weight diazepam 5 2022-0 Yes 5 mg = 1 Mem oria mg oral 5-11 tab, PO, l tablet 22:53: TID, # 90 Broderick n 00 tab, 2 Refill(s), Pharmacy: [facility] #[id number], 156.21, cm, 11/29/21 14:01:00 CDT, Height, 54.545, kg, 11/29/21 14:01:00 CDT, Weight diazepam 5 2021-0 Yes 5 mg = 1 Mem oria mg oral 5-11 tab, PO, l tablet 22:53: TID, # 90 Broderick n 00 tab, 2 Refill(s), Pharmacy: [facility] #[id number], 156.21, cm, 11/29/21 14:01:00 CDT, Height, 54.545, kg, 11/29/21 14:01:00 CDT, Weight diazepam 5 2021-0 Yes 5 mg = 1 Mem oria mg oral 5-11 tab, PO, l tablet 22:53: TID, # 90 Broderick n 00 tab, 2 Refill(s), Pharmacy: [facility] #[id number], 156.21, cm, 11/29/21 14:01:00 CDT, Height, 54.545, kg, 11/29/21 14:01:00 CDT, Weight diazepam 5 2-0 Yes 5 mg = 1 Mem oria mg oral 5-11 tab, PO, l tablet 22:53: TID, # 90 Broderick n 00 tab, 2 Refill(s), Pharmacy: [facility] #[id number], 156.21, cm, 11/29/21 14:01:00 CDT, Height, 54.545, kg, 11/29/21 14:01:00 CDT, Weight diazepam 5 2-0 Yes 5 mg = 1 Mem oria mg oral 5-11 tab, PO, l tablet 22:53: TID, # 90 Broderick n 00 tab, 2 Refill(s), Pharmacy: [facility] #[id number], 156.21, cm, 11/29/21 14:01:00 CDT, Height, 54.545, kg, 11/29/21 14:01:00 CDT, Weight mirtazapine 2022-0 Yes 7.5 mg = 1 [...] 00 90 tab, 0 Refill(s) diazepam 5 2021-0 Yes 5 mg = 1 Mem oria mg oral 2-08 tab, PO, l tablet 15:54: TID, # 90 Broderick n 00 tab, 2 Refill(s), Pharmacy: [facility] #[id number], 154.94, cm, 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, 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, 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, kg, 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, Weight diazepam 5 2021-0 Yes 5 mg = 1 Mem oria mg oral 2-08 tab, PO, l tablet 15:54: TID, # 90 Broderick n 00 tab, 2 Refill(s), Pharmacy: [facility] #[id number], 154.94, cm, 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, 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, 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, kg, 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, Weight diazepam 5 2-0 Yes 5 mg = 1 Mem oria mg oral 2-08 tab, PO, l tablet 15:54: TID, # 90 Broderick n 00 tab, 2 Refill(s), [facility][id number], 154.94, cm, 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, 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, 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, kg, 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, Weight diazepam 5 2021-0 Yes 5 mg = 1 Mem oria mg oral 2-08 tab, PO, l tablet 15:54: TID, # 90 Broderick n 00 tab, 2 Refill(s), [facility] #[id number], 154.94, cm, 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, 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, 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, kg, 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, Weight diazepam 5 2021-0 Yes 5 mg = 1 Mem oria mg oral 2-08 tab, PO, l tablet 15:54: TID, # 90 Broderick n 00 tab, 2 Refill(s), Pharmacy: [facility] #[id number], 154.94, cm, 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, 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, 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, kg, 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, Weight diazepam 5 2-0 Yes 5 mg = 1 Mem oria mg oral 2-08 tab, PO, l tablet 15:54: TID, # 90 Broderick n 00 tab, 2 Refill(s), [facility][id number], 154.94, cm, 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, 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, 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, kg, 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, Weight diazepam 5 2022-0 Yes 5 mg = 1 Mem oria mg oral 2-08 tab, PO, l tablet 15:54: TID, # 90 Broderick n 00 tab, 2 Refill(s), Pharmacy: [facility] #[id number], 154.94, cm, 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, 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, 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, kg, 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, Weight diazepam 5 2-0 Yes 5 mg = 1 Mem oria mg oral 2-08 tab, PO, l tablet 15:54: TID, # 90 Broderick n 00 tab, 2 Refill(s), Pharmacy: [facility] #[id number], 154.94, cm, 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, 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, kg, 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, Weight diazepam 5 2022-0 Yes 5 mg = 1 Mem oria mg oral 2-08 tab, PO, l tablet 15:54: TID, # 90 Broderick n 00 tab, 2 Refill(s), [facility][id number], 154.94, cm, 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, 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, 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, kg, 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, Weight diazepam 5 2021-0 Yes 5 mg = 1 Mem oria mg oral 2-08 tab, PO, l tablet 15:54: TID, # 90 Broderick n 00 tab, 2 Refill(s), [facility] #[id number], 154.94, cm, 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, 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, 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, kg, 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, Weight diazepam 5 2021-0 Yes 5 mg = 1 Mem oria mg oral 2-08 tab, PO, l tablet 15:54: TID, # 90 Broderick n 00 tab, 2 Refill(s), [facility] #[id number], 154.94, cm, 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, Height, 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, kg, 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, Weight diazepam 5 2021-0 Yes 5 mg = 1 Mem oria mg oral 2-08 tab, PO, l tablet 15:54: TID, # 90 Broderick n 00 tab, 2 Refill(s), [facility] #[id number], 154.94, cm, 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, Height, 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, kg, 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, Weight diazepam 5 2021-0 Yes 5 mg = 1 Mem oria mg oral 2-08 tab, PO, l tablet 15:54: TID, # 90 Broderick n 00 tab, 2 Refill(s), [facility] #[id number], 154.94, cm, 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, 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, 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, kg, 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, Weight diazepam 5 2021-0 Yes 5 mg = 1 Mem oria mg oral 2-08 tab, PO, l tablet 15:54: TID, # 90 Broderick n 00 tab, 2 Refill(s), Pharmacy: [facility] #[id number], 154.94, cm, 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, 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, 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, kg, 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, Weight diazepam 5 2021-0 Yes 5 mg = 1 Mem oria mg oral 2-08 tab, PO, l tablet 15:54: TID, # 90 Broderick n 00 tab, 2 Refill(s), Pharmacy: [facility] #[id number], 154.94, cm, 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, 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, 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, kg, 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, Weight Lexapro 0 Yes 10 mg, PO, Yann meghna 1-12 Daily, 0 l 21:24: Refill(s) Lexapro 2021-0 Yes 10 mg, PO, Yann meghna 1-12 Daily, 0 l 21:24: Refill(s) Lexapro 2021-0 Yes 10 mg, PO, Yann meghna 1-12 Daily, 0 l 21:24: Refill(s) Lexapro 2021-0 Yes 10 mg, PO, Yann meghna 1-12 Daily, 0 l 21:24: Refill(s) Lexapro 2021-0 Yes 10 mg, PO, Yann meghna 1-12 Daily, 0 l 21:24: Refill(s) Lexapro 2021-0 Yes 10 mg, PO, Yann meghna 1-12 Daily, 0 l 21:24: Refill(s) Lexapro 2021-0 Yes 10 mg, PO, Yann meghna 1-12 Daily, 0 l 21:24: Refill(s) Lexapro 2021-0 Yes 10 mg, PO, Yann meghna 1-12 Daily, 0 l 21:24: Refill(s) Lexapro 2021-0 Yes 10 mg, PO, Yann meghna 1-12 Daily, 0 l 21:24: Refill(s) Lexapro 2021-0 Yes 10 mg, PO, Yann meghna 1-12 Daily, 0 l 21:24: Refill(s) Lexapro 2021-0 Yes 10 mg, PO, Yann meghna 1-12 Daily, 0 l 21:24: Refill(s) Lexapro 2021-0 Yes 10 mg, PO, Yann meghna 1-12 Daily, 0 l 21:24: Refill(s) Lexapro 2021-0 Yes 10 mg, PO, Yann meghna 1-12 Daily, 0 l 21:24: Refill(s) Lexapro 2021-0 Yes 10 mg, PO, Yann meghna 1-12 Daily, 0 l 21:24: Refill(s) Lexapro 2021-0 Yes 10 mg, PO, Yann meghna 1-12 Daily, 0 l 21:24: Refill(s) Lexapro 2021-0 Yes 10 mg, PO, Yann meghna 1-12 Daily, 0 l 21:24: Refill(s) Lexapro 2021-0 Yes 10 mg, PO, Yann meghna 1-12 Daily, 0 l 21:24: Refill(s) Lexapro 2021-0 Yes 10 mg, PO, Yann meghna 1-12 Daily, 0 l 21:24: Refill(s) Levothyroxi Yes 75 Memori a ne Sodium 1-12 microgram l 0.075 MG 21:23: = 1 tab, Rose nn Oral Tablet 00 PO, Daily, [Synthroid] # 30 tab, 0 Refill(s) Synthroid 0 Yes 75 Memoria 75 mcg 1-12 microgram l (0.075 mg) 21:23: = 1 tab, Her cruz oral tablet 00 PO, Daily, # 30 tab, 0 Refill(s) Levothyroxi 0 Yes 75 Memori a ne Sodium 1-12 [...] No TAKE 1 Metho di 75 mcg 05-15 TABLET(75 st tablet 00:00: 00:00 MCG) BY [facility]osp[facility] 00 :00 MOUTH l DAILY diazepam 2020-08 Yes 5 mg = 1 Mem oria mg oral 1-09 tab, PO, l tablet 23:37: TID, # 90 Broderick n 00 tab, 2 Refill(s), [facility][id number], 154.94, cm, 06/01/21 14:26:00 CDT, Height, 53.818, kg, 06/01/21 14:26:00 CDT, Weight diazepam 2020-08 Yes 5 mg = 1 Mem oria mg oral -09 tab, PO, l tablet 23:37: TID, # 90 Broderick n 00 tab, 2 Refill(s), [facility] #[id number], 154.94, cm, 06/01/21 14:26:00 CDT, Height, 53.818, kg, 06/01/21 14:26:00 CDT, Weight diazepam 2020-08 Yes 5 mg = 1 Mem oria mg oral -09 tab, PO, l tablet 23:37: TID, # 90 Broderick n 00 tab, 2 Refill(s), [facility][id number], 154.94, cm, 06/01/21 14:26:00 CDT, Height, 53.818, kg, 06/01/21 14:26:00 CDT, Weight diazepam 2020-08 Yes 5 mg = 1 Mem oria mg oral 1-09 tab, PO, l tablet 23:37: TID, # 90 Broderick n 00 tab, 2 Refill(s), [facility][id number], 154.94, cm, 06/01/21 14:26:00 CDT, Height, 53.818, kg, 06/01/21 14:26:00 CDT, Weight diazepam 2020-08 Yes 5 mg = 1 Mem oria mg oral 1-09 tab, PO, l tablet 23:37: TID, # 90 Broderick n 00 tab, 2 Refill(s), Pharmacy: [facility] #[id number], 154.94, cm, 06/01/21 14:26:00 CDT, Height, 53.818, kg, 06/01/21 14:26:00 CDT, Weight diazepam 5 2020-08 Yes 5 mg = 1 Mem oria mg oral 1-09 tab, PO, l tablet 23:37: TID, # 90 Broderick n 00 tab, 2 Refill(s), Pharmacy: [facility] #[id number], 154.94, cm, 06/01/21 14:26:00 CDT, Height, 53.818, kg, 06/01/21 14:26:00 CDT, Weight diazepam 2020-08 Yes 5 mg = 1 Mem oria mg oral 1-09 tab, PO, l tablet 23:37: TID, # 90 Broderick n 00 tab, 2 Refill(s), Pharmacy: [facility] #[id number], 154.94, cm, 06/01/21 14:26:00 CDT, Height, 53.818, kg, 06/01/21 14:26:00 CDT, Weight diazepam 2020-08 Yes 5 mg = 1 Mem oria mg oral 1-09 tab, PO, l tablet 23:37: TID, # 90 Broderick n 00 tab, 2 Refill(s), Pharmacy: [facility] #[id number], 154.94, cm, 06/01/21 14:26:00 CDT, Height, 53.818, kg, 06/01/21 14:26:00 CDT, Weight diazepam 2020-08 Yes 5 mg = 1 Mem oria mg oral 1-09 tab, PO, l tablet 23:37: TID, # 90 Broderick n 00 tab, 2 Refill(s), Pharmacy: [facility] #[id number], 154.94, cm, 06/01/21 14:26:00 CDT, Height, 53.818, kg, 06/01/21 14:26:00 CDT, Weight diazepam 5 2021-1 Yes 5 mg = 1 Mem oria mg oral 1-09 tab, PO, l tablet 23:37: TID, # 90 Broderick n 00 tab, 2 Refill(s), Pharmacy: [facility] #[id number], 154.94, cm, 06/01/21 14:26:00 CDT, Height, 53.818, kg, 06/01/21 14:26:00 CDT, Weight diazepam 2020-08 Yes 5 mg = 1 Mem oria mg oral 1-09 tab, PO, l tablet 23:37: TID, # 90 Broderick n 00 tab, 2 Refill(s), Pharmacy: [facility] #[id number], 154.94, cm, 06/01/21 14:26:00 CDT, Height, 53.818, kg, 06/01/21 14:26:00 CDT, Weight diazepam 2020-08 Yes 5 mg = 1 Mem oria mg oral 1-09 tab, PO, l tablet 23:37: TID, # 90 Broderick n 00 tab, 2 Refill(s), Pharmacy: [facility] #[id number], 154.94, cm, 06/01/21 14:26:00 CDT, Height, 53.818, kg, 06/01/21 14:26:00 CDT, Weight diazepam 2020-08 Yes 5 mg = 1 Mem oria mg oral 1-09 tab, PO, l tablet 23:37: TID, # 90 Broderick n 00 tab, 2 Refill(s), Pharmacy: [facility] #[id number], 154.94, cm, 06/01/21 14:26:00 CDT, Height, 53.818, kg, 06/01/21 14:26:00 CDT, Weight diazepam 2020-08 Yes 5 mg = 1 Mem oria mg oral 1-09 tab, PO, l tablet 23:37: TID, # 90 Broderick n 00 tab, 2 Refill(s), Pharmacy: [facility] #[id number], 154.94, cm, 06/01/21 14:26:00 CDT, Height, 53.818, kg, 06/01/21 14:26:00 CDT, Weight diazepam 2020-08 Yes 5 mg = 1 Mem oria mg oral 1-09 tab, PO, l tablet 23:37: TID, # 90 Broderick n 00 tab, 2 Refill(s), Pharmacy: [facility] #[id number], 154.94, cm, 06/01/21 14:26:00 CDT, Height, 53.818, kg, 06/01/21 14:26:00 CDT, Weight diazepam 2020-08 Yes 5 mg = 1 Mem oria mg oral 1-09 tab, PO, l tablet 23:37: TID, # 90 Broderick n 00 tab, 2 Refill(s), Pharmacy: [facility] #[id number], 154.94, cm, 06/01/21 14:26:00 CDT, Height, 53.818, kg, 06/01/21 14:26:00 CDT, Weight diazepam 2020-08 Yes 5 mg = 1 Mem oria mg oral 1-09 tab, PO, l tablet 23:37: TID, # 90 Broderick n 00 tab, 2 Refill(s), Pharmacy: [facility] #[id number], 154.94, cm, 06/01/21 14:26:00 CDT, Height, 53.818, kg, 06/01/21 14:26:00 CDT, Weight diazepam 2020-08 Yes 5 mg = 1 Mem oria mg oral 1-09 tab, PO, l tablet 23:37: TID, # 90 Broderick n 00 tab, 2 Refill(s), Pharmacy: [facility] #[id number], 154.94, cm, 06/01/21 14:26:00 CDT, Height, 53.818, kg, 06/01/21 14:26:00 CDT, Weight diazepam 2020-0 Yes 5 mg = 1 Mem oria mg oral 8-12 tab, PO, l tablet 21:12: TID, # 90 Broderick n 00 tab, 2 Refill(s), Pharmacy: [facility] #[id number], 157.48, cm, 02/04/21 13:53:00 CDT, Height, 50.54, kg, 02/04/21 13:53:00 CDT, Weight diazepam 5 2020-0 Yes 5 mg = 1 Mem oria mg oral 8-12 tab, PO, l tablet 21:12: TID, # 90 Broderick n 00 tab, 2 Refill(s), Pharmacy: [facility] #[id number], 157.48, cm, 02/04/21 13:53:00 CDT, Height, 50.54, kg, 02/04/21 13:53:00 CDT, Weight diazepam 5 2020-0 Yes 5 mg = 1 Mem oria mg oral 8-12 tab, PO, l tablet 21:12: TID, # 90 Broderick n 00 tab, 2 Refill(s), Pharmacy: [facility] #[id number], 157.48, cm, 02/04/21 13:53:00 CDT, Height, 50.54, kg, 02/04/21 13:53:00 CDT, Weight diazepam 5 2020-0 Yes 5 mg = 1 Mem oria mg oral 8-12 tab, PO, l tablet 21:12: TID, # 90 Broderick n 00 tab, 2 Refill(s), Pharmacy: [facility] #[id number], 157.48, cm, 02/04/21 13:53:00 CDT, Height, 50.54, kg, 02/04/21 13:53:00 CDT, Weight diazepam 5 2020-0 Yes 5 mg = 1 Mem oria mg oral 8-12 tab, PO, l tablet 21:12: TID, # 90 Broderick n 00 tab, 2 Refill(s), Pharmacy: [facility] #[id number], 157.48, cm, 02/04/21 13:53:00 CDT, Height, 50.54, kg, 02/04/21 13:53:00 CDT, Weight diazepam 5 2020-0 Yes 5 mg = 1 Mem oria mg oral 8-12 tab, PO, l tablet 21:12: TID, # 90 Broderick n 00 tab, 2 Refill(s), Pharmacy: [facility] #[id number], 157.48, cm, 02/04/21 13:53:00 CDT, Height, 50.54, kg, 02/04/21 13:53:00 CDT, Weight diazepam 5 2020-0 Yes 5 mg = 1 Mem oria mg oral 8-12 tab, PO, l tablet 21:12: TID, # 90 Broderick n 00 tab, 2 Refill(s), Pharmacy: [facility] #[id number], 157.48, cm, 02/04/21 13:53:00 CDT, Height, 50.54, kg, 02/04/21 13:53:00 CDT, Weight diazepam 5 2020-0 Yes 5 mg = 1 Mem oria mg oral 8-12 tab, PO, l tablet 21:12: TID, # 90 Broderick n 00 tab, 2 Refill(s), Pharmacy: [facility] #[id number], 157.48, cm, 02/04/21 13:53:00 CDT, Height, 50.54, kg, 02/04/21 13:53:00 CDT, Weight diazepam 5 2020-0 Yes 5 mg = 1 Mem oria mg oral 8-12 tab, PO, l tablet 21:12: TID, # 90 Broderick n 00 tab, 2 Refill(s), Pharmacy: [facility] #[id number], 157.48, cm, 02/04/21 13:53:00 CDT, Height, 50.54, kg, 02/04/21 13:53:00 CDT, Weight diazepam 5 2020-0 Yes 5 mg = 1 Mem oria mg oral 8-12 tab, PO, l tablet 21:12: TID, # 90 Broderick n 00 tab, 2 Refill(s), Pharmacy: [facility] #[id number], 157.48, cm, 02/04/21 13:53:00 CDT, Height, 50.54, kg, 02/04/21 13:53:00 CDT, Weight diazepam 5 2020-0 Yes 5 mg = 1 Mem oria mg oral 8-12 tab, PO, l tablet 21:12: TID, # 90 Broderick n 00 tab, 2 Refill(s), Pharmacy: [facility] #[id number], 157.48, cm, 02/04/21 13:53:00 CDT, Height, 50.54, kg, 02/04/21 13:53:00 CDT, Weight diazepam 5 2020-0 Yes 5 mg = 1 Mem oria mg oral 8-12 tab, PO, l tablet 21:12: TID, # 90 Broderick n 00 tab, 2 Refill(s), Pharmacy: [facility] #[id number], 157.48, cm, 02/04/21 13:53:00 CDT, Height, 50.54, kg, 02/04/21 13:53:00 CDT, Weight diazepam 5 2020-0 Yes 5 mg = 1 Mem oria mg oral 8-12 tab, PO, l tablet 21:12: TID, # 90 Broderikc n 00 tab, 2 Refill(s), Pharmacy: [facility] #[id number], 157.48, cm, 02/04/21 13:53:00 CDT, Height, 50.54, kg, 02/04/21 13:53:00 CDT, Weight diazepam 5 2020-0 Yes 5 mg = 1 Mem oria mg oral 8-12 tab, PO, l tablet 21:12: TID, # 90 Broderick n 00 tab, 2 Refill(s), Pharmacy: [facility] #[id number], 157.48, cm, 02/04/21 13:53:00 CDT, Height, 50.54, kg, 02/04/21 13:53:00 CDT, Weight diazepam 5 2020-0 Yes 5 mg = 1 Mem oria mg oral 8-12 tab, PO, l tablet 21:12: TID, # 90 Broderick n 00 tab, 2 Refill(s), Pharmacy: [facility] #[id number], 157.48, cm, 02/04/21 13:53:00 CDT, Height, 50.54, kg, 02/04/21 13:53:00 CDT, Weight diazepam 5 2020-0 Yes 5 mg = 1 Mem oria mg oral 8-12 tab, PO, l tablet 21:12: TID, # 90 Broderick n 00 tab, 2 Refill(s), Pharmacy: [facility] #[id number], 157.48, cm, 02/04/21 13:53:00 CDT, Height, 50.54, kg, 02/04/21 13:53:00 CDT, Weight diazepam 5 2020-0 Yes 5 mg = 1 Mem oria mg oral 8-12 tab, PO, l tablet 21:12: TID, # 90 Broderick n 00 tab, 2 Refill(s), Pharmacy: [facility] #[id number], 157.48, cm, 02/04/21 13:53:00 CDT, Height, 50.54, kg, 02/04/21 13:53:00 CDT, Weight diazepam 5 1-0 Yes 5 mg = 1 Mem oria mg oral 8-12 tab, PO, l tablet 21:12: TID, # 90 Broderick n 00 tab, 2 Refill(s), Pharmacy: [facility] #[id number], 157.48, cm, 02/04/21 13:53:00 CDT, Height, 50.54, kg, 02/04/21 13:53:00 CDT, Weight diazepam 5 2020-0 Yes 5 mg = 1 Mem oria mg oral 5-06 tab, PO, l tablet 19:59: TID, # 90 Broderick n 00 tab, 2 Refill(s), Pharmacy: [facility] #[id number], 152.4, cm, 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, 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, 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, kg, 12/23/20 14:41:00 CDT, Weight diazepam 5 2020-0 Yes 5 mg = 1 Mem oria mg oral 5-06 tab, PO, l tablet 19:59: TID, # 90 Broderick n 00 tab, 2 Refill(s), Pharmacy: [facility] #[id number], 152.4, cm, 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, 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, 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, kg, 12/23/20 14:41:00 CDT, Weight diazepam 5 1-0 Yes 5 mg = 1 Mem oria mg oral 5-06 tab, PO, l tablet 19:59: TID, # 90 Broderick n 00 tab, 2 Refill(s), Pharmacy: [facility] #[id number], 152.4, cm, 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, 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, 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, kg, 12/23/20 14:41:00 CDT, Weight diazepam 5 2021-0 Yes 5 mg = 1 Mem oria mg oral 5-06 tab, PO, l tablet 19:59: TID, # 90 Broderick n 00 tab, 2 Refill(s), Pharmacy: [facility] #[id number], 152.4, cm, 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, 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, 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, kg, 12/23/20 14:41:00 CDT, Weight diazepam 5 2021-0 Yes 5 mg = 1 Mem oria mg oral 5-06 tab, PO, l tablet 19:59: TID, # 90 Broderick n 00 tab, 2 Refill(s), Pharmacy: [facility] #[id number], 152.4, cm, 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, 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, 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, kg, 12/23/20 14:41:00 CDT, Weight diazepam 5 2020-0 Yes 5 mg = 1 Mem oria mg oral 5-06 tab, PO, l tablet 19:59: TID, # 90 Broderick n 00 tab, 2 Refill(s), Pharmacy: [facility] #[id number], 152.4, cm, 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, 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, 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, kg, 12/23/20 14:41:00 CDT, Weight diazepam 5 1-0 Yes 5 mg = 1 Mem oria mg oral 5-06 tab, PO, l tablet 19:59: TID, # 90 Broderick n 00 tab, 2 Refill(s), Pharmacy: [facility] #[id number], 152.4, cm, 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, 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, 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, kg, 12/23/20 14:41:00 CDT, Weight diazepam 5 2021-0 Yes 5 mg = 1 Mem oria mg oral 5-06 tab, PO, l tablet 19:59: TID, # 90 Broderick n 00 tab, 2 Refill(s), [id number], 152.4, cm, 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, 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, 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, kg, 12/23/20 14:41:00 CDT, Weight diazepam 5 2021-0 Yes 5 mg = 1 Mem oria mg oral 5-06 tab, PO, l tablet 19:59: TID, # 90 Broderick n 00 tab, 2 Refill(s), Pharmacy: [facility] #[id number], 152.4, cm, 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, 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, 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, kg, 12/23/20 14:41:00 CDT, Weight diazepam 5 2021-0 Yes 5 mg = 1 Mem oria mg oral 5-06 tab, PO, l tablet 19:59: TID, # 90 Broderick n 00 tab, 2 Refill(s), Pharmacy: [facility] #[id number], 152.4, cm, 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, 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, 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, kg, 12/23/20 14:41:00 CDT, Weight diazepam 5 2020-0 Yes 5 mg = 1 Mem oria mg oral 5-06 tab, PO, l tablet 19:59: TID, # 90 Broderick n 00 tab, 2 Refill(s), Pharmacy: [facility] #[id number], 152.4, cm, 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, 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, 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, kg, 12/23/20 14:41:00 CDT, Weight diazepam 5 1-0 Yes 5 mg = 1 Mem oria mg oral 5-06 tab, PO, l tablet 19:59: TID, # 90 Broderick n 00 tab, 2 Refill(s), Pharmacy: [facility] #[id number], 152.4, cm, 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, 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, 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, kg, 12/23/20 14:41:00 CDT, Weight diazepam 5 2021-0 Yes 5 mg = 1 Mem oria mg oral 5-06 tab, PO, l tablet 19:59: TID, # 90 Brdoerick n 00 tab, 2 Refill(s), [id number], 152.4, cm, 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, 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, 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, kg, 12/23/20 14:41:00 CDT, Weight diazepam 5 1-0 Yes 5 mg = 1 Mem oria mg oral 5-06 tab, PO, l tablet 19:59: TID, # 90 Broderick n 00 tab, 2 Refill(s), Pharmacy: [facility] #[id number], 152.4, cm, 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, 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, 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, kg, 12/23/20 14:41:00 CDT, Weight diazepam 5 1-0 Yes 5 mg = 1 Mem oria mg oral 5-06 tab, PO, l tablet 19:59: TID, # 90 Broderick n 00 tab, 2 Refill(s), Pharmacy: [facility] #[id number], 152.4, cm, 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, 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, 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, kg, 12/23/20 14:41:00 CDT, Weight diazepam 5 2020-0 Yes 5 mg = 1 Mem oria mg oral 5-06 tab, PO, l tablet 19:59: TID, # 90 Broderick n 00 tab, 2 Refill(s), Pharmacy: [facility] #[id number], 152.4, cm, 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, 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, 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, kg, 12/23/20 14:41:00 CDT, Weight diazepam 5 1-0 Yes 5 mg = 1 Mem oria mg oral 5-06 tab, PO, l tablet 19:59: TID, # 90 Broderick n 00 tab, 2 Refill(s), Pharmacy: [facility] #[id number], 152.4, cm, 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, 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, 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, kg, 12/23/20 14:41:00 CDT, Weight diazepam 5 2021-0 Yes 5 mg = 1 Mem oria mg oral 5-06 tab, PO, l tablet 19:59: TID, # 90 Broderick n 00 tab, 2 Refill(s), [id number], 152.4, cm, 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, 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, 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, kg, 12/23/20 14:41:00 CDT, Weight Zenpep 2021-0 Yes TK 2 CS PO Memor ia 40,000 5-06 TID WITH l units-126,0 19:48: MEALS AND H ermann 00 00 1 C WITH units-168,0 EACH SNACK 00 units oral delayed release capsule Amylases 2020-0 Yes TK 2 CS PO Mem oria [id number] UNT 5-06 TID WITH l / 19:48: MEALS AND [facility] Endopeptida 00 1 C WITH ses 600026 EACH SNACK UNT / Lipase 05464 UNT Delayed Release Oral Capsule [Zenpep] Zenpep 2020-0 Yes TK 2 CS PO Memor ia 40,000 5-06 TID WITH l units-126,0 19:48: MEALS AND H ermann 00 00 1 C WITH units-168,0 EACH SNACK 00 units oral delayed release capsule Amylases 2020-0 Yes TK 2 CS PO Mem oria 470472 UNT 5-06 TID WITH l / 19:48: MEALS AND [facility] Endopeptida 00 1 C WITH ses 990317 EACH SNACK UNT / Lipase 92017 UNT Delayed Release Oral Capsule [Zenpep] Amylases 2020-0 Yes TK 2 CS PO Mem oria [id number] UNT 5-06 TID WITH l / 19:48: MEALS AND [facility] Endopeptida 00 1 C WITH ses 814909 EACH SNACK UNT / Lipase 38649 UNT Delayed Release Oral Capsule [Zenpep] Amylases 2020-0 Yes TK 2 CS PO Mem oria [id number] UNT 5-06 TID WITH l / 19:48: MEALS AND [facility] Endopeptida 00 1 C WITH ses 188642 EACH SNACK UNT / Lipase 93557 UNT Delayed Release Oral Capsule [Zenpep] Amylases 2020-0 Yes TK 2 CS PO Mem oria 950854 UNT 5-06 TID WITH l / 19:48: MEALS AND [facility] Endopeptida 00 1 C WITH ses 405387 EACH SNACK UNT / Lipase 82249 UNT Delayed Release Oral Capsule [Zenpep] Zenpep 2020-0 Yes TK 2 CS PO Memor ia 40,000 5-06 TID WITH l units-126,0 19:48: MEALS AND H ermann 00 00 1 C WITH units-168,0 EACH SNACK 00 units oral delayed release capsule Amylases 2020-0 Yes TK 2 CS PO Mem oria [id number] UNT 5-06 TID WITH l / 19:48: MEALS AND [facility] End[facility]pt[facility] 00 1 C WITH ses 961247 EACH SNACK UNT / Lipase 94405 UNT Delayed Release Oral Capsule [Zenpep] Zenpep 2020-0 Yes TK 2 CS PO Memor ia 40,000 5-06 TID WITH l units-126,0 19:48: MEALS AND H ermann 00 00 1 C WITH units-168,0 EACH SNACK 00 units oral delayed release capsule Zenpep 2020-0 Yes TK 2 CS PO Memor ia 40,000 5-06 TID WITH l units-126,0 19:48: MEALS AND H ermann 00 00 1 C WITH units-168,0 EACH SNACK 00 units oral delayed release capsule Amylases 2020-0 Yes TK 2 CS PO Mem oria [id number] UNT 5-06 TID WITH l / 19:48: MEALS AND [facility] Endopeptida 00 1 C WITH ses 581631 EACH SNACK UNT / Lipase 11114 UNT Delayed Release Oral Capsule [Zenpep] Zenpep 2020-0 Yes TK 2 CS PO Memor ia 40,000 5-06 TID WITH l units-126,0 19:48: MEALS AND H ermann 00 00 1 C WITH units-168,0 EACH SNACK 00 units oral delayed release capsule Amylases 2020-0 Yes TK 2 CS PO Mem oria 977706 UNT 5-06 TID WITH l / 19:48: MEALS AND [facility] Endopeptida 00 1 C WITH ses 922113 EACH SNACK UNT / Lipase 40540 UNT Delayed Release Oral Capsule [Zenpep] Zenpep 1-0 Yes TK 2 CS PO Memor ia 40,000 5-06 TID WITH l units-126,0 19:48: MEALS AND H ermann 00 00 1 C WITH units-168,0 EACH SNACK 00 units oral delayed release capsule Amylases 1-0 Yes TK 2 CS PO Mem oria [id number] UNT 5-06 TID WITH l / 19:48: MEALS AND [facility] 00 1 C WITH ses 809754 EACH SNACK UNT / Lipase 43197 UNT Delayed Release Oral Capsule [Zenpep] Zenpep 2021-0 Yes TK 2 CS PO Memor ia 40,000 5-06 TID WITH l units-126,0 19:48: MEALS AND H ermann 00 00 1 C WITH units-168,0 EACH SNACK 00 units oral delayed release capsule Amylases 2020-0 Yes TK 2 CS PO Mem oria 407858 UNT 5-06 TID WITH l / 19:48: MEALS AND [facility] 00 1 C WITH ses 193636 EACH SNACK UNT / Lipase 35953 UNT Delayed Release Oral Capsule [Zenpep] Zenpep 2020-0 Yes TK 2 CS PO Memor ia 40,000 5-06 TID WITH l units-126,0 19:48: MEALS AND H ermann 00 00 1 C WITH units-168,0 EACH SNACK 00 units oral delayed release capsule Amylases 2020-0 Yes TK 2 CS PO Mem oria 379496 UNT 5-06 TID WITH l / 19:48: MEALS AND [facility] 00 1 C WITH ses 606661 EACH SNACK UNT / Lipase 14694 UNT Delayed Release Oral Capsule [Zenpep] Zenpep 2020-0 Yes TK 2 CS PO Memor ia 40,000 5-06 TID WITH l units-126,0 19:48: MEALS AND H ermann 00 00 1 C WITH units-168,0 EACH SNACK 00 units oral delayed release capsule Amylases 2020-0 Yes TK 2 CS PO Mem oria 379158 UNT 5-06 TID WITH l / 19:48: MEALS AND [facility] 00 1 C WITH ses 217262 EACH SNACK UNT / Lipase 15450 UNT Delayed Release Oral Capsule [Zenpep] Zenpep 2020-0 Yes TK 2 CS PO Memor ia 40,000 5-06 TID WITH l units-126,0 19:48: MEALS AND H ermann 00 00 1 C WITH units-168,0 EACH SNACK 00 units oral delayed release capsule Amylases 2020-0 Yes TK 2 CS PO Mem oria 097159 UNT 5-06 TID WITH l / 19:48: MEALS AND [facility] Endopept[facility] 00 1 C WITH ses 304280 EACH SNACK UNT / Lipase 81155 UNT Delayed Release Oral Capsule [Zenpep] Zenpep 2020-0 Yes TK 2 CS PO Memor ia 40,000 5-06 TID WITH l units-126,0 19:48: MEALS AND H ermann 00 00 1 C WITH units-168,0 EACH SNACK 00 units oral delayed release capsule Amylases 2020-0 Yes TK 2 CS PO Mem oria [id number] UNT 5-06 TID WITH l / 19:48: MEALS AND [facility] 00 1 C WITH ses 562461 EACH SNACK UNT / Lipase 19809 UNT Delayed Release Oral Capsule [Zenpep] Zenpep 2020-0 Yes TK 2 CS PO Memor ia 40,000 5-06 TID WITH l units-126,0 19:48: MEALS AND H ermann 00 00 1 C WITH units-168,0 EACH SNACK 00 units oral delayed release capsule Amylases 2020-0 Yes TK 2 CS PO Mem oria 139890 UNT 5-06 TID WITH l / 19:48: MEALS AND [facility] 00 1 C WITH ses 975107 EACH SNACK UNT / Lipase 25854 UNT Delayed Release Oral Capsule [Zenpep] Zenpep 2020-0 Yes TK 2 CS PO Memor ia 40,000 5-06 TID WITH l units-126,0 19:48: MEALS AND H ermann 00 00 1 C WITH units-168,0 EACH SNACK 00 units oral delayed release capsule Amylases 2020-0 Yes TK 2 CS PO Mem oria [id number] UNT 5-06 TID WITH l / 19:48: MEALS AND [facility] 00 1 C WITH ses 901703 EACH SNACK UNT / Lipase 86915 UNT Delayed Release Oral Capsule [Zenpep] Zenpep 2020-0 Yes TK 2 CS PO Memor ia 40,000 5-06 TID WITH l units-126,0 19:48: MEALS AND H ermann 00 00 1 C WITH units-168,0 EACH SNACK 00 units oral delayed release capsule Amylases 2020-0 Yes TK 2 CS PO Mem oria [id number] UNT 5-06 TID WITH l / 19:48: MEALS AND [facility] Endopept[facility] 00 1 C WITH ses 760049 EACH SNACK UNT / Lipase 02471 UNT Delayed Release Oral Capsule [Zenpep] Zenpep 1-0 Yes TK 2 CS PO Memor ia 40,000 5-06 TID WITH l units-126,0 19:48: MEALS AND H ermann 00 00 1 C WITH units-168,0 EACH SNACK 00 units oral delayed release capsule Amylases 1-0 Yes TK 2 CS PO Mem oria 539012 UNT 5-06 TID WITH l / 19:48: MEALS AND [facility] 00 1 C WITH ses 469685 EACH SNACK UNT / Lipase 87923 UNT Delayed Release Oral Capsule [Zenpep] nortriptyli No = 1 cap, Me moria ne 25 mg 2-18 PO, l oral 21:59: Bedtime, # [facility] capsule 00 30 cap, 2 Refill(s), [id number], 152.4, cm, 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, 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, 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, kg, 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, Weight nortriptyli No = 1 cap, Me moria ne 25 mg 2-18 PO, l oral 21:59: Bedtime, # [facility] capsule 00 30 cap, 2 Refill(s), [facility][id number], 152.4, cm, 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, 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, 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, kg, 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, Weight nortriptyli No = 1 cap, Me moria ne 25 mg 2-18 PO, l oral 21:59: Bedtime, # [facility] capsule 00 30 cap, 2 Refill(s), [facility][id number], 152.4, cm, 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, 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, 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, kg, 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, Weight nortriptyli No = 1 cap, Me moria ne 25 mg 2-18 PO, l oral 21:59: Bedtime, # [facility] capsule 00 30 cap, 2 Refill(s), [facility][id number], 152.4, cm, 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, 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, 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, kg, 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, Weight nortriptyli No = 1 cap, Me moria ne 25 mg 2-18 PO, l oral 21:59: Bedtime, # [facility] capsule 00 30 cap, 2 Refill(s), [facility][id number], 152.4, cm, 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, 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, 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, kg, 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, Weight nortriptyli No = 1 cap, Me moria ne 25 mg 2-18 PO, l oral 21:59: Bedtime, # [facility] capsule 00 30 cap, 2 Refill(s), Pharmacy: [facility] #[id number], 152.4, cm, 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, 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, 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, kg, 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, Weight nortriptyli No = 1 cap, Me moria ne 25 mg 2-18 PO, l oral 21:59: Bedtime, # [facility] capsule 00 30 cap, 2 Refill(s), Pharmacy: [facility] #[id number], 152.4, cm, 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, 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, 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, kg, 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, Weight nortriptyli No = 1 cap, Me moria ne 25 mg 2-18 PO, l oral 21:59: Bedtime, # [facility] capsule 00 30 cap, 2 Refill(s), [facility][id number], 152.4, cm, 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, 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, 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, kg, 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, Weight nortriptyli No = 1 cap, Me moria ne 25 mg 2-18 PO, l oral 21:59: Bedtime, # [facility] capsule 00 30 cap, 2 Refill(s), Pharmacy: [facility] #[id number], 152.4, cm, 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, 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, 60.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, kg, 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, Weight nortriptyli No = 1 cap, Me moria ne 25 mg 2-18 PO, l oral 21:59: Bedtime, # [facility] capsule 00 30 cap, 2 Refill(s), [facility][id number], 152.4, cm, 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, Height, 60.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, kg, 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, Weight nortriptyli No = 1 cap, Me moria ne 25 mg 2-18 PO, l oral 21:59: Bedtime, # [facility] capsule 00 30 cap, 2 Refill(s), [facility][id number], 152.4, cm, 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, 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, 60.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, kg, 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, Weight nortriptyli No = 1 cap, Me moria ne 25 mg 2-18 PO, l oral 21:59: Bedtime, # [facility] capsule 00 30 cap, 2 Refill(s), [facility][id number], 152.4, cm, 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, Height, 60.909, kg, 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, Weight nortriptyli No = 1 cap, Me moria ne 25 mg 2-18 PO, l oral 21:59: Bedtime, # [facility] capsule 00 30 cap, 2 Refill(s), [id number], 152.4, cm, 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, Height, 60.909, kg, 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, Weight nortriptyli No = 1 cap, Me moria ne 25 mg 2-18 PO, l oral 21:59: Bedtime, # [facility] capsule 00 30 cap, 2 Refill(s), [facility][id number], 152.4, cm, 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, Height, 60.909, kg, 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, Weight nortriptyli No = 1 cap, Me moria ne 25 mg 2-18 PO, l oral 21:59: Bedtime, # [facility] capsule 00 30 cap, 2 Refill(s), [facility] #[id number], 152.4, cm, 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, Height, 60.909, kg, 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, Weight nortriptyli No = 1 cap, Me moria ne 25 mg 2-18 PO, l oral 21:59: Bedtime, # [facility] capsule 00 30 cap, 2 Refill(s), Pharmacy: [facility] #[id number], 152.4, cm, 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, Height, 60.909, kg, 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, Weight nortriptyli No = 1 cap, Me moria ne 25 mg 2-18 PO, l oral 21:59: Bedtime, # [facility] capsule 00 30 cap, 2 Refill(s), [facility][id number], 152.4, cm, 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 diazepam 5 2019-08 Yes 5 mg = 1 Mem oria mg oral 1-03 tab, PO, l tablet 18:18: TID, # 90 Broderick n 00 tab, 2 Refill(s), [facility][id number], 154.94, cm, 04/22/20 13:58:00 CDT, Height, 59.091, kg, 04/22/20 13:58:00 CDT, Weight diazepam 5 2019-1 Yes 5 mg = 1 Mem oria mg oral 1-03 tab, PO, l tablet 18:18: TID, # 90 Broderick n 00 tab, 2 Refill(s), Pharmacy: [facility] #[id number], 154.94, cm, 04/22/20 13:58:00 CDT, Height, 59.091, kg, 04/22/20 13:58:00 CDT, Weight diazepam 5 2020-1 Yes 5 mg = 1 Mem oria mg oral 1-03 tab, PO, l tablet 18:18: TID, # 90 Broderick n 00 tab, 2 Refill(s), Pharmacy: [facility] #[id number], 154.94, cm, 04/22/20 13:58:00 CDT, Height, 59.091, kg, 04/22/20 13:58:00 CDT, Weight diazepam 5 2020-1 Yes 5 mg = 1 Mem oria mg oral 1-03 tab, PO, l tablet 18:18: TID, # 90 Broderick n 00 tab, 2 Refill(s), Pharmacy: [facility] #[id number], 154.94, cm, 04/22/20 13:58:00 CDT, Height, 59.091, kg, 04/22/20 13:58:00 CDT, Weight diazepam 5 2020-1 Yes 5 mg = 1 Mem oria mg oral 1-03 tab, PO, l tablet 18:18: TID, # 90 Broderick n 00 tab, 2 Refill(s), Pharmacy: [facility] #[id number], 154.94, cm, 04/22/20 13:58:00 CDT, Height, 59.091, kg, 04/22/20 13:58:00 CDT, Weight diazepam 5 2020-1 Yes 5 mg = 1 Mem oria mg oral 1-03 tab, PO, l tablet 18:18: TID, # 90 Broderick n 00 tab, 2 Refill(s), [id number], 154.94, cm, 04/22/20 13:58:00 CDT, Height, 59.091, kg, 04/22/20 13:58:00 CDT, Weight diazepam 5 2020-1 Yes 5 mg = 1 Mem oria mg oral 1-03 tab, PO, l tablet 18:18: TID, # 90 Broderick n 00 tab, 2 Refill(s), Pharmacy: [facility] #[id number], 154.94, cm, 04/22/20 13:58:00 CDT, Height, 59.091, kg, 04/22/20 13:58:00 CDT, Weight diazepam 5 2020-1 Yes 5 mg = 1 Mem oria mg oral 1-03 tab, PO, l tablet 18:18: TID, # 90 Broderick n 00 tab, 2 Refill(s), Pharmacy: [facility] #[id number], 154.94, cm, 04/22/20 13:58:00 CDT, Height, 59.091, kg, 04/22/20 13:58:00 CDT, Weight diazepam 5 2020-1 Yes 5 mg = 1 Mem oria mg oral 1-03 tab, PO, l tablet 18:18: TID, # 90 Broderick n 00 tab, 2 Refill(s), Pharmacy: [facility] #[id number], 154.94, cm, 04/22/20 13:58:00 CDT, Height, 59.091, kg, 04/22/20 13:58:00 CDT, Weight diazepam 5 2020-1 Yes 5 mg = 1 Mem oria mg oral 1-03 tab, PO, l tablet 18:18: TID, # 90 Broderick n 00 tab, 2 Refill(s), Pharmacy: [facility] #[id number], 154.94, cm, 04/22/20 13:58:00 CDT, Height, 59.091, kg, 04/22/20 13:58:00 CDT, Weight diazepam 5 2020-1 Yes 5 mg = 1 Mem oria mg oral 1-03 tab, PO, l tablet 18:18: TID, # 90 Broderick n 00 tab, 2 Refill(s), [id number], 154.94, cm, 04/22/20 13:58:00 CDT, Height, 59.091, kg, 04/22/20 13:58:00 CDT, Weight diazepam 5 2020-1 Yes 5 mg = 1 Mem oria mg oral 1-03 tab, PO, l tablet 18:18: TID, # 90 Broderick n 00 tab, 2 Refill(s), Pharmacy: [facility] #[id number], 154.94, cm, 04/22/20 13:58:00 CDT, Height, 59.091, kg, 04/22/20 13:58:00 CDT, Weight diazepam 5 2020-1 Yes 5 mg = 1 Mem oria mg oral 1-03 tab, PO, l tablet 18:18: TID, # 90 Broderick n 00 tab, 2 Refill(s), Pharmacy: [facility] #[id number], 154.94, cm, 04/22/20 13:58:00 CDT, Height, 59.091, kg, 04/22/20 13:58:00 CDT, Weight diazepam 5 2020-1 Yes 5 mg = 1 Mem oria mg oral 1-03 tab, PO, l tablet 18:18: TID, # 90 Broderick n 00 tab, 2 Refill(s), Pharmacy: [facility] #[id number], 154.94, cm, 04/22/20 13:58:00 CDT, Height, 59.091, kg, 04/22/20 13:58:00 CDT, Weight diazepam 5 2020-1 Yes 5 mg = 1 Mem oria mg oral 1-03 tab, PO, l tablet 18:18: TID, # 90 Broderick n 00 tab, 2 Refill(s), Pharmacy: [facility] #[id number], 154.94, cm, 04/22/20 13:58:00 CDT, Height, 59.091, kg, 04/22/20 13:58:00 CDT, Weight diazepam 5 2020-1 Yes 5 mg = 1 Mem oria mg oral 1-03 tab, PO, l tablet 18:18: TID, # 90 Broderick n 00 tab, 2 Refill(s), [id number], 154.94, cm, 04/22/20 13:58:00 CDT, Height, 59.091, kg, 04/22/20 13:58:00 CDT, Weight diazepam 5 2020-1 Yes 5 mg = 1 Mem oria mg oral 1-03 tab, PO, l tablet 18:18: TID, # 90 Broderick n 00 tab, 2 Refill(s), Pharmacy: [facility] #[id number], 154.94, cm, 04/22/20 13:58:00 CDT, Height, 59.091, kg, 04/22/20 13:58:00 CDT, Weight diazepam 5 2020-1 Yes 5 mg = 1 Mem oria mg oral 1-03 tab, PO, l tablet 18:18: TID, # 90 Broderick n 00 tab, 2 Refill(s), Pharmacy: [facility] #[id number], 154.94, cm, 04/22/20 13:58:00 CDT, Height, 59.091, kg, 04/22/20 13:58:00 CDT, Weight nortriptyli 2020-0 Yes 50 mg = 1 M emoria ne 50 mg 9-03 cap, PO, l oral 19:11: Bedtime, # [facility] capsule 00 30 cap, 4 Refill(s), Pharmacy: [facility] #[id number], 154.94, cm, 04/22/20 13:58:00 CDT, Height, 59.091, kg, 04/22/20 13:58:00 CDT, Weight nortriptyli 2020-0 Yes 50 mg = 1 M emoria ne 50 mg 9-03 cap, PO, l oral 19:11: Bedtime, # [facility] capsule 00 30 cap, 4 Refill(s), Pharmacy: [facility] #[id number], 154.94, cm, 04/22/20 13:58:00 CDT, Height, 59.091, kg, 04/22/20 13:58:00 CDT, Weight nortriptyli 2020-0 Yes 50 mg = 1 M emoria ne 50 mg 9-03 cap, PO, l oral 19:11: Bedtime, # [facility] capsule 00 30 cap, 4 Refill(s), Pharmacy: [facility] #[id number], 154.94, cm, 04/22/20 13:58:00 CDT, Height, 59.091, kg, 04/22/20 13:58:00 CDT, Weight nortriptyli 2020-0 Yes 50 mg = 1 M emoria ne 50 mg 9-03 cap, PO, l oral 19:11: Bedtime, # [facility] capsule 00 30 cap, 4 Refill(s), Pharmacy: [facility] #[id number], 154.94, cm, 04/22/20 13:58:00 CDT, Height, 59.091, kg, 04/22/20 13:58:00 CDT, Weight nortriptyli 2020-0 Yes 50 mg = 1 M emoria ne 50 mg 9-03 cap, PO, l oral 19:11: Bedtime, # [facility] capsule 00 30 cap, 4 Refill(s), Pharmacy: [facility] #[id number], 154.94, cm, 04/22/20 13:58:00 CDT, Height, 59.091, kg, 04/22/20 13:58:00 CDT, Weight nortriptyli 2020-0 Yes 50 mg = 1 M emoria ne 50 mg 9-03 cap, PO, l oral 19:11: Bedtime, # [facility] capsule 00 30 cap, 4 Refill(s), Pharmacy: [facility] #[id number], 154.94, cm, 04/22/20 13:58:00 CDT, Height, 59.091, kg, 04/22/20 13:58:00 CDT, Weight nortriptyli 2020-0 Yes 50 mg = 1 M emoria ne 50 mg 9-03 cap, PO, l oral 19:11: Bedtime, # [facility] capsule 00 30 cap, 4 Refill(s), Pharmacy: [facility] #[id number], 154.94, cm, 04/22/20 13:58:00 CDT, Height, 59.091, kg, 04/22/20 13:58:00 CDT, Weight nortriptyli 2020-0 Yes 50 mg = 1 M emoria ne 50 mg 9-03 cap, PO, l oral 19:11: Bedtime, # [facility] capsule 00 30 cap, 4 Refill(s), [id number], 154.94, cm, 04/22/20 13:58:00 CDT, Height, 59.091, kg, 04/22/20 13:58:00 CDT, Weight nortriptyli 2020-0 Yes 50 mg = 1 M emoria ne 50 mg 9-03 cap, PO, l oral 19:11: Bedtime, # [facility] capsule 00 30 cap, 4 Refill(s), Pharmacy: [facility] #[id number], 154.94, cm, 04/22/20 13:58:00 CDT, Height, 59.091, kg, 04/22/20 13:58:00 CDT, Weight nortriptyli 2020-0 Yes 50 mg = 1 M emoria ne 50 mg 9-03 cap, PO, l oral 19:11: Bedtime, # [facility] capsule 00 30 cap, 4 Refill(s), Pharmacy: [facility] #[id number], 154.94, cm, 04/22/20 13:58:00 CDT, Height, 59.091, kg, 04/22/20 13:58:00 CDT, Weight nortriptyli 2020-0 Yes 50 mg = 1 M emoria ne 50 mg 9-03 cap, PO, l oral 19:11: Bedtime, # [facility] capsule 00 30 cap, 4 Refill(s), Pharmacy: [facility] #[id number], 154.94, cm, 04/22/20 13:58:00 CDT, Height, 59.091, kg, 04/22/20 13:58:00 CDT, Weight nortriptyli 2020-0 Yes 50 mg = 1 M emoria ne 50 mg 9-03 cap, PO, l oral 19:11: Bedtime, # [facility] capsule 00 30 cap, 4 Refill(s), [id number], 154.94, cm, 04/22/20 13:58:00 CDT, Height, 59.091, kg, 04/22/20 13:58:00 CDT, Weight nortriptyli 2020-0 Yes 50 mg = 1 M emoria ne 50 mg 9-03 cap, PO, l oral 19:11: Bedtime, # [facility] capsule 00 30 cap, 4 Refill(s), Pharmacy: [facility] #[id number], 154.94, cm, 04/22/20 13:58:00 CDT, Height, 59.091, kg, 04/22/20 13:58:00 CDT, Weight nortriptyli 2020-0 Yes 50 mg = 1 M emoria ne 50 mg 9-03 cap, PO, l oral 19:11: Bedtime, # [facility] capsule 00 30 cap, 4 Refill(s), Pharmacy: [facility] #[id number], 154.94, cm, 04/22/20 13:58:00 CDT, Height, 59.091, kg, 04/22/20 13:58:00 CDT, Weight nortriptyli 2020-0 Yes 50 mg = 1 M emoria ne 50 mg 9-03 cap, PO, l oral 19:11: Bedtime, # [facility] capsule 00 30 cap, 4 Refill(s), Pharmacy: [facility] #[id number], 154.94, cm, 04/22/20 13:58:00 CDT, Height, 59.091, kg, 04/22/20 13:58:00 CDT, Weight nortriptyli 2020-0 Yes 50 mg = 1 M emoria ne 50 mg 9-03 cap, PO, l oral 19:11: Bedtime, # [facility] capsule 00 30 cap, 4 Refill(s), Pharmacy: [facility] #[id number], 154.94, cm, 04/22/20 13:58:00 CDT, Height, 59.091, kg, 04/22/20 13:58:00 CDT, Weight nortriptyli 2020-0 Yes 50 mg = 1 M emoria ne 50 mg 9-03 cap, PO, l oral 19:11: Bedtime, # [facility] capsule 00 30 cap, 4 Refill(s), Pharmacy: [facility] #[id number], 154.94, cm, 04/22/20 13:58:00 CDT, Height, 59.091, kg, 04/22/20 13:58:00 CDT, Weight nortriptyli 2020-0 Yes 50 mg = 1 M emoria ne 50 mg 9-03 cap, PO, l oral 19:11: Bedtime, # [facility] capsule 00 30 cap, 4 Refill(s), Pharmacy: [facility] #[id number], 154.94, cm, 04/22/20 13:58:00 CDT, Height, 59.091, kg, 04/22/20 13:58:00 CDT, Weight diazepam 5 2020-0 Yes 5 mg = 1 Mem oria mg oral 8-04 tab, PO, l tablet 20:55: TID, # 90 [place] n 00 tab, 2 Refill(s), Pharmacy: [facility] #[id number], 152.4, cm, 01/21/20 14:21:00 CDT, Height, 57.727, kg, 01/21/20 14:21:00 CDT, Weight diazepam 5 2020-0 Yes 5 mg = 1 Mem o[facility] mg oral 8-04 tab, PO, l tablet 20:55: TID, # 90 Broderick n 00 tab, 2 Refill(s), Pharmacy: [facility] #[id number], 152.4, cm, 01/21/20 14:21:00 CDT, Height, 57.727, kg, 01/21/20 14:21:00 CDT, Weight diazepam 5 2020-0 Yes 5 mg = 1 Mem [facility] mg oral 8-04 tab, PO, l tablet 20:55: TID, # 90 Broderick n 00 tab, 2 Refill(s), Pharmacy: [facility] #[id number], 152.4, cm, 01/21/20 14:21:00 CDT, Height, 57.727, kg, 01/21/20 14:21:00 CDT, Weight diazepam 5 2020-0 Yes 5 mg = 1 Mem [facility] mg oral 8-04 tab, PO, l tablet 20:55: TID, # 90 Broderick n 00 tab, 2 Refill(s), Pharmacy: [facility] #[id number], 152.4, cm, 01/21/20 14:21:00 CDT, Height, 57.727, kg, 01/21/20 14:21:00 CDT, Weight diazepam 5 2020-0 Yes 5 mg = 1 Mem [facility] mg oral 8-04 tab, PO, l tablet 20:55: TID, # 90 Broderick n 00 tab, 2 Refill(s), Pharmacy: [facility] #[id number], 152.4, cm, 01/21/20 14:21:00 CDT, Height, 57.727, kg, 01/21/20 14:21:00 CDT, Weight diazepam 5 2020-0 Yes 5 mg = 1 Mem [facility] mg oral 8-04 tab, PO, l tablet 20:55: TID, # 90 Broderick n 00 tab, 2 Refill(s), Pharmacy: [facility] #[id number], 152.4, cm, 01/21/20 14:21:00 CDT, Height, 57.727, kg, 01/21/20 14:21:00 CDT, Weight diazepam 5 2020-0 Yes 5 mg = 1 Mem [facility] mg oral 8-04 tab, PO, l tablet 20:55: TID, # 90 Broderick n 00 tab, 2 Refill(s), Pharmacy: [facility] #[id number], 152.4, cm, 01/21/20 14:21:00 CDT, Height, 57.727, kg, 01/21/20 14:21:00 CDT, Weight diazepam 5 2020-0 Yes 5 mg = 1 Mem [facility] mg oral 8-04 tab, PO, l tablet 20:55: TID, # 90 Broderick n 00 tab, 2 Refill(s), Pharmacy: [facility] #[id number], 152.4, cm, 01/21/20 14:21:00 CDT, Height, 57.727, kg, 01/21/20 14:21:00 CDT, Weight diazepam 5 2020-0 Yes 5 mg = 1 Mem [facility] mg oral 8-04 tab, PO, l tablet 20:55: TID, # 90 Broderick n 00 tab, 2 Refill(s), Pharmacy: [facility] #[id number], 152.4, cm, 01/21/20 14:21:00 CDT, Height, 57.727, kg, 01/21/20 14:21:00 CDT, Weight diazepam 5 2020-0 Yes 5 mg = 1 Mem [facility] mg oral 8-04 tab, PO, l tablet 20:55: TID, # 90 Broderick n 00 tab, 2 Refill(s), Pharmacy: [facility] #[id number], 152.4, cm, 01/21/20 14:21:00 CDT, Height, 57.727, kg, 01/21/20 14:21:00 CDT, Weight diazepam 5 2020-0 Yes 5 mg = 1 Mem [facility] mg oral 8-04 tab, PO, l tablet 20:55: TID, # 90 Broderick n 00 tab, 2 Refill(s), Pharmacy: [facility] #[id number], 152.4, cm, 01/21/20 14:21:00 CDT, Height, 57.727, kg, 01/21/20 14:21:00 CDT, Weight diazepam 5 2020-0 Yes 5 mg = 1 Mem [facility] mg oral 8-04 tab, PO, l tablet 20:55: TID, # 90 Broderick n 00 tab, 2 Refill(s), Pharmacy: [facility] #[id number], 152.4, cm, 01/21/20 14:21:00 CDT, Height, 57.727, kg, 01/21/20 14:21:00 CDT, Weight diazepam 5 2020-0 Yes 5 mg = 1 Mem [facility] mg oral 8-04 tab, PO, l tablet 20:55: TID, # 90 Broderick n 00 tab, 2 Refill(s), Pharmacy: [facility] #[id number], 152.4, cm, 01/21/20 14:21:00 CDT, Height, 57.727, kg, 01/21/20 14:21:00 CDT, Weight diazepam 5 2020-0 Yes 5 mg = 1 [facility] mg oral 8-04 tab, PO, l tablet 20:55: TID, # 90 Broderick n 00 tab, 2 Refill(s), Pharmacy: [facility] #[id number], 152.4, cm, 01/21/20 14:21:00 CDT, Height, 57.727, kg, 01/21/20 14:21:00 CDT, Weight diazepam 5 2020-0 Yes 5 mg = 1 [facility] mg oral 8-04 tab, PO, l tablet 20:55: TID, # 90 Broderick n 00 tab, 2 Refill(s), Pharmacy: [facility] #[id number], 152.4, cm, 01/21/20 14:21:00 CDT, Height, 57.727, kg, 01/21/20 14:21:00 CDT, Weight diazepam 5 2020-0 Yes 5 mg = 1 Mem [facility] mg oral 8-04 tab, PO, l tablet 20:55: TID, # 90 Broderick n 00 tab, 2 Refill(s), Pharmacy: [facility] #[id number], 152.4, cm, 01/21/20 14:21:00 CDT, Height, 57.727, kg, 01/21/20 14:21:00 CDT, Weight diazepam 5 2020-0 Yes 5 mg = 1 Mem [facility] mg oral 8-04 tab, PO, l tablet 20:55: TID, # 90 Broderick n 00 tab, 2 Refill(s), Pharmacy: [facility] #[id number], 152.4, cm, 01/21/20 14:21:00 CDT, Height, 57.727, kg, 01/21/20 14:21:00 CDT, Weight diazepam 5 2020-0 Yes 5 mg = 1 Mem [facility] mg oral 8-04 tab, PO, l tablet 20:55: TID, # 90 Broderick n 00 tab, 2 Refill(s), Pharmacy: [facility] #[id number], 152.4, cm, 01/21/20 14:21:00 CDT, Height, 57.727, kg, 01/21/20 14:21:00 CDT, Weight nortriptyli 2020-0 Yes 25 mg = 1 M emoria ne 25 mg 6-03 cap, PO, l oral 19:49: Bedtime, # [facility] capsule 00 30 cap, 2 Refill(s), Pharmacy: [facility] #[id number] nortriptyli 2020-0 Yes 25 mg = 1 M emoria ne 25 mg 6-03 cap, PO, l oral 19:49: Bedtime, # [facility] capsule 00 30 cap, 2 Refill(s), Pharmacy: [facility] #[id number] nortriptyli 2020-0 Yes 25 mg = 1 M emoria ne 25 mg 6-03 cap, PO, l oral 19:49: Bedtime, # [facility] capsule 00 30 cap, 2 Refill(s), Pharmacy: [facility] #[id number] nortriptyli 2020-0 Yes 25 mg = 1 M emoria ne 25 mg 6-03 cap, PO, l oral 19:49: Bedtime, # [facility] capsule 00 30 cap, 2 Refill(s), Pharmacy: [facility] #[id number] nortriptyli 2020-0 Yes 25 mg = 1 M emoria ne 25 mg 6-03 cap, PO, l oral 19:49: Bedtime, # [place] capsule 00 30 cap, 2 Refill(s), Pharmacy: [facility] #[id number] nortriptyli 2020-0 Yes 25 mg = 1 M emoria ne 25 mg 6-03 cap, PO, l oral 19:49: Bedtime, # [facility] capsule 00 30 cap, 2 Refill(s), Pharmacy: [facility] #[id number] nortriptyli 2020-0 Yes 25 mg = 1 M emoria ne 25 mg 6-03 cap, PO, l oral 19:49: Bedtime, # [facility] capsule 00 30 cap, 2 Refill(s), Pharmacy: [facility] #[id number] nortriptyli 2020-0 Yes 25 mg = 1 M emoria ne 25 mg 6-03 cap, PO, l oral 19:49: Bedtime, # [facility] capsule 00 30 cap, 2 Refill(s), Pharmacy: [facility] #[id number] nortriptyli 2020-0 Yes 25 mg = 1 M emoria ne 25 mg 6-03 cap, PO, l oral 19:49: Bedtime, # [facility] capsule 00 30 cap, 2 Refill(s), Pharmacy: [facility] #[id number] nortriptyli 2020-0 Yes 25 mg = 1 M emoria ne 25 mg 6-03 cap, PO, l oral 19:49: Bedtime, # [facility] capsule 00 30 cap, 2 Refill(s), Pharmacy: [facility] #[id number] nortriptyli 2020-0 Yes 25 mg = 1 M emoria ne 25 mg 6-03 cap, PO, l oral 19:49: Bedtime, # [facility] capsule 00 30 cap, 2 Refill(s), [id number] nortriptyli 2020-0 Yes 25 mg = 1 M emoria ne 25 mg 6-03 cap, PO, l oral 19:49: Bedtime, # [facility] capsule 00 30 cap, 2 Refill(s), [facility][id number] nortriptyli 2020-0 Yes 25 mg = 1 M emoria ne 25 mg 6-03 cap, PO, l oral 19:49: Bedtime, # [facility] capsule 00 30 cap, 2 Refill(s), [facility][id number] nortriptyli 2020-0 Yes 25 mg = 1 M em[place] ne 25 mg 6-03 cap, PO, l oral 19:49: Bedtime, # [facility] capsule 00 30 cap, 2 Refill(s), [facility][id number] nortriptyli 2020-0 Yes 25 mg = 1 M emoria ne 25 mg 6-03 cap, PO, l oral 19:49: Bedtime, # [facility] capsule 00 30 cap, 2 Refill(s), [facility][id number] nortriptyli 2020-0 Yes 25 mg = 1 M emoria ne 25 mg 6-03 cap, PO, l oral 19:49: Bedtime, # [facility] capsule 00 30 cap, 2 Refill(s), [facility][id number] nortriptyli 2020-0 Yes 25 mg = 1 M emoria ne 25 mg 6-03 cap, PO, l oral 19:49: Bedtime, # [facility] capsule 00 30 cap, 2 Refill(s), [facility][id number] nortriptyli 2020-0 Yes 25 mg = 1 M emoria ne 25 mg 6-03 cap, PO, l oral 19:49: Bedtime, # [facility] capsule 00 30 cap, 2 Refill(s), [facility][id number] diazepam 5 2020-0 Yes 5 mg = 1 Mem [facility] mg oral 5-06 tab, PO, l tablet 22:37: TID, # 90 Broderick n 00 tab, 2 Refill(s), Pharmacy: [facility] #[id number] diazepam 5 2020-0 Yes 5 mg = 1 Mem [facility] mg oral 5-06 tab, PO, l tablet 22:37: TID, # 90 Broderick n 00 tab, 2 Refill(s), Pharmacy: [facility] #[id number] diazepam 5 2020-0 Yes 5 mg = 1 Mem [facility] mg oral 5-06 tab, PO, l tablet 22:37: TID, # 90 Broderick n 00 tab, 2 Refill(s), Pharmacy: [facility] #[id number] diazepam 5 2020-0 Yes 5 mg = 1 Mem [facility] mg oral 5-06 tab, PO, l tablet 22:37: TID, # 90 Broderick n 00 tab, 2 Refill(s), Pharmacy: [facility] #[id number] diazepam 5 2020-0 Yes 5 mg = 1 Mem [facility] mg oral 5-06 tab, PO, l tablet 22:37: TID, # 90 Broderick n 00 tab, 2 Refill(s), Pharmacy: [facility] #[id number] diazepam 5 2020-0 Yes 5 mg = 1 Mem [facility] mg oral 5-06 tab, PO, l tablet 22:37: TID, # 90 Broderick n 00 tab, 2 Refill(s), Pharmacy: [facility] #[id number] diazepam 5 2020-0 Yes 5 mg = 1 Mem o[facility] mg oral 5-06 tab, PO, l tablet 22:37: TID, # 90 Broderick n 00 tab, 2 Refill(s), Pharmacy: [facility] #[id number] diazepam 5 2020-0 Yes 5 mg = 1 Mem [facility] mg oral 5-06 tab, PO, l tablet 22:37: TID, # 90 Broderick n 00 tab, 2 Refill(s), Pharmacy: [facility] #[id number] diazepam 5 2020-0 Yes 5 mg = 1 Mem [facility] mg oral 5-06 tab, PO, l tablet 22:37: TID, # 90 Broderick n 00 tab, 2 Refill(s), Pharmacy: [facility] #[id number] diazepam 5 2020-0 Yes 5 mg = 1 Mem [facility] mg oral 5-06 tab, PO, l tablet 22:37: TID, # 90 Broderick n 00 tab, 2 Refill(s), Pharmacy: [facility] #[id number] diazepam 5 2020-0 Yes 5 mg = 1 Mem [facility] mg oral 5-06 tab, PO, l tablet 22:37: TID, # 90 Broderick n 00 tab, 2 Refill(s), Pharmacy: [facility] #[id number] diazepam 5 2020-0 Yes 5 mg = 1 Mem [facility] mg oral 5-06 tab, PO, l tablet 22:37: TID, # 90 Broderick n 00 tab, 2 Refill(s), Pharmacy: [facility] #[id number] diazepam 5 2020-0 Yes 5 mg = 1 Mem [facility] mg oral 5-06 tab, PO, l tablet 22:37: TID, # 90 Broderick n 00 tab, 2 Refill(s), Pharmacy: [facility] #[id number] diazepam 5 2020-0 Yes 5 mg = 1 Mem [facility] mg oral 5-06 tab, PO, l tablet 22:37: TID, # 90 Broderick n 00 tab, 2 Refill(s), Pharmacy: [facility] #[id number] diazepam 5 2020-0 Yes 5 mg = 1 Mem [facility] mg oral 5-06 tab, PO, l tablet 22:37: TID, # 90 Broderick n 00 tab, 2 Refill(s), Pharmacy: [facility] #[id number] diazepam 5 2020-0 Yes 5 mg = 1 Mem [facility] mg oral 5-06 tab, PO, l tablet 22:37: TID, # 90 Broderick n 00 tab, 2 Refill(s), Pharmacy: [facility] #[id number] diazepam 5 2020-0 Yes 5 mg = 1 Mem [facility] mg oral 5-06 tab, PO, l tablet 22:37: TID, # 90 Broderick n 00 tab, 2 Refill(s), Pharmacy: [facility] #[id number] diazepam 5 2020-0 Yes 5 mg = 1 Mem [facility] mg oral 5-06 tab, PO, l tablet 22:37: TID, # 90 Broderick n 00 tab, 2 Refill(s), [facility][id number] nortriptyli 2020-0 Yes 25 mg = 1 M emoria ne 25 mg 1-09 cap, PO, l oral 21:25: Bedtime, # [facility] capsule 09 30 cap, 2 Refill(s), [facility][id number] nortriptyli 2020-0 Yes 25 mg = 1 M emoria ne 25 mg 1-09 cap, PO, l oral 21:25: Bedtime, # [facility] capsule 09 30 cap, 2 Refill(s), [facility][id number] nortriptyli 2020-0 Yes 25 mg = 1 M emoria ne 25 mg 1-09 cap, PO, l oral 21:25: Bedtime, # [facility] capsule 09 30 cap, 2 Refill(s), [facility][id number] nortriptyli 2020-0 Yes 25 mg = 1 M emoria ne 25 mg 1-09 cap, PO, l oral 21:25: Bedtime, # [facility] capsule 09 30 cap, 2 Refill(s), [facility] #[id number] nortriptyli 2020-0 Yes 25 mg = 1 M emoria ne 25 mg 1-09 cap, PO, l oral 21:25: Bedtime, # [facility] capsule 09 30 cap, 2 Refill(s), [facility] #[id number] nortriptyli 2020-0 Yes 25 mg = 1 M emoria ne 25 mg 1-09 cap, PO, l oral 21:25: Bedtime, # [facility] capsule 09 30 cap, 2 Refill(s), [facility] #[id number] nortriptyli 2020-0 Yes 25 mg = 1 M emoria ne 25 mg 1-09 cap, PO, l oral 21:25: Bedtime, # [facility] capsule 09 30 cap, 2 Refill(s), [facility][id number] nortriptyli 2020-0 Yes 25 mg = 1 M emoria ne 25 mg 1-09 cap, PO, l oral 21:25: Bedtime, # [facility] capsule 09 30 cap, 2 Refill(s), [facility][id number] nortriptyli 2020-0 Yes 25 mg = 1 M emoria ne 25 mg 1-09 cap, PO, l oral 21:25: Bedtime, # [facility] capsule 09 30 cap, 2 Refill(s), [facility][id number] nortriptyli 2020-0 Yes 25 mg = 1 M emoria ne 25 mg 1-09 cap, PO, l oral 21:25: Bedtime, # [facility] capsule 09 30 cap, 2 Refill(s), [facility][id number] nortriptyli 2020-0 Yes 25 mg = 1 M emoria ne 25 mg 1-09 cap, PO, l oral 21:25: Bedtime, # [facility] capsule 09 30 cap, 2 Refill(s), [facility][id number] nortriptyli 2020-0 Yes 25 mg = 1 M emoria ne 25 mg 1-09 cap, PO, l oral 21:25: Bedtime, # [facility] capsule 09 30 cap, 2 Refill(s), [facility][id number] nortriptyli 2020-0 Yes 25 mg = 1 M emoria ne 25 mg 1-09 cap, PO, l oral 21:25: Bedtime, # [facility] capsule 09 30 cap, 2 Refill(s), [facility][id number] nortriptyli 2020-0 Yes 25 mg = 1 M emoria ne 25 mg 1-09 cap, PO, l oral 21:25: Bedtime, # [facility] capsule 09 30 cap, 2 Refill(s), [facility][id number] nortriptyli 2020-0 Yes 25 mg = 1 M emoria ne 25 mg 1-09 cap, PO, l oral 21:25: Bedtime, # [facility] capsule 09 30 cap, 2 Refill(s), [facility][id number] nortriptyli 2020-0 Yes 25 mg = 1 M emoria ne 25 mg 1-09 cap, PO, l oral 21:25: Bedtime, # [facility] capsule 09 30 cap, 2 Refill(s), [facility]: [facility] #[id number] nortriptyli 2020-0 Yes 25 mg = 1 M emoria ne 25 mg 1-09 cap, PO, l oral 21:25: Bedtime, # [facility] capsule 09 30 cap, 2 Refill(s), [facility][id number] nortriptyli 2020-0 Yes 25 mg = 1 M emoria ne 25 mg 1-09 cap, PO, l oral 21:25: Bedtime, # [facility] capsule 09 30 cap, 2 Refill(s), [facility][id number] nortriptyli 2020-0 Yes 10 mg = 1 M emoria ne 10 mg 1-09 cap, PO, l oral 21:25: Bedtime, # [facility] capsule 04 30 cap, 2 Refill(s), [facility][id number] nortriptyli 2020-0 Yes 10 mg = 1 M emoria ne 10 mg 1-09 cap, PO, l oral 21:25: Bedtime, # [facility] capsule 04 30 cap, 2 Refill(s), [facility][id number] nortriptyli 2020-0 Yes 10 mg = 1 M emoria ne 10 mg 1-09 cap, PO, l oral 21:25: Bedtime, # [facility] capsule 04 30 cap, 2 Refill(s), [facility] #[id number] nortriptyli 2020-0 Yes 10 mg = 1 M emoria ne 10 mg 1-09 cap, PO, l oral 21:25: Bedtime, # [facility] capsule 04 30 cap, 2 Refill(s), [facility] #[id number] nortriptyli 2020-0 Yes 10 mg = 1 M emoria ne 10 mg 1-09 cap, PO, l oral 21:25: Bedtime, # [facility] capsule 04 30 cap, 2 Refill(s), [facility][id number] nortriptyli 2020-0 Yes 10 mg = 1 M emoria ne 10 mg 1-09 cap, PO, l oral 21:25: Bedtime, # [facility] capsule 04 30 cap, 2 Refill(s), [facility]: [facility] #[id number] nortriptyli 2020-0 Yes 10 mg = 1 M emoria ne 10 mg 1-09 cap, PO, l oral 21:25: Bedtime, # [place] capsule 04 30 cap, 2 Refill(s), Pharmacy: [facility] #[id number] nortriptyli 2020-0 Yes 10 mg = 1 M emoria ne 10 mg 1-09 cap, PO, l oral 21:25: Bedtime, # [place] capsule 04 30 cap, 2 Refill(s), [facility][id number] nortriptyli 2020-0 Yes 10 mg = 1 M emoria ne 10 mg 1-09 cap, PO, l oral 21:25: Bedtime, # [facility] capsule 04 30 cap, 2 Refill(s), [facility][id number] nortriptyli 2020-0 Yes 10 mg = 1 M emoria ne 10 mg 1-09 cap, PO, l oral 21:25: Bedtime, # [facility] capsule 04 30 cap, 2 Refill(s), [facility][id number] nortriptyli 2020-0 Yes 10 mg = 1 M emoria ne 10 mg 1-09 cap, PO, l oral 21:25: Bedtime, # [place] capsule 04 30 cap, 2 Refill(s), [facility][id number] nortriptyli 2020-0 Yes 10 mg = 1 M emoria ne 10 mg 1-09 cap, PO, l oral 21:25: Bedtime, # [facility] capsule 04 30 cap, 2 Refill(s), [facility][id number] nortriptyli 2020-0 Yes 10 mg = 1 M emoria ne 10 mg 1-09 cap, PO, l oral 21:25: Bedtime, # [place] capsule 04 30 cap, 2 Refill(s), [facility] #[id number] nortriptyli 2020-0 Yes 10 mg = 1 M emoria ne 10 mg 1-09 cap, PO, l oral 21:25: Bedtime, # [facility] capsule 04 30 cap, 2 Refill(s), [facility]: [facility] #[id number] nortriptyli 2020-0 Yes 10 mg = 1 M emoria ne 10 mg 1-09 cap, PO, l oral 21:25: Bedtime, # [place] capsule 04 30 cap, 2 Refill(s), Pharmacy: [facility] #[id number] nortriptyli 2020-0 Yes 10 mg = 1 M em[place] ne 10 mg 1-09 cap, PO, l oral 21:25: Bedtime, # [facility] capsule 04 30 cap, 2 Refill(s), Pharmacy: [facility] #[id number] nortriptyli 2020-0 Yes 10 mg = 1 M em[place] ne 10 mg 1-09 cap, PO, l oral 21:25: Bedtime, # [place] capsule 04 30 cap, 2 Refill(s), Pharmacy: [facility] #[id number] nortriptyli 2020-0 Yes 10 mg = 1 M em[place] ne 10 mg 1-09 cap, PO, l oral 21:25: Bedtime, # [facility] capsule 04 30 cap, 2 Refill(s), Pharmacy: [facility] #[id number] diazepam 5 2020-0 Yes 5 mg = [...] cap, PO, l oral 21:55: Bedtime, # [facility] capsule 04 30 cap, 2 Refill(s), Pharmacy: [facility] #[id number] nortriptyli 2018-08 Yes 25 mg = 1 M emoria ne 25 mg 0-10 cap, PO, l oral 21:55: Bedtime, # [place] capsule 04 30 cap, 2 Refill(s), Pharmacy: [facility] #[id number] nortriptyli 2018-08 Yes 25 mg = 1 M emoria ne 25 mg 0-10 cap, PO, l oral 21:55: Bedtime, # [facility] capsule 04 30 cap, 2 Refill(s), [facility][id number] nortriptyli 2018-08 Yes 25 mg = 1 M emoria ne 25 mg 0-10 cap, PO, l oral 21:55: Bedtime, # [facility] capsule 04 30 cap, 2 Refill(s), Pharmacy: [facility] #[id number] nortriptyli 2018-08 Yes 25 mg = 1 M emoria ne 25 mg 0-10 cap, PO, l oral 21:55: Bedtime, # [facility] capsule 04 30 cap, 2 Refill(s), [facility] #[id number] nortriptyli 2018-08 Yes 25 mg = 1 M emoria ne 25 mg 0-10 cap, PO, l oral 21:55: Bedtime, # [facility] capsule 04 30 cap, 2 Refill(s), [facility][id number] nortriptyli 2018-08 Yes 25 mg = 1 M emoria ne 25 mg 0-10 cap, PO, l oral 21:55: Bedtime, # [place] capsule 04 30 cap, 2 Refill(s), Pharmacy: [id number] nortriptyli 2018-08 Yes 25 mg = 1 M emoria ne 25 mg 0-10 cap, PO, l oral 21:55: Bedtime, # [facility] capsule 04 30 cap, 2 Refill(s), Pharmacy: [facility] #[id number] noriptyli 2018-08 Yes 25 mg = 1 M emoria ne 25 mg 0-10 cap, PO, l oral 21:55: Bedtime, # [facility] capsule 04 30 cap, 2 Refill(s), Pharmacy: [facility][id number] [facility] Yes 25 mg = 1 M emoria ne 25 mg 0-10 cap, PO, l oral 21:55: Bedtime, # [facility] capsule 04 30 cap, 2 Refill(s), Pharmacy: [facility] #[id number] [facility] Yes 25 mg = 1 M emoria ne 25 mg 0-10 cap, PO, l oral 21:55: Bedtime, # [facility] capsule 04 30 cap, 2 Refill(s), Pharmacy: [facility] #[id number] noriptyl 2018-08 Yes 25 mg = 1 M emoria ne 25 mg 0-10 cap, PO, l oral 21:55: Bedtime, # [facility] capsule 04 30 cap, 2 Refill(s), Pharmacy: [facility] #[id number] [facility] Yes 25 mg = 1 M emoria ne 25 mg 0-10 cap, PO, l oral 21:55: Bedtime, # [facility] capsule 04 30 cap, 2 Refill(s), Pharmacy: [facility] #[id number] noriptyli 2018-08 Yes 25 mg = 1 M emoria ne 25 mg 0-10 cap, PO, l oral 21:55: Bedtime, # [facility] capsule 04 30 cap, 2 Refill(s), Pharmacy: [facility] #[id number] nortriptyl 2018-08 Yes 25 mg = 1 M emoria ne 25 mg 0-10 cap, PO, l oral 21:55: Bedtime, # [facility] capsule 04 30 cap, 2 Refill(s), Pharmacy: [facility] #[id number] noriptyl 2019-1 Yes 25 mg = 1 M emoria ne 25 mg 0-10 cap, PO, l oral 21:55: Bedtime, # [facility] capsule 04 30 cap, 2 Refill(s), [id number] noriptyli 2018-08 Yes 25 mg = 1 M emoria ne 25 mg 0-10 cap, PO, l oral 21:55: Bedtime, # [facility] capsule 04 30 cap, 2 Refill(s), [id number] noriptyli 2018-08 Yes 25 mg = 1 M emoria ne 25 mg 0-10 cap, PO, l oral 21:55: Bedtime, # [facility] capsule 04 30 cap, 2 Refill(s), [id number] noriptyli 2018-08 Yes 10 mg = 1 M emoria ne 10 mg 0-10 cap, PO, l oral 21:55: Bedtime, # [facility] capsule 00 30 cap, 2 Refill(s), [id number] noriptyli 2018-08 Yes 10 mg = 1 M emoria ne 10 mg 0-10 cap, PO, l oral 21:55: Bedtime, # [facility] capsule 00 30 cap, 2 Refill(s), [id number] noriptyli 2018-08 Yes 10 mg = 1 M emoria ne 10 mg 0-10 cap, PO, l oral 21:55: Bedtime, # [facility] capsule 00 30 cap, 2 Refill(s), [facility][id number] noriptyli 2018-08 Yes 10 mg = 1 M emoria ne 10 mg 0-10 cap, PO, l oral 21:55: Bedtime, # [facility] capsule 00 30 cap, 2 Refill(s), [id number] nortriptyli 2018-08 Yes 10 mg = 1 M emoria ne 10 mg 0-10 cap, PO, l oral 21:55: Bedtime, # [facility] capsule 00 30 cap, 2 Refill(s), [facility][id number] nortriptyli 2018-08 Yes 10 mg = 1 M emoria ne 10 mg 0-10 cap, PO, l oral 21:55: Bedtime, # [facility] capsule 00 30 cap, 2 Refill(s), [id number] nortriptyli 2018-08 Yes 10 mg = 1 M emoria ne 10 mg 0-10 cap, PO, l oral 21:55: Bedtime, # [facility] capsule 00 30 cap, 2 Refill(s), [facility][id number] noriptyli 2018-08 Yes 10 mg = 1 M emoria ne 10 mg 0-10 cap, PO, l oral 21:55: Bedtime, # [facility] capsule 00 30 cap, 2 Refill(s), [facility][id number] noriptyli 2018-08 Yes 10 mg = 1 M emoria ne 10 mg 0-10 cap, PO, l oral 21:55: Bedtime, # [facility] capsule 00 30 cap, 2 Refill(s), [id number] noriptyli 2018-08 Yes 10 mg = 1 M emoria ne 10 mg 0-10 cap, PO, l oral 21:55: Bedtime, # [facility] capsule 00 30 cap, 2 Refill(s), [facility][id number] noriptyli 2018-08 Yes 10 mg = 1 M emoria ne 10 mg 0-10 cap, PO, l oral 21:55: Bedtime, # [facility] capsule 00 30 cap, 2 Refill(s), [facility][id number] nortriptyli 2018-08 Yes 10 mg = 1 M emoria ne 10 mg 0-10 cap, PO, l oral 21:55: Bedtime, # [facility] capsule 00 30 cap, 2 Refill(s), [facility] #[id number] nortriptyli 2018-08 Yes 10 mg = 1 M emoria ne 10 mg 0-10 cap, PO, l oral 21:55: Bedtime, # [place] capsule 00 30 cap, 2 Refill(s), Pharmacy: [facility] #[id number] nortriptyli 2018-08 Yes 10 mg = 1 M emoria ne 10 mg 0-10 cap, PO, l oral 21:55: Bedtime, # [facility] capsule 00 30 cap, 2 Refill(s), [facility][id number] nortriptyli 2018-08 Yes 10 mg = 1 M emoria ne 10 mg 0-10 cap, PO, l oral 21:55: Bedtime, # [facility] capsule 00 30 cap, 2 Refill(s), [id number] nortriptyli 2018-08 Yes 10 mg = 1 M emoria ne 10 mg 0-10 cap, PO, l oral 21:55: Bedtime, # [facility] capsule 00 30 cap, 2 Refill(s), Pharmacy: [facility] #[id number] nortriptyli 2018-08 Yes 10 mg = 1 M emoria ne 10 mg 0-10 cap, PO, l oral 21:55: Bedtime, # [facility] capsule 00 30 cap, 2 Refill(s), Pharmacy: [facility] #[id number] nortriptyli 2018-08 Yes 10 mg = 1 M emoria ne 10 mg 0-10 cap, PO, l oral 21:55: Bedtime, # [facility] capsule 00 30 cap, 2 Refill(s), Pharmacy: [facility] #[id number] nortriptyli 2018-08 No 25 mg = 1 [...] cap, PO, l oral 21:54: Bedtime, X [facility] capsule 23 30 day, # 30 cap, 3 Refill(s), given to patient nortriptyli 2018-08 No 25 mg = 1 M emoria ne 25 mg 0-10 cap, PO, l oral 21:54: Bedtime, X [facility] capsule 23 30 day, # 30 cap, [...] cap, PO, l oral 21:54: Bedtime, X [facility] capsule 23 30 day, # 30 cap, [...] cap, PO, l oral 21:54: Bedtime, X [facility] capsule 30 day, # 30 cap, 3 [...] cap, PO, l oral 21:54: Bedtime, X [facility] capsule 23 30 day, # 30 cap, [...] cap, PO, l oral 21:54: Bedtime, X [facility] capsule 23 30 day, # 30 cap, [...] cap, PO, l oral 21:54: Bedtime, X [facility] capsule 23 30 day, # 30 cap, 3 Refill(s), given to patient nortriptyli 2018-08 No 25 mg = 1 M emoria ne 25 mg 0-10 cap, PO, l oral 21:54: Bedtime, X [facility] capsule 23 30 day, # 30 cap, [...] PO, l tablet 21:52: TID, # 90 Rboderick n 37 tab, 2 Refill(s) diazepam 2018-08 [...] Broderick n 37 tab, 2 Refill(s) diazepam 5 2018-1 Yes 5 mg = 1 Mem oria mg oral 0-10 tab, PO, l tablet 21:52: TID, # 90 Broderick n 37 tab, 2 Refill(s) diazepam 5 2018-1 Yes 5 mg = 1 [facility] mg oral 0-10 tab, PO, l tablet 21:52: TID, # 90 Broderick n 37 tab, 2 Refill(s) diazepam 5 2018- Yes 5 mg = 1 [facility] mg oral 0-10 tab, PO, l tablet 21:52: TID, # 90 Broderick n 37 tab, 2 Refill(s) diazepam 5 2018-0 Yes 5 mg [...] 0 l release 19:54: Refill(s) Rose nn diazepam 5 2019-0 Yes 5 mg = [...] capsule 00 30 cap, 3 Refill(s), Pharmacy: [facility] [id number] nortriptyli 2019-0 Yes 25 mg = 1 M emoria ne 25 mg 6-12 cap, PO, l oral 16:43: Bedtime, # [facility] capsule 00 30 cap, 3 Refill(s), Pharmacy: [facility] [id number] nortriptyli 2019- Yes 25 mg = 1 M emoria ne 25 mg 6-12 cap, PO, l oral 16:43: Bedtime, # [facility] capsule 00 30 cap, 3 Refill(s), Pharmacy: [facility] [id number] nortriptyli 2019- Yes 25 mg = 1 M emoria ne 25 mg 6-12 cap, PO, l oral 16:43: Bedtime, # [facility] capsule 00 30 cap, 3 Refill(s), Pharmacy: [facility] [id number] nortriptyli 2018- Yes 25 mg = 1 M emoria ne 25 mg 6-12 cap, PO, l oral 16:43: Bedtime, # [facility] capsule 00 30 cap, 3 Refill(s), Pharmacy: [facility] [id number] nortriptyli 2018- Yes 25 mg = 1 M emoria ne 25 mg 6-12 cap, PO, l oral 16:43: Bedtime, # [facility] capsule 00 30 cap, 3 Refill(s), Pharmacy: [facility] [id number] nortriptyli 2018-0 Yes 25 mg = 1 M emoria ne 25 mg 6-12 cap, PO, l oral 16:43: Bedtime, # [facility] capsule 00 30 cap, 3 Refill(s), Pharmacy: [facility] [id number] nortriptyli 2018- Yes 25 mg = 1 M emoria ne 25 mg 6-12 cap, PO, l oral 16:43: Bedtime, # [facility] capsule 00 30 cap, 3 Refill(s), Pharmacy: [facility] [id number] nortriptyli 2019- Yes 25 mg = 1 M emoria ne 25 mg 6-12 cap, PO, l oral 16:43: Bedtime, # [facility] capsule 00 30 cap, 3 Refill(s), Pharmacy: [facility] [id number] nortriptyli 2019-0 Yes 25 mg = 1 M emoria ne 25 mg 6-12 cap, PO, l oral 16:43: Bedtime, # [facility] capsule 00 30 cap, 3 Refill(s), Pharmacy: [facility] [id number] nortriptyli Yes 25 mg = 1 M emoria ne 25 mg 6-12 cap, PO, l oral 16:43: Bedtime, # [facility] capsule 00 30 cap, 3 Refill(s), Pharmacy: [facility] [place] [address] nortriptyli Yes 25 mg = 1 M emoria ne 25 mg 6-12 cap, PO, l oral 16:43: Bedtime, # [facility] capsule 00 30 cap, 3 Refill(s), Pharmacy: [facility] [place] [address] nortriptyli Yes 25 mg = 1 M emoria ne 25 mg 6-12 cap, PO, l oral 16:43: Bedtime, # [facility] capsule 00 30 cap, 3 Refill(s), Pharmacy: [facility] [place] [address] nortriptyli Yes 25 mg = 1 M emoria ne 25 mg 6-12 cap, PO, l oral 16:43: Bedtime, # [facility] capsule 00 30 cap, 3 Refill(s), Pharmacy: [facility] [place] [address] nortriptyli Yes 25 mg = 1 M emoria ne 25 mg 6-12 cap, PO, l oral 16:43: Bedtime, # [facility] capsule 00 30 cap, 3 Refill(s), Pharmacy: [facility] [place] [address] nortriptyli Yes 25 mg = 1 M emoria ne 25 mg 6-12 cap, PO, l oral 16:43: Bedtime, # [facility] capsule 00 30 cap, 3 Refill(s), Pharmacy: [facility] [place] [address] nortriptyli Yes 25 mg = 1 M emoria ne 25 mg 6-12 cap, PO, l oral 16:43: Bedtime, # [facility] capsule 00 30 cap, 3 Refill(s), Pharmacy: [facility] nortriptyli Yes 25 mg = 1 M emoria ne 25 mg 6-12 cap, PO, l oral 16:43: Bedtime, # [facility] capsule 00 30 cap, 3 Refill(s), Pharmacy: [facility] [place] [address] diazepam 5 2018-0 No 5 mg = 1 Mem oria [...] tab, PO, l tablet 21:56: QID, start October, X 30 day, # 120 tab, [...] cap, PO, l oral 21:56: Bedtime, # [facility] capsule 00 30 cap, 3 Refill(s) diazepam [...] cap, PO, l oral 21:56: Bedtime, # [facility] capsule 00 30 cap, 3 Refill(s) diazepam [...] tab, PO, l tablet 21:56: QID, start October, X 30 day, # 120 tab, [...] cap, PO, l oral 21:56: Bedtime, # [facility] capsule 00 30 cap, 3 Refill(s) diazepam 5 2018-0 No 5 mg = 1 Mem oria mg oral 2-08 tab, PO, l tablet 21:56: QID, october, X 30 day, # 120 tab, 2 Refill(s), other nortriptyli 2019-0 No 10 mg = 1 M emoria ne 10 mg 2-08 cap, PO, l oral 21:56: Bedtime, # [facility] capsule 00 30 cap, 3 Refill(s) diazepam 5 2018-0 No 5 mg = 1 Mem oria [...] tab, PO, l tablet 21:56: QID, start October, X 30 day, # 120 tab, 2 Refill(s), other nortriptyli 2019-0 No 10 mg = 1 M emoria ne 10 mg 2-08 cap, PO, l oral 21:56: Bedtime, # [facility] capsule 00 30 cap, 3 Refill(s) diazepam 5 2019-0 No 5 mg = 1 Mem [facility] mg oral 2-08 tab, PO, l tablet 21:56: QID, october, X 30 day, # 120 tab, 2 Refill(s), other nortriptyli 2019- No 10 mg = 1 M emoria ne 10 mg 2-08 cap, PO, l oral 21:56: Bedtime, # [facility] capsule 00 30 cap, 3 Refill(s) diazepam 5 2018- No 5 mg = 1 [facility] mg oral 2-08 tab, PO, l tablet 21:56: QID, start Roseoctober, X 30 day, # 120 tab, 2 Refill(s), other nortriptyli 2019- No 10 mg = 1 M emoria ne 10 mg 2-08 cap, PO, l oral 21:56: Bedtime, # [facility] capsule 00 30 cap, 3 Refill(s) diazepam 5 No 5 mg = 1 [facility] mg oral 2-08 tab, PO, l tablet 21:56: QID, start Roseoctober, X 30 day, # 120 tab, 2 Refill(s), other nortriptyli 2018- No 10 mg = 1 M emoria ne 10 mg 2-08 cap, PO, l oral 21:56: Bedtime, # [facility] capsule 00 30 cap, 3 Refill(s) diazepam 5 No 5 mg = 1 [facility] mg oral 2-08 tab, PO, l tablet 21:56: QID, start Roseoctober, X 30 day, # 120 tab, 2 Refill(s), other nortriptyli 2018- No 10 mg = 1 M emoria ne 10 mg 2-08 cap, PO, l oral 21:56: Bedtime, # [facility] capsule 00 30 cap, 3 Refill(s) diazepam 5 2018- No 5 mg = 1 [facility] mg oral 2-08 tab, PO, l tablet 21:43: Q6H, PRN [facility] 00 Anxiety, # 60 tab, 0 Refill(s) Aspirin 81 2019-0 Yes 81 mg = 1 Me moria MG Enteric 2-08 tab, PO, l Coated 21:43: Daily, # [facility] Tablet 00 90 tab, 3 Refill(s) Benadryl 2019-0 Yes 0 Memoria 2-08 Refill(s) l 21:43: [facility] 00 diazepam 5 2018-0 No 5 mg = 1 Mem [facility] mg oral 2-08 tab, PO, l tablet 21:43: Q6H, PRN [facility] 00 Anxiety, # 60 tab, 0 Refill(s) [...] tab, PO, l tablet 21:43: Q6H, PRN [facility] 00 Anxiety, # 60 tab, 0 Refill(s) [...] tab, PO, l Coated 21:43: Daily, # [facility] Tablet 00 90 tab, 3 Refill(s) Benadryl 2019-0 Yes 0 Memoria 2-08 Refill(s) l 21:43: [facility] 00 diazepam 5 2019-0 No 5 mg [...] Yes 0 Memoria 2-08 Refill(s) l 21:43: [facility] 00 diazepam 5 2019-0 No 5 mg = 1 Mem [facility] mg oral 2-08 tab, PO, l tablet 21:43: Q6H, PRN [facility] 00 Anxiety, # 60 tab, 0 Refill(s) Aspirin 81 2019-0 Yes 81 mg = 1 Me moria MG Enteric 2-08 tab, PO, l Coated 21:43: Daily, # [facility] Tablet 00 90 tab, 3 Refill(s) Benadryl 2019-0 Yes 0 Memoria 2-08 Refill(s) l 21:43: [facility] 00 diazepam 5 2019-0 No 5 mg = 1 Mem [facility] mg oral 2-08 tab, PO, l tablet 21:43: Q6H, PRN [facility] 00 Anxiety, # 60 tab, 0 Refill(s) Aspirin 81 2019-0 Yes 81 mg = 1 Me moria MG Enteric 2-08 tab, PO, l Coated 21:43: Daily, # [facility] Tablet 00 90 tab, 3 Refill(s) Benadryl 2019-0 Yes 0 Memoria 2-08 Refill(s) l 21:43: [facility] 00 diazepam 5 2019-0 No 5 mg = 1 Mem [facility] mg oral 2-08 tab, PO, l tablet 21:43: Q6H, PRN [facility] 00 Anxiety, # 60 tab, 0 Refill(s) Aspirin 81 2019-0 Yes 81 mg = 1 Me moria MG Enteric 2-08 tab, PO, l Coated 21:43: Daily, # [facility] Tablet 00 90 tab, 3 Refill(s) Benadryl 2019-0 Yes 0 Memoria 2-08 Refill(s) l 21:43: [facility] 00 diazepam 5 2019-0 No 5 mg = 1 Mem o[facility] mg oral 2-08 tab, PO, l tablet 21:43: Q6H, PRN [facility] 00 Anxiety, # 60 tab, 0 Refill(s) Aspirin 81 2019-0 Yes 81 mg = 1 Me moria MG Enteric 2-08 tab, PO, l Coated 21:43: Daily, # [facility] Tablet 00 90 tab, 3 Refill(s) Benadryl 2019-0 Yes 0 Memoria 2-08 Refill(s) l 21:43: [facility] 00 diazepam 5 2019-0 No 5 mg [...] Yes 0 Memoria 2-08 Refill(s) l 21:43: [facility] 00 diazepam 5 2019-0 No 5 mg = 1 Mem o[facility] mg oral 2-08 tab, PO, l tablet 21:43: Q6H, PRN [facility] 00 Anxiety, # 60 tab, 0 Refill(s) Aspirin 81 2019-0 Yes 81 mg = 1 Me moria MG Enteric 2-08 tab, PO, l Coated 21:43: Daily, # [facility] Tablet 00 90 tab, 3 Refill(s) Benadryl 2019- Yes 0 Memoria 2-08 Refill(s) l 21:43: [facility] 00 diazepam 5 2019-0 No 5 mg = 1 Mem o[facility] mg oral 2-08 tab, PO, l tablet 21:43: Q6H, PRN [facility] 00 Anxiety, # 60 tab, 0 Refill(s) Aspirin 81 2019-0 Yes 81 mg = 1 Me moria MG Enteric 2-08 tab, PO, l Coated 21:43: Daily, # [facility] Tablet 00 90 tab, 3 Refill(s) Benadryl 2019- Yes 0 Memoria 2-08 Refill(s) l 21:43: [...] Yes 0 Memoria 2-08 Refill(s) l 21:43: [facility] 00 diazepam 5 2019-0 No 5 mg = 1 Mem [facility] mg oral 2-08 tab, PO, l tablet 21:43: Q6H, PRN [facility] 00 Anxiety, # 60 tab, 0 Refill(s) Aspirin 81 2019-0 Yes 81 mg = 1 Me moria MG Enteric 2-08 tab, PO, l Coated 21:43: Daily, # [facility] Tablet 00 90 tab, 3 Refill(s) Benadryl 2019-0 Yes 0 Memoria 2-08 Refill(s) l 21:43: [facility] 00 diazepam 5 2019-0 No 5 mg [...] tab, PO, l Coated 21:43: Daily, # [facility] Tablet 00 90 tab, 3 Refill(s) Benadryl 2019-0 Yes 0 Memoria 2-08 Refill(s) l 21:43: [facility] 00 diazepam 5 2019-0 No 5 mg = 1 Mem [facility] mg oral 2-08 tab, PO, l tablet 21:43: Q6H, PRN [facility] 00 Anxiety, # 60 tab, 0 Refill(s) Aspirin 81 2019-0 Yes 81 mg = 1 Me moria MG Enteric 2-08 tab, PO, l Coated 21:43: Daily, # [facility] Tablet 00 90 tab, 3 Refill(s) Benadryl 2019-0 Yes 0 Memoria 2-08 Refill(s) l 21:43: [facility] 00 diazepam 5 2019-0 No 5 mg = 1 [facility] mg oral 2-08 tab, PO, l tablet 21:43: Q6H, PRN [facility] 00 Anxiety, # 60 tab, 0 Refill(s) Aspirin 81 2019-0 Yes 81 mg = 1 Me moria MG Enteric 2-08 tab, PO, l Coated 21:43: Daily, # [facility] Tablet 00 90 tab, 3 Refill(s) Benadryl 2019-0 Yes 0 Memoria 2-08 Refill(s) l 21:43: [facility] 00 Diazepam 5 2017-08 No 5 mg = [...] PRN l one 325 19:50: Pain, on Borderick n mg-10 mg 00 325/7.5, # oral [...] by oral by oral route. route. route. diazepam 5 diazepam 5 No diazepam 5 [...] MOUTH TABLET BY NEEDED NEEDED MOUTH NEEDED Pred Forte Pred Forte No Pred Forte [...] BY SNACK SNACK MOUTH WITH EACH SNACK Immunizations Ordered Immunization Filled Immunization Date Status [facility]men [facility], [facility], mRNA, 2021-04-14 Completed [facility] LNP-S, PF, 100 LNP-S, PF, 100 00:00:00 mcg/0.5 mL dose mcg/0.5 mL dose (Moderna) (Moderna) influenza, influenza, 2020-11-18 Completed [facility] injectable, injectable, 00:00:00 quadrivalent quadrivalent COVID-19, mRNA, COVID-19, mRNA, 2020-10-06 Completed [facility] LNP-S, PF, 100 LNP-S, PF, 100 00:00:00 mcg/0.5 mL dose mcg/0.5 mL dose (Moderna) (Moderna) [id number] 2020-10-06 Completed [facility] NA-1273[facility]ax[facility]NA 00:00:00 BRZM-[id number] 2020-10-06 Completed [facility] NA-[facility]73[facility] 00:00:00 EIWZ-[id number]-19mR 2020-10-06 Completed [facility] NA-1273[facility] 00:00:00 TJTT-[id number]-19mR 2020-10-06 Completed [facility] NA-1273[facility] 00:00:00 MPGC-HyE-6BTGCT-19mR 2020-10-06 Completed [facility] NA-1273[facility] 00:00:00 ZQZD-[id number]-19mR 2020-10-06 Completed [facility]73[facility] 00:00:00 SCPM-[id number]-19mR 2020-10-06 Completed [facility] NA-1273[facility] 00:00:00 YATA-FxR-6YQDXQ-19mR 2020-10-06 Completed [facility]-1273[facility] 00:00:00 USHR-KrS-2GJTAK-19mR 2020-10-06 Completed [facility] 00:00:00 VFNF-CxQ-9OPQCQ-19mR 2020-10-06 Completed [facility]-1273[facility] 00:00:00 NISL-HkH-7OHGGS-19mR 2020-10-06 Completed [facility] NA-1273[facility] 00:00:00 HYQV-QrY-1ASXPI-19mR 2020-10-06 Completed [facility]-1273[facility] 00:00:00 LMLC-ZaB-6YAODE-19mR 2020-10-06 Completed [facility]-1273[facility] 00:00:00 CRAV-LeL-0XFJRJ-19mR 2020-10-06 Completed [facility] NA-1273[facility]NA 00:00:00 NCIT-[id number]-19mR 2020-10-06 Completed [facility]-1273[facility] 00:00:00 WYSQ-XaI-8BJBHP-19mR 2020-10-06 Completed [facility] 00:00:00 FIXY-ExL-4HFPOF-19mR 2020-10-06 Completed [facility] 00:00:00 OIED-AiT-7ZAITV-19mR 2020-10-06 Completed [facility] NA-1273[facility] 00:00:00 COVID-19, mRNA, COVID-19, mRNA, 2020-09-09 Completed [facility] LNP-S, PF, 100 LNP-S, PF, 100 00:00:00 mcg/0.5 mL dose mcg/0.5 mL dose (Moderna) (Moderna) MODERNA COVID-19 2020-09-09 Completed [facility] MRNA VACCINATION 00:00:00 [facility] [id number]-[id number] Completed [facility] NA-1273[facility]MODERNA 00:00:00 XXWY-[id number] 2020-09-08 Completed [facility] NA-1273[facility] 00:00:00 RYUV-JrI-6QUYLD-19mR 2020-09-08 Completed [facility] NA-1273[facility] 00:00:00 MQEX-XlW-2IPUEZ-19mR 2020-09-08 Completed [facility] 00:00:00 VEZN-WyI-4YGEAM-19mR 2020-09-08 Completed [facility] 00:00:00 TAVV-ZfJ-5VCYUK-19mR 2020-09-08 Completed [facility] 00:00:00 QIUD-BxT-8JSPHC-19mR 2020-09-08 Completed [facility] NA-[facility]73[facility] 00:00:00 WVRF-JrA-5JGVBW-19mR 2020-09-08 Completed [facility] NA-[facility] 00:00:00 LVRV-KmZ-7QANOW-19mR 2020-09-08 Completed [facility] 00:00:00 ACZQ-QxP-2VVZCW-19mR 2020-09-08 Completed [facility] 00:00:00 MGWG-GcE-5GPSWM-19mR 2020-09-08 Completed [facility] 00:00:00 YYPY-NhV-4QUQSC-19mR 2020-09-08 Completed [facility] 00:00:00 RFAD-LaZ-7XRENU-19mR 2020-09-08 Completed [facility] 00:00:00 CFQD-AhQ-3ZMDFT-19mR 2020-09-08 Completed [facility] 00:00:00 EDAQ-GlE-6BBXOL-19mR 2020-09-08 Completed [facility] 00:00:00 YXXZ-ObT-5ZULFF-19mR 2020-09-08 Completed [facility] 00:00:00 QVNW-JwF-5OIFSA-19mR 2020-09-08 Completed [facility] 00:00:00 NRNR-SrT-2EZNUV-19mR 2020-09-08 Completed [facility]73[facility] 00:00:00 Vital Signs Vital Name Observation [...] kg 13:34:00 BP Diastolic 2021-10-13 68 mm[Hg] [facility] 00:00:00 Height 2021-10-13 62 [in_i] [facility] 00:00:00 BMI (Body Mass 2021-10-13 21.6 kg/m2 [facility] l Index) 00:00:00 BP Systolic 2021-10-13 122 mm[Hg] [facility] 00:00:00 Body Weight 2021-10-13 118 [lb_av] [facility] 00:00:00 HEIGHT 2021-02-17 157.5 cm 16:06:00 WEIGHT 2021-02-17 52.164 kg 16:06:00 HEIGHT 2021-02-17 157.5 cm 16:06:00 WEIGHT 2021-02-17 52.164 kg 16:06:00 Systolic (mm Hg) 2023-03-02 [facility] 16:34:00 [facility] Diastolic (mm Hg) 2023-03-02 [facility] 16:34:00 [place] Heart Rate 2023-03-02 [facility] 16:34:00 [facility] Height 2023-03-02 5 [ft_i] [facility] 16:34:00 [facility] Weight 2023-03-02 [facility] 16:34:00 [facility] BMI Calculated 2023-03-02 [facility] 16:34:00 [facility] Systolic (mm Hg) 2022-11-23 [facility] 19:34:00 [facility] Diastolic (mm Hg) 2022-11-23 [facility] 19:34:00 [place] Heart Rate 2022-11-23 [facility] 19:34:00 [facility] Height 2022-11-23 5 [ft_i] [facility] 19:34:00 [facility] Weight 2022-11-23 [facility] 19:34:00 [facility] BMI Calculated 2022-11-23 [facility] 19:34:00 [place] Systolic blood 2022-11-08 118 mm[Hg] [facility] pressure 08:50:00 [facility] [place] Diastolic blood 2022-11-08 53 mm[Hg] [facility] pressure 08:50:00 [facility] Heart rate 2022-11-08 88 /min Dr. Constantino Nelson 08:50:00 seen patient [facility] during discharge to home. Respiratory rate 2022-11-08 10 /min [facility] 08:50:00 [facility] Oxygen saturation 2022-11-08 94 /min [facility] Arterial blood 08:50:00 [facility] nter by Pulse oximetry Body temperature 2022-11-[address] [facility] 08:26:00 [facility] Body height 2022-11-[address] [facility] 07:15:00 [facility] Body weight 2022-11-[address] [facility] 07[facility]15:00 [facility] BMI 2022-11-08 21.40 kg/m2 [facility] 07:15:00 [facility] Body height 2022-10-[address] [facility] 14:13:00 [facility] Body weight 2022-10-[address] [facility] 14[facility]13:00 [facility] BMI 2022-10-31 21.75 kg/m2 [facility] 14:13:00 [facility] Systolic (mm Hg) 2022-08-25 [facility] 21:02:00 [facility] Diastolic (mm Hg) 2022-08-25 [facility] 21:02:00 [facility] Heart Rate 2022-08-25 [facility] 21:02:00 [place] Height 2022-08-25 5 [ft_i] [facility] 21:02:00 [facility] Weight 2022-08-25 [facility] 21:02:00 [place] BMI Calculated 2022-08-25 [facility] 21:02:00 [facility] Systolic (mm Hg) 2022-05-25 [facility] 19:58:00 [place] Diastolic (mm Hg) 2022-05-25 [facility] 19:58:00 [place] Heart Rate 2022-05-25 [facility] 19:58:00 [place] Respitory Rate 2022-05-25 [facility] 19:58:00 [place] Height 2022-05-25 154.94 cm [facility] 19:58:00 [facility] Weight 2022-05-25 [facility] 19:58:00 [place] BMI Calculated 2022-05-25 [facility] 19:58:00 [place] Systolic blood 2022-05-23 113 mm[Hg] [facility] 19:18:00 Hospital Diastolic blood 2022-05-23 73 mm[Hg] [facility] 19:18:00 Hospital Heart rate 2022-05-23 84 /min [facility] 19:18:00 Hospital Respiratory rate 2022-05-23 12 /min [facility] 19:18:00 [facility] Body height 2022-05-23 157.5 cm [facility] 19:18:00 [facility] Body weight 2022-05-23 53.978 kg [facility] 19:18:00 [facility] BMI 2022-05-23 21.77 kg/m2 [facility] 19:18:00 Hospital Systolic blood 2022-05-11 138 mm[Hg] [facility] pressure 09:20:00 [facility] Diastolic blood 2022-05-11 69 mm[Hg] [facility] pressure 09:20:00 [facility] Heart rate 2022-05-11 94 /min [facility] 09:20:00 [facility] Body temperature 2022-05-[address] [facility] 09:20:00 [facility] Respiratory rate 2022-05-11 16 /min [facility] 09:20:00 [facility] Oxygen saturation 2022-05-11 96 /min [facility] Arterial blood 09:20:00 [facility] nter by Pulse oximetry Body height 2022-05-[address] [facility] 06:54:00 [facility] Body weight 2022-05-[address] [facility] 06:54:00 [facility] BMI 2022-05-11 21.56 kg/m2 [facility] 06:54:00 [facility] Systolic (mm Hg) 2022-02-28 [facility] 20:00:00 [place] Diastolic (mm Hg) 2022-02-28 [facility] 20:00:00 [place] Heart Rate 2022-02-28 [facility] 20:00:00 [place] Respitory Rate 2022-02-28 [facility] 20:00:00 [facility] Height 2022-02-28 154.94 cm [facility] 20:00:00 [facility] Weight 2022-02-28 [facility] 20:00:00 [place] BMI Calculated 2022-02-28 [facility] 20:00:00 [place] Systolic (mm Hg) 2021-11-29 [facility] 19:01:00 [place] Diastolic (mm Hg) 2021-11-29 [facility] 19:01:00 [facility] Heart Rate 2021-11-29 [facility] 19:01:00 [facility] Respitory Rate 2021-11-29 [facility] 19:01:00 [place] Height 2021-11-29 156.21 cm [facility] 19:01:00 [facility] Weight 2021-11-29 [facility] 19:01:00 [facility] BMI Calculated 2021-11-29 [facility] 19:01:00 [facility] Systolic (mm Hg) 2021-08-31 [facility] 21:05:00 [place] Diastolic (mm Hg) 2021-08-31 [facility] 21:05:00 [facility] Heart Rate 2021-08-31 [facility] 21:05:00 [facility] Respitory Rate 2021-08-31 [facility] 21:05:00 [place] Height 2021-08-31 154.94 cm [facility] 21:05:00 [place] Weight 2021-08-31 [facility] 21:05:00 [place] BMI Calculated 2021-08-31 [facility] 21:05:00 [place] Heart Rate 2021-06-01 [facility] 19:15:00 [place] Respitory Rate 2021-06-01 [facility] 19:15:00 [place] Height 2021-06-01 154.94 cm [facility] 19:15:00 [facility] Weight 2021-06-01 [facility] 19:15:00 [facility] BMI Calculated 2021-06-01 [facility] 19:15:00 [facility] Systolic (mm Hg) 2021-06-01 [facility] 19:15:00 [facility] Diastolic (mm Hg) 2021-06-01 [facility] 19:15:00 [facility] Systolic (mm Hg) 2021-02-04 [facility] 18:42:00 [place] Diastolic (mm Hg) 2021-02-04 [facility] 18:42:00 [facility] Heart Rate 2021-02-04 [facility] 18:42:00 [place] Respitory Rate 2021-02-04 [facility] 18:42:00 [facility] Height 2021-02-04 157.48 cm [facility] 18:42:00 [facility] Weight 2021-02-04 [facility] 18:42:00 [place] BMI Calculated 2021-02-04 [facility] 18:42:00 [place] Systolic (mm Hg) 2020-12-23 [facility] 19:41:00 [facility] Diastolic (mm Hg) 2020-12-23 [facility] 19:41:00 [facility] Heart Rate 2020-12-23 [facility] 19:41:00 [facility] Respitory Rate 2020-12-23 [facility] 19:41:00 [place] Weight 2020-12-23 [facility] 19:41:00 [place] Systolic (mm Hg) 2020-08-26 [facility] 19:32:00 [place] Diastolic (mm Hg) 2020-08-26 [facility] 19:32:00 [facility] Heart Rate 2020-08-26 [facility] 19:32:00 [facility] Respitory Rate 2020-08-26 [facility] 19:32:00 [facility] Height 2020-08-26 152.4 cm [facility] 19:32:00 [place] Weight 2020-08-26 [facility] 19:32:00 [place] BMI Calculated 2020-08-26 [facility] 19:32:00 [place] Systolic (mm Hg) 2020-04-22 [facility] 18:50:00 [facility] Diastolic (mm Hg) 2020-04-22 [facility] 18:50:00 [facility] Heart Rate 2020-04-22 [facility] 18:50:00 [place] Respitory Rate 2020-04-22 [facility] 18:50:00 [facility] Temperature Oral 2020-04-22 98.8 F [facility] (F) 18:50:00 [facility] Height 2020-04-22 154.94 cm [facility] 18:50:00 [place] Weight 2020-04-22 [facility] 18:50:00 [place] BMI Calculated 2020-04-22 [facility] 18:50:00 [facility] Systolic (mm Hg) 2020-01-21 [facility] 19:21:00 [facility] Diastolic (mm Hg) 2020-01-21 [facility] 19:21:00 [place] Heart Rate 2020-01-21 [facility] 19:21:00 [facility] Respitory Rate 2020-01-21 [facility] 19:21:00 [place] Height 2020-01-21 152.4 cm [facility] 19:21:00 [facility] Weight 2020-01-21 [facility] 19:21:00 [place] BMI Calculated 2020-01-21 [facility] 19:21:00 [facility] Systolic (mm Hg) 2019-08-28 [facility] 21:03:00 [place] Diastolic (mm Hg) 2019-08-28 [facility] 21:03:00 [place] Heart Rate 2019-08-28 [facility] 21:03:00 [place] Respitory Rate 2019-08-28 [facility] 21:03:00 [place] Height 2019-08-28 154.94 cm [facility] 21:03:00 [facility] Weight 2019-08-28 [facility] 21:03:00 [facility] BMI Calculated 2019-08-28 [facility] 21:03:00 [facility] Systolic (mm Hg) 2019-05-29 [facility] 21:06:00 [place] Diastolic (mm Hg) 2019-05-29 [facility] 21:06:00 [place] Height 2019-05-29 152.4 cm [facility] 21:06:00 [place] Weight 2019-05-29 [facility] 21:06:00 [facility] BMI Calculated 2019-05-29 [facility] 21:06:00 [facility] Systolic (mm Hg) 2019-05-01 [facility] 19:22:00 [facility] Diastolic (mm Hg) 2019-05-01 [facility] 19:22:00 [facility] Heart Rate 2019-05-01 [facility] 19:22:00 [facility] Respitory Rate 2019-05-01 [facility] 19:22:00 [place] Height 2019-05-01 154.94 cm [facility] 19:22:00 [facility] Weight 2019-05-01 [facility] 19:22:00 [place] BMI Calculated 2019-05-01 [facility] 19:22:00 [place] BMI Calculated 2019-01-29 [facility] 16:11:00 [place] Height 2019-01-29 154.94 cm [facility] 16:11:00 [place] Weight 2019-01-29 [facility] 16:11:00 [facility] Respitory Rate 2019-01-29 [facility] 16:11:00 [place] Heart Rate 2019-01-29 [facility] 16:11:00 [facility] Systolic (mm Hg) 2019-01-29 [facility] 16:11:00 [facility] Diastolic (mm Hg) 2019-01-29 [facility] 16:11:00 [facility] Systolic (mm Hg) 2018-09-27 [facility] 21:26:00 [facility] Diastolic (mm Hg) 2018-09-27 [facility] 21:26:00 [place] Heart Rate 2018-09-27 [facility] 21:26:00 [place] Height 2018-09-27 154.94 cm [facility] 21:26:00 [place] Weight 2018-09-27 [facility] 21:26:00 [facility] BMI Calculated 2018-09-27 [facility] 21:26:00 [facility] Weight 2018-05-24 [facility] 20:26:00 [facility] BMI Calculated 2018-05-24 [facility] 20:26:00 [place] Height 2018-05-24 154.94 cm [facility] 20:26:00 [facility] Systolic (mm Hg) 2018-05-24 [facility] 20:26:00 [facility] Diastolic (mm Hg) 2018-05-24 [facility] 20:26:00 [facility] Respitory Rate 2018-05-24 [facility] 20:26:00 [facility] Heart Rate 2018-05-24 [facility] 20:26:00 [place] Procedures Procedure Date / Time Performing Clinician Source Performed EXTRACTION, CATARACT, WITH 2022-11-08 11:45:00 [facility] IOL INSERTION [facility] EXTRACTION, CATARACT, WITH 2022-11-08 07:55:00 [facility] IOL INSERTION [facility] EXTRACTION, CATARACT, WITH 2022-11-08 07:15:00 [facility] IOL INSERTION [facility] T4, FREE 2022-07-20 17:08:00 [facility] THYROID STIMULATING 2022-07-20 17:08:00 [facility] HORMONE T3, FREE 2022-07-20 17:08:00 [facility] MAMMO SELF REQUESTING 2022-07-18 [facility]:02[facility] W TASH Weinberg THYROID STIMULATING 2022-05-16 16:18:00 [facility] HORMONE T4, FREE 2022-05-16 16:18:00 [facility] HEMOGLOBIN A1C 2022-05-16 16:18:00 [facility] REPORT OF PROCEDURE - 2022-05-11 09:22:28 [facility] ENDOSCOPY URL [facility] ESOPHAGOGASTRODUODENOSCOPY 2022-05-11 08:16:00 Elena Raygoza [facility] , WITH ENDOSCOPIC US [facility] ULTRASOUND, UPPER GI 2022-05-11 08:16:00 [facility] TRACT, ENDOSCOPIC, WITH [facility] FINE NEEDLE ASPIRATION ASSIGNMENT OF BENEFITS 2020-12-13 20:15:12 [facility] Peroral Endoscopic Myotomy 2019-09-16 00:00:00 [facility] Esophagus Ercp W/optical 2017-04-09 00:00:00 [facility] Endomicroscpy Orthopedic - Arthroscopic 2006-12-18 00:00:00 [facility] Cholecystectomy 2005-03-20 00:00:00 [facility] (#1[facility] [code = [facility] Influenza Vaccine (#1)] Future Scheduled Test 2023-04-20 Influenza Vaccine [facility] 00:[facility]:00 (#1) [code = [facility] Center Influenza Vaccine (#1)] Future Scheduled Test 2023-04-20 Influenza Vaccine [facility] 00:00:00 (#1) [code = Medical Center Influenza Vaccine (#1)] Future Scheduled Test 2023-04-20 Influenza Vaccine [facility] 00:00:00 (#1) [code = [facility] Influenza Vaccine (#1)] Future Scheduled Test 2023-02-23 SHINGLES VACCINES (1 [facility] 13:53:48 of 2) [code = SHINGLES VACCINES (1 of 2)] Future Scheduled Test 2023-02-23 COVID-19 VACCINE ([address] [place] [address] 13:53:48 Moderna series) [code = COVID-19 VACCINE (6 - Moderna series)] Future Scheduled Test 2023-02-23 INFLUENZA VACCINE [facility] 13:53:48 [code = INFLUENZA VACCINE] [...] = DXA [facility] 00:00:00 SCAN] [facility] Future Scheduled Test 1945 DXA SCAN [code = DXA [facility] 00:00:00 SCAN] [facility] Future Scheduled Test 1945 DXA SCAN [code = DXA [facility] 00:00:00 SCAN] [facility] Future Scheduled Test 1945 DXA SCAN [code = DXA [facility] 00:00:00 SCAN] [facility] Future Scheduled Test 1945 DXA SCAN [code = DXA [facility] 00:00:00 SCAN] Medical Center Future Scheduled Test 1945 DXA SCAN [code = DXA [facility] 00:00:00 SCAN] [facility] Future Scheduled Test 1945 DXA SCAN [code = DXA [facility] 00:00:00 SCAN] [facility] Future Scheduled Test 1945 DXA SCAN [code = DXA [facility] 00:00:00 SCAN] [facility] Future Scheduled Test 1945 DXA SCAN [code = DXA [facility] 00:00:00 SCAN] [facility] Future Scheduled Test 1945 DXA SCAN [code = DXA [facility] 00:00:00 SCAN] Medical Center Instructions [facility] Start End Encounter Admission Attending Care Care Encounter Source Date/Time Date/Time Type Type Clinicians Facility Department ID 2021-05-25 Outpatient TEMITOPE RAYGOZA Surgery [id number] [facility] 06:56:07 ELENA 2023-06-27 2023-06-27 Outpatient ESTELLA SORIA [id number] [facility] 13:30:00 13:30:00 27 l [place] 2023-06-27 2023-06-27 Outpatient ESTELLA SORIA [id number] [facility] 13:30:00 13:30:00 27 l [place] 2023-03-22 2023-03-22 Outpatient GC_SWHAWSSL PRIV PRIV [id number] [facility] 00:00:00 00:00:00 _Rachel [id number] Sara lyle 2023-03-02 2023-03-03 Outpatient MHIE MNA [id number] [facility] 16:30:00 04:59:59 Neurology 26 l Bartolome Raya 2023-03-02 2023-03-03 Outpatient MHIE MNA [id number] [facility] 16:30:00 04:59:59 Neurology 26 l Bartolome Khanann 2023-03-02 2023-03-02 Outpatient AWAIS RodgersSCHER MISCHER [id number] 11:30:00 23:59:59 Edenilson 26 Jacobo 2023-03-02 2023-03-02 Outpatient MHIE MHIE [id number] [facility] 11:30:00 11:30:00 26 l [place] 2023-02-22 2023-02-22 Ambulatory MHIE MNA [id number] [facility] 18:45:00 18:45:00 Pre-Reg Neurology 25 l Bartolome Khanann 2023-02-22 2023-02-22 Ambulatory MHIE MNA [id number] [facility] 18:45:00 18:45:00 Pre-Reg Neurology 25 l Bartolome Khanann 2023-02-22 2023-02-22 Outpatient MHIE MHIE [id number] [facility] 13:45:00 13:45:00 25 l [place] 2023-02-22 2023-02-22 Outpatient AWAIS RodgersSCHKIRA MHMISCHER [id number] 13:45:00 13:45:00 Edenilson 25 Jacobo 2022-11-23 2022-11-24 Outpatient MHIE MNA [id number] [facility] 19:30:00 04:59:59 Neurology 24 l Bartolome Khanann 2022-11-23 2022-11-24 Outpatient MHIE MNA [id number] [facility] 19:30:00 04:59:59 Neurology 24 l Bartolome Khanann 2022-11-23 2022-11-23 [id number] 14:30:00 23:59:59 Edenilson Centeno 2022-11-23 2022-11-23 Outpatient MHIE ESTELLA [id number] [facility] 14:30:00 14:30:00 24 tanja Raya 2022-11-08 2022-11-08 Outpatient [facility] Surgery [id number] [facility] 06:14:00 09:02:00 ANDERSON 2022-11-08 2022-11-08 [facility] [id number] 06:14:00 09:02:00 Encounter [facility] 2022-11-08 2022-11-08 [facility] [id number] 06:14:00 09:02:00 Encounter [facility] 2022-11-08 2022-11-08 Anesthesia [facility] [id number] 07:55:00 08:24:00 Event [facility] 2022-11-08 2022-11-08 Anesthesia [facility] [id number] 07:55:00 08:24:00 Event [facility] 2022-11-08 2022-11-08 [facility] [id number] 07:15:00 07:50:00 [facility] 2022-11-08 2022-11-08 [facility] [id number] 07:15:00 07:50:00 [facility] 2022-11-08 2022-11-08 Travel [facility] [id number] [facility] 00:00:00 00:00:00 [facility] 2022-11-08 2022-11-08 Travel [facility] [id number] [facility] 00:00:00 00:00:00 [facility] 2022-08-25 2022-08-26 Outpatient MHIE PRESTON [id number] [facility] 20:45:00 05:59:59 Neurology 23 l Bartolome Raya 2022-08-25 2022-08-26 Outpatient MHIE MNA [id number] [facility] 20:45:00 05:59:59 Neurology 23 l Bartolome Raya 2022-08-25 2022-08-25 Outpatient Vishal MHMISCHER MHMISCHER [id number] 14:45:00 23:59:59 Edenilson 23 Jacobo 2022-08-25 2022-08-25 Outpatient MHIE MHIE [id number] [facility] 14:45:00 14:45:00 23 l [place] 2022-07-18 2022-07-18 [facility] 1.2.840.1 [id number] Methodi 14:12:00 23:59:00 Encounter Elva rao 09020.1.[address] A. 3.430.2.7 Hospit a .3.287348 l .8 2022-05-25 2022-05-26 Outpatient nullFlavo MNA [id number] [facility] 19:45:00 04:59:59 r Neurology 22 l Bartolome Raya 2022-05-25 2022-05-26 Outpatient nullFlavo MNA [id number] [facility] 19:45:00 04:59:59 r Neurology 22 l Bartolome Raya 2022-05-26 2022-05-26 Geremias Harley, 1.2.840.1 [id number] Methodi 00:00:00 00:00:[address] 3.430.2.7 Hospit a .3.316552 l .8 2022-05-25 2022-05-25 Outpatient Rubénelena, MHMISCHER MHMISCHER [id number] 14:45:00 23:59:59 Edenilson 22 Jacobo 2022-05-25 2022-05-25 Outpatient MHIE MHIE [id number] [facility] 14:45:00 14:45:00 22 tanja Raya 2022-05-23 2022-05-[address] [facility] 1.2.840.1 [id number] Methodi 14:00:00 15:09:09 Visit , Carmen 81592.1.[address] 3.430.2.7 Hospit a .3.301462 l .8 2022-05-23 2022-05-23 Travel 1.2.840.1 1.2.050.763 [id number] [facility]i 00:00:00 00:00:[address] 3.430.2.7 0.2.7.3.698 Ho spita .3.020555 084.8 l .8 2022-05-15 2022-05-15 Transcribe Kathrineel-J 1.2.840.1 [id number] Methodi 00:00:00 00:00:00 Orders Elva rao 93144.1.[address] A. 3.430.2.7 Hospit a .3.078124 l .8 2022-05-14 2022-05-14 Refill Celena 1.2.840.1 [id number] Methodi 00:00:00 00:00:00 , Carmen 07136.1.[address] 3.430.2.7 Hospit a .3.088906 l .8 2022-05-11 2022-05-11 Outpatient [facility] Surgery [id number] [facility] 06:26:00 10:18:00 [facility] 2022-05-11 2022-05-11 [facility] [id number] 06:26:00 10:18:00 [facility] 2022-05-11 2022-05-11 [facility] [id number] 06:26:00 10:18:00 Encounter [facility] 2022-05-11 2022-05-11 [facility] [id number] 08:00:00 09:00:00 [facility] 2022-05-11 2022-05-11 Surgery [facility] [id number] 08:00[facility]00 [facility]00[facility]00 [facility] 2022-05-11 2022-05-[address] [facility] [id number] 08:16:00 08:49:00 [facility]22-05-11 2022-05-11 Anesthesia Myla Sullivan [facility] [id number] 08:16:00 08:49:[address] [facility] 2022-05-11 2022-05-11 Travel [facility] [id number] [facility] 00:00:00 00:00:00 [facility] 2022-05-11 2022-05-11 [facility] [id number] [facility] 00:00:00 00:00:00 [facility] 2022-04-21 2022-04-21 Jamar Harley 1.2.840.1 [id number] Method 00:00:00 00:00:00 Only Jarvis 85547.1.[address] 3.430.2.7 Hospit a .3.297386 l .8 2022-04-12 2022-04-12 Outpatient [facility] SLE [id number] SLE 13:53:38 23:59:00 2022-04-12 2022-04-12 [facility] [id number] 13:20:00 23:59:00 Encounter [facility] 2022-04-12 2022-04-12 [facility] [id number] 13:20:00 23:59:00 Encounter [facility] 2022-04-12 2022-04-12 [facility] [id number] [facility] 00:00:00 00:00:00 [facility] 2022-04-12 2022-04-12 Travel [facility] [id number] [facility] 00:00:00 00:00:00 [facility] 2022-02-28 2022-03-01 Outpatient nullFlavo MNA [id number] Memoria 19:30:00 04:59:59 r Neurology 21 l Bartolome Raya 2022-02-28 2022-03-01 Outpatient nullFlavo MNA [id number] Memoria 19:30:00 04:59:59 r Neurology 21 l Bartolome Raya 2022-02-28 2022-02-28 [facility] [id number] 14:30:00 23:59:59 Edenilson 21 Jacobo 2022-02-28 2022-02-28 Outpatient MHIE MHIE [id number] [facility] 14:30:00 14:30:00 21 tanja Raya 2021-11-29 2021-11-30 Outpatient nullFlavo MNA [id number] [facility] 18:45:00 04:59:59 r Neurology 20 l Bartolome Raya 2021-11-29 2021-11-30 Outpatient nullFlavo MNA [id number] [facility] 18:45:00 04:59:59 r Neurology 20 l Bartolome Raya 2021-11-29 2021-11-29 [facility] [id number] 13:45:00 23:59:59 Edenilson 20 Jacobo 2021-11-29 2021-11-29 Outpatient MHIE MHIE [id number] [facility]oria 13:45:00 13:45:00 20 l [facility] 2021-10-13 2021-10-13 Outpatient GC_DOMINICKHAWELIZABETHL PRIV PRIV [id number] [facility] 05:06:00 05:06:00 _Tharappe [id number] [facility] 2021-10-13 2021-10-13 Outpatient Tharappel-J PRIV PRIV [id number] 00:00:00 00:00:00 Elva rao [id number] 2021-10-13 2021-10-13 [facility] PRIV [facility] 00:00:00 00:00:00 Som [facility] al Tharappel- GC_OSWALDO Taveras MD: _flaregames [id number] Office* [facility], [address], [place] [address] , Ph. 2021-10-12 2021-10-12 Outpatient EDIE PRIV PRIV [id number] [facility] 12:55:00 12:55:00 _Tharappe [id number] [facility] 2021-09-28 2021-09-28 Outpatient THARAPPEL-J [facility] [id number] [facility] 00:00:00 00:00:00 ELVA RAO 978 [facility] 2021-08-31 2021-09-01 Outpatient nullFlavo MNA [id number] [facility] 20:45:00 05:59:59 r Neurology 19 l Bartolome Raya 2021-08-31 2021-09-01 Outpatient nullFlavo MNA [id number] [facility] 20:45:00 05:59:59 r Neurology 19 l Bartolome Raya 2021-08-31 2021-08-31 Outpatient AWAIS RodgersSCHER MHMISCHER [id number] 14:45:00 23:59:59 Edenilson 19 Jacobo 2021-08-31 2021-08-31 Outpatient MHIE MHIE [id number] [facility] 14:45:00 14:45:00 19 tanja Elver 2021-07-16 2021-07-16 Outpatient THARAPPEL-J [facility] [id number] [facility] 00:00:00 00:00:00 ELVA RAO 262 [facility] 2021-06-01 2021-06-02 Outpatient nullFlavo MNA [id number] [facility] 18:45:00 04:59:59 r Neurology 18 l Bartolome Raya 2021-06-01 2021-06-02 Outpatient nullFlavo MNA [id number] [facility] 18:45:00 04:59:59 r Neurology 18 l Bartolome Raya 2021-06-01 2021-06-01 Outpatient AWAIS RodgersSCHER MHMISCHER [id number] 13:45:00 23:59:59 Edenilson 18 Jacobo 2021-06-01 2021-06-01 Outpatient MHIE MHIE [id number] [facility] 13:45:00 13:45:00 18 l [facility] 2021-02-17 2021-02-17 Emergency ER SLE Emergency [id number] [facility] 16:01:00 16:01:00 2021-02-07 2021-02-07 Outpatient CELENA [facility] [id number] [facility] 00:00:00 00:00:00 , CARMEN prabhakar 2021-02-04 2021-02-05 Outpatient nullFlavo MNA [id number] [facility] 18:30:00 04:59:59 r Neurology 17 l Bartolome Khanann 2021-02-04 2021-02-05 Outpatient nullFlavo MNA [id number] [facility] 18:30:00 04:59:59 r Neurology 17 l Refugio [place] 2021-02-04 2021-02-04 Outpatient A[facility]IR[facility] [id number] 13:30:00 23:59:59 Edenilson 17 Jacobo 2021-02-04 2021-02-04 Outpatient MHIE ESTELLA [id number] [facility] 13:30:00 13:30:00 17 l [facility] 2021-01-04 2021-01-05 Outpatient nullFlavo MNA [id number] [facility] 18:00:00 04:59:59 r Neurology 16 l Bartolome Elver 2021-01-04 2021-01-05 Outpatient nullFlavo MNA [id number] [facility] 18:00:00 04:59:59 r Neurology 16 l Refugio [place] 2021-01-04 2021-01-04 [facility] [id number] 13:00:00 23:59:59 Edenilson 16 Jacobo 2021-01-04 2021-01-04 Outpatient MHIE MHIE [id number] [facility] 13:00:00 13:00:00 16 l Elver 2020-12-29 2020-12-31 Outside nullFlavo MNA [id number] Memoria 16:41:01 04:59:59 Medical r Neurology 02 l Records Refugio Elver 2020-12-29 2020-12-31 Outside nullFlavo MNA [id number] Memoria 16:41:01 04:59:59 Medical r Neurology 02 l Records Bartolome Raya 2020-12-29 2020-12-30 Outpatient MHMISCHER MHMISCHER [id number] 11:41:01 23:59:59 02 2020-12-23 2020-12-24 Outpatient nullFlavo MNA [id number] Memoria 19:15:00 04:59:59 r Neurology 15 l Bartolome Raya 2020-12-23 2020-12-24 Outpatient nullFlavo MNA [id number] Memoria 19:15:00 04:59:59 r Neurology 15 l Bartolome Raya 2020-12-23 2020-12-23 Outpatient Vishal MHMISCHER MHMISCHER [id number] 14:15:00 23:59:59 Edenilson Gerson [facility] 2020-12-23 2020-12-23 Outpatient MHIE MHIE [id number] Memoria 14:15:00 14:15:00 15 l Elver 2020-12-13 2020-12-13 Outpatient Marlene DAVIS [facility] [id number] Univers 16:00:00 16:00:00 RAMSES ibarra [facility] 2020-12-13 2020-12-13 Housekeeping Assistant Urbano, Olga Lab Main [facility] 1.2.8 40.114 [id number] Univers 15:34:05 15:49:05 Visit Ramses Davis 350.1.13.1 0 ity of [place] Profess[place] [phone] Pa dical [address] 2020-12-13 2020-12-13 Housekeeping Assistant Olga Clement [facility] 1.2.840.114 [id number] 15:34:05 15:49:05 Visit Lab Main Vanessa 350.1.13.10 [place] 4.2.7.2.686 Professio [phone] [address] 2020-12-13 2020-12-13 Orders Doctor JADIEL 1.2.840.114 [id number] Univers 00:00:00 00:00:00 Only Unassigned, PATTI 350.1.13.10 ity of [place] [facility] 4.2.7.2.686 Aleksandar as [phone] [facility] [address] 2020-12-13 2020-12-13 Orders Doctor JADIEL 1.2.840.114 [id number] 00:00:00 00:00:00 Only Unassigned, PATTI 350.1.13.10 [place] [facility] 4.2.7.2.686 [id number] 009 2020-08-26 2020-08-27 Outpatient nullFlavo MNA [id number] Memoria 19:30:00 05:59:59 r Neurology 14 l Bartolome Raya 2020-08-26 2020-08-27 Outpatient nullFlavo MNA [id number] Memoria 19:30:00 05:59:59 r Neurology 14 l Bartolome Raya 2020-08-26 2020-08-26 Outpatient GANESH Rodgers MISCH [id number] 13:30:00 23:59:59 Edenilson Centeno 2020-08-26 2020-08-26 Outpatient ESTELLA SORIA [id number] Memoria 13:30:00 13:30:00 14 tanja Raya 2020-05-31 2020-05-31 Outpatient [facility] [id number] [place] 00:00:00 00:00:00 ELVA RAO 321 [facility] 2020-05-21 2020-05-21 Outpatient SLE SLE [id number] SLE 00:00:00 00:00:00 2020-05-20 2020-05-20 Outpatient EL SLE SLE [id number] SLE 00:00:00 00:00:00 2020-04-22 2020-04-23 Outpatient nullFlavo MNA [id number] Memoria 18:30:00 04:59:59 r Neurology 13 l Bartolome Raya 2020-04-22 2020-04-23 Outpatient nullFlavo MNA [id number] Memoria 18:30:00 04:59:59 r Neurology 13 l Bartolome Raya 2020-04-22 2020-04-22 Outpatient GANESH Rodgers MISCHER [id number] 13:30:00 23:59:59 Edenilson 13 Jacobo 2020-04-22 2020-04-22 Ambulatory nullFlavo MNA [id number] Memoria 18:30:00 18:30:00 Pre-Reg r Neurology 12 l Bartolome Khanann 2020-04-22 2020-04-22 Ambulatory nullFlavo MNA [id number] Memoria 18:30:00 18:30:00 Pre-Reg r Neurology 12 l Refugiojevon Raya 2020-04-22 2020-04-22 Outpatient MHIE MHIE [id number] Memoria 13:30:00 13:30:00 13 l Elver 2020-04-22 2020-04-22 Outpatient MHIE MHIE [id number] Memoria 13:30:00 13:30:00 12 l Elver 2020-04-22 2020-04-22 [facility] [id number] 13:30:00 13:30:00 Edenilson 12 Jacobo 2020-01-21 2020-01-22 Outpatient nullFlavo MNA [id number] Memoria 18:45:00 04:59:59 r Neurology 11 l Refugio Elver 2020-01-21 2020-01-22 Outpatient nullFlavo MNA [id number] Memoria 18:45:00 04:59:59 r Neurology 11 l Refugio Elver 2020-01-21 2020-01-21 [facility] [id number] 13:45:00 23:59:59 Edenilson 11 Jacobo 2020-01-21 2020-01-21 Outpatient MHIE MHIE [id number] Memoria 13:45:00 13:45:00 11 l [facility] 2019-09-15 2019-09-[address] [facility] [id number] SLE 00:00:00 00:00:00 [facility] 2019-08-28 2019-08-29 Outpatient nullFlavo MNA [id number] Memoria 20:45:00 05:59:59 r Neurology 10 l Refugio [facility] 2019-08-28 2019-08-29 Outpatient nullFlavo MNA [id number] Memoria 20:45:00 05:59:59 r Neurology 10 l Refugiojevon Khanann 2019-08-28 2019-08-28 Outpatient Vishal MISCHER MHMISCHER [id number] 14:45:00 23:59:59 Edenilson 10 Jacobo 2019-08-28 2019-08-28 Outpatient MHIE MHIE [id number] Memoria 14:45:00 14:45:00 10 tanja [facility] 2019-05-29 2019-05-30 Outpatient nullFlavo MNA [id number] Memoria 21:00:00 04:59:59 r Neurology 09 l Bartolome Elver 2019-05-29 2019-05-30 Outpatient nullFlavo MNA [id number] Memoria 21:00:00 04:59:59 r Neurology 09 tanja Mancuso [facility] 2019-05-29 2019-05-29 [facility] [id number] 16:00:00 23:59:59 Edenilsonmonty [facility] 2019-05-29 2019-05-29 Outpatient MHIE MHIE [id number] Memoria 16:00:00 16:00:00 09 tanja [facility] 2019-05-01 2019-05-02 Outpatient nullFlavo MNA [id number] Memoria 19:00:00 04:59:59 r Neurology 08 tanja Mancuso [facility] 2019-05-01 2019-05-02 Outpatient nullFlavo MNA [id number] Memoria 19:00:00 04:59:59 r Neurology 08 tanja Mancuso [facility] 2019-05-01 2019-05-01 [facility] [id number] 14:00:00 23:59:59 Edenilson Centeno 2019-05-01 2019-05-01 Outpatient MHIE IE [id number] Memoria 14:00:00 14:00:00 08 tanja [facility] 2019-01-29 2019-01-30 Outpatient nullFlavo MNA [id number] Memoria 16:00:00 04:59:59 r Neurology 07 l Refugio [facility] 2019-01-29 2019-01-30 Outpatient nullFlavo MNA [id number] Memoria 16:00:00 04:59:59 r Neurology 07 l Refugio [facility] 2019-01-29 2019-01-29 Outpatient ALICE RodgersUTSCHER MISCHER [id number] 11:00:00 23:59:59 Edenilsonmonty Centeno 2019-01-29 2019-01-29 Outpatient MHIE IE [id number] Memoria 11:00:00 11:00:00 07 tanja Raya 2018-10-25 2018-10-25 Outpatient MHIE MHIE [id number] Memoria 14:45:00 14:45:00 06 tanja Elver 2018-10-25 2018-10-25 Outpatient MHIE MHIE [id number] Memoria 14:45:00 14:45:00 06 tanja Elver 2018-09-27 2018-09-28 Outpatient nullFlavo MNA [id number] Memoria 21:15:00 05:59:59 r Neurology 05 l Bartolome Elver 2018-09-27 2018-09-28 Outpatient nullFlavo MNA [id number] Memoria 21:15:00 05:59:59 r Neurology 05 l Bartolome [facility] 2018-09-27 2018-09-27 Outpatient Vishal MHMISCHER MHMISCHER [id number] 15:15:00 23:59:59 Edenilson Ariel Jacobo 2018-09-27 2018-09-27 Outpatient MHIE MHIE [id number] Memoria 15:15:00 15:15:00 05 tanja [facility] 2018-05-24 2018-05-25 Outpatient nullFlavo MNA [id number] Memoria 20:15:00 04:59:59 r Neurology 04 l Bartolome Elver 2018-05-24 2018-05-25 Outpatient nullFlavo MNA [id number] Memoria 20:15:00 04:59:59 r Neurology 04 l Bartolome Elver 2018-05-24 2018-05-24 Outpatient Vishal MHMISCHER MHMISCHER [id number] 15:15:00 23:59:59 Edenilson Allyson Jacobo 2018-05-24 2018-05-24 Outpatient MHIE MHIE [id number] Memoria 15:15:00 15:15:00 04 tanja Elver 2018-04-05 2018-04-05 Outpatient MHIE MHIE [id number] Memoria 14:45:00 14:45:00 03 tanja [facility] 2018-04-05 2018-04-05 Outpatient MHIE MHIE [id number] Memoria 14:45:00 14:45:00 03 tanja Raya 2017-12-28 2017-12-28 Outpatient MHIE MHIE [id number] Memoria 14:30:00 14:30:00 02 tanja Raya 2017-12-28 2017-12-28 [id number] Mem[facility] 14:30:00 14:30:00 02 l Elver 2017-10-25 2017-10-25 Outpatient BETTYE BETTYE [id number] Memoria 14:45:00 14:45:00 00 l Elver 2017-10-25 2017-10-25 Outpatient BETTYE BETTYE [id number] Memoria 14:45:00 14:45:00 00 tanja Raya Results Test Description Test Time Test Comments Results Result Comments Source T4, free 2022-07-21 05:37:00 Test Item Value Reference Range Interpretation Comme nts T4, free (test code = 3024-7) 1.5 ng/dL 0.8-1.8 JAROD (test code = JAROD) FASTING:YES FASTING: YES RAC (test code = RAC) Performing Organization Information: Site ID: [facility] Name: [facility] Address: [address] [place] [address] Director: [facility] stimulating [id number] 05:37:00 Test Item Value Reference Range Interpretation [...] code = RAC) Organization Information: Site ID: [facility] Name: [facility] Address: [address] [place] [address] Director[facility]T3, [id number] 05:37:00 Test Item Value Reference Range Interpretation Comments T3, free (test code 2.8 pg/mL 2.3-4.2 = 3051-0) JAROD (test code = FASTING:YES FASTING: YES JAROD) RAC (test code = Performing Organization RAC) Information: Site ID: [facility] Name: [facility] Address: [address] [place] [id number] Director: [facility]Hemoglobin [id number] 05:19:00 Test Item Value Reference Range Interpretation [...] specif ic patient populat ions. Standards of Me dical Care in Diabetes(ADA). [Automated mess age] The system SpringCM generated this result transmitted ref erence range: <5.7 % o f total Hgb. The reference range was not used to int erpret this result as normal/abnormal . JAROD (test code = FASTING:NO JAROD) FASTING: NO RAC (test code = Performing RAC) Organization Information: Site ID: [facility] Name: [facility] Address: [address] [place] [id number] Director: [facility] [id number] 19:07:00 Test Item Value Reference Range Interpretation [...] (BEAKER) (test code None Seen = 1521) Wet Room Worker ID - techURINALYSIS WITH MICROSCOPIC IF [id number] 19:00:00 Test Item Value Reference Range Interpretation [...] = 463) SOURCE(BEAKER) (test code = 2795) Wet Room Worker ID - [auto]HIGH SENSITIVITY TROPONIN [id number] 18:27:00 Test Item Value Reference Range Interpretation Comments HIGH SENSITIVITY < pg/ml See_Comment [Automated message] TROPONIN I (test code = The system which [id number]) generated this result transmitted ref erence range: <=17. Th e reference range was not used to interpr et this result as normal/abnormal . Wet Room Worker ID - DBThe BUSINESS CONTINUITY PLANNING DIRECTOR STAT High Sensitivity Troponin-I results should be used in conjunctionwith other diagnostic information such as ECG, clinical observations and information, and patient symptoms to aid in the diagnosis of [place].COMPREHENSIVE METABOLIC [id number] 18:20:00 Test Item Value Reference Range Interpretation [...] S NOT APPLICABLE FOR DIALYSIS PATIEN TS. Wet Room Worker ID - [id number] 18:20:00 Test Item Value Reference Range Interpretation Comments LIPASE (BEAKER) (test code = 749) 7 U/L 8-78 L Wet Room Worker ID - DBCBC W/PLT COUNT & AUTO [id number] 17:59:00 Test Item Value Reference Range Interpretation [...] PERCENT (BEAKER) (test code = 2801) SARS-COV2/RT-PCR ([facility])2020-05-20 21:06:00 Test Item Value Reference Range Interpretation Comments SARS-COV2/RT-PCR (test Negative Not Detected, Negative, code = 0027599) See external report for linked test SARS-COV-2 PERFORMING LAB [facility] (test code = 9146054) Negative result for this test determines that [...] of the Act.Fact Sheet for Healthcare Prov iders:https://www.[place]/sites/default/files/product/documents/Fact_Sheet_HC _Sjgkkumpm_Bygk_HHDC-EnM-5.pdfFact Sheet for Healthcare Patients:https://www.[place]/sites/default/files/product/docume nts/Rlsq_Npmqr_Uvpijals_Qjcr_ZJWB-CzF-3.pdfPerforming Laboratory:[place] [address], [place] [address]XDJNR METABOLIC PANEL 2019-09-18 05:34:00 Test Item Value [...] S NOT APPLICABLE FOR DIALYSIS PATIEN TS. Wet Room Worker ID - DENI MCBC W/PLT COUNT & AUTO [id number] 05:07:00 Test Item Value Reference Range Interpretation [...] PERCENT (BEAKER) (test code = 2801) [place], [id number] 15:55:00For Gastrografin Swallow examReason for exam:- >S/p [...] time: 0.95 minutes. 44 images. Signed: [facility] Verified Date/Time: 09/17/2019 15:55:35 Reading Location: [address] Consult Reading Room BASIC METABOLIC [id number] 07:13:00 Test Item Value Reference Range Interpretation Comments SODIUM (BEAKER) 133 meq/L 136-145 L (test code = 381) POTASSIUM (BEAKER) 4.7 meq/L 3.5-5.1 Specimen slightly (test code = 379) hemolyzed CHLORIDE (BEAKER) 101 meq/L 98-107 (test code = 382) CO2 (BEAKER) (test 27 meq/L 22-29 code = 355) BLOOD UREA NITROGEN 14 [...] S NOT APPLICABLE FOR DIALYSIS PATIEN TS. Wet Room Worker ID - DENI MCBC W/PLT COUNT & AUTO [id number] 06:51:00 Test Item Value Reference Range Interpretation [...] PERCENT (BEAKER) (test code = 2801) TISSUE [id number] 08:53:00Surgical Pathology Report Case: [id number] Authorizing Provider: Elena Raygoza Collected: 06/17/2018 1043 MD Irlanda Ordering Location: [facility] Received: 06/17/2018 1426 SERVICES Pat hologist: Falguni Patino MD Specimens: A) - Biopsy, [...] OR DYSPLASIA. Signing Pathologist Direct Phone Line: [phone] signed by Falguni Patino MD on 06/20/2018 at 8:53 AM ENDOSCOPIC REPORT REVIEWED. 49528 x 2, 23656 x 1 Pancreatic insufficiency, abdominal pain A. [...]
[2023-03-27] MEDS ORDERED: FAMOTIDINE 20 MG/2 ML VIAL IV ONE (14:06)
[2023-03-27] MEDS ORDERED: ONDANSETRON 4 MG/2 ML VIAL ONE ×2 (14:06→17:27)
[2023-03-27] MEDS ORDERED: NA CHLORIDE 0.9% 1,000 ML ONE ×2 (14:06→16:17)
[2023-03-27 14:22] LABS: Absolute Lymphocytes (CBC) 1.1 K/uL (0.7-4.9); Hematocrit 41.3 % (36.0-45.0); MPV 8.3 fL (7.6-11.3); Platelets 210 thou/uL (152-406); RBC Red Blood Cell Count 4.44 M/uL (3.86-4.86)
[2023-03-27 14:35] LABS: Albumin 3.6 g/dL (3.4-5.0); Bilirubin Total 0.8 mg/dL (0.2-1.0); Potassium 3.8 mEq/L (3.5-5.1); Protein, Total 7.9 g/dL (6.4-8.2)
--- NOTE | 2023-03-27 15:22 | RAD REPORT ---
EXAM DESCRIPTION: CT - Abdomen Pelvis W Contrast - 03/27/2023 2:52 pm CLINICAL HISTORY: Abd pain;Nausea / vomiting COMPARISON: No comparisons TECHNIQUE: Thin cut axial CT imaging of the abdomen and pelvis was performed following intravenous a dministration of 100 mL Isovue 300. Multiplanar reformats were generated and reviewed. All CT scans are performed using dose optimization technique as appropriate and may include automated exposure control or mA/KV adjustment according to patient size. FINDINGS: No suspicious findings in the lung bases. Liver shows subcentimeter cysts, too small to characterize, but likely benign. Status post cholecyste ctomy. The adrenal glands, spleen, and pancreas show no suspicious findings. Subtle patchy cortical areas of hypoenhancement throughout the right kidney. No hydronephrosis or kristin picious renal mass. Nonspecific mild perinephric fluid. No dilated bowel loops or bowel wall thickening. Sigmoid diverticulosis. No free air, free fluid or i nflammatory stranding. No hernia, mass or bulky lymphadenopathy. The urinary bladder is without signi ficant finding. No suspicious bony findings. IMPRESSION: Subtle patchy cortical hypoenhancement throughout the right kidney, please correlate cli nically for pyelonephritis. Nonspecific mild perinephric fluid noted bilaterally.
--- NOTE | 2023-03-27 16:49 | EDPHYS ---
Physician Documentation [facility] Name: Billie Hutchinson Age: 77 yrs Sex: Female : 1945 Arrival Date: 03/27/2023 Time: 12:54 Bed 5 Private MD: Madi Ramon V ED Physician Landen Hines HPI: 03/27 14:01 This 77 yrs old Female presents to ER via Ambulatory with complaints of Fever, rn Abdominal Pain, Vomiting. 14:01 The patient reports fever, not measured (subjective). Onset: The symptoms/episode rn began/occurred yesterday. Modifying factors: there are no obvious modifying factors. Associated signs and symptoms: Pertinent positives: abdominal pain, nausea, vomiting, Pertinent negatives: chest pain, skin rash, shortness of breath. Severity of symptoms: At their worst the symptoms were moderate in the emergency department the symptoms are unchanged. The patient has experienced similar episodes in the past. Pt states feels similar to previous episodes of pancreatitis. Subjective fever. + chills. . Historical: - Allergies: 13:30 PENICILLINS; nj1 13:30 Sulfa (Sulfonamide Antibiotics); nj1 13:30 "Zine" medications (compazine, thorazine); nj1 13:30 Baclofen; nj1 13:30 Tape; nj1 - PMHx: 13:30 Pancreatitis; Hypothyroidism; IBS; nj1 - Immunization history:: Client reports receiving the 2nd dose of the Covid vaccine. - Social history:: Smoking status: Patient denies any tobacco usage or history of. - Family history:: not pertinent. - Hospitalizations: : No recent hospitalization is reported. ROS: 14:03 Constitutional: + fever Cardiovascular: Negative for chest pain, palpitations, and rn edema, Respiratory: Negative for shortness of breath, cough, wheezing, and pleuritic chest pain, Abdomen/GI: + abd pain and vomiting MS/Extremity: Negative for injury and deformity, Skin: Negative for injury, rash, and discoloration, Neuro: + generalized weakness Exam: 14:03 Constitutional: This is a well developed, well nourished patient who is awake, alert, rn and in no acute distress. ENT: dry MM Cardiovascular: Regular rate and rhythm. No pulse deficits. Respiratory: No increased work of breathing, no retractions or nasal flaring. Abdomen/GI: soft, + mild abd tenderness Skin: Warm, dry MS/ Extremity: Pulses equal, no cyanosis. Neuro: Awake and alert, GCS 15 Vital Signs: 13:24 BP 85 / 54; Pulse 87; Resp 16; Temp 98.8(O); Pulse Ox 92% on R/A; Weight 53.98 kg; nj1 Height 5 ft. 1 in. ; Pain 9/10; 14:04 BP 107 / 66; Pulse 122; Resp 18; Pulse Ox 96% on R/A; ld1 15:15 BP 120 / 59; Pulse 109; Resp 18; Pulse Ox 92% on R/A; ld1 16:12 BP 122 / 61; Pulse 108; Resp 20; Pulse Ox 93% on R/A; ld1 16:57 BP 143 / 67; Pulse 119; Resp 20; Pulse Ox 94% on R/A; ph 17:00 BP 148 / 112; Pulse 128; Resp 25; Pulse Ox 91% on R/A; ld1 17:29 BP 165 / 117; Pulse 143; Resp 18; Pulse Ox 96% on R/A; ld1 17:37 BP 157 / 90; Pulse 138; Resp 18; Pulse Ox 92% on R/A; ld1 17:57 BP 157 / 90; Pulse 127; Resp 18; Pulse Ox 90% on R/A; ld1 18:57 BP 128 / 65; Pulse 128; Resp 18; Pulse Ox 90% on R/A; ld1 19:40 BP 125 / 52; Pulse 130; Resp 17 S; Pulse Ox 97% on 2 lpm NC; lg3 13:24 Body Mass Index 22.48 (53.98 kg, 154.94 cm) nj1 13:24 Pain Scale: Adult nj1 MDM: 13:10 Patient medically screened. rn 16:46 Differential diagnosis: viral Infection, bacterial infection, UTI, gastroenteritis. rn Data reviewed: vital signs, nurses notes, radiologic studies, CT scan, and as a result, I will admit patient. Consideration of Admission/Observation Patient was admitted/placed on observation. Escalation of care including admission/observation considered. Counseling: I had a detailed discussion with the patient and/or guardian regarding: the historical points, exam findings, and any diagnostic results supporting the discharge/admit diagnosis, lab results, radiology results, the need for further work-up and treatment in the hospital. Response to treatment: the patient's symptoms have markedly improved after treatment, and as a result, I will admit patient. 17:21 ED course: Pt started to have chills and not feel well after cipro started, but rn and patient both report has had cipro atleast 8 times in past without reaction. Also reports was shaking with chill like this last night. Benadryl and zofran ordered, will continue to monitor. Pt evaluated just now by Dr. Ramon. . 03/27 13:29 Order name: CBC with Diff; Complete Time: 15:05 rn 03/27 13:29 Order name: CMP; Complete Time: 15:05 rn 03/27 13:29 Order name: Lipase; Complete Time: 15:05 rn 03/27 14:02 Order name: Blood Culture Adult (2) rn 03/27 14:02 Order name: Lactate w/ 2H reflex if indic.; Complete Time: 15:05 rn 03/27 15:52 Order name: Urinalysis w/ reflexes; Complete Time: 17:15 rn 03/27 17:24 Order name: Urine Culture EDMS 03/27 13:29 Order name: CT Abd/Pelvis - IV Contrast Only; Complete Time: 15:31 rn 03/27 14:02 Order name: EKG; Complete Time: 14:03 rn 03/27 13:29 Order name: IV Saline Lock; Complete Time: 14:04 rn 03/27 13:29 Order name: Labs collected and sent; Complete Time: 14:04 rn 03/27 14:02 Order name: Accucheck; Complete Time: 14:05 rn 03/27 14:02 Order name: Cardiac monitoring; Complete Time: 15:15 rn 03/27 14:02 Order name: EKG - Nurse/Tech; Complete Time: 15:15 rn 03/27 14:02 Order name: IV Saline Lock - Large Bore; Complete Time: 14:05 rn 03/27 14:02 Order name: O2 Per Protocol; Complete Time: 14:04 rn 03/27 14:02 Order name: O2 Sat Monitoring; Complete Time: 14:04 rn 03/27 14:02 Order name: Vital Signs; Complete Time: 14:04 rn Administered Medications: 14:04 Drug: NS 0.9% IV 1000 ml Route: IV; Rate: 1 bolus; Site: right antecubital; ld1 19:41 Follow up: Response: No adverse reaction; IV Status: Completed infusion; IV Intake: lg3 1000ml 14:04 Drug: Famotidine IVP 20 mg Route: IVP; Site: right antecubital; ld1 19:41 Follow up: Response: No adverse reaction lg3 14:04 Drug: Ondansetron IVP 4 mg Route: IVP; Site: right antecubital; ld1 19:41 Follow up: Response: No adverse reaction lg3 16:11 Drug: NS 0.9% IV 1000 ml Route: IV; Rate: 1000 ml; Site: left antecubital; ld1 19:41 Follow up: IV Status: Completed infusion; IV Intake: 1000ml lg3 16:53 Drug: Ciprofloxacin IVPB 400 mg Volume: 200 ml; Route: IVPB; Infused Over: 60 mins; ld1 Site: right antecubital; 17:27 Follow up: Response: Adverse reaction, Physician notified; Blood pressure is elevated; ld1 Nausea is increased; IV Status: Order to discontinue infusion 17:27 Drug: diphenhydrAMINE IVP 25 mg Route: IVP; Site: left antecubital; ld1 19:41 Follow up: Response: No adverse reaction lg3 17:27 Drug: Ondansetron IVP 4 mg Route: IVP; Site: left antecubital; ld1 19:41 Follow up: Response: No adverse reaction lg3 17:34 Drug: Acetaminophen PO 650 mg Route: PO; ld1 19:40 Follow up: Response: No adverse reaction lg3 Disposition Summary: 03/27/23 16:48 Hospitalization Ordered Hospitalization Status: Inpatient Admission rn Provider: Madi Ramon rn Location: Telemetry/[facility] (Inpatient) rn Condition: Stable rn Problem: new rn Symptoms: have improved rn Bed/Room Type: Standard rn Room Assignment: 427(03/27/23 20:05) cg Diagnosis - Pyelonephritis acute rn Forms: - Medication Reconciliation Form rn - SBAR form rn Signatures: Dispatcher [employer] Landen Germain MD MD rn Garcia, Cindy, RN RN cg Sims, Lauren, RN RN ld1 Kanwal Cevallos RN RN Joann Grubbs RN lg3 Corrections: (The following items were deleted from the chart) 20:05 16:48 rn cg
--- NOTE | 2023-03-27 16:49 | ER ---
Nurse's Notes [facility] Name: Billie Hutchinson Age: 77 yrs Sex: Female : 1945 Arrival Date: 03/27/2023 Time: 12:54 Bed 5 Private MD: Madi Ramon V Diagnosis: Pyelonephritis acute Presentation: 03/27 13:24 Chief complaint: Patient states: Chronic pancreatitis. Fever (101). Abdominal pain for nj1 several days. Vomited yesterday. Coronavirus screen: Vaccine status: Patient reports receiving the 2nd dose of the covid vaccine. Ebola Screen: Patient denies travel to an Ebola-affected area in the 21 days before illness onset. Initial Sepsis Screen: Does the patient meet any 2 criteria? Systolic BP < 90 mmHg. No. Patient's initial sepsis screen is negative. Does the patient have a suspected source of infection? No. Patient's initial sepsis screen is negative. Risk Assessment: Do you want to hurt yourself or someone else? Patient reports no desire to harm self or others. Onset of symptoms was March 26, 2023. 13:24 Method Of Arrival: Ambulatory nj1 13:24 Acuity: ARACELI 2 nj1 Historical: - Allergies: 13:30 PENICILLINS; nj1 13:30 Sulfa (Sulfonamide Antibiotics); nj1 13:30 "Zine" medications (compazine, thorazine); nj1 13:30 Baclofen; nj1 13:30 Tape; nj1 - PMHx: 13:30 Pancreatitis; Hypothyroidism; IBS; nj1 - Immunization history:: Client reports receiving the 2nd dose of the Covid vaccine. - Social history:: Smoking status: Patient denies any tobacco usage or history of. - Family history:: not pertinent. - Hospitalizations: : No recent hospitalization is reported. Screenin:04 [facility] ED Fall Risk Assessment (Adult) History of falling in the last 3 months, ld1 including since admission No falls in past 3 months (0 pts). Abuse screen: Denies threats or abuse. Denies injuries from another. Nutritional screening: No deficits noted. Tuberculosis screening: No symptoms or risk factors identified. Assessment: 14:06 General: Appears in no apparent distress. uncomfortable, Behavior is calm, cooperative, ld1 appropriate for age. Pain: Complains of pain in right lower quadrant Pain does not radiate. Pain currently is 7 out of 10 on a pain scale. Quality of pain is described as throbbing. Neuro: Level of Consciousness is awake, alert, obeys commands, Oriented to person, place, time, situation. Cardiovascular: Capillary refill < 3 seconds Patient's skin is warm and dry. Rhythm is sinus tachycardia. Respiratory: Airway is patent Respiratory effort is even, unlabored. GI: Abdomen is round non-distended. GI: Bowel sounds present X 4 quads. Abd is soft Abdomen is tender to palpation in right lower quadrant. : No signs and/or symptoms were reported regarding the genitourinary system. EENT: No signs and/or symptoms were reported regarding the EENT system. Derm: No signs and/or symptoms reported regarding the dermatologic system. Musculoskeletal: No signs and/or symptoms reported regarding the musculoskeletal system. 17:29 Reassessment: ERP at bedside. Pt c/o rash to left arm after cipro given. Discontinued ld1 infusion. ERP notified of VS. See MAR for orders. 19:15 Reassessment: Patient appears in no apparent distress at this time. Patient and/or jb4 family updated on plan of care and expected duration. Pain level reassessed. Patient is alert, oriented x 3, equal unlabored respirations, skin warm/dry/pink. 19:43 Reassessment: Pt noted to desat to 88% on RA. Placed on 2L NC, now satting 97% on 2L jb4 NC. 22g to the RAC noted to be occluded and non-flushable, will not draw blood. IV d/c'd, iv intact and pressure bandage applied. Vital Signs: 13:24 BP 85 / 54; Pulse 87; Resp 16; Temp 98.8(O); Pulse Ox 92% on R/A; Weight 53.98 kg; nj1 Height 5 ft. 1 in. ; Pain 9/10; 14:04 BP 107 / 66; Pulse 122; Resp 18; Pulse Ox 96% on R/A; ld1 15:15 BP 120 / 59; Pulse 109; Resp 18; Pulse Ox 92% on R/A; ld1 16:12 BP 122 / 61; Pulse 108; Resp 20; Pulse Ox 93% on R/A; ld1 16:57 BP 143 / 67; Pulse 119; Resp 20; Pulse Ox 94% on R/A; ph 17:00 BP 148 / 112; Pulse 128; Resp 25; Pulse Ox 91% on R/A; ld1 17:29 BP 165 / 117; Pulse 143; Resp 18; Pulse Ox 96% on R/A; ld1 17:37 BP 157 / 90; Pulse 138; Resp 18; Pulse Ox 92% on R/A; ld1 17:57 BP 157 / 90; Pulse 127; Resp 18; Pulse Ox 90% on R/A; ld1 18:57 BP 128 / 65; Pulse 128; Resp 18; Pulse Ox 90% on R/A; ld1 19:40 BP 125 / 52; Pulse 130; Resp 17 S; Pulse Ox 97% on 2 lpm NC; lg3 13:24 Body Mass Index 22.48 (53.98 kg, 154.94 cm) nj1 13:24 Pain Scale: Adult ks1 ED Course: 12:56 Patient arrived in ED. rg4 12:57 Madi Ramon MD is Private Physician. rg4 13:10 Landen Hines MD is Attending Physician. rn 13:28 Triage completed. nj1 13:32 Arm band placed on left wrist. nj1 13:44 Aliza Iqbal, TAMICA is Primary Nurse. ld1 14:04 CBC with Diff Sent. ld1 14:04 CMP Sent. ld1 14:04 Lipase Sent. ld1 14:04 No provider procedures requiring assistance completed. Inserted saline lock: 20 gauge ld1 in right antecubital area, using aseptic technique. Blood collected. 14:06 Patient has correct armband on for positive identification. Placed in gown. Bed in low ld1 position. Call light in reach. Side rails up X2. nuclear monitoring technician on. Pulse ox on. NIBP on. Door closed. Noise minimized. Warm blanket given. 14:22 Blood Culture Adult (2) Sent. bp 14:22 Lactate w/ 2H reflex if indic. Sent. bp 14:27 Inserted saline lock: 20 gauge in left antecubital area, using aseptic technique. Blood ld1 collected. 14:53 CT Abd/Pelvis - IV Contrast Only In Process Unspecified. EDMS 15:15 Blood Culture Adult (2) Sent. ld1 16:35 Urinalysis w/ reflexes Sent. ld1 16:48 Madi Ramon MD is Hospitalizing Provider. rn 19:38 Oxygen administration via nasal cannula \\T\\ 2L/min. lg3 20:13 Patient admitted, IV remains in place. No redness/swelling at site. lg3 Administered Medications: 14:04 Drug: NS 0.9% IV 1000 ml Route: IV; Rate: 1 bolus; Site: right antecubital; ld1 19:41 Follow up: Response: No adverse reaction; IV Status: Completed infusion; IV Intake: lg3 1000ml 14:04 Drug: Famotidine IVP 20 mg Route: IVP; Site: right antecubital; ld1 19:41 Follow up: Response: No adverse reaction lg3 14:04 Drug: Ondansetron IVP 4 mg Route: IVP; Site: right antecubital; ld1 19:41 Follow up: Response: No adverse reaction lg3 16:11 Drug: NS 0.9% IV 1000 ml Route: IV; Rate: 1000 ml; Site: left antecubital; ld1 19:41 Follow up: IV Status: Completed infusion; IV Intake: 1000ml lg3 16:53 Drug: Ciprofloxacin IVPB 400 mg Volume: 200 ml; Route: IVPB; Infused Over: 60 mins; ld1 Site: right antecubital; 17:27 Follow up: Response: Adverse reaction, Physician notified; Blood pressure is elevated; ld1 Nausea is increased; IV Status: Order to discontinue infusion 17:27 Drug: diphenhydrAMINE IVP 25 mg Route: IVP; Site: left antecubital; ld1 19:41 Follow up: Response: No adverse reaction lg3 17:27 Drug: Ondansetron IVP 4 mg Route: IVP; Site: left antecubital; ld1 19:41 Follow up: Response: No adverse reaction lg3 17:34 Drug: Acetaminophen PO 650 mg Route: PO; ld1 19:40 Follow up: Response: No adverse reaction lg3 Medication: 14:06 VIS not applicable for this client. ld1 Intake: 19:41 IV: 1000ml; Total: 1000ml. lg3 19:41 IV: 1000ml; Total: 2000ml. lg3 Outcome: 16:48 Decision to Hospitalize by Provider. rn 20:13 Admitted to Tele accompanied by tech, via stretcher, room 427, with oxygen, Report lg3 called to Lalo 20:13 Condition: stable 20:13 Instructed on the need for admit, Demonstrated understanding of instructions. 20:42 Patient left the ED. jb4 Signatures: Dispatcher [employer] EDMS Landen Hines MD MD rn Hall, Patricia RN RN Veronica Lorenzo rg4 Horacio Ramos RN RN jb4 Marco A Borrero RN RN Joann Olsen, RN RN lg3 Aliza Iqbal RN RN ld1 Kanwal Cevallos RN RN nj1 Corrections: (The following items were deleted from the chart) 13:33 13:24 BP 85 / 54; Pulse 87bpm; Resp 16bpm; Pulse Ox 92% RA; Temp 98.8F Oral; nj1 nj1
[2023-03-27] MEDS ORDERED: CIPROFLOXACIN 400mg IV 400 MG/200 ML BAG IV ONE (17:00)
[2023-03-27 17:04] LABS: Specific Gravity > 1.030 (1.005-1.030); Urine Bacteria None Seen /HPF (<20); Urine Bilirubin NEGATIVE (Negative); Urine Blood 1+ (Negative); Urine Clarity Turbid (Clear); Urine Color Light-Yellow (Yellow); Urine Glucose NEGATIVE (Negative); Urine Protein 1+ (Negative); Urine Urobilinogen Normal (Normal); Urine WBC Clump Rare /HPF (None Seen)
[2023-03-27] MEDS ORDERED: DIPHENHYDRAMINE 50 MG/ML VIAL ONE (17:27)
[2023-03-27] MEDS ORDERED: ACETAMINOPHEN 325 MG TABLET ONE (17:42)
[2023-03-27] MEDS ORDERED: NA CHLORIDE 0.9% 1,000 ML IV SCH (21:29)
[2023-03-27] MEDS ORDERED: ONDANSETRON 4 MG/2 ML VIAL IV PRN (21:29)
[2023-03-27] MEDS ORDERED: ACETAMINOPHEN 500 MG TAB PO PRN (21:29)
--- NOTE | 2023-03-27 21:41 | P.HP ---
Certification for Inpatient Patient admitted to: Inpatient With expected LOS: >2 Midnights Practitioner: I am a practitioner with admitting privileges, knowledge of patient current condition, hospital course, and medical plan of care. Services: Services provided to patient in accordance with Admission requirements found in Title 42 Section 412.3 of the Code of Federal Regulations Patient History Date of Service: 03/27/23 Reason for admission: DYSURIA AND FEVER History of Present Illness: ALLYSSA HAS HAD FEW MEDICAL ISSUES BELOW BUT SHE HAS NOT BEEN TO MY OFFICE FOR 1.5 YEARS. SHE COMES TO ER WITH CHILS, FEVER AND ABDOMEN PAIN. SHE IS FOUND TO UTI WITH PYELONEPHRITIS. Allergies ciprofloxacin [From Cipro] Allergy (Verified 03/27/23 21:27) Itching/Hives/Rash Home medications list reviewed: Yes Review of Systems 10-point ROS is otherwise unremarkable Physical Examination - Vital Signs Temperature: 98.8 F Blood Pressure: 125/52 Pulse: 130 Respirations: 17 - Physical Exam General: Oriented x2, Moderate distress (RIGORS) HEENT: Atraumatic, PERRLA, Mucous membr. moist/pink, EOMI, Sclerae nonicteric Neck: Supple, 2+ carotid pulse no bruit, No LAD, Without JVD or thyroid abnormality Respiratory: Clear to auscultation bilaterally, Normal air movement Cardiovascular: Regular rate/rhythm, Normal S1 S2 Gastrointestinal: Normal bowel sounds, No tenderness Musculoskeletal: No tenderness Integumentary: No rashes Neurological: Normal gait, Normal speech, Normal strength at 5/5 x4 extr, Normal tone, Normal affect Lymphatics: No axilla or inguinal lymphadenopathy - Studies Laboratory Data (last 24 hrs) 03/27/23 03/27/23 14:07 14:07 WBC 18.00 H Hgb 13.5 Hct 41.3 Plt Count 210 Sodium 133 L Potassium 3.8 BUN 16 Creatinine 1.18 H Glucose 116 H Total Bilirubin 0.8 AST 93 H ALT 96 H Alkaline Phosphatase 121 H Lipase 21 Assessment and Plan - Problems (Diagnosis) (1) Acute pyelonephritis Current Visit: Yes Status: Acute Plan: IV ABX STOP CIPRO- LISTED ALLERGY HERE START ROCEPHIN IV BID CULTURE PENDING. IV HYDRATION. FOLLOWING IS HER HISTORY. SHE HAS NOT BEEN TO MY OFFICE SINCE AUG 2021. Osteoarthritis [M19.90 (715.90)] 2018 Cervical radiculitis [M54.12 (723.4)] 2018 Other specified hypothyroidism [E03.8 (244.8)] 2018 Irritable bowel syndrome [K58.9 (564.1), 564.1] 2018 Abnormal mammogram [R92.8 (793.80)] 2018 Other specified hypothyroidism [E03.8 (244.8)] 2018 Other specified hypothyroidism [E03.8 (244.8)] 2019 Chronic pancreatitis [K86.1 (577.1) 0.3] Last addressed: 09/19/20212019 Esophageal stenosis [K22.2 (530.3)] DR. RAYGOZA DID SURGERY EUS AND PULL SURGERY. DR. RAYGOZA DID SURGERY EUS AND PULL SURGERY. 2019 Dysphagia [R13.10 (787.20)] 2020 Protein calorie malnutrition [E46 (263.9) 0.5] Last addressed: 08/02/20212020 Chronic depression [F32.A (311)] - Advance Directives Does patient have a Living Will: Yes Does patient have a Durable POA for Healthcare: Yes
[2023-03-27] MEDS: CEFTRIAXONE 1,000 MG in NA CHLORIDE 0.9% 50 ML IVPB SCH (22:34)
[2023-03-27 23:33] VITALS: O2SAT 98; BMI 22.4
[2023-03-28] MEDS ORDERED: CIPROFLOXACIN 400mg IV 400 MG/200 ML BAG IV SCH (06:00)
[2023-03-28 06:07] LABS: Absolute Lymphocytes (CBC) 1.3 K/uL (0.7-4.9); Hematocrit 30.4 % (36.0-45.0); MCV 93.4 fL (80-100); MPV 8.1 fL (7.6-11.3); Platelets 135 thou/uL (152-406); RBC Red Blood Cell Count 3.26 M/uL (3.86-4.86)
[2023-03-28 06:25] LABS: Potassium 4.2 mEq/L (3.5-5.1)
[2023-03-28 06:45] LABS: Blood Morphology Comment NOT SEEN (NOT SEEN); Platelet Estimate DECR; Toxic Granulation 1+; White Blood Cell Scan OK (OK)
[2023-03-28] MEDS ORDERED: LEVOTHYROXINE SOD 0.075 MG TAB PO SCH (07:30)
[2023-03-28] MEDS: PANTOPRAZOLE 40MG TABLET PO SCH (08:06)
[2023-03-28] MEDS: CEFTRIAXONE 1,000 MG in NA CHLORIDE 0.9% 50 ML IVPB SCH ×2 (08:06→20:46)
[2023-03-28] MEDS: ESCITALOPRAM 20 MG TAB PO SCH (08:07)
[2023-03-28] MEDS: METOPROLOL XL 25 MG TAB PO SCH (08:18)
[2023-03-28] MEDS ORDERED: HYDROCODONE/APAP 7.5/325 MG TAB PO SCH (09:00)
[2023-03-28] MEDS ORDERED: BUPROPION HCL XL 150 MG TAB PO SCH (09:00)
[2023-03-28] MEDS ORDERED: CEFTRIAXONE 1,000 MG in NA CHLORIDE 0.9% 50 ML IVPB SCH (09:00)
[2023-03-28] MEDS: PREDNISOLONE 1% OPTH SOLN 5ML EACH EYE SCH (09:00)
[2023-03-28] MEDS: HYDROCODONE/APAP 7.5/325 MG TAB PO SCH ×3 (11:19→23:25)
[2023-03-28] MEDS: ZENPEP 40000 UNIT PO SCH ×2 (11:20→16:30)
[2023-03-28] MEDS ORDERED: AMYLASE/LIPASE/PROTEASE CAP PO SCH (12:00)
[2023-03-28] MEDS ORDERED: ZENPEP 40000 UNIT PO SCH (12:00)
[2023-03-28] MEDS: DIAZEPAM 5 MG TABLET PO PRN ×2 (17:16→23:25)
--- NOTE | 2023-03-28 18:09 | EKG ---
Test Date: 2023-03-27 Test Time: 15:12:50 Gas Attendant: James MUNSON MEASUREMENT RESULTS: Intervals: Rate: 106 NV: 172 QRSD: 78 QT: 344 QTc: 456 [place]: P: NV: 172 QRS: -8 T: 145 INTERPRETIVE STATEMENTS: Sinus tachycardia T wave abnormality, consider lateral ischemia Abnormal ECG Compared to ECG 02/27/2023 01:37:54 T-wave abnormality now present Possible ischemia now present Sinus rhythm no longer present Electronically Signed On 03-28-23 18:07:29 CDT by Kush Luciano
--- NOTE | 2023-03-28 18:13 | P.PN ---
Subjective Date of Service: 03/28/23 Chief Complaint: DYSURIA AND FEVER Subjective: Improving NICHOLAS IS A LTO BETTER. WANTS HER HOME MEDS SHE IS TOLD THAT NICHOLAS SHOUDL BE AT [facility] TWICE YEAR TO CLAIM ME PCP. SHE WAS LAST THERE1.5 YEARS. AGO NICHOLAS GETS HER MEDS FROM DR MERA OR DR. VALADEZ. Review of Systems 10-point ROS is otherwise unremarkable Physical Examination - Vital Signs Temperature: 98.5 F Blood Pressure: 100/57 Pulse: 95 Respirations: 17 Pulse Ox (%): 96 - Physical Exam General: Alert, In no apparent distress HEENT: Atraumatic, PERRLA, EOMI Neck: Supple, JVD not distended Respiratory: Clear to auscultation bilaterally, Normal air movement Cardiovascular: Regular rate/rhythm, Normal S1 S2 Gastrointestinal: Normal bowel sounds, No tenderness Musculoskeletal: No tenderness Integumentary: No rashes Neurological: Normal speech, Normal tone, Normal affect Lymphatics: No axilla or inguinal lymphadenopathy - Studies Microbiology Data (last 24 hrs): 03/27/23 14:11 Blood - Blood Blood Culture Gram Stain - Final 03/27/23 14:20 Blood - Blood Blood Culture Gram Stain - Final 03/27/23 14:20 Blood - Blood Gram Stain - Final Medications List Reviewed: Yes Assessment And Plan - Current Problems (Diagnosis) (1) Acute pyelonephritis Current Visit: Yes Status: Acute Plan: IV ABX STOP CIPRO- LISTED ALLERGY HERE START ROCEPHIN IV BID CULTURE PENDING. IV HYDRATION. FOLLOWING IS HER HISTORY. SHE HAS NOT BEEN TO MY OFFICE SINCE AUG 2021. Osteoarthritis [M19.90 (715.90)] 2018 Cervical radiculitis [M54.12 (723.4)] 2018 Other specified hypothyroidism [E03.8 (244.8)] 2018 Irritable bowel syndrome [K58.9 (564.1), 564.1] 2018 Abnormal mammogram [R92.8 (793.80)] 2018 Other specified hypothyroidism [E03.8 (244.8)] 2018 Other specified hypothyroidism [E03.8 (244.8)] 2019 Chronic pancreatitis [K86.1 (577.1) 0.3] Last addressed: 09/19/20212019 Esophageal stenosis [K22.2 (530.3)] DR. RAYGOZA DID SURGERY EUS AND PULL SURGERY. DR. RAYGOZA DID SURGERY EUS AND PULL SURGERY. 2019 Dysphagia [R13.10 (787.20)] 2020 Protein calorie malnutrition [E46 (263.9) 0.5] Last addressed: 08/02/20212020 Chronic depression [F32.A (311)] CS POS I DPENDING.
[2023-03-28] MEDS: MIRTAZAPINE 15 MG TAB PO SCH (20:45)
[2023-03-28] MEDS: ENOXAPARIN 40 MG/0.4 ML SQ SCH (20:48)
[2023-03-29] MEDS: HYDROCODONE/APAP 7.5/325 MG TAB PO SCH ×4 (05:14→23:06)
[2023-03-29] MEDS: DIAZEPAM 5 MG TABLET PO PRN ×3 (05:27→23:06)
[2023-03-29] MEDS: LEVOTHYROXINE 0.075 MG PO SCH (06:00)
[2023-03-29] MEDS: ZENPEP 40000 UNIT PO SCH ×3 (08:57→17:06)
[2023-03-29] MEDS: ESCITALOPRAM 20 MG TAB PO SCH (08:57)
[2023-03-29] MEDS: BUPROPION HCL XL 150 MG TAB PO SCH (08:58)
[2023-03-29] MEDS: METOPROLOL XL 25 MG TAB PO SCH (08:58)
[2023-03-29] MEDS: ENOXAPARIN 40 MG/0.4 ML SQ SCH (08:58)
[2023-03-29] MEDS: PANTOPRAZOLE 40MG TABLET PO SCH (08:58)
[2023-03-29 09:00] LABS: Absolute Lymphocytes (CBC) 0.8 K/uL (0.7-4.9); Hematocrit 31.4 % (36.0-45.0); MCV 92.4 fL (80-100); MPV 7.9 fL (7.6-11.3); Platelets 160 thou/uL (152-406)
[2023-03-29] MEDS: PREDNISOLONE 1% OPTH SOLN 5ML EACH EYE SCH (09:00)
[2023-03-29] MEDS: CEFTRIAXONE 1,000 MG in NA CHLORIDE 0.9% 50 ML IVPB SCH ×2 (09:05→21:20)
[2023-03-29 09:18] LABS: Magnesium 1.9 mg/dL (1.6-2.4); Potassium 4.5 mEq/L (3.5-5.1)
--- NOTE | 2023-03-29 21:06 | P.PN ---
Subjective Date of Service: 03/29/23 Chief Complaint: DYSURIA AND FEVER Subjective: Improving NICHOLAS IS A LTO BETTER. WANTS HER HOME MEDS SHE IS TOLD THAT NICHOLAS SHOUDL BE AT [facility] TWICE YEAR TO CLAIM ME PCP. SHE WAS LAST THERE1.5 YEARS. AGO NICHOLAS GETS HER MEDS FROM DR MERA OR DR. VALADEZ. ALLYSSA IS FEELING A LOT BETTER. DENIES PAIN. Review of Systems 10-point ROS is otherwise unremarkable General: Weakness Physical Examination - Vital Signs Temperature: 98.3 F Blood Pressure: 111/56 Pulse: 91 Respirations: 16 Pulse Ox (%): 96 - Physical Exam General: Oriented x3, Mild distress HEENT: Atraumatic, PERRLA, EOMI Neck: Supple, JVD not distended Respiratory: Clear to auscultation bilaterally, Normal air movement Cardiovascular: Regular rate/rhythm, Normal S1 S2 Gastrointestinal: Normal bowel sounds, No tenderness Musculoskeletal: No tenderness Integumentary: No rashes Neurological: Normal speech, Normal tone, Normal affect Lymphatics: No axilla or inguinal lymphadenopathy - Studies Microbiology Data (last 24 hrs): 03/27/23 14:11 Blood - Blood Blood Culture Gram Stain - Final 03/27/23 14:11 Blood - Blood Gram Stain - Final 03/27/23 14:20 Blood - Blood Blood Culture Gram Stain - Final 03/27/23 14:20 Blood - Blood Gram Stain - Final Medications List Reviewed: Yes Assessment And Plan - Current Problems (Diagnosis) (1) Acute pyelonephritis Current Visit: Yes Status: Acute Plan: IV ABX STOP CIPRO- LISTED ALLERGY HERE START ROCEPHIN IV BID CULTURE PENDING. IV HYDRATION. FOLLOWING IS HER HISTORY. SHE HAS NOT BEEN TO MY OFFICE SINCE AUG 2021. Osteoarthritis [M19.90 (715.90)] 2018 Cervical radiculitis [M54.12 (723.4)] 2018 Other specified hypothyroidism [E03.8 (244.8)] 2018 Irritable bowel syndrome [K58.9 (564.1), 564.1] 2018 Abnormal mammogram [R92.8 (793.80)] 2018 Other specified hypothyroidism [E03.8 (244.8)] 2018 Other specified hypothyroidism [E03.8 (244.8)] 2019 Chronic pancreatitis [K86.1 (577.1) 0.3] Last addressed: 09/19/20212019 Esophageal stenosis [K22.2 (530.3)] DR. RAYGOZA DID SURGERY EUS AND PULL SURGERY. DR. RAYGOZA DID SURGERY EUS AND PULL SURGERY. 2019 Dysphagia [R13.10 (787.20)] 2020 Protein calorie malnutrition [E46 (263.9) 0.5] Last addressed: 08/02/20212020 Chronic depression [F32.A (311)] CS POS I DPENDING. (2) Gram-neg septicemia Current Visit: Yes Status: Acute Plan: ID PENDING CONTIUE ROCEPHIN WBC IS DOWN TO 15K SHE HAS NO MORE TACHYCARDIA OR RIGORS.
[2023-03-29] MEDS: MIRTAZAPINE 15 MG TAB PO SCH (21:20)
[2023-03-30] MEDS: DIAZEPAM 5 MG TABLET PO PRN ×3 (05:17→22:57)
[2023-03-30] MEDS: HYDROCODONE/APAP 7.5/325 MG TAB PO SCH ×4 (05:17→22:56)
[2023-03-30] MEDS: LEVOTHYROXINE 0.075 MG PO SCH (06:00)
[2023-03-30] MEDS: CEFTRIAXONE 1,000 MG in NA CHLORIDE 0.9% 50 ML IVPB SCH ×2 (08:44→21:41)
[2023-03-30] MEDS: ESCITALOPRAM 20 MG TAB PO SCH (08:46)
[2023-03-30] MEDS: PANTOPRAZOLE 40MG TABLET PO SCH (08:46)
[2023-03-30] MEDS: PREDNISOLONE 1% OPTH SOLN 5ML EACH EYE SCH (08:47)
[2023-03-30] MEDS: ENOXAPARIN 40 MG/0.4 ML SQ SCH (08:47)
[2023-03-30] MEDS: BUPROPION HCL XL 150 MG TAB PO SCH (08:47)
[2023-03-30] MEDS: ZENPEP 40000 UNIT PO SCH ×3 (08:47→17:13)
[2023-03-30] MEDS: METOPROLOL XL 25 MG TAB PO SCH (08:47)
[2023-03-30 09:48] LABS: Absolute Lymphocytes (CBC) 1.1 K/uL (0.7-4.9); Hematocrit 34.8 % (36.0-45.0); Lymphocytes % 10.4 % (15.3-44.8); MCV 92.7 fL (80-100); Platelets 190 thou/uL (152-406); RBC Red Blood Cell Count 3.75 M/uL (3.86-4.86)
[2023-03-30 09:58] LABS: Potassium 4.3 mEq/L (3.5-5.1)
[2023-03-30] MEDS ORDERED: SUCRALFATE 1 GM TABLET PO SCH (11:30)
[2023-03-30] MEDS: SUCRALFATE 1 GM TABLET PO SCH ×2 (17:11→21:41)
--- NOTE | 2023-03-30 17:32 | P.PN ---
Subjective Date of Service: 03/30/23 Chief Complaint: DYSURIA AND FEVER Subjective: Improving SHE IS FEELING GREAT SHE HAS NO PAIN Review of Systems 10-point ROS is otherwise unremarkable General: Weakness Physical Examination - Vital Signs Temperature: 97.0 F Blood Pressure: 138/72 Pulse: 78 Respirations: 16 Pulse Ox (%): 96 - Physical Exam General: In no apparent distress, Oriented x3 HEENT: Atraumatic, PERRLA, EOMI Neck: Supple, JVD not distended Respiratory: Clear to auscultation bilaterally, Normal air movement Cardiovascular: Regular rate/rhythm, Normal S1 S2 Gastrointestinal: Normal bowel sounds, No tenderness Musculoskeletal: No tenderness Integumentary: No rashes Neurological: Normal speech, Normal tone, Normal affect Lymphatics: No axilla or inguinal lymphadenopathy - Studies Microbiology Data (last 24 hrs): 03/27/23 16:32 Clean Catch Urine [place] Count - Final >100,000 CFU/ML. 03/27/23 16:32 Clean Catch Urine - Final Escherichia Coli Gram Neg Papo 03/27/23 14:20 Blood - Blood Aerobic Blood Culture - Final Gram Neg Papo Escherichia Coli 03/27/23 14:20 Blood - Blood Blood Culture Gram Stain - Final 03/27/23 14:20 Blood - Blood Anaerobic Blood Culture - Final Gram Neg Papo Escherichia Coli 03/27/23 14:20 Blood - Blood Gram Stain - Final 03/27/23 14:11 Blood - Blood Aerobic Blood Culture - Final Gram Neg Papo Escherichia Coli 03/27/23 14:11 Blood - Blood Blood Culture Gram Stain - Final 03/27/23 14:11 Blood - Blood Anaerobic Blood Culture - Final Escherichia Coli 03/27/23 14:11 Blood - Blood Gram Stain - Final Medications List Reviewed: Yes Assessment And Plan - Current Problems (Diagnosis) (1) Acute pyelonephritis Current Visit: Yes Status: Acute Plan: IV ABX STOP CIPRO- LISTED ALLERGY HERE START ROCEPHIN IV BID CULTURE PENDING. IV HYDRATION. FOLLOWING IS HER HISTORY. SHE HAS NOT BEEN TO MY OFFICE SINCE AUG 2021. Osteoarthritis [M19.90 (715.90)] 2018 Cervical radiculitis [M54.12 (723.4)] 2018 Other specified hypothyroidism [E03.8 (244.8)] 2018 Irritable bowel syndrome [K58.9 (564.1), 564.1] 2018 Abnormal mammogram [R92.8 (793.80)] 2018 Other specified hypothyroidism [E03.8 (244.8)] 2018 Other specified hypothyroidism [E03.8 (244.8)] 2019 Chronic pancreatitis [K86.1 (577.1) 0.3] Last addressed: 09/19/20212019 Esophageal stenosis [K22.2 (530.3)] DR. RAYGOZA DID SURGERY EUS AND PULL SURGERY. DR. RAYGOZA DID SURGERY EUS AND PULL SURGERY. 2019 Dysphagia [R13.10 (787.20)] 2020 Protein calorie malnutrition [E46 (263.9) 0.5] Last addressed: 08/02/20212020 Chronic depression [F32.A (311)] CS POS I DPENDING. SHE IS ALLERGIC TO CIPRO, PCN AND SULFA WE HAVE NO ORAL ANTIBIOTIC OF CHOICE FOR HOME PER CULTURE REPORTS SHE WILL NEED IV ABX FOR 10 DAYS. (2) Gram-neg septicemia Current Visit: Yes Status: Acute Plan: ID PENDING MADELYN OWENS WBC IS DOWN TO 15K SHE HAS NO MORE TACHYCARDIA OR RIGORS.
[2023-03-30] MEDS: MIRTAZAPINE 15 MG TAB PO SCH (21:41)
[2023-03-31] MEDS: HYDROCODONE/APAP 7.5/325 MG TAB PO SCH ×2 (05:15→11:00)
[2023-03-31] MEDS: LEVOTHYROXINE 0.075 MG PO SCH (05:45)
[2023-03-31] MEDS: CEFTRIAXONE 1,000 MG in NA CHLORIDE 0.9% 50 ML IVPB SCH (08:32)
[2023-03-31] MEDS: BUPROPION HCL XL 150 MG TAB PO SCH (08:32)
[2023-03-31] MEDS: PREDNISOLONE 1% OPTH SOLN 5ML EACH EYE SCH (08:33)
[2023-03-31] MEDS: ESCITALOPRAM 20 MG TAB PO SCH (08:33)
[2023-03-31] MEDS: PANTOPRAZOLE 40MG TABLET PO SCH (08:33)
[2023-03-31] MEDS: SUCRALFATE 1 GM TABLET PO SCH ×2 (08:33→11:00)
[2023-03-31] MEDS: ZENPEP 40000 UNIT PO SCH ×2 (08:33→11:00)
[2023-03-31] MEDS: ENOXAPARIN 40 MG/0.4 ML SQ SCH (08:33)
[2023-03-31] MEDS: METOPROLOL XL 25 MG TAB PO SCH (08:34)
[2023-03-31] MEDS ORDERED: HOME MED 1 EA UNK (Estradiol [Estrace] 42.5 GM Cream.Appl) TOP SCH (09:00)
[2023-03-31] MEDS: DIAZEPAM 5 MG TABLET PO PRN (10:59)
--- NOTE | 2023-03-31 11:26 | P.DS ---
Admission Date: 03/27/23 Discharge Date: 03/31/23 Disposition: ROUTINE DISCHARGE Discharge Condition: FAIR Reason for Admission: DYSURIA AND FEVER - Problems (1) Acute pyelonephritis Current Visit: Yes Status: Acute (2) Gram-neg septicemia Current Visit: Yes Status: Acute Brief History of Present Illness: ALLYSSA HAS HAD FEW MEDICAL ISSUES BELOW BUT SHE HAS NOT BEEN TO MY OFFICE FOR 1.5 YEARS. SHE COMES TO ER WITH CHILS, FEVER AND ABDOMEN PAIN. SHE IS FOUND TO UTI WITH PYELONEPHRITIS. Hospital Course: ALLYSSA IS STABLE. NO PAIN. NO FEVER. SHE HAD PICC LINE. WE ARE WAITING FOR HOME ANTIBIOTIC DELIVERY. Vital Signs/Physical Exam: Temp Pulse Resp BP Pulse Ox 97.8 F 77 14 135/69 92 03/31/23 08:00 03/31/23 08:00 03/31/23 08:00 03/31/23 08:00 03/31/23 08:00 General: Alert, In no apparent distress HEENT: Atraumatic, PERRLA, EOMI Neck: Supple, JVD not distended Respiratory: Clear to auscultation bilaterally, Normal air movement Cardiovascular: Regular rate/rhythm, Normal S1 S2 Gastrointestinal: Normal bowel sounds, No tenderness Musculoskeletal: No tenderness Integumentary: No rashes Neurological: Normal speech, Normal tone, Normal affect Lymphatics: No axilla or inguinal lymphadenopathy Laboratory Data at Discharge: WBC 10.90 thou/uL (4.3-10.9) 03/30/23 09:00 Hgb 11.7 g/dL (12.0-15.0) L D 03/30/23 09:00 Hct 34.8 % (36.0-45.0) L 03/30/23 09:00 Plt Count 190 thou/uL (152-406) 03/30/23 09:00 Sodium 134 mEq/L (136-145) L 03/30/23 09:00 Potassium 4.3 mEq/L (3.5-5.1) 03/30/23 09:00 BUN 12 mg/dL (7-18) 03/30/23 09:00 Creatinine 0.85 mg/dL (0.55-1.02) 03/30/23 09:00 Glucose 94 mg/dL (74-106) 03/30/23 09:00 Magnesium 1.9 mg/dL (1.6-2.4) 03/29/23 08:43 Total Bilirubin 0.8 mg/dL (0.2-1.0) 03/27/23 14:07 AST 93 U/L (15-37) H 03/27/23 14:07 ALT 96 U/L (13-56) H 03/27/23 14:07 Alkaline Phosphatase 121 U/L (45-117) H 03/27/23 14:07 Lipase 21 U/L (13-75) 03/27/23 14:07 Home Medications: Bupropion *Xl* [Wellbutrin XL*] 150 mg PO DAILY 03/28/23 Diazepam [Valium] 5 mg PO TID 03/28/23 Escitalopram [Lexapro*] 30 mg PO DAILY 03/28/23 Estradiol [Estrace] 1 appl VG EVERY 7TH DAY 03/28/23 Hydrocodone Bit/Acetaminophen [Hydrocodon-Acetaminoph 7.5-325] 1 tab PO QID 03/28/23 Levothyroxine Sodium [Synthroid] 75 mcg PO DAILY 03/28/23 Lipase/Protease/Amylase [Zenpep Dr 40,000 Unit Capsule] 80,000 units PO SEECOM 03/28/23 Metoprolol Succinate 12.5 mg PO DAILY 03/28/23 Mirtazapine 7.5 mg PO BEDTIME 03/28/23 Omeprazole 20 mg PO DAILY 03/28/23 Prednisol Acet 1% Opth [Pred Forte 1%*] 1 drops EACH EYE DAILY 03/28/23 Ciprofloxacin HCl [Cipro 250 MG Tablet*] 250 mg PO BID #20 tab 03/30/23 New Medications: Ciprofloxacin HCl [Cipro 250 MG Tablet*] 250 mg PO BID #20 tab Followup: Madi Ramon MD [Primary Care Provider] -
[2023-03-31 12:25] VITALS: BP 144/70; TEMP 98.8
--- NOTE | 2023-04-01 18:55 | RAD REPORT ---
EXAM DESCRIPTION: RAD - Chest Single View - 03/31/2023 12:13 am CLINICAL HISTORY: 77 years Female, s/p PICC insertion COMPARISON: None. FINDINGS: Single portable AP of the chest. Left upper extremity PICC line tip projects over the SVC. Normal size of the cardiac silhouette. No pulmonary vascular congestion. No consolidation. No pleura l effusion or pneumothorax. No acute osseous abnormality IMPRESSION: Left upper extremity PICC line tip projects over the SVC. Electronically signed by: Laquita Matthews MD 03/31/2023 1:20 AM CDT Due to temporary technical issues with the PACS/Fluency reporting system, reports are being signed by the in house radiologists without review as a courtesy to insure prompt reporting. The interpreting radiologist is fully responsible for the content of the report.
== END 2023-03-31 15:08 | disposition home health service (06) | DRG 872 ==
LOC: ER 12:54 → ERHOLD 17:54 → 4TH 20:12
PROVIDERS: ADMIT Internal Medicine; ATTEND Internal Medicine
PROC: 02HV33Z Insertion of Infusion Device into Superior Vena Cava, Percutaneous Approach (ICD-10-PCS; principal; 2023-03-30)
DX: A41.50 Gram-negative sepsis, unspecified (principal); N10 Acute pyelonephritis; E03.9 Hypothyroidism, unspecified; K58.9 Irritable bowel syndrome, unspecified; Z88.0 Allergy status to penicillin; Z88.1 Allergy status to other antibiotic agents; Z88.8 Allergy status to other drugs, medicaments and biological substances; Z88.2 Allergy status to sulfonamides; Z91.048 Other nonmedicinal substance allergy status
CPT/HCPCS: 36415; 36569; 71045; 74177; 80048; 80053; 81001; 83605; 83690; 83735; 85025; 87040; 87077; 87086; 87088; 87186; 87205; 93005; 99285; J0696; J0744; J1200; J1650; J2405; J7030; Q9967

== ENCOUNTER 2024-10-01 17:48 | Observation (INO) | payer OTHER, MEDICARE ==
--- OUTSIDE RECORDS SUMMARY | 2024-10-01 17:52 | XMS REPORT | Clinical Summary ---
Author Name Unknown Organization [facility] Address [address] [place] [address] Care Team Providers Care Disability Coordinator Name Role Phone Sylvia Ladd MD Primary Care Provider + [phone] Allergies Active Allergy Reactions Criticality Noted Date Comments Adhesive 02/04/2024 Prochlorperazine 02/04/2024 Egg Derived Anaphylaxis High 02/04/2024 "Any vaccine with egg" Penicillins Anaphylaxis High 02/04/2024 Sulfa (Sulfonamide Antibiotics) Rash Low 02/04/2024 Chlorpromazine 02/04/2024 Medications Zenpep 40,000-126,000- 168,000 unit cpDR TK 2 CS PO TID WITH MEALS AND 1 C WITH EACH SNACK 7 Active HYDROcodone-ed taminophen (NORCO) 7.5 mg-325 mg per tablet TAKE 1 TABLET BY MOUTH FOUR TIMES DAILY Active diazePAM (VALIUM) 2 mg tablet TAKE 2 TABLETS BY MOUTH THREE TIMES DAILY Active levothyroxine (TIROSINT) 88 mcg capsule = 1 tab, PO, Daily, 0 Refill(s) 4 Active prednisoLONE acetate (PRED FORTE) 1% ophthalmic suspension SHAKE WELL AND INSTILL 1 DROP IN THE LEFT EYE DAILY 6 Active estradiol (ESTRACE) 0.1 mg/g (0.01%) vaginal cream See Instructions, Insert 2-4 gm vaginally at bedtime nightly x 2 weeks then reduce dose, # 1 tube, 0 Refill(s) 8 Active escitalopram (LEXAPRO) 20 mg tablet 20 mg = 1 tab, PO, Daily, # 90 tab, 0 Refill(s) 2 Active buPROPion (WELLBUTRIN XL) 300 mg 24 hr tablet 0 Refill(s) 3 Active omeprazole (PriLOSEC) 20 mg capsule Take 1 capsule (20 mg) by mouth. 3 Active ondansetron (ZOFRAN) 4 mg tablet Take 1 tablet (4 mg) by mouth. 3 Active sucralfate (CARAFATE) 100 mg/mL suspension 1 gm = 10 ml, PO, Before Meals & Bedtime, # 200 ml, 1 Refill(s) 1 Active mirtazapine (REMERON) 7.5 mg tablet Take 1 tablet (7.5 mg) by mouth. 2 Active Encounters Date Type Department Care Team Description 02/04/2024 1:30 PM CDT Office Visit [facility] - Dermatology [address] [place] [address], [address] [place] [address] Sylvia Ladd MD Melanocytic nevus of trunk (Primary Dx); Other seborrheic keratosis; Senile angioma; Cyst of skin 02/04/2024 1:00 PM CDT NPR MDA PATIENT ACCESS Sylvia Ladd MD 02/04/2024 Travel 10/03/2023 Travel after 10/02/2023 Immunizations Name Administration Dates Next Due Moderna SARS-CoV-2 Vaccination 04/14/2021,2020,09/09/2020 Surgical History Surgery Date Site/Laterality Comments APPENDECTOMY 1975 BACK SURGERY 1999,2000 neck, plate, and then rods CHOLECYSTECTOMY 2008 HYSTERECTOMY 08/20/1975 - 08/19/1976 1 ovary remained, left ovary removed 1984 CATARACT EXTRACTION W/ INTRAOCULAR LENS IMPLANT 08/20/1989 - 08/19/1990 Left CATARACT EXTRACTION W/ INTRAOCULAR LENS IMPLANT 10/18/2022 - 11/17/2022 Right Medical History Medical History Date Comments Allergic rhinitis 2011 ??? Swallowing problem 2019 Pancreatitis 2017 Hypothyroidism 1990 Depressive disorder 2016 Anxiety 2019 Herpes zoster 2020 Covid-19 09/2023 Family History Medical History Relation Name Comments Colon cancer Brother Charly Colón Throat cancer Maternal Grandfather Relation Name Status Comments Brother Charly Colón Alive Maternal Grandfather Social History Tobacco Use Types Packs/Day Years Used Date Smoking Tobacco: Never Smokeless Tobacco: Never Alcohol Use Standard Drinks/Week Comments Not Currently 0 (1 standard drink = 0.6 oz pur e alcohol) stopped 2016 Comments Unknown Sex and Gender Information Value Date Recorded Sex Assigned at Female 10/03/2023 12:26 PM [employer] Legal Sex Female 12:13 PM [employer] Gender Identity Female 10/03/2023 12:26 PM [employer] Sexual Orientation Straight 10/03/2023 12 :26 PM [employer] Obstetrics History Last Filed Vital Signs Vital Sign Reading Time Taken Comments Blood Pressure 108/63 02/04/2024 2:04 PM CDT Pulse 93 02/04/2024 2:04 PM CDT Temperature - - Respiratory Rate 12 02/04/2024 2:04 PM CDT Oxygen Saturation - - Inhaled Oxygen Concentration - - Weight 56.6 kg (124 lb 12.5 oz) 02/04/2024 2:04 PM CDT Height 156 cm (5' 1.42") 02/04/2024 2:04 PM CDT Body Mass Index 23.26 02/04/2024 2:04 PM CDT Plan of Treatment Health Maintenance Due Date Last Done Comments Pneumococcal Vaccine: 50+ Ye ars (1 of 1 - PCV) 1995 COVID-19 Vaccine ( season) 2024 04/14/2021, 10/06/2020, 09/09/2020 Influenza Vaccine (#1) 2024 05/16/2022, 2020 Insurance MEDICARE PART A AND B Member Subscriber Plan / Payer (Ef fective 2001-Present) Name:Billie Hutchinson Member ID:[id number] Relation to Subscriber:Self Name:Billie Hutchinson Subscriber ID:[id number] Payer ID:[id number] Group ID:Not on file Type:Medicare Address: [email or web address] [address] [place] [address] AARP-SECONDARY ONLY MEDICARE PART A AND B AARP-SECONDARY ONLY Care Teams Disability Coordinator Relationship Specialty Start Date End Date Sylvia Ladd MD [address] [place] [address] [email or web address] PCP - General Dermatology 10/05/23
[2024-10-01] MEDS ORDERED: LOPERAMIDE HCL 2 MG CAPSULE PO PRN (21:01)
[2024-10-01] MEDS ORDERED: ACETAMINOPHEN 325 MG TABLET PO PRN (21:01)
[2024-10-01] MEDS ORDERED: POLYETHYL GLY 3350 17 GM/DOSE PO PRN (21:01)
[2024-10-01] MEDS ORDERED: DIPHENHYDRAMINE 25 MG TAB/CAP PO PRN (21:01)
[2024-10-01] MEDS ORDERED: ONDANSETRON 4 MG/2 ML VIAL IV PRN (21:13)
[2024-10-01 21:21] VITALS: BMI 23.1
--- NOTE | 2024-10-01 21:52 | RAD REPORT ---
EXAMINATION: TWO VIEW CHEST XR CLINICAL INDICATION: direct admit, per orders TECHNIQUE: 2 views of the chest was performed. COMPARISON: 03/31/2023 FINDINGS: The lungs are well inflated and clear. The heart is normal in size. No displaced fractures evident. C ervical hardware in place. IMPRESSION: No acute or significant abnormalities.
[2024-10-01] MEDS: NACHLORIDE 0.45% 1,000 ML IV SCH (22:08)
[2024-10-01] MEDS: CEFEPIME 1 GM in NA CHLORIDE 0.9% 100 ML IV SCH (22:31)
[2024-10-01 23:17] LABS: Absolute Eosinophils 0.1 K/uL (0-0.5); Absolute Lymphocytes (CBC) 1.7 K/uL (0.7-4.9); Absolute Monocytes 0.6 K/uL (0.1-1.3); Absolute Neutrophil 4.5 K/uL (1.8-8.0); Basophils % 0.4 % (0-1.3); Hematocrit 35.1 % (36.0-45.0); Hemoglobin 12.2 g/dL (12.0-15.0); Lymphocytes % 24.6 % (15.3-44.8); MCH 32.9 pg (27.0-35.0); MCHC 34.7 g/dL (32.0-36.0); MCV 94.6 fL (80-100); MPV 8.1 fL (7.6-11.3); Monocytes % 8.7 % (3.3-12.3); Neutrophils % 65.3 % (41.7-73.7); Platelets 185 thou/uL (152-406); RBC Red Blood Cell Count 3.71 M/uL (3.86-4.86); Red Cell Distribution Width 13.9 % (12.1-15.2)
[2024-10-02 00:39] LABS: ALT/SGPT 25 U/L (13-56); Albumin 3.2 g/dL (3.4-5.0); Albumin/Globulin Ratio 0.9 (1.1-1.8); Alkaline Phosphatase 72 U/L (45-117); Anion Gap 7.9 mEq/L (5.0-15.0); BUN Blood Urea Nitrogen 19 mg/dL (7-18); Bicarbonate 30 mEq/L (21-32); Bilirubin Total 0.2 mg/dL (0.2-1.0); Globulin 3.4 g/dL (2.3-3.5); Glomerular Filtration Rate 58 ml/min (=/>90); Glucose Level 106 mg/dL (74-106); Phosphorus 2.9 mg/dL (2.5-4.9); Protein, Total 6.6 g/dL (6.4-8.2); Sodium Level 128 mEq/L (136-145)
[2024-10-02 00:41] LABS: AST/SGOT 20 U/L (15-37); Bilirubin Direct < 0.2 mg/dL (0-0.2); Potassium 3.9 mEq/L (3.5-5.1)
[2024-10-02 03:36] LABS: Specific Gravity 1.009 (1.005-1.030); Sqamous Epithelial <5 /HPF (None Seen); Urine Bacteria None Seen /HPF (<20); Urine Bilirubin NEGATIVE (Negative); Urine Blood Negative (Negative); Urine Clarity Clear (Clear); Urine Color Light-Yellow (Yellow); Urine Crystals Unidentified Few /HPF (None Seen); Urine Culture Reflex Order NOT NEEDED; Urine Glucose NEGATIVE (Negative); Urine Ketones NEGATIVE (Negative); Urine Microscopic Reflex YN ORDER UMIC; Urine Nitrite NEGATIVE (Negative); Urine Protein NEGATIVE (Negative); Urine RBC <5 /HPF (None Seen); Urine Urobilinogen Normal (Normal); Urine WBC <5 /HPF (<5)
[2024-10-02 04:57] LABS: Absolute Eosinophils 0.1 K/uL (0-0.5); Absolute Lymphocytes (CBC) 1.6 K/uL (0.7-4.9); Absolute Monocytes 0.5 K/uL (0.1-1.3); Absolute Neutrophil 3.5 K/uL (1.8-8.0); Basophils % 0.3 % (0-1.3); Eosinophils % 1.2 % (0-4.4); Hematocrit 31.8 % (36.0-45.0); Hemoglobin 11.1 g/dL (12.0-15.0); Lymphocytes % 28.7 % (15.3-44.8); MCH 32.9 pg (27.0-35.0); MCHC 34.8 g/dL (32.0-36.0); MCV 94.4 fL (80-100); MPV 7.7 fL (7.6-11.3); Monocytes % 8.1 % (3.3-12.3); Neutrophils % 61.7 % (41.7-73.7); Nucleated Red Blood Cells % 0.1 % (0-0); Platelets 153 thou/uL (152-406); RBC Red Blood Cell Count 3.36 M/uL (3.86-4.86)
[2024-10-02 05:34] LABS: Anion Gap 7.9 mEq/L (5.0-15.0); Potassium 3.9 mEq/L (3.5-5.1)
--- NOTE | 2024-10-02 08:59 | RAD REPORT ---
EXAMINATION: CT ABDOMEN AND PELVIS WITH CONTRAST CLINICAL INDICATION: abdominal pain TECHNIQUE: CT abdomen and pelvis was performed, after the administration of IV contrast, as per [facility] protocol. Axial, sagittal and coronal reconstructions were obtained. One or more of the following dose reduction techniques were used: Automated exposure control, adjustment of the mA and k V according to patient size, and iterative reconstruction. Unless otherwise specified, incidental findings do not require dedicated imaging follow-up. COMPARISON: No prior exam. FINDINGS: LOWER CHEST: The visualized lung bases are clear. Small hiatal hernia. LIVER: 9 mm benign appearing cyst lateral right lobe of the liver. No aggressive liver lesion. Intrah epatic biliary tree is mildly prominent. Cholecystectomy clips. SPLEEN: Normal size. No focal lesion. PANCREAS: No mass, ductal dilation, or mikal-pancreatic fluid. ADRENALS: Normal; no mass. KIDNEYS: Normal size and contour. No hydronephrosis. GASTROINTESTINAL TRACT: No evidence of free air, significant intra-abdominal free fluid, bowel obstru ction or abscess. Moderate sigmoid diverticulosis coli without diverticulitis. APPENDIX: Appendix not visualized, but no inflammatory changes in region of appendix. LYMPH NODES: No lymphadenopathy. MUSCULOSKELETAL: Mild multilevel spinal degenerative changes. ADDITIONAL FINDINGS: None. IMPRESSION: No acute or concerning abnormalities seen in the abdomen or pelvis. Moderate sigmoid diverticulosis coli without diverticulitis.
[2024-10-02] MEDS ORDERED: CEFEPIME 1 GM in NA CHLORIDE 0.9% 100 ML IV SCH (09:00)
[2024-10-02] MEDS: ENOXAPARIN 40 MG/0.4 ML SQ SCH (09:44)
[2024-10-02] MEDS ORDERED: HOME MED 1 EA UNK (Mirtazapine [Mirtazapine] 7.5 MG Tablet) PO PRN (12:55)
[2024-10-02] MEDS ORDERED: ONDANSETRON 4 MG (ODT) TAB PO PRN (12:55)
[2024-10-02] MEDS ORDERED: SUCRALFATE 1GM/10ML UCUP PO PRN (12:55)
[2024-10-02] MEDS ORDERED: AMYLASE PO SCH (13:00)
[2024-10-02] MEDS: DIAZEPAM 5 MG TABLET PO SCH (13:00)
[2024-10-02] MEDS ORDERED: LIPASE PO SCH (13:00)
[2024-10-02] MEDS ORDERED: PROTEASE PO SCH (13:00)
[2024-10-02] MEDS: HYDROCODONE/APAP 7.5/325 MG TAB PO SCH (13:35)
--- NOTE | 2024-10-02 16:28 | P.DS ---
Admission Date: 10/01/24 Discharge Date: 10/02/24 Disposition: ROUTINE DISCHARGE Brief History of Present Illness: SHE COMPLAINED OF NAUSEA AND GEN ABDOMEN PAIN, WAS TENDER ALSO. SHE IS NOT TENDER ANY LONGER. US ISNEG. CT IS NEG AND SHE IS STABLE TO GO HOME. Vital Signs/Physical Exam: Temp Pulse Resp BP Pulse Ox 97.5 F 80 16 137/57 L 94 10/02/24 12:00 10/02/24 12:00 10/02/24 12:00 10/02/24 12:00 10/02/24 12:00 Laboratory Data at Discharge: WBC 5.70 thou/uL (4.3-10.9) 10/02/24 04:29 Hgb 11.1 g/dL (12.0-15.0) L D 10/02/24 04:29 Hct 31.8 % (36.0-45.0) L 10/02/24 04:29 Plt Count 153 thou/uL (152-406) 10/02/24 04:29 PT Cancelled 10/01/24 Unknown INR Cancelled 10/01/24 Unknown APTT Cancelled 10/01/24 Unknown Sodium 128 mEq/L (136-145) L 10/02/24 04:29 Potassium 3.9 mEq/L (3.5-5.1) 10/02/24 04:29 BUN 15 mg/dL (7-18) 10/02/24 04:29 Creatinine 0.94 mg/dL (0.55-1.02) 10/02/24 04:29 Glucose 96 mg/dL (74-106) 10/02/24 04:29 Phosphorus 2.9 mg/dL (2.5-4.9) 10/01/24 22:54 Magnesium 2.0 mg/dL (1.6-2.4) 10/02/24 04:29 Total Bilirubin 0.2 mg/dL (0.2-1.0) 10/01/24 22:54 AST 20 U/L (15-37) 10/01/24 22:54 ALT 25 U/L (13-56) 10/01/24 22:54 Alkaline Phosphatase 72 U/L (45-117) 10/01/24 22:54 Home Medications: Bupropion *Xl* [Wellbutrin XL*] 300 mg PO DAILY 03/28/23 Diazepam [Valium] 2 mg PO QID 03/28/23 Escitalopram [Lexapro*] 20 mg PO DAILY 03/28/23 Estradiol [Estrace] 1 appl VG EVERY 7TH DAY 03/28/23 Hydrocodone Bit/Acetaminophen [Hydrocodon-Acetaminoph 7.5-325] 1 tab PO QID 03/28/23 Levothyroxine Sodium [Synthroid] 88 mcg PO DAILY 03/28/23 Lipase/Protease/Amylase [Zenpep Dr 40,000 Unit Capsule] 80,000 units PO SEECOM 03/28/23 Metoprolol Succinate 25 mg PO DAILY 03/28/23 Mirtazapine 7.5 mg PO BEDTIME PRN 03/28/23 Omeprazole 20 mg PO DAILY 03/28/23 Prednisol Acet 1% Opth [Pred Forte 1%*] 1 drops EACH EYE DAILY 03/28/23 Ondansetron [Zofran] 4 mg PO PRN PRN 10/02/24 Sucralfate [Carafate] 1 gm PO PRN PRN 10/02/24 Followup: Madi Ramon MD [Primary Care Provider] - 1-2 Weeks
[2024-10-02 17:20] VITALS: BP 114/58; TEMP 98.1
[2024-10-02] MEDS: PNEUMOCOCCAL VACCINE 0.5 ML IMVAC ONE (18:01)
[2024-10-03] MEDS ORDERED: LEVOTHYROXINE SOD 0.088 MG TAB PO SCH (06:30)
[2024-10-03] MEDS ORDERED: ESCITALOPRAM 20 MG TAB PO SCH (09:00)
[2024-10-03] MEDS ORDERED: METOPROLOL XL 25 MG TAB PO SCH (09:00)
[2024-10-03] MEDS ORDERED: PREDNISOLONE 1% OPTH SOLN 5ML EACH EYE SCH (09:00)
[2024-10-03] MEDS ORDERED: BUPROPION HCL XL 150 MG TAB PO SCH (09:00)
[2024-10-03] MEDS ORDERED: HOME MED 1 EA UNK (Omeprazole [Omeprazole] 20 MG Capsule.Dr) PO SCH (09:00)
== END 2024-10-02 18:28 | disposition home or self-care (01) ==
LOC: ERHOLD 17:48 → 2ND 17:53
PROVIDERS: ADMIT Internal Medicine; ATTEND Internal Medicine
DX: R10.84 Generalized abdominal pain (principal); R11.0 Nausea; Z88.0 Allergy status to penicillin; Z88.2 Allergy status to sulfonamides; Z88.1 Allergy status to other antibiotic agents; Z87.440 Personal history of urinary (tract) infections
CPT/HCPCS: 93005; 87040; 85025 ×2; 81001; 80048 ×2; 36415 ×2; 83735 ×2; 84100; 80076; 84443; 84439; 82607; 82306; 74177; 71046; 90471; Q9967; J1650; J0692 ×2; G0379; G0378 ×2

== ENCOUNTER 2025-05-18 07:22 | Day surgery (SDC) | payer OTHER, MEDICARE ==
[2025-05-18] MEDS ORDERED: COSYNTROPIN 0.25 MG VIAL IM ONE (08:00)
[2025-05-18] MEDS: COSYNTROPIN 0.25 MG VIAL IV ONE (08:10)
[2025-05-18 09:02] VITALS: BP 145/83; TEMP 97.3; O2SAT 97; BMI 22.3
== END 2025-05-18 10:00 | disposition home or self-care (01) ==
LOC: DS 07:22
PROVIDERS: ATTEND Internal Medicine
DX: E87.1 Hypo-osmolality and hyponatremia (principal)
CPT/HCPCS: 36415; 82533 ×4; 82024; 96372; J0834